=== PATIENT | female | born 1980 | race American Indian/Alaskan Native ===

== ENCOUNTER 2016-10-09 13:42 | Inpatient (IN) | payer OTHER ==
[2016-10-09] MEDS ORDERED: PROPOFOL 100 ML ONE ×2 (13:45→19:36)
[2016-10-09] MEDS ORDERED: ETOMIDATE 20 MG/10 ML AMPUL IVPUSH ONE ×5 (13:45→14:30)
[2016-10-09] MEDS ORDERED: RAPID SEQUENCE INTUBATION KIT NR ONE (13:49)
[2016-10-09] MEDS: PROPOFOL 100 ML IVPB SCH (13:50)
[2016-10-09] MEDS ORDERED: ALBUTEROL SO4 0.083% IH SOL 2.5 MG/3 ML VIAL.NEB. NEB ONE ×3 (14:03→15:06)
[2016-10-09] MEDS ORDERED: EPINEPHrine/PF 1 MG/1 ML (1:1,000) AMPULE ONE (14:11)
[2016-10-09] MEDS ORDERED: DEXAMETHASONE SOD PHOSPHATE 10 MG/1 ML VIAL ONE (14:11)
[2016-10-09] MEDS ORDERED: MAGNESIUM SULF 50% (8.12 MEQ/2 ML-1 GM VIAL) ONE (14:12)
[2016-10-09] MEDS ORDERED: SUCCINYLCHOLINE CHLORIDE 200 MG/10 ML VIAL ONE (14:12)
[2016-10-09] MEDS: ALBUTEROL SO4 2.5/IPRATROPIUM 0.5 INH SOL 3 ML VIAL.NEB. NEB SCH ×4 (14:15→15:00)
[2016-10-09] MEDS ORDERED: PROPOFOL 200 MG/20 ML VIAL IVPUSH ONE (14:15)
[2016-10-09] MEDS ORDERED: SUCCINYLCHOLINE CHLORIDE 200 MG/10 ML VIAL IVPUSH ONE (14:15)
[2016-10-09] MEDS ORDERED: methylPREDNISolone NA SUCC 125 MG/2 ML VIAL IVPB ONE (14:15)
[2016-10-09] MEDS ORDERED: SODIUM CHLORIDE 1,000 ML IV STA ×2 (14:15→18:53)
[2016-10-09] MEDS ORDERED: methylPREDNISolone NA SUCC 125 MG/2 ML VIAL ONE (14:20)
[2016-10-09] MEDS ORDERED: ROCURONIUM BROMIDE 50 MG/5 ML VIAL IVPUSH ONE (14:26)
[2016-10-09] MEDS ORDERED: AZITHROMYCIN IVPB 500 MG in DEXTROSE 5%-WATER - 250 ML IVPB ONE (14:37)
[2016-10-09] MEDS ORDERED: CEFTRIAXONE 1 GM in DEXTROSE 5%-WATER - 50 ML IVPB ONE (14:37)
[2016-10-09 15:04] LABS: BASOPHIL 0.8 % (0-2.0); EOSINOPHIL 10.3 % (0-4.5); MCH 29.8 pg (25.7-33.7); MCHC 32.5 g/dl (32.0-36.0); MEAN CELL VOLUME 91.7 fl (80-96); MEAN PLT VOLUME 9.1 fl (7.5-11.1); NEUTROPHILS 65.7 % (42.8-82.8); PLATELET COUNT 342 K/MM3 (134-434); RDW 13.8 % (11.6-15.6); WHITE BLOOD COUNT 13.8 K/mm3 (4.0-10.0)
--- NOTE | 2016-10-09 15:13 | PDOC ---
History of Present Illness <Narinder Perez - Last Filed: 10/09/16 15:04> - General History Source: EMS, Family Exam Limitations: Intubated - History of Present Illness Initial Comments: 10/09/16 15:25 The patient is a 36 year old female brought via EMS and presenting with her sister, with a significant past medical history of asthma, pneumonia and autism , who presents to the emergency department with asthma exacerbation onset today. The patient was brought in intubated at 1:40pm. As per EMS, they administered 0.3 Epi IM, 10 mg decadron, 20 of etomidate. They note that when they arrived on the scene the patient had an O2 saturation in the 40s, as well as wheezing inspiratory and expiratory wheezing. The patient's sister notes that the patient had an initial asthma exacerbation at 10am this morning and gave the patient duonebs, which mildly relieved the symptoms She notes that the patient had another exacerbation episode, which she treated with duonebs once again, as well as prednisone. The episode lasted 10 minutes before the patient collapsed and EMS was activated. The sister states that the patient also had a productive cough today. Allergies: None Past surgical history: None reported Social history: No alcohol, tobacco or drug use reported <Skip Gann - Last Filed: 10/09/16 16:59> - General Chief Complaint: Respiratory Arrest Stated Complaint: Respiratory Arrest Time Seen by Provider: 10/09/16 14:11 Past History - Past Medical History Anemia: No Asthma: Yes (with intubation) Cancer: No Cardiac Disorders: No CVA: No COPD: No CHF: No Dementia: No Diabetes: No GI Disorders: No Disorders: No HTN: No Hypercholesterolemia: No Liver Disease: No Psychiatric Problems: Yes (AUTISM) Seizures: No Thyroid Disease: No - Surgical History Abdominal Surgery: No Appendectomy: No Cardiac Surgery: No Cholecystectomy: No Lung Surgery: No Neurologic Surgery: No Orthopedic Surgery: No - Immunization History Immunization Up to Date: Yes - Psycho/Social/Smoking Cessation Hx Anxiety: No Suicidal Ideation: No Smoking Status: No Smoking History: Never smoked Have you smoked in the past 12 months: No Number of Cigarettes Smoked Daily: 0 Information on smoking cessation initiated: No Hx Alcohol Use: No Drug/Substance Use Hx: No Substance Use Type: None Hx Substance Use Treatment: No <Narinder Perez - Last Filed: 10/09/16 15:04> <Skip Gann - Last Filed: 10/09/16 16:59> - Past Medical History Allergies/Adverse Reactions: Allergies Allergy/AdvReac Type Severity Reaction Status Date / Time haloperidol [From Haldol] Allergy Verified 10/09/16 14:08 haloperidol lactate Allergy Verified 10/09/16 14:08 [From Haldol] Home Medications: Ambulatory Orders Albuterol 2.5/Ipratropium 0.5 [Duoneb -] 1 neb NEB QIDR #100 vial 08/11/14 Budesonide [Pulmicort 0.5 mg Nebulizer -] 1 neb NEB BID #60 vial 01/20/16 Polyethylene Glycol 3350 [Miralax (For Daily Use) -] 17 gm PO DAILY 10/09/16 Prednisone [Deltasone -] 20 mg PO BID 10/09/16 Review of Systems - Review of Systems Able to Perform ROS?: No Comments:: 10/09/16 15:21 Unable to obtain ROS due to the patient being intubated <Skip Gann - Last Filed: 10/09/16 16:59> *Physical Exam - Vital Signs Last Vital Signs Temp Pulse Resp BP Pulse Ox 96.7 F L 130 H 18 103/73 100 10/09/16 13:58 10/09/16 14:56 10/09/16 13:58 10/09/16 14:56 10/09/16 13:58 <Narinder Perez - Last Filed: 10/09/16 15:04> - Vital Signs Last Vital Signs Temp Pulse Resp BP Pulse Ox 96.7 F L 130 H 18 103/73 100 10/09/16 13:58 10/09/16 14:56 10/09/16 13:58 10/09/16 14:56 10/09/16 13:58 - Physical Exam Comments: 10/09/16 16:58 GENERAL: (+) Obtunded and intubated, very difficult to bag manually and not returning any volumes on ventilator HEAD: No signs of trauma, normocephalic, atraumatic EYES: PERRLA, EOMI, sclera anicteric, conjunctiva clear ENT: Auricles normal inspection, hearing grossly normal, nares patent, oropharynx clear without exudates. Moist mucosa NECK: Normal ROM, supple, no lymphadenopathy, JVD, or masses LUNGS: (+) Audible wheeze, very prolonged expiratory respiration in all cool. HEART: Regular rate and rhythm, normal S1 and S2, no murmurs, rubs or gallops, peripheral pulses normal and equal bilaterally. ABDOMEN: Soft, nontender, normoactive bowel sounds. No guarding, no rebound. No masses EXTREMITIES: Normal inspection, Normal range of motion, no edema. No clubbing or cyanosis. NEUROLOGICAL: (+) Deferred due to patient intubation. SKIN: Warm, Dry, normal turgor, no rashes or lesions noted. <Skip Gann - Last Filed: 10/09/16 16:59> ED Treatment Course - LABORATORY CBC & Chemistry Diagram: 10/09/16 14:50 10/09/16 14:50 - RADIOLOGY Radiology Studies Ordered: Category Date Time Status CHEST X-RAY PORTABLE* [RAD] Stat Radiology 10/09/16 13:53 Completed CXRPORT [CHEST X-RAY PORTABLE*] [RAD] Stat Radiology 10/09/16 14:11 Completed <Narinder Perez - Last Filed: 10/09/16 15:04> - LABORATORY CBC & Chemistry Diagram: 10/09/16 14:50 10/09/16 14:50 - ADDITIONAL ORDERS Additional order review: 10/09/16 14:50 RBC 3.91 MCV 91.7 MCHC 32.5 RDW 13.8 MPV 9.1 Neutrophils % 65.7 D Lymphocytes % 20.2 D Monocytes % 3.0 L Eosinophils % 10.3 H D Basophils % 0.8 D - Medications Given in the ED: ED Medications Discontinued Medications Generic Name Dose Route Start Last Admin Trade Name Freq PRN Reason Stop Dose Admin Albuterol Sulfate 8 amp 10/09/16 14:15 10/09/16 15:11 Ventolin 0.083% Nebulizer Soln - NEB 10/09/16 14:16 8 amp ONCE ONE Administration Albuterol/Ipratropium 1 amp 10/09/16 14:15 10/09/16 15:00 Duoneb - NEB 10/09/16 15:01 1 amp Q15M ZORAN Administration Etomidate 20 mg 10/09/16 14:15 10/09/16 13:46 Amidate - IVPUSH 10/09/16 14:16 20 mg ONCE ONE Administration Etomidate 20 mg 10/09/16 14:30 10/09/16 15:14 Amidate - IVPUSH 10/09/16 14:31 Not Given ONCE ONE Sodium Chloride 1,000 mls @ 1,000 mls/hr 10/09/16 14:15 10/09/16 14:15 Normal Saline - IV 10/09/16 15:14 1,000 mls/hr ASDIR STA Administration Methylprednisolone Sodium Succinate 125 mg 10/09/16 14:15 10/09/16 14:20 Solu-Medrol - IVPB 10/09/16 14:16 125 mg ONCE ONE Administration Propofol 40,000 mcg 10/09/16 14:15 10/09/16 14:00 Diprivan - IVPUSH 10/09/16 14:16 40,000 mcg ONCE ONE Administration Rocuronium [place] 60 mg 10/09/16 14:26 10/09/16 14:45 Zemuron - IVPUSH 10/09/16 14:27 60 mg ONCE ONE Administration Succinylcholine Chloride 120 mg 10/09/16 14:15 10/09/16 13:46 Quelicin - IVPUSH 10/09/16 14:16 120 mg ONCE ONE Administration <Skip Gann - Last Filed: 10/09/16 16:59> Medical Decision Making - Critical Care Time Total Critical Care Time (minutes): 60 Critical Care Statement: The care of this patient involved high complexity decision making to prevent further life threatening deterioration of the patient 's condition and/or to evalute & treat vital organ system(s) failure or risk of failure. - Medical Decision Making 10/09/16 15:23 The patient was difficult to ventilate on arrival. The intubation was 26 at the lip and had an O2 sat of 100. A chest x-ray was performed which showed that the the intubation was too far down and needed to be brought up by 4 inches. The intubation tube was readjusted to 22 at the lip. The patient was given propofol to help further sedate the patient but the patient was still not fully sedated and adequate ventilation could not be provided. Rocuronium was administered to paralyze the patient in order to provide adequate ventilation. Dr. Martinez was called regarding the patient at 2:25pm [phone] <Skip Gann - Last Filed: 10/09/16 16:59> *DC/Admit/Observation/Transfer - Discharge Dispostion Admit: Yes <Narinder Perez - Last Filed: 10/09/16 15:04> - Attestations Scribe Attestion: 10/09/16 15:22 Documentation prepared by Skip Gann, acting as medical insurance coder for Narinder Perez MD <Skip Gann - Last Filed: 10/09/16 16:59> Diagnosis at time of Disposition: Status asthmaticus, Respiratory failure - Referrals
[2016-10-09 15:15] LABS: INR 1.16 (0.82-1.09); PROTHROMBIN TIME (PATIENT) 12.8 SEC (9.98-11.88)
[2016-10-09] MEDS ORDERED: AZITHROMYCIN IVPB 250 ML IVPB ONE (15:17)
[2016-10-09] MEDS ORDERED: CEFTRIAXONE 50 ML ONE (15:17)
[2016-10-09 15:22] LABS: ALBUMIN 3.1 g/dl (3.4-5.0); ANION GAP 13 (8-16); BILIRUBIN,TOTAL 0.3 mg/dL (0.2-1.0); CALCIUM 7.1 mg/dL (8.5-10.1); CO2 18 mmol/L (21-32); CREATININE 0.9 mg/dL (0.55-1.02); GLUCOSE,RANDOM 226 mg/dL (74-106); SGPT/ALT 30 U/L (12-78); TOT PROT 6.2 g/dl (6.4-8.2)
[2016-10-09 15:25] LABS: ALK PHOS 77 U/L (45-117); TROPONIN I 0.05 ng/ml (0.00-0.05)
[2016-10-09 15:26] LABS: MAGNESIUM 3.1 mg/dL (1.8-2.4); SGOT/AST 51 U/L (15-37)
[2016-10-09 15:51] LABS: ARTERIAL BLD GAS O2 SATURATION 99.3 % (90-98.9); ARTERIAL BLOOD GAS BASE EXCESS -9.8 meq/l (-2-2); ARTERIAL BLOOD GAS HCO3 17.8 meq/L (22-26)
[2016-10-09 15:53] LABS: ALLENS TEST POSITIVE; ART PUNCT SITE RIGHT BRACHIAL; LPM/O2% 50%; MECH. VENT. Y; PT. ON O2? YES; TYPE OF O2 VENT; VENT RATE 12; VT/PRESS 350
--- NOTE | 2016-10-09 17:04 | CONSULT ---
Consult Consult Specialty:: infectious diseases Reason for Consultation:: pneumonia - History of Present Illness History of Present Illness: patient is intubated and sedated history obtained from the charts 36 year old female brought via EMS and presenting with her sister, with a significant past medical history of asthma, pneumonia and autism, who presents to the emergency department with asthma exacerbation onset today. The patient was brought in intubated at 1:40pm. As per EMS, they administered 0.3 Epi IM, 10 mg decadron, 20 of etomidate. They note that when they arrived on the scene the patient had an O2 saturation in the 40s, as well as wheezing inspiratory and expiratory wheezing. The patient's sister notes that the patient had an initial asthma exacerbation at 10am this morning and gave the patient duonebs, which mildly relieved the symptoms She notes that the patient had another exacerbation episode, which she treated with duonebs once again, as well as prednisone. The episode lasted 10 minutes before the patient collapsed and EMS was activated. The sister states that the patient also had a productive cough today. 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 No: Addictions - Alcohol/Substance Use Hx Alcohol Use: No - Smoking History Smoking history: Never smoked Have you smoked in the past 12 months: No Aproximately how many cigarettes per day: 0 - Social History ADL: Family Assistance History of Recent Travel: No Home Medications - Allergies Allergies/Adverse Reactions: Allergies Allergy/AdvReac Type Severity Reaction Status Date / Time haloperidol [From Haldol] Allergy Verified 10/09/16 14:08 haloperidol lactate Allergy Verified 10/09/16 14:08 [From Haldol] - Home Medications Home Medications: Ambulatory Orders Albuterol 2.5/Ipratropium 0.5 [Duoneb -] 1 neb NEB QIDR #100 vial 08/11/14 Budesonide [Pulmicort 0.5 mg Nebulizer -] 1 neb NEB BID #60 vial 01/20/16 Polyethylene Glycol 3350 [Miralax (For Daily Use) -] 17 gm PO DAILY 05/29/17 Prednisone [Deltasone -] 20 mg PO BID 10/09/16 Review of Systems Unable to obtain ROS, reason: unable to obtain Physical Exam Vital Signs: Vital Signs Temperature 96.7 F L 10/09/16 13:58 Pulse Rate 125 H 10/09/16 15:43 Respiratory Rate 20 10/09/16 16:07 Blood Pressure 129/92 10/09/16 15:43 O2 Sat by Pulse Oximetry (%) 100 10/09/16 15:43 Constitutional: Yes: Other Neck: Yes: Tenderness Respiratory: Yes: Intubated, Mechanically Ventilated, Other (decreased air entry ) Gastrointestinal: Yes: Normal Bowel Sounds, Soft Musculoskeletal: Yes: WNL Extremities: Yes: WNL Neurological: Yes: Other Psychiatric: Yes: Other Imaging - Results Chest X-ray: Report Reviewed, Image Reviewed Assessment/Plan Acute Asthma Exacerbation Acute Hypoxic Respiratory Failure Lactic Acidosis likely due to hypoxic respiratory failure Autism i do not think that there is infection more of asthamatic exacerebration,but since patient is intubated and has chances of getting infection i am going to start abx on the aptient once patient is extubated will deescalate plan will stat zosyn rest as per icu rest support monitor lactic acid cc time 45 min
[2016-10-09] MEDS ORDERED: LORazepam 2 MG/ML SDV VIAL ONE ×2 (17:21→18:31)
[2016-10-09] MEDS ORDERED: LORAZEPAM CARPU-JECT 2 MG/ML DISP.SYRIN IVPUSH ONE ×2 (17:31→18:53)
[2016-10-09 17:53] LABS: URINE APPEARANCE CLEAR; URINE BILIRUBIN NEGATIVE (NEGATIVE); URINE COLOR COLORLESS; URINE GLUCOSE (UA) 3+ (NEGATIVE); URINE KETONE NEGATIVE (NEGATIVE); URINE LEUK ESTERASE NEGATIVE (NEGATIVE); URINE NITRITE NEGATIVE (NEGATIVE); URINE PROTEIN NEGATIVE (NEGATIVE); URINE UROBILINOGEN NEGATIVE E.U./dl (0.2-1.0)
[2016-10-09 17:55] LABS: URINE BLOOD 1+ (NEGATIVE)
[2016-10-09 17:56] LABS: URINE HYALINE CAST 4 /lpf; URINE MUCUS RARE; URINE RBC <1 /hpf (0-3)
[2016-10-09] MEDS ORDERED: SODIUM CHLORIDE 2,000 ML IV STA (18:50)
[2016-10-09] MEDS: PIPERACILLIN/TAZOB 2.25 GM 50 ML IVPB SCH (19:00)
[2016-10-09] MEDS ORDERED: FENTANYL INJECTION 500 MCG in DEXTROSE 5%-WATER - 90 ML IJ SCH (19:45)
[2016-10-09 20:45] LABS: ALLENS TEST POSITIVE; ART PUNCT SITE LEFT RADIAL; ARTERIAL BLD GAS O2 SATURATION 99.2 % (90-98.9); ARTERIAL BLOOD GAS BASE EXCESS -11.2 meq/l (-2-2); PT. ON O2? YES
[2016-10-09 20:46] LABS: LPM/O2% 40%; MECH. VENT. YES; TYPE OF O2 MECH VENT; VENT RATE 12; VT/PRESS 400
[2016-10-09 20:48] LABS: ARTERIAL BLOOD GAS HCO3 14.7 meq/L (22-26); ARTERIAL BLOOD GAS pH 7.25 (7.35-7.45)
--- NOTE | 2016-10-09 21:42 | CONSULT ---
Consult - text type - Consultation Consultation Note: PULM/CCM Pt seen and examined in the ICU CC: respiratory failure, asthma exacerbation HPI: Ms Bass is a 36 y/o woman with pmhx of autism and asthma (multiple hospitalizations, 1 prior intubation 3 yrs ago, on MV x 1 day). He asthma has been difficult to control. Family often is compelled to give extra nebulizers as every few months a course of steroids. He medical management is limited by resistance and agitation by pt during interactions with medical staff/blood draws etc. There are no clear triggers, she has had allergy testing many years back. There is some seasonality to her exacerbations. This morning she was noted to have a productive cough and wheezes. She was given duonebs by her sister with some initial improvement. She became increasing short of breath which was not responsive to more nebs and prednisone. She "collapsed" around 10am and 911 was activated. On EMS arrival pt was profoundly hypoxic. She was intubated in the field, given epi and stacked nebs. She was transferred to ED. In ED pt was difficult to ventilate with high airway pressures and poor volumes. She was sedated and paralyzed with Rocuronium. CXR showed hyperinflation and R mainstem intubation. ETT was pulled back with some improvement. Multiple liters of fluid were given for lactate 6 and soft BP, lactate subsquently came down. Cxr did not show infiltrate but given severity of illness and productive cough this morning pt was started on Ceftriaxone and Azith for CAP. She remained sedated in ED, ease of ventilation improved with improvement in ABG. Transferred to ICU for further care. 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 Asthma Gastrointestinal Other (fecal impaction) Psych Other (Autism) Social History Smoking history Never smoked Have you smoked in the past 12 No months Hx Alcohol Use No Usual Living Arrangement With Parent,Other ADL Family Assistance Vital Signs Temp 95.4 F L 05/29/17 20:16 Pulse 99 H 10/09/16 20:30 Resp 16 10/09/16 20:30 BP 90/70 10/09/16 20:30 Pulse Ox 100 10/09/16 17:00 Intake & Output 10/08/16 10/09/16 10/09/16 23:59 11:59 23:59 Intake Total 1000 Output Total 20 Balance 980 Weight 46.72 kg Intake: IV 1000 Normal Saline - 1,000 ml 1000 @ 1000 mls/hr IV ASDIR STA Rx#:[id number] Output: Urine 20 Ferrell 20 Other: Height 5 ft 1 in Body Mass Index (BMI) 19.4 CBC, BMP 10/09/16 14:50 10/09/16 14:50 ABG Results ABG pH 7.25 (7.35-7.45) L 10/09/16 20:33 ABG pCO2 at Pt Temp 34.5 mmHg (35-45) L D 10/09/16 20:33 ABG pO2 at Pt Temp 180.0 mmHg (80-100) H* 10/09/16 20:33 ABG HCO3 14.7 meq/L (22-26) L* 10/09/16 20:33 ABG O2 Sat (Measured) 99.2 % (90-98.9) H 10/09/16 20:33 ABG O2 Content 15.2 % vol (15-22) 10/09/16 20:33 ABG Base Excess -11.2 meq/l (-2-2) L* 10/09/16 20:33 ROS: unable intubated EXAM: GEN: sedated, intubated HEENT: PERRL PULM: good air entry, currently no wheezes, PIP 32 with Flow of 80L/min CV: RRR, no m/r/g ABD: soft, non idtended EXT: no edema Integ: no rash Neuro: deeply sedated. RASS -4 Back:intact CXR: mild hyperinflation, ETT pulled back into satisfactory position, no infiltrate or pneumothorax A/: 36 y/o autistic woman with Asthma exacerbation now intubated P/ -full vent support, increase flow and decrease TV as needed to minimize airtrapping -target normal pH -keep well sedated until exacerbation breaks, cont propofol and fentanyl -cont steroids, can taper to 60 methylpred if cont improvement -stacked nebs, decrease frequency as needed -agree with CAP coverage, send sputum and viral swab -bowel regimen, TF -GI and DVT prophy -ICU level care required Trey Ramos ACNP [id number] 35min CCT
--- NOTE | 2016-10-09 22:39 | HP ---
Admitting History and Physical - Primary Care Physician PCP: Rommel Feldman - Admission History of Present Illness: a 36 year old female brought via EMS and presenting with her sister, with a significant past medical history of asthma, pneumonia and autism, who presents to the emergency department with asthma exacerbation onset today. The patient was brought in intubated at 1:40pm. As per EMS, they administered 0.3 Epi IM, 10 mg decadron, 20 of etomidate. They note that when they arrived on the scene the patient had an O2 saturation in the 40s, as well as wheezing inspiratory and expiratory wheezing. The patient's sister notes that the patient had an initial asthma exacerbation at 10am this morning and gave the patient duonebs, which mildly relieved the symptoms She notes that the patient had another exacerbation episode, which she treated with duonebs once again, as well as prednisone. The episode lasted 10 minutes before the patient collapsed and EMS was activated. The sister states that the patient also had a productive cough today. 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 No: Addictions - Smoking History Smoking history: Never smoked Have you smoked in the past 12 months: No Aproximately how many cigarettes per day: 0 - Alcohol/Substance Use Hx Alcohol Use: No - Social History ADL: Family Assistance History of Recent Travel: No Home Medications - Allergies Allergies/Adverse Reactions: Allergies Allergy/AdvReac Type Severity Reaction Status Date / Time haloperidol [From Haldol] Allergy Verified 10/09/16 14:08 haloperidol lactate Allergy Verified 10/09/16 14:08 [From Haldol] - Home Medications Home Medications: Ambulatory Orders Albuterol 2.5/Ipratropium 0.5 [Duoneb -] 1 neb NEB QIDR #100 vial 08/11/14 Budesonide [Pulmicort 0.5 mg Nebulizer -] 1 neb NEB BID #60 vial 01/20/16 Polyethylene Glycol 3350 [Miralax (For Daily Use) -] 17 gm PO DAILY 10/09/16 Prednisone [Deltasone -] 20 mg PO BID 10/09/16 Physical Examination Vital Signs: Vital Signs Temperature 95.4 F L 10/09/16 20:16 Pulse Rate 99 H 10/09/16 20:30 Respiratory Rate 16 10/09/16 21:30 Blood Pressure 90/70 10/09/16 20:30 O2 Sat by Pulse Oximetry (%) 100 10/09/16 17:00 HENT: Yes: Atraumatic Neck: Yes: Supple Cardiovascular: Yes: Regular Rate and Rhythm Respiratory: Yes: Rhonchi, Wheezes Gastrointestinal: Yes: Normal Bowel Sounds Extremities: Yes: WNL Neurological: Yes: Other (intubated and sedated) Problem List - Problems (1) Respiratory failure Assessment/Plan: pt intubated and sedated Code(s): J96.90 - RESPIRATORY FAILURE, UNSP, UNSP W HYPOXIA OR HYPERCAPNIA (2) Status asthmaticus Code(s): J45.902 - UNSPECIFIED ASTHMA WITH STATUS ASTHMATICUS (3) Autism Code(s): F84.0 - AUTISTIC DISORDER (4) Asthma Assessment/Plan: iv steroids duo nebs Code(s): J45.909 - UNSPECIFIED ASTHMA, UNCOMPLICATED (5) Pneumonia Assessment/Plan: iv abx Code(s): J18.9 - PNEUMONIA, UNSPECIFIED ORGANISM (6) Lactic acidosis Code(s): E87.2 - ACIDOSIS Assessment/Plan Laboratory Tests 10/09/16 10/09/16 10/09/16 14:17 14:50 14:50 WBC 13.8 H RBC 3.91 Hgb 11.6 Hct 35.8 MCV 91.7 MCHC 32.5 RDW 13.8 Plt Count 342 MPV 9.1 Neutrophils % 65.7 D Lymphocytes % 20.2 D Monocytes % 3.0 L Eosinophils % 10.3 H D Basophils % 0.8 D INR 1.16 H Puncture Site ABG pH ABG pCO2 at Pt Temp ABG pO2 at Pt Temp ABG HCO3 ABG O2 Sat (Measured) ABG O2 Content ABG Base Excess Kieran Test Carboxyhemoglobin 0.5 Methemoglobin 1.0 O2 Delivery Device Oxygen Flow Rate Vent Mode Vent Rate Mechanical Rate PEEP Pressure Support Vent Sodium Potassium Chloride Carbon Dioxide Anion Gap BUN Creatinine Creat Clearance w eGFR POC Glucometer Random Glucose Lactic Acid Calcium Magnesium Total Bilirubin AST ALT Alkaline Phosphatase Creatine Kinase CK-MB (CK-2) Troponin I B-Natriuretic Peptide Total Protein Albumin Urine Color Urine Appearance Urine pH Ur Specific [place] Urine Protein Urine Glucose (UA) Urine Ketones Urine Blood Urine Nitrite Urine Bilirubin Urine Urobilinogen Ur Leukocyte Esterase Urine RBC Urine WBC Hyaline Casts Urine Mucus 10/09/16 10/09/16 10/09/16 14:50 14:50 15:13 WBC RBC Hgb Hct MCV MCHC RDW Plt Count MPV Neutrophils % Lymphocytes % Monocytes % Eosinophils % Basophils % INR Puncture Site Right brachial ABG pH 7.20 L* D ABG pCO2 at Pt Temp 47.9 H D ABG pO2 at Pt Temp 276.0 H* ABG HCO3 17.8 L ABG O2 Sat (Measured) 99.3 H ABG O2 Content 17.1 ABG Base Excess -9.8 L Kieran Test Positive Carboxyhemoglobin Methemoglobin O2 Delivery Device Vent Oxygen Flow Rate 50% Vent Mode A/c Vent Rate 12 Mechanical Rate Y PEEP 5.0 Pressure Support Vent 350 Sodium 139 Potassium 4.7 Chloride 108 H Carbon Dioxide 18 L D Anion Gap 13 BUN 12 Creatinine 0.9 D Creat Clearance w eGFR > 60 POC Glucometer Random Glucose 226 H D Lactic Acid 6.0 H* Calcium 7.1 L D Magnesium 3.1 H D Total Bilirubin 0.3 AST 51 H D ALT 30 Alkaline Phosphatase 77 Creatine Kinase 255 H CK-MB (CK-2) 2.671 Troponin I 0.05 B-Natriuretic Peptide 64.59 Total Protein 6.2 L Albumin 3.1 L D Urine Color Urine Appearance Urine pH Ur Specific [place] Urine Protein Urine Glucose (UA) Urine Ketones Urine Blood Urine Nitrite Urine Bilirubin Urine Urobilinogen Ur Leukocyte Esterase Urine RBC Urine WBC Hyaline Casts Urine Mucus 10/09/16 10/09/16 10/09/16 17:40 18:25 20:10 WBC RBC Hgb Hct MCV MCHC RDW Plt Count MPV Neutrophils % Lymphocytes % Monocytes % Eosinophils % Basophils % INR Puncture Site ABG pH ABG pCO2 at Pt Temp ABG pO2 at Pt Temp ABG HCO3 ABG O2 Sat (Measured) ABG O2 Content ABG Base Excess Kieran Test Carboxyhemoglobin Methemoglobin O2 Delivery Device Oxygen Flow Rate Vent Mode Vent Rate Mechanical Rate PEEP Pressure Support Vent Sodium Potassium Chloride Carbon Dioxide Anion Gap BUN Creatinine Creat Clearance w eGFR POC Glucometer [id number] Random Glucose Lactic Acid 6.2 H* Calcium Magnesium Total Bilirubin AST ALT Alkaline Phosphatase Creatine Kinase CK-MB (CK-2) Troponin I B-Natriuretic Peptide Total Protein Albumin Urine Color Colorless Urine Appearance Clear Urine pH 5.0 Ur Specific [place] 1.015 Urine Protein Negative Urine Glucose (UA) 3+ H Urine Ketones Negative Urine Blood 1+ H Urine Nitrite Negative Urine Bilirubin Negative Urine Urobilinogen Negative Ur Leukocyte Esterase Negative Urine RBC <1 Urine WBC None Hyaline Casts 4 Urine Mucus Rare 10/09/16 10/09/16 20:33 20:37 WBC RBC Hgb Hct MCV MCHC RDW Plt Count MPV Neutrophils % Lymphocytes % Monocytes % Eosinophils % Basophils % INR Puncture Site Left radial ABG pH 7.25 L ABG pCO2 at Pt Temp 34.5 L D ABG pO2 at Pt Temp 180.0 H* ABG HCO3 14.7 L* ABG O2 Sat (Measured) 99.2 H ABG O2 Content 15.2 ABG Base Excess -11.2 L* Kieran Test Positive Carboxyhemoglobin Methemoglobin O2 Delivery Device Mech vent Oxygen Flow Rate 40% Vent Mode A/c Vent Rate 12 Mechanical Rate Yes PEEP 5.0 Pressure Support Vent 400 Sodium Potassium Chloride Carbon Dioxide Anion Gap BUN Creatinine Creat Clearance w eGFR POC Glucometer Random Glucose Lactic Acid 3.4 H* Calcium Magnesium Total Bilirubin AST ALT Alkaline Phosphatase Creatine Kinase CK-MB (CK-2) Troponin I B-Natriuretic Peptide Total Protein Albumin Urine Color Urine Appearance Urine pH Ur Specific [place] Urine Protein Urine Glucose (UA) Urine Ketones Urine Blood Urine Nitrite Urine Bilirubin Urine Urobilinogen Ur Leukocyte Esterase Urine RBC Urine WBC Hyaline Casts Urine Mucus Active Medications Generic Name Dose Route Start Last Admin Trade Name Bill PRN Reason Stop Dose Admin Propofol 100 mls @ 1.402 mls/hr 10/09/16 14:15 10/09/16 17:40 Diprivan - IVPB 30 mcg/kg/min TITR ZORAN Titration Protocol 5 MCG/KG/MIN Piperacillin Sod/Tazobactam Sod 50 mls @ 100 mls/hr 10/09/16 18:00 10/09/16 19: 00 Zosyn 2.25gm Ivpb (Pre-Docked) IVPB 100 mls/hr Q8H-IV ZORAN Administration Protocol Fentanyl 500 mcg/ Dextrose 100 mls @ 5 mls/hr 10/09/16 19:45 10/09/16 20:25 IJ 10/10/16 19:44 5 mls/hr TITR ZORAN Administration 25 MCG/HR d/w family history and treatment plan cc time 60 min
[2016-10-09 23:19] VITALS: BMI 19.3
[2016-10-09] MEDS: SODIUM CHLORIDE 1,000 ML IV SCH (23:47)
[2016-10-09] MEDS: HEPARIN NA (PORCINE) 5,000 UNITS/ML 1ML VIAL SQ SCH (23:49)
[2016-10-10] MEDS: PIPERACILLIN/TAZOB 2.25 GM 50 ML IVPB SCH ×2 (01:51→10:46)
[2016-10-10] MEDS: ALBUTEROL SO4 2.5/IPRATROPIUM 0.5 INH SOL 3 ML VIAL.NEB. NEB SCH ×5 (03:26→17:15)
[2016-10-10 06:24] LABS: MCH 29.4 pg (25.7-33.7); MCHC 33.2 g/dl (32.0-36.0); MEAN CELL VOLUME 88.7 fl (80-96); MEAN PLT VOLUME 8.7 fl (7.5-11.1); PLATELET COUNT 261 K/MM3 (134-434); RDW 13.8 % (11.6-15.6); WHITE BLOOD COUNT 10.2 K/mm3 (4.0-10.0)
[2016-10-10] MEDS: methylPREDNISolone NA SUCC 125 MG/2 ML VIAL IVPB SCH ×4 (06:37→18:53)
[2016-10-10 06:48] LABS: CALCIUM 7.1 mg/dL (8.5-10.1); COCKROFT - GAULT 98.6765; CREATININE 0.6 mg/dL (0.55-1.02); PHOSPHOROUS 3.4 mg/dL (2.5-4.9)
--- NOTE | 2016-10-10 07:06 | PN ---
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 (short form) - Note 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: Chief Complaint: Events noted, notes reviewed, intubated and sedated in sinus rhythm History of Present Illness: Seen and examined in the ICU. Full consult dictated - Current Medication List Current Medications Albuterol/Ipratropium (Duoneb -) 1 amp NEB Q4H [facility] Stop: 10/10/16 07:16 Last Admin: 10/10/16 03:26 Dose: 1 amp Heparin Sodium (Porcine) (Heparin -) 5,000 unit SQ BID [facility] Last Admin: 10/09/16 23:49 Dose: 5,000 unit Propofol (Diprivan -) 100 mls @ 1.402 mls/hr IVPB TITR ZORAN; 5 MCG/KG/MIN PRN Reason: Protocol Last Titration: 10/10/16 01:51 Dose: 40 mcg/kg/min Piperacillin Sod/Tazobactam Sod (Zosyn 2.25gm Ivpb (Pre-Docked)) 50 mls @ 100 mls/hr IVPB Q8H-IV [facility] PRN Reason: Protocol Last Admin: 10/10/16 01:51 Dose: 100 mls/hr Fentanyl 500 mcg/ Dextrose 100 mls @ 5 mls/hr IJ TITR ZORAN PRN Reason: 25 MCG/HR Stop: 10/10/16 19:44 Last Titration: 10/10/16 01:51 Dose: 35 mcg/hr Sodium Chloride (Normal Saline -) 1,000 mls @ 42 mls/hr IV ASDIR [facility] Last Admin: 10/09/16 23:47 Dose: 42 mls/hr Methylprednisolone Sodium Succinate (Solu-Medrol -) 60 mg IVPB DAILY [facility] Last Admin: 10/10/16 06:37 Dose: 60 mg Review of Systems Unable to Obtain - Objective Vital Signs: Last Vital Signs Temp Pulse Resp BP Pulse Ox 97.4 F L 87 15 92/56 100 10/10/16 06:00 10/10/16 06:00 10/10/16 06:00 10/10/16 06:00 10/09/16 23:20 Neck: Supple Negative JVD No Bruit Cardiovascular: S1 S2 Regular Rate and Rhythm No Murmurs Clicks or Gallops Respiratory: Diminished Breath Sounds at the Bases Gastrointestinal: Soft Benign Normal Bowel Sounds Ext: Negative Edema Labs: Troponin, BNP 10/09/16 14:50 Troponin I 0.05 B-Natriuretic Peptide 64.59 CBC, BMP 10/10/16 05:20 10/10/16 05:20 Assessment/Plan ASSESSMENT: 1. Respiratory failure related to acute exacerbation of bronchial asthma, prior history of respiratory failure/intubation, prior history of broncho-pneumonia 2. Lactic acidosis, related to above, broncho-pneumonia to be considered 3. Sinus tachycardia, reactionary to above, no clinical indication of structural heart disease 4. Anemia 5. History of chronic constipation 6. History of autism PLAN: 1. No cardiovascular intervention indicated for the above noted reactionary sinus tachycardia 2. Echocardiography to evaluate RV function and RVSP 3. Steroids and bronchodilators as per the ICU/CC team 4. Ventilator management as per the ICU/CC team Yajaira Maciel MD
[2016-10-10 07:39] LABS: ALLENS TEST POSITIVE; ARTERIAL BLD GAS O2 SATURATION 99.1 % (90-98.9); ARTERIAL BLOOD GAS BASE EXCESS -8.2 meq/l (-2-2); ARTERIAL BLOOD GAS HCO3 17.2 meq/L (22-26)
[2016-10-10 07:40] LABS: ART PUNCT SITE RIGHT RADIAL; ARTERIAL BLOOD GAS pH 7.29 (7.35-7.45); LPM/O2% 40; MECH. VENT. YES; PT. ON O2? YES; TYPE OF O2 VENT; VENT RATE 12; VT/PRESS 350
--- NOTE | 2016-10-10 08:00 | PN ---
Physical Exam: SUBJECTIVE: Patient seen and examined at bedside this morning in ICU. Family present & provided additional history. As per family, patient has been having a "bad month" with her asthma & has required additional duoneb treatments at home than usual. Afebrile overnight with improved oxygen saturation & improved aeration on auscultation s/p intubation. No wheezing or accessory muscle use during my examination and patient looked comfortable in bed. Will extubate later in afternoon. OBJECTIVE: Vital Signs Period Temp Pulse Resp BP Sys/Cheema Pulse Ox Last 24 Hr 95.4 F-97.6 F 82-125 12-25 82-129/47-92 100-100 GENERAL: Intubated & sedated. Resting comfortably in bed. HEENT: Atraumatic, EOMI, PERRLA, No lymphadenopathy noted, moist membranes. LUNGS: Minimally diminished breath sounds at bilateral lung bases but no wheezing or crackles noted. No accessory muscle use. HEART: Regular rate (borderline tachycardic at times) and rhythm, S1, S2 without murmur, rub or gallop. ABDOMEN: Soft, nontender, nondistended, normoactive bowel sounds EXTREMITIES: 2+ pulses, warm, well-perfused, no edema. NEUROLOGICAL: deferred due to clinical condition PSYCH: deferred due to clinical condition SKIN: Warm, dry, normal turgor, no rashes or lesions noted Laboratory Results - last 24 hr 10/09/16 10/09/16 10/09/16 17:40 18:25 20:10 WBC RBC Hgb Hct MCV MCHC RDW Plt Count MPV Puncture Site ABG pH ABG pCO2 at Pt Temp ABG pO2 at Pt Temp ABG HCO3 ABG O2 Sat (Measured) ABG O2 Content ABG Base Excess Kieran Test O2 Delivery Device Oxygen Flow Rate Vent Mode Vent Rate Mechanical Rate PEEP Pressure Support Vent Sodium Potassium Chloride Carbon Dioxide Anion Gap BUN Creatinine POC Glucometer [id number] Random Glucose Lactic Acid 6.2 H* Calcium Phosphorus Magnesium Urine Color Colorless Urine Appearance Clear Urine pH 5.0 Ur Specific [place] 1.015 Urine Protein Negative Urine Glucose (UA) 3+ H Urine Ketones Negative Urine Blood 1+ H Urine Nitrite Negative Urine Bilirubin Negative Urine Urobilinogen Negative Ur Leukocyte Esterase Negative Urine RBC <1 Urine WBC None Hyaline Casts 4 Urine Mucus Rare 10/09/16 10/09/16 10/10/16 20:33 20:37 05:20 WBC 10.2 H RBC 3.46 L Hgb 10.2 L D Hct 30.7 L MCV 88.7 MCHC 33.2 RDW 13.8 Plt Count 261 D MPV 8.7 Puncture Site Left radial ABG pH 7.25 L ABG pCO2 at Pt Temp 34.5 L D ABG pO2 at Pt Temp 180.0 H* ABG HCO3 14.7 L* ABG O2 Sat (Measured) 99.2 H ABG O2 Content 15.2 ABG Base Excess -11.2 L* Kieran Test Positive O2 Delivery Device [facility] vent Oxygen Flow Rate 40% Vent Mode A/c Vent Rate 12 Mechanical Rate Yes PEEP 5.0 Pressure Support Vent 400 Sodium Potassium Chloride Carbon Dioxide Anion Gap BUN Creatinine POC Glucometer Random Glucose Lactic Acid 3.4 H* Calcium Phosphorus Magnesium Urine Color Urine Appearance Urine pH Ur Specific [place] Urine Protein Urine Glucose (UA) Urine Ketones Urine Blood Urine Nitrite Urine Bilirubin Urine Urobilinogen Ur Leukocyte Esterase Urine RBC Urine WBC Hyaline Casts Urine Mucus 10/10/16 10/10/16 05:20 07:20 WBC RBC Hgb Hct MCV MCHC RDW Plt Count MPV Puncture Site Right radial ABG pH 7.29 L ABG pCO2 at Pt Temp 36.6 ABG pO2 at Pt Temp 149.0 H D ABG HCO3 17.2 L ABG O2 Sat (Measured) 99.1 H ABG O2 Content 15.4 ABG Base Excess -8.2 L Kieran Test Positive O2 Delivery Device Vent Oxygen Flow Rate 40 Vent Mode A/c Vent Rate 12 Mechanical Rate Yes PEEP 5.0 Pressure Support Vent 350 Sodium 144 Potassium 3.9 Chloride 114 H Carbon Dioxide 20 L Anion Gap 10 BUN 7 D Creatinine 0.6 D POC Glucometer Random Glucose 119 H D Lactic Acid Calcium 7.1 L Phosphorus 3.4 D Magnesium 2.0 D Urine Color Urine Appearance Urine pH Ur Specific [place] Urine Protein Urine Glucose (UA) Urine Ketones Urine Blood Urine Nitrite Urine Bilirubin Urine Urobilinogen Ur Leukocyte Esterase Urine RBC Urine WBC Hyaline Casts Urine Mucus Active Medications Generic Name Dose Route Start Last Admin Trade Name Freq PRN Reason Stop Dose Admin Heparin Sodium (Porcine) 5,000 unit 10/09/16 22:45 10/09/16 23:49 Heparin - SQ 5,000 unit BID [facility]ORAN Administration Propofol 100 mls @ 1.402 mls/hr 10/09/16 14:15 10/10/16 01:51 Diprivan - IVPB 40 mcg/kg/min TITR ZORAN Titration Protocol 5 MCG/KG/MIN Piperacillin Sod/Tazobactam Sod 50 mls @ 100 mls/hr 10/09/16 18:00 10/10/16 01: 51 Zosyn 2.25gm Ivpb (Pre-Docked) IVPB 100 mls/hr Q8H-IV [facility]AN Administration Protocol Fentanyl 500 mcg/ Dextrose 100 mls @ 5 mls/hr 10/09/16 19:45 10/10/16 01:51 IJ 10/10/16 19:44 35 mcg/hr TITR ZORAN Titration 25 MCG/HR Sodium Chloride 1,000 mls @ 42 mls/hr 10/09/16 22:45 10/09/16 23:47 Normal Saline - IV 42 mls/hr ASDIR [facility]ORAN Administration Methylprednisolone Sodium Succinate 60 mg 10/10/16 06:00 10/10/16 06:37 Solu-Medrol - IVPB 60 mg DAILY [facility] Administration ASSESSMENT/PLAN: Patient is an autistic 36 year old female with PMH of Asthma (multiple exacerbations, intubated x1, on Duoneb treatments & Pulmicort at home) who presented to ED s/p collapse at home. EMS noted oxygen saturation to be in mid to low 40% so intubated at scene. Currently intubated & sedated in ICU. #Acute respiratory Failure, secondary to status asthmaticus -extubated this afternoon, saturating well on ventimask -stopped antibiotics, do not suspect infectious component -Solumedrol 60mg IV q8h, will taper -Duonebs QIDR -CXR reviewed -blood, urine, sputum cultures ordered -respiratory virus panel ordered -ID Consult appreciated #Lactic Acidosis, respiratory etiology -resolving with IVF administration (received 4 liters NS in ED) -IVF NS@42cc/hr -will continue to trend #Tachycardia, resolving -likely secondary to acute asthmatic exacerbation -resolved at present (still borderline HR at times this morning) -ECHO ordered -Cardiology consult appreciated Prophylaxis/FEN -Heparin -PPI -IVF NS@42cc/hr -will monitor electrolytes -NPO at present Visit type - Emergency Visit Emergency Visit: Yes ED Registration Date: 10/09/16 Care time: The patient presented to the Emergency Department on the above date and was hospitalized for further evaluation of their emergent condition. - New Patient This patient is new to me today: Yes Date on this admission: 10/10/16 - Critical Care Critical Care patient: Yes Total Critical Care Time (in minutes): 50 Critical Care Statement: The care of this patient involved high complexity decision making to prevent further life threatening deterioration of the patient 's condition and/or to evalute & treat vital organ system(s) failure or risk of failure.
--- NOTE | 2016-10-10 08:50 | CONS ---
DATE OF CONSULTATION: 08/10/2016 REQUESTING PHYSICIAN: Hospitalist. CHIEF COMPLAINT: Evaluation of sinus tachycardia. HISTORY OF PRESENT ILLNESS: History was predominantly obtained from the family, the chart. Mother and sister are at the bedside. Patient currently is sedated and intubated. This 36-year-old female of [place] descent with known history of bronchial asthma, prior history of respiratory failure requiring intubation, advanced autism, and in addition, chronic constipation, who denied any prior history of structural heart disease, presented to [facility] with respiratory distress related to exacerbation of the above noted bronchial asthma. Patient was intubated and subsequently required sedation for purpose of adequate ventilation. Sinus tachycardia was noted in view of which cardiovascular evaluation was requested. As noted above, patient currently is intubated and sedated in sinus rhythm and the above noted sinus tachycardia has resolved. Upon questioning the mother and the sister, there is no history of congenital heart disease. As noted above, patient was intubated in the past related to exacerbation of the above noted bronchial asthma, and on occasion, she has had bronchial pneumonia. Patient, in addition, has advanced autism. No additional history is obtainable. PAST MEDICAL HISTORY: Bronchial asthma, several exacerbations requiring intubation, bronchial pneumonia, autism, chronic constipation. PAST SURGICAL HISTORY: None. SOCIAL HISTORY: She resides at home with family. No history of tobacco abuse or alcohol intake. FAMILY HISTORY: No family history of premature coronary artery disease. ALLERGIES: To HALDOL. MEDICAL THERAPY: Currently includes: 1. Duo-Neb nebulizer. 2. Subcutaneous heparin 5000 units twice a day. 3. Propofol drip. 4. Zosyn as prescribed every 8 hours. 5. Fentanyl and Solu-Medrol 60 mg once daily. REVIEW OF SYSTEMS: Not obtainable. PHYSICAL EXAMINATION: Vital signs: Blood pressure is 92/56 mmHg, pulse rate is 87 beats per minute, temperature 97.4. Head and neck: Pupils are equally reactive to light and accommodation. Extraocular muscles cannot be evaluated since the patient is intubated. Anicteric sclerae. Neck supple, negative JVD, no bruit appreciated. Chest: Diminished breath sounds at the bases, minimal scattered rhonchi. Cardiovascular: S1, S2 regular. No murmurs, clicks, or gallops. Abdomen: Soft, benign. Normoactive bowel sounds. Extremities: Negative edema. Intact distal pulses. No calf tenderness. STUDIES: Electrocardiogram not in the chart. Monitor reveals sinus rhythm. CBC revealed white cell count 10.2, hemoglobin 10.2, platelet count 261. Basic metabolic profile revealed sodium 144, potassium 3.9, BUN 7, creatinine 0.6, glucose 119. Troponin 0.05. B-type natriuretic peptide 64.59. Chest x-ray report was noted. ASSESSMENT: 1. Respiratory failure related to acute exacerbation of bronchial asthma, prior history of respiratory failure/intubation, prior history of bronchial pneumonia, lactic acidosis related to above, bronchial pneumonia to be considered as a differential. 2. Sinus tachycardia, reactionary to above. No clinical indication of structural heart disease. 3. Anemia. 4. History of chronic constipation. 5. History of autism. RECOMMENDATION: 1. No cardiovascular intervention indicated for the above noted reactionary sinus tachycardia. 2. Echocardiography for evaluation of right ventricular systolic function and right ventricular systolic pressure. 3. Steroids and bronchodilators as per the critical care team. 4. Vent management as per the critical care team. Thank you for the kind referral. EVAN PARRA M.D. [id number]
[2016-10-10] MEDS: HEPARIN NA (PORCINE) 5,000 UNITS/ML 1ML VIAL SQ SCH ×2 (10:45→22:14)
[2016-10-10] MEDS: PROPOFOL 100 ML IVPB SCH (10:46)
--- NOTE | 2016-10-10 13:08 | PN ---
Teaching Attending Note Name of Resident: Thomas Tate ATTENDING PHYSICIAN STATEMENT I saw and evaluated the patient. I reviewed the resident's note and discussed the case with the resident. I agree with the resident's findings and plan as documented. SUBJECTIVE: Pt seen and examined in the ICU. Remained intubated, sedated overnight. Placed on CPAP/PS trials, tolerated while on sedation. Sedation stopped and subsequently extubated. No fevers recorded. OBJECTIVE: Last Vital Signs Temp Pulse Resp BP Pulse Ox 97.5 F L 84 16 97/60 98 10/10/16 07:43 10/10/16 10:35 10/10/16 09:20 10/10/16 07:43 10/10/16 10:35 Intake & Output 10/07/16 10/08/16 10/09/16 10/10/16 23:59 23:59 23:59 23:59 Intake Total 1000 580 Output Total 220 700 Balance 780 -120 Weight 102 lb 104 lb 5 oz Gen: intubated, sedated Heart: RRR Lung: scattered rhonchi Abd: soft, nontender Ext: no edema CBC, BMP 10/10/16 05:20 10/10/16 05:20 Active Medications Albuterol/Ipratropium (Duoneb -) 1 amp NEB QIDR [facility] Last Admin: 10/10/16 11:10 Dose: 1 amp Heparin Sodium (Porcine) (Heparin -) 5,000 unit SQ BID [facility] Last Admin: 10/10/16 10:45 Dose: 5,000 unit Propofol (Diprivan -) 100 mls @ 1.402 mls/hr IVPB TITR ZORAN; 5 MCG/KG/MIN PRN Reason: Protocol Last Admin: 10/10/16 10:46 Dose: 14.016 mls/hr Piperacillin Sod/Tazobactam Sod (Zosyn 2.25gm Ivpb (Pre-Docked)) 50 mls @ 100 mls/hr IVPB Q8H-IV [facility] PRN Reason: Protocol Last Admin: 10/10/16 10:46 Dose: 100 mls/hr Fentanyl 500 mcg/ Dextrose 100 mls @ 5 mls/hr IJ TITR ZORAN PRN Reason: 25 MCG/HR Stop: 10/10/16 19:44 Last Titration: 10/10/16 01:51 Dose: 35 mcg/hr Sodium Chloride (Normal Saline -) 1,000 mls @ 42 mls/hr IV ASDIR [facility] Last Admin: 10/09/16 23:47 Dose: 42 mls/hr Methylprednisolone Sodium Succinate (Solu-Medrol -) 60 mg IVPB Q8H [facility] ASSESSMENT AND PLAN: Acute Asthma Exacerbation Acute Hypoxic Respiratory Failure Lactic Acidosis likely due to hypoxic respiratory failure Autism - pt extubated to ventimask, can attempt nasal cannula if oxygenating well - IVF - trend lactate - can d/c antibiotics, do not suspect an acute bacterial infection - f/u pending cultures - continue medrol - inhaled bronchodilators standing and PRN - DVT prophylaxis - discussed with family at bedside critical care time spent in reviewing chart, evaluating patient and formulating plan 40 min
--- NOTE | 2016-10-10 14:14 | EKG ---
Test Reason : Blood Pressure : / mmHG Vent. Rate : 130 BPM Atrial Rate : 130 BPM P-R Int : 122 ms QRS Dur : 080 ms QT Int : 308 ms P-R-T Axes : 078 087 034 degrees QTc Int : 453 ms SINUS TACHYCARDIA NONSPECIFIC ST ABNORMALITY ABNORMAL ECG WHEN COMPARED WITH ECG OF 07-AUG-2014 08:20, NO SIGNIFICANT CHANGE WAS FOUND Confirmed by JANIS MCFARLAND MD ([id number]) on 10/10/2016 2:14:21 PM Referred By: Confirmed By:JANIS MCFARLAND MD
--- NOTE | 2016-10-10 14:28 | PN ---
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, Physician History of Present Illness: stable extubated still drowsy - Current Medication List Current Medications: Active Medications Albuterol/Ipratropium (Duoneb -) 1 amp NEB QIDR [facility] Last Admin: 10/10/16 11:10 Dose: 1 amp Heparin Sodium (Porcine) (Heparin -) 5,000 unit SQ BID [facility] Last Admin: 10/10/16 10:45 Dose: 5,000 unit Fentanyl 500 mcg/ Dextrose 100 mls @ 5 mls/hr IJ TITR ZORAN PRN Reason: 25 MCG/HR Stop: 10/10/16 19:44 Last Titration: 10/10/16 01:51 Dose: 35 mcg/hr Sodium Chloride (Normal Saline -) 1,000 mls @ 42 mls/hr IV ASDIR [facility] Last Admin: 10/09/16 23:47 Dose: 42 mls/hr Methylprednisolone Sodium Succinate (Solu-Medrol -) 60 mg IVPB Q8H-IV [facility] - Objective Vital Signs: Vital Signs Temperature 97.5 F L 10/10/16 07:43 Pulse Rate 98 H 10/10/16 12:00 Respiratory Rate 16 10/10/16 12:00 Blood Pressure 111/78 10/10/16 12:00 O2 Sat by Pulse Oximetry (%) 98 10/10/16 10:35 Constitutional: Yes: Calm, Mild Distress Cardiovascular: Yes: Regular Rate and Rhythm Respiratory: Yes: Regular, Poor Air Entry Gastrointestinal: Yes: Normal Bowel Sounds, Soft Musculoskeletal: Yes: WNL Extremities: Yes: WNL Neurological: Yes: Alert, Other Labs: CBC, BMP 10/10/16 05:20 10/10/16 05:20 INR, PTT INR 1.16 (0.82-1.09) H 10/09/16 14:50 Assessment/Plan Acute Asthma Exacerbation Acute Hypoxic Respiratory Failure Lactic Acidosis likely due to hypoxic respiratory failure Autism i do not think that there is infection more of asthamatic exacerebration,but since patient is intubated and has chances of getting infection i am going to start abx on the aptient once patient is extubated will deescalate plan continue abx lactic acid resolving will stop abx tomorrow rest as per icu team cc time 40 min
--- NOTE | 2016-10-10 19:08 | PN ---
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, Physician History of Present Illness: extubated stable - Current Medication List Current Medications: Active Medications Albuterol/Ipratropium (Duoneb -) 1 amp NEB QIDR [facility] Last Admin: 10/10/16 17:15 Dose: 1 amp Heparin Sodium (Porcine) (Heparin -) 5,000 unit SQ BID [facility] Last Admin: 10/10/16 10:45 Dose: 5,000 unit Fentanyl 500 mcg/ Dextrose 100 mls @ 5 mls/hr IJ TITR ZORAN PRN Reason: 25 MCG/HR Stop: 10/10/16 19:44 Last Titration: 10/10/16 01:51 Dose: 35 mcg/hr Sodium Chloride (Normal Saline -) 1,000 mls @ 42 mls/hr IV ASDIR [facility] Last Admin: 10/09/16 23:47 Dose: 42 mls/hr Methylprednisolone Sodium Succinate (Solu-Medrol -) 60 mg IVPB Q8H-IV [facility] Last Admin: 10/10/16 18:53 Dose: 60 mg - Objective Vital Signs: Vital Signs Temperature 99.5 F 10/10/16 18:00 Pulse Rate 111 H 10/10/16 18:00 Respiratory Rate 16 10/10/16 18:00 Blood Pressure 122/75 10/10/16 18:00 O2 Sat by Pulse Oximetry (%) 99 10/10/16 15:00 Constitutional: Yes: No Distress HENT: Yes: Atraumatic Neck: Yes: Supple Cardiovascular: Yes: Regular Rate and Rhythm Respiratory: Yes: Rhonchi, Wheezes Gastrointestinal: Yes: Normal Bowel Sounds Extremities: Yes: WNL Labs: CBC, BMP 10/10/16 05:20 10/10/16 05:20 INR, PTT INR 1.16 (0.82-1.09) H 10/09/16 14:50 Problem List - Problems (1) Respiratory failure Assessment/Plan: extubated doing well Code(s): J96.90 - RESPIRATORY FAILURE, UNSP, UNSP W HYPOXIA OR HYPERCAPNIA Qualifiers: Chronicity: acute Respiratory failure complication: hypoxia Qualified Code(s): J96.01 - Acute respiratory failure with hypoxia (2) Status asthmaticus Code(s): J45.902 - UNSPECIFIED ASTHMA WITH STATUS ASTHMATICUS (3) Autism Code(s): F84.0 - AUTISTIC DISORDER (4) Asthma Assessment/Plan: iv steroids duo nebs Code(s): J45.909 - UNSPECIFIED ASTHMA, UNCOMPLICATED (5) Pneumonia Assessment/Plan: not on abx id on board Code(s): J18.9 - PNEUMONIA, UNSPECIFIED ORGANISM (6) Lactic acidosis Code(s): E87.2 - ACIDOSIS Assessment/Plan family at bed side cc time 30 min
[2016-10-10] MEDS: SODIUM CHLORIDE 1,000 ML IV SCH (22:14)
[2016-10-11] MEDS: methylPREDNISolone NA SUCC 125 MG/2 ML VIAL IVPB SCH (02:00)
[2016-10-11] MEDS ORDERED: methylPREDNISolone NA SUCC 125 MG/2 ML VIAL IM SCH ×2 (03:19→22:00)
[2016-10-11] MEDS: ALBUTEROL SO4 2.5/IPRATROPIUM 0.5 INH SOL 3 ML VIAL.NEB. NEB SCH ×4 (06:35→18:14)
--- NOTE | 2016-10-11 08:36 | PN ---
Physical Exam: SUBJECTIVE: Patient seen and examined at bedside this morning in ICU. Agitated this morning as she is uncomfortable in new settings. Calmed down when breakfast arrived and is resting comfortably in room. Breathing at baseline & patient looks much more comfortable than yesterday. OBJECTIVE: Vital Signs Period Temp Pulse Resp BP Sys/Cheema Pulse Ox Last 24 Hr 98.5 F-99.6 F 84-130 15-20 108-133/64-88 98-100 GENERAL: Awake and with elevated activity levels, very anxious at times, not far from mental status baseline (as per mother) HEENT: Atraumatic, EOMI, PERRLA, No lymphadenopathy noted, moist membranes. LUNGS: Minimally diminished breath sounds at bilateral lung bases but no wheezing or crackles noted. No accessory muscle use. HEART: Regular rate and rhythm, S1, S2 without murmur ABDOMEN: Soft, nontender, nondistended EXTREMITIES: 2+ pulses, warm, well-perfused, no edema. NEUROLOGICAL: deferred due to clinical condition PSYCH: at mental status baseline, nonresponsive to questions SKIN: Warm, dry, normal turgor, no rashes or lesions noted Active Medications Generic Name Dose Route Start Last Admin Trade Name Freq PRN Reason Stop Dose Admin Albuterol/Ipratropium 1 amp 10/10/16 12:00 10/11/16 06:35 Duoneb - NEB 1 amp QIDR [facility]ORAN Administration Heparin Sodium (Porcine) 5,000 unit 10/09/16 22:45 10/10/16 22:14 Heparin - SQ 5,000 unit BID [facility] Administration Methylprednisolone Sodium Succinate 60 mg 10/11/16 22:00 Solu-Medrol - IM BID [facility] ASSESSMENT/PLAN: Patient is an autistic 36 year old female with PMH of Asthma (multiple exacerbations, intubated x1, on Duoneb treatments & Pulmicort at home) who presented to ED s/p collapse at home. EMS noted oxygen saturation to be in mid to low 40% so intubated at scene. #Acute respiratory Failure, secondary to status asthmaticus -saturating well on room air -Prednisone 40mg BID started -Duonebs QIDR -blood cultures (-), urine/sputum cultures/virus panel pending -ID Consult appreciated #Lactic Acidosis, likely respiratory etiology -resolving with IVF administration (received 4 liters NS in ED) -will continue to trend (refused blood draw in morning) #Tachycardia, resolved -was likely secondary to acute asthmatic exacerbation -ECHO reviewed -Cardiology consult appreciated Prophylaxis/FEN -ambulating now, so will hold heparin -will monitor electrolytes -soft diet Dispo: [facility] Visit type - Emergency Visit Emergency Visit: Yes ED Registration Date: 10/09/16 Care time: The patient presented to the Emergency Department on the above date and was hospitalized for further evaluation of their emergent condition. - New Patient This patient is new to me today: No - Critical Care Critical Care patient: Yes Total Critical Care Time (in minutes): 50 Critical Care Statement: The care of this patient involved high complexity decision making to prevent further life threatening deterioration of the patient 's condition and/or to evalute & treat vital organ system(s) failure or risk of failure.
[2016-10-11] MEDS ORDERED: guaiFENesin/CODEINE 5 ML UNIT-DOSE CUPS PO PRN (10:56)
--- NOTE | 2016-10-11 14:03 | PN ---
Teaching Attending Note Name of Resident: Thomas Tate ATTENDING PHYSICIAN STATEMENT I saw and evaluated the patient. I reviewed the resident's note and discussed the case with the resident. I agree with the resident's findings and plan as documented. SUBJECTIVE: Pt seen and examined in the ICU. Appears comfortable, breathing better per mother. No fevers recorded. OBJECTIVE: Last Vital Signs Temp Pulse Resp BP Pulse Ox 97.6 F 88 20 123/74 99 10/11/16 10:00 10/11/16 12:00 10/11/16 12:00 10/11/16 12:00 10/10/16 20:00 Intake & Output 10/08/16 10/09/16 10/10/16 10/11/16 23:59 23:59 23:59 23:59 Intake Total 1000 1404 240 Output Total 220 1650 400 Balance 780 -246 -160 Weight 102 lb 104 lb 5 oz 105 lb 6.4 oz Gen: NAD at rest Heart: RRR Lung: clear to auscultation, no wheezes appreciated Abd: soft, nontender Ext: no edema CBC, BMP 10/10/16 05:20 10/10/16 05:20 Active Medications Albuterol/Ipratropium (Duoneb -) 1 amp NEB QIDR ZORAN Guaifenesin/Codeine Phosphate (Robitussin Ac -) 5 ml PO Q6H PRN PRN Reason: COUGH Prednisone (Deltasone -) 40 mg PO BID [facility] ASSESSMENT AND PLAN: Acute Asthma Exacerbation Acute Hypoxic Respiratory Failure Lactic Acidosis likely due to hypoxic respiratory failure Autism - O2 as needed - prednisone taper - monitor off antibiotics - f/u pending cultures - inhaled bronchodilators standing and PRN - DVT prophylaxis - discussed with family at bedside - can monitor on floor
--- NOTE | 2016-10-11 14:37 | PN ---
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, Physician History of Present Illness: stable looks much better - Current Medication List Current Medications: Active Medications Albuterol/Ipratropium (Duoneb -) 1 amp NEB QIDR ZORAN Guaifenesin/Codeine Phosphate (Robitussin Ac -) 5 ml PO Q6H PRN PRN Reason: COUGH Prednisone (Deltasone -) 40 mg PO BID [facility] - Objective Vital Signs: Vital Signs Temperature 97.6 F 10/11/16 10:00 Pulse Rate 88 10/11/16 12:00 Respiratory Rate 20 10/11/16 12:00 Blood Pressure 123/74 10/11/16 12:00 O2 Sat by Pulse Oximetry (%) 99 10/10/16 20:00 Constitutional: Yes: No Distress, Calm Cardiovascular: Yes: Regular Rate and Rhythm Respiratory: Yes: Regular, Poor Air Entry Gastrointestinal: Yes: Normal Bowel Sounds, Soft Musculoskeletal: Yes: WNL Extremities: Yes: WNL Neurological: Yes: Alert, Other Labs: CBC, BMP 10/10/16 05:20 10/10/16 05:20 INR, PTT INR 1.16 (0.82-1.09) H 10/09/16 14:50 Assessment/Plan Acute Asthma Exacerbation Acute Hypoxic Respiratory Failure Lactic Acidosis likely due to hypoxic respiratory failure Autism plan stable lactic acid resolved incentive tevin rest as per primary team
[2016-10-11] MEDS: HEPARIN NA (PORCINE) 5,000 UNITS/ML 1ML VIAL SQ SCH (15:28)
--- NOTE | 2016-10-11 15:51 | PN ---
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, Physician History of Present Illness: Dry cough. - Current Medication List Current Medications: Active Medications Albuterol/Ipratropium (Duoneb -) 1 amp NEB QIDR ZORAN Guaifenesin/Codeine Phosphate (Robitussin Ac -) 5 ml PO Q6H PRN PRN Reason: COUGH Prednisone (Deltasone -) 40 mg PO BID [facility] - Objective Vital Signs: Vital Signs Temperature 97.6 F 10/11/16 10:00 Pulse Rate 88 10/11/16 12:00 Respiratory Rate 20 10/11/16 12:00 Blood Pressure 123/74 10/11/16 12:00 O2 Sat by Pulse Oximetry (%) 99 10/10/16 20:00 Constitutional: Yes: No Distress, Calm, Thin Neck: Yes: Supple Cardiovascular: Yes: Regular Rate and Rhythm Respiratory: Yes: Regular, Diminished Gastrointestinal: Yes: Normal Bowel Sounds, Soft Edema: No Labs: CBC, BMP 10/10/16 05:20 10/10/16 05:20 INR, PTT INR 1.16 (0.82-1.09) H 10/09/16 14:50 Problem List - Problems (1) Autism Code(s): F84.0 - AUTISTIC DISORDER (2) Lactic acidosis Code(s): E87.2 - ACIDOSIS (3) Respiratory failure Code(s): J96.90 - RESPIRATORY FAILURE, UNSP, UNSP W HYPOXIA OR HYPERCAPNIA Qualifiers: Chronicity: acute Respiratory failure complication: hypoxia Qualified Code(s): J96.01 - Acute respiratory failure with hypoxia (4) Acute asthma exacerbation Code(s): J45.901 - UNSPECIFIED ASTHMA WITH (ACUTE) EXACERBATION Qualifiers: Asthma severity: moderate persistent Qualified Code(s): J45.41 - Moderate persistent asthma with (acute) exacerbation (5) Tachycardia Code(s): R00.0 - TACHYCARDIA, UNSPECIFIED (6) Anemia Code(s): D64.9 - ANEMIA, UNSPECIFIED Assessment/Plan 10/11/2016 Normal biventricular size and fxn mild MR, TR 1. Post acute hypoxic respitaory failure with Lactic acidosis 2. Acute Asthma Exacerbation improving 3. Sinus tachycardia, reactionary to above, no clinical indication of structural heart disease 4. Anemia 5. History of chronic constipation 6. History of autism PLAN: 1. BD, O2, oral steroid taper 2. DVT prophylaxis
--- NOTE | 2016-10-11 18:14 | PN ---
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, Physician History of Present Illness: extubated stable - Current Medication List Current Medications: Active Medications Albuterol/Ipratropium (Duoneb -) 1 amp NEB QIDR [facility] Last Admin: 10/11/16 18:14 Dose: 1 amp Guaifenesin/Codeine Phosphate (Robitussin Ac -) 5 ml PO Q6H PRN PRN Reason: COUGH Prednisone (Deltasone -) 40 mg PO BID [facility] - Objective Vital Signs: Vital Signs Temperature 97.6 F 10/11/16 10:00 Pulse Rate 88 10/11/16 12:00 Respiratory Rate 20 10/11/16 12:00 Blood Pressure 123/74 10/11/16 12:00 O2 Sat by Pulse Oximetry (%) 99 10/10/16 20:00 Constitutional: Yes: No Distress HENT: Yes: Atraumatic Neck: Yes: Supple Cardiovascular: Yes: Regular Rate and Rhythm Respiratory: Yes: Rhonchi Gastrointestinal: Yes: Normal Bowel Sounds Extremities: Yes: WNL Neurological: Yes: Alert, Oriented Labs: CBC, BMP 10/10/16 05:20 10/10/16 05:20 INR, PTT INR 1.16 (0.82-1.09) H 10/09/16 14:50 Problem List - Problems (1) Respiratory failure Assessment/Plan: stable extubated Code(s): J96.90 - RESPIRATORY FAILURE, UNSP, UNSP W HYPOXIA OR HYPERCAPNIA Qualifiers: Chronicity: acute Respiratory failure complication: hypoxia Qualified Code(s): J96.01 - Acute respiratory failure with hypoxia (2) Status asthmaticus Code(s): J45.902 - UNSPECIFIED ASTHMA WITH STATUS ASTHMATICUS (3) Autism Code(s): F84.0 - AUTISTIC DISORDER (4) Asthma Assessment/Plan: iv steroids duo nebs Code(s): J45.909 - UNSPECIFIED ASTHMA, UNCOMPLICATED (5) Pneumonia Code(s): J18.9 - PNEUMONIA, UNSPECIFIED ORGANISM (6) Lactic acidosis Code(s): E87.2 - ACIDOSIS
[2016-10-11] MEDS ORDERED: predniSONE 20 MG TABLET (UD) PO SCH ×2 (22:00)
[2016-10-12] MEDS: ALBUTEROL SO4 2.5/IPRATROPIUM 0.5 INH SOL 3 ML VIAL.NEB. NEB SCH ×3 (06:15→11:10)
--- NOTE | 2016-10-12 09:34 | PN ---
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 (short form) - Note 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: Ambulating in the room on RA. Mom at the bedside. She reports patient having a dry cough. No fevers recorded. OBJECTIVE: Intake & Output 10/09/16 10/10/16 10/11/16 10/12/16 23:59 23:59 23:59 23:59 Intake Total 1000 1404 690 Output Total 220 1650 401 Balance 780 -246 289 Weight 102 lb 104 lb 5 oz 105 lb 6.4 oz Last Vital Signs Temp Pulse Resp BP Pulse Ox 97.5 F L 99 H 20 128/82 99 10/12/16 06:12 10/12/16 06:12 10/12/16 06:12 10/12/16 06:12 10/10/16 20:00 Active Medications Albuterol/Ipratropium (Duoneb -) 1 amp NEB QIDR [facility] Last Admin: 10/12/16 06:15 Dose: 1 amp Guaifenesin/Codeine Phosphate (Robitussin Ac -) 5 ml PO Q6H PRN PRN Reason: COUGH Last Admin: 10/11/16 21:29 Dose: 5 ml Prednisone (Deltasone -) 40 mg PO BID [facility] Last Admin: 10/11/16 21:29 Dose: 40 mg Gen: NAD at rest Heart: RRR Lung: clear to auscultation, no wheezes appreciated Abd: soft, nontender Ext: no edema ASSESSMENT AND PLAN: Acute Asthma Exacerbation Acute Hypoxic Respiratory Failure Lactic Acidosis likely due to hypoxic respiratory failure Autism - O2 as needed - prednisone taper - monitor off antibiotics - BD TX PRN - discussed with family at bedside - No Pulmonary contraindication for D/C Dr Martinez
[2016-10-12] MEDS ORDERED: predniSONE 10 MG TABLET (UD) PO SCH (10:00)
--- NOTE | 2016-10-12 13:11 | PN ---
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, Physician History of Present Illness: stable doing well no new issues - Current Medication List Current Medications: Active Medications Albuterol/Ipratropium (Duoneb -) 1 amp NEB QIDR [facility] Last Admin: 10/12/16 06:15 Dose: 1 amp Guaifenesin/Codeine Phosphate (Robitussin Ac -) 5 ml PO Q6H PRN PRN Reason: COUGH Last Admin: 10/11/16 21:29 Dose: 5 ml Prednisone (Deltasone -) 30 mg PO DAILY [facility] Last Admin: 10/12/16 09:53 Dose: 30 mg - Objective Vital Signs: Vital Signs Temperature 97.5 F L 10/12/16 06:12 Pulse Rate 99 H 10/12/16 06:12 Respiratory Rate 20 10/12/16 06:12 Blood Pressure 128/82 10/12/16 06:12 O2 Sat by Pulse Oximetry (%) 99 10/10/16 20:00 Constitutional: Yes: No Distress, Calm Cardiovascular: Yes: Regular Rate and Rhythm Respiratory: Yes: Regular, CTA Bilaterally Gastrointestinal: Yes: Normal Bowel Sounds, Soft Musculoskeletal: Yes: WNL Extremities: Yes: WNL Neurological: Yes: Alert, Other Psychiatric: Yes: Alert Labs: CBC, BMP 10/10/16 05:20 10/10/16 05:20 INR, PTT INR 1.16 (0.82-1.09) H 10/09/16 14:50 Assessment/Plan Acute Asthma Exacerbation Acute Hypoxic Respiratory Failure Lactic Acidosis likely due to hypoxic respiratory failure Autism plan stable continue current mgmt
[2016-10-12 14:45] VITALS: BP 126/52; PULSE 98; TEMP 98.5
--- NOTE | 2016-10-12 16:09 | DS ---
Physical Examination Vital Signs: Vital Signs Temperature 98.5 F 10/12/16 14:44 Pulse Rate 98 H 10/12/16 14:44 Respiratory Rate 18 10/12/16 14:44 Blood Pressure 126/52 10/12/16 14:44 O2 Sat by Pulse Oximetry (%) 99 10/10/16 20:00 Constitutional: Yes: No Distress HENT: Yes: Atraumatic Neck: Yes: Supple Cardiovascular: Yes: Regular Rate and Rhythm Respiratory: Yes: CTA Bilaterally Gastrointestinal: Yes: Normal Bowel Sounds Extremities: Yes: WNL Neurological: Yes: Alert, Oriented Labs: CBC, BMP 10/10/16 05:20 10/10/16 05:20 Discharge Summary Reason For Visit: STATUS ASTHMATICUS Current Active Problems Anemia (Acute) Autism (Acute) Lactic acidosis (Acute) Respiratory failure (Acute) Status asthmaticus (Acute) - Instructions Referrals: Leeroy Taylor [Primary Care Provider] - - Home Medications Comprehensive Discharge Medication List: Ambulatory Orders Albuterol 2.5/Ipratropium 0.5 [Duoneb -] 1 neb NEB QIDR #100 vial 08/11/14 Budesonide [Pulmicort 0.5 mg Nebulizer -] 1 neb NEB BID #60 vial 01/20/16 Polyethylene Glycol 3350 [Miralax 119 gm Btl -] 17 gm PO DAILY 10/09/16 Prednisone [Deltasone -] 30 mg PO DAILY #18 tablet 10/12/16
== END 2016-10-12 17:27 | disposition home or self-care (01) | DRG 208 ==
LOC: JER 13:42 → JERBED 15:18 → JICU 22:42 → J8W 10-11 13:52
PROVIDERS: ADMIT Internal Medicine; ATTEND Internal Medicine
PROC: 5A1935Z Respiratory Ventilation, Less than 24 Consecutive Hours (ICD-10-PCS; principal; 2016-10-09)
DX: J96.01 Acute respiratory failure with hypoxia (principal); E84.0 Cystic fibrosis with pulmonary manifestations; J45.901 Unspecified asthma with (acute) exacerbation; E87.2 Acidosis; R00.0 Tachycardia, unspecified; D64.9 Anemia, unspecified; K59.09 Other constipation
CPT/HCPCS: 36415; 36600; 71010-TC; 80048; 80053; 81003; 81015; 82375; 82550; 82553; 82803; 83050; 83605; 83735; 83880; 84100; 84484; 85025; 85027; 85610; 87040; 87086; 87633; 93005; 93010; 93306-TC; 94002; 94640; 99285-25; J1644

== ENCOUNTER 2017-12-31 07:21 | Inpatient (IN) | payer OTHER ==
[2017-12-31] MEDS ORDERED: MAGNESIUM SULF 50% (8.12 MEQ/2 ML-1 GM VIAL) IVPB ONE (07:29)
[2017-12-31] MEDS ORDERED: MAGNESIUM SULF 50% (8.12 MEQ/2 ML-1 GM VIAL) ONE (07:29)
[2017-12-31] MEDS ORDERED: PROPOFOL 1,000,000 MCG/100 ML VIAL ONE (07:29)
--- NOTE | 2017-12-31 07:29 | PDOC ---
Attending Attestation - Resident Resident Name: TreeAsher - ED Attending Attestation I have performed the following: I have examined & evaluated the patient, The case was reviewed & discussed with the resident, I agree w/resident's findings & plan, Exceptions are as noted - HPI HPI: 37 yo F history autism, asthma presents with asthma exacerbation. As per EMS, she was having respiratory distress, sister called 911. She was combative on their arrival (baseline for her with her history of autism), would not tolerate nebs. She required versed for sedation, however, she became lethargic at that point. She maintained a sinus rhythm on monitor, but as per EMS, she briefly lost pulses (or they were thready, difficult to say because of the high stress situation). She was intubated, given decadron and nebs. Currently intubated and sedated, unable to give history. - Physicial Exam PE: GENERAL: Intubated, sedated. HEAD: No signs of trauma EYES: PERRLA, EOMI, sclera anicteric, conjunctiva clear ENT: Auricles normal inspection, hearing grossly normal, nares patent, oropharynx clear without exudates. Dry mucosa NECK: Normal ROM, supple, no lymphadenopathy, JVD, or masses LUNGS: Good air entry B/L, +wheezes B/L. HEART: Tachycardic, normal S1 and S2, no murmurs, rubs or gallops ABDOMEN: Soft, nontender, normoactive bowel sounds. No guarding, no rebound. No masses EXTREMITIES: Normal range of motion, no edema. No clubbing or cyanosis. No cords, erythema, or tenderness NEUROLOGICAL: Limited, patient intubated and sedated. SKIN: Warm, Dry, normal turgor, no rashes or lesions noted. - Medical Decision Making Patient arrived via EMS, respiratory distress, intubated on the scene for resp arrest, poss cardiac arrest (either PEA or extremely thready pulses, it was high stress situation, EMS had difficulty with assessment). Initially hypertensive, however, required sedation for agitation, which resulted in hypotension. Propofol was changed to versed/fentanyl, but still with hypotension. Hypotension may be result of positive pressure ventilation, but sepsis is also on the DDx. Lactate extremely elevated, either due to cardiac arrest, infectious process or dehydration. Covered with rocephin/azithro. Multiple liters of IV fluids given in ED. Central line placed, levophed started. Dispo to ICU, accepted for admission by Dr. Feldman.
[2017-12-31] MEDS ORDERED: PROPOFOL 1,000,000 MCG/100 ML VIAL IVPB SCH (07:30)
[2017-12-31] MEDS ORDERED: SODIUM CHLORIDE 1,000 ML IV STA ×3 (07:30→08:53)
[2017-12-31] MEDS ORDERED: DEXAMETHASONE SOD PHOSPHATE 10 MG/1 ML VIAL ONE (07:33)
[2017-12-31] MEDS ORDERED: EPINEPHrine/PF 1 MG/1 ML (1:1,000) AMPULE ONE (07:33)
[2017-12-31] MEDS ORDERED: EPINEPHrine 1:10,000 (P-F SYR) 1 MG/10 ML DISP.SYRIN ONE (07:33)
--- NOTE | 2017-12-31 07:49 | PDOC ---
History of Present Illness <Sona Erwin - Last Filed: 12/31/17 10:06> - General History Source: Patient Exam Limitations: No Limitations - History of Present Illness Initial Comments: 12/31/17 09:46 36 year old female brought via EMS and presenting with her sister, with a significant past medical history of asthma, pneumonia and autism, who presents to the emergency department with asthma exacerbation onset today. EMS called by family as lizette was extremely agitated and in respiratory distress, refused duonebs, given versed for sedation, however, she became lethargic at that point. Might have possibly lost pulses (or were thready?) at this point per EMS, subsequently intubated, given decadron and nebs again as well as 2x1mg doses of epinephrine and 1L of NS running. Came in with systolic bp in the 170's 12/31/17 10:34 <Asher Leavitt - Last Filed: 12/31/17 10:37> - General Chief Complaint: Respiratory Distress Stated Complaint: RESPIRATORY Time Seen by Provider: 12/31/17 07:28 Past History <Sona Erwin - Last Filed: 12/31/17 10:06> - Past Medical History Anemia: No Asthma: Yes COPD: No GI Disorders: (CONSTIPATION) Psychiatric Problems: Yes (AUTISM) Other medical history: autism - Immunization History Immunization Up to Date: Yes - Suicide/Smoking/Psychosocial Hx Smoking Status: No Smoking History: Never smoked Have you smoked in the past 12 months: No Number of Cigarettes Smoked Daily: 0 Hx Alcohol Use: No Drug/Substance Use Hx: No Substance Use Type: None Hx Substance Use Treatment: No <Asher Leavitt - Last Filed: 12/31/17 10:37> - Past Medical History Allergies/Adverse Reactions: Allergies Allergy/AdvReac Type Severity Reaction Status Date / Time haloperidol [From Haldol] Allergy Verified 10/09/16 14:08 haloperidol lactate Allergy Verified 10/09/16 14:08 [From Haldol] Home Medications: Ambulatory Orders Albuterol 2.5/Ipratropium 0.5 [Duoneb -] 1 neb NEB QIDR #100 vial 08/11/14 Budesonide [Pulmicort 0.5 mg Nebulizer -] 1 neb NEB BID #60 vial 01/20/16 Polyethylene Glycol 3350 [Miralax 119 gm Btl -] 17 gm PO DAILY 10/09/16 Prednisone 10 mg PO ASDIR #18 tablet 10/12/16 Review of Systems - Review of Systems Able to Perform ROS?: No (intubated and sedated) <Asher Leavitt - Last Filed: 12/31/17 10:37> *Physical Exam - Vital Signs Last Vital Signs Temp Pulse Resp BP Pulse Ox 98.0 F 75 14 100/66 100 12/31/17 07:47 12/31/17 09:34 12/31/17 09:29 12/31/17 09:34 12/31/17 09:29 <Sona Erwin - Last Filed: 12/31/17 10:06> - Vital Signs Last Vital Signs Temp Pulse Resp BP Pulse Ox 98.0 F 120 H 18 107/69 100 12/31/17 07:47 12/31/17 07:47 12/31/17 07:47 12/31/17 07:47 12/31/17 07:47 - Physical Exam General Appearance: Yes: Nourished, Appropriately Dressed HEENT: positive: Other (intubated) Respiratory/Chest: positive: Lungs Clear, Normal Breath Sounds. negative: Chest Tender Cardiovascular: positive: Regular Rhythm, Tachycardia Gastrointestinal/Abdominal: positive: Normal Bowel Sounds, Flat, Soft. negative : Tender Musculoskeletal: positive: Normal Inspection <Asher Leavitt - Last Filed: 12/31/17 10:37> Procedures - Central Line Central Line Lumen: triple Central Line Position: femoral (L) Complications: none Post Central Line Insertion: sutured, good blood return <Asher Leavitt - Last Filed: 12/31/17 10:37> ED Treatment Course - LABORATORY CBC & Chemistry Diagram: 12/31/17 07:52 12/31/17 07:52 - ADDITIONAL ORDERS Additional order review: Laboratory Results 12/31/17 12/31/17 12/31/17 07:52 07:52 07:52 PT with INR INR VBG pH 7.05 L* POC VBG pCO2 58.0 H POC VBG pO2 226.0 H* Mixed VBG HCO3 15.1 L Sodium Potassium Chloride Carbon Dioxide Anion Gap BUN Creatinine Creat Clearance w eGFR Random Glucose Lactic Acid 8.3 H* Calcium Total Bilirubin AST ALT Alkaline Phosphatase Total Protein Albumin Serum , Qual Blood Type Cancelled Antibody Screen Cancelled 12/31/17 12/31/17 12/31/17 07:52 07:52 07:52 PT with INR 12.80 INR 1.13 H VBG pH POC VBG pCO2 POC VBG pO2 Mixed VBG HCO3 Sodium 139 Potassium 3.3 L Chloride 104 Carbon Dioxide 17 L Anion Gap 18 H BUN 15 Creatinine 1.3 H Creat Clearance w eGFR 46.61 Random Glucose 355 H* Lactic Acid Calcium 8.0 L Total Bilirubin 0.2 AST 19 ALT 20 Alkaline Phosphatase 67 Total Protein 6.5 Albumin 3.4 Serum , Qual Negative Blood Type Antibody Screen 12/31/17 07:52 RBC 4.04 MCV 91.9 MCHC 32.3 RDW 13.6 MPV 9.5 Neutrophils % 53.3 Lymphocytes % 25.6 D Monocytes % 3.0 L Eosinophils % 17.4 H Basophils % 0.7 - RADIOLOGY Radiology Studies Ordered: Category Date Time Status CHEST X-RAY PORTABLE* [RAD] Stat Radiology 12/31/17 07:29 Completed - Medications Given in the ED: ED Medications Discontinued Medications Generic Name Dose Route Start Last Admin Trade Name Freq PRN Reason Stop Dose Admin Fentanyl 100 mcg 12/31/17 07:58 12/31/17 08:13 Sublimaze Injection - IVPUSH 12/31/17 07:59 100 mcg ONCE ONE Administration Propofol 1,000,000 mcg in 100 mls @ 1.769 mls/hr 12/31/17 07:30 12/31/17 08: 22 Diprivan - IVPB 0 mcg/kg/min TITR ZORAN 0 mls/hr Titration Protocol 5 MCG/KG/MIN Sodium Chloride 1,000 mls @ 1,000 mls/hr 12/31/17 07:30 12/31/17 07:46 Normal Saline - IV 12/31/17 08:29 1,000 mls/hr ASDIR STA Administration Sodium Chloride 1,000 mls @ 1,000 mls/hr 12/31/17 07:30 12/31/17 08:13 Normal Saline - IV 12/31/17 08:29 1,000 mls/hr ASDIR STA Administration Sodium Chloride 1,000 mls @ 1,000 mls/hr 12/31/17 08:53 12/31/17 08:30 Normal Saline - IV 12/31/17 09:52 1,000 mls/hr ASDIR STA Administration Magnesium Sulfate 2 gm 12/31/17 07:29 12/31/17 07:46 Magnesium Sulfate IVPB 12/31/17 07:30 2 gm ONCE ONE Administration <Sona Erwin - Last Filed: 12/31/17 10:06> - LABORATORY CBC & Chemistry Diagram: 12/31/17 07:52 12/31/17 07:52 - Medications Given in the ED: ED Medications Discontinued Medications Generic Name Dose Route Start Last Admin Trade Name Bill PRN Reason Stop Dose Admin Magnesium Sulfate 2 gm 12/31/17 07:29 12/31/17 07:46 Magnesium Sulfate IVPB 12/31/17 07:30 2 gm ONCE ONE Administration <Asher Leavitt - Last Filed: 12/31/17 10:37> Medical Decision Making - Medical Decision Making 12/31/17 10:32 Started patient on Propofol as we was starting to wake up. ED out of 1L NS bags at this time Given 500 of NS BP down to 60/30. Propofol stopped, switched patient to versed and fentanyl. Started 1L of LR with pressure bag. Central line obtained in the right femoral vein. BP normalizing. Admitted patient to the ICU under care of Dr Abdalla and Dr. Feldman. 12/31/17 10:34 <Asher Leavitt - Last Filed: 12/31/17 10:37> *DC/Admit/Observation/Transfer - Discharge Dispostion Decision to Admit order: Yes <Sona Erwin - Last Filed: 12/31/17 10:06> <Asher Leavitt - Last Filed: 12/31/17 10:37> Diagnosis at time of Disposition: Acute asthma exacerbation Qualifiers: Asthma severity: unspecified severity Asthma persistence: unspecified Qualified Code(s): J45.901 - Unspecified asthma with (acute) exacerbation Status asthmaticus Qualifiers: Asthma severity: unspecified severity Asthma persistence: unspecified Qualified Code(s): J45.902 - Unspecified asthma with status asthmaticus Respiratory failure Qualifiers: Chronicity: unspecified Respiratory failure complication: unspecified whether with hypoxia or hypercapnia Qualified Code(s): J96.90 - Respiratory failure, unspecified, unspecified whether with hypoxia or hypercapnia - Discharge Dispostion Condition at time of disposition: Critical
[2017-12-31] MEDS ORDERED: fentaNYL CITRATE 250 MCG/5 ML VIAL ONE (08:15)
[2017-12-31] MEDS: MIDAZOLAM 100 MG in SODIUM CHLORIDE 100 ML IVPB SCH (08:23)
[2017-12-31 08:26] LABS: BASO % 0.7 % (0-2.0); EOS % 17.4 % (0-4.5); HEMATOCRIT 37.1 % (32.4-45.2); LYMPH % 25.6 % (8-40); MCH 29.7 pg (25.7-33.7); MCHC 32.3 g/dl (32.0-36.0); MEAN CELL VOLUME 91.9 fl (80-96); MEAN PLT VOLUME 9.5 fl (7.5-11.1); NEUT % 53.3 % (42.8-82.8); PLATELET COUNT 383 K/MM3 (134-434); RBC 4.04 M/mm3 (3.60-5.2); RDW 13.6 % (11.6-15.6); WHITE BLOOD COUNT 17.7 K/mm3 (4.0-10.0)
[2017-12-31 08:27] LABS: ALBUMIN 3.4 g/dl (3.4-5.0); ALK PHOS 67 U/L (45-117); ANION GAP 18 (8-16); BILIRUBIN,TOTAL 0.2 mg/dL (0.2-1.0); BLOOD UREA NITROGEN 15 mg/dL (7-18); CHLORIDE 104 mmol/L (98-107); CO2 17 mmol/L (21-32); CREATININE 1.3 mg/dL (0.55-1.02); POTASSIUM 3.3 mmol/L (3.5-5.1); SGPT/ALT 20 U/L (12-78); SODIUM 139 mmol/L (136-145); TOT PROT 6.5 g/dl (6.4-8.2)
[2017-12-31 08:28] LABS: GLUCOSE,RANDOM 355 mg/dL (74-106); SGOT/AST 19 U/L (15-37)
[2017-12-31] MEDS ORDERED: NOREPINEPHRINE BITARTRATE 4 MG/4 ML ML IV ONE (08:39)
[2017-12-31 08:42] LABS: VENOUS PH 7.05 (7.32-7.42)
[2017-12-31] MEDS: NOREPINEPHRINE BITARTRATE 8,000 MCG in DEXTROSE 5%-WATER - 492 ML IV SCH (08:50)
[2017-12-31 08:54] LABS: INR 1.13 (0.83-1.09); PROTHROMBIN TIME (PATIENT) 12.8 SEC (9.7-13.0)
[2017-12-31] MEDS ORDERED: LACTATED RINGERS SOLUTION 1,000 ML/1,000 ML INFUS.BAG IV SCH (09:00)
[2017-12-31] MEDS: FENTANYL INJECTION 500 MCG in DEXTROSE 5%-WATER - 90 ML IVPB SCH (09:12)
--- NOTE | 2017-12-31 09:29 | EKG ---
Test Reason : Blood Pressure : / mmHG Vent. Rate : 116 BPM Atrial Rate : 116 BPM P-R Int : 146 ms QRS Dur : 090 ms QT Int : 340 ms P-R-T Axes : 078 064 049 degrees QTc Int : 472 ms SINUS TACHYCARDIA RIGHT ATRIAL ENLARGEMENT RSR' OR QR PATTERN IN V1 SUGGESTS RIGHT VENTRICULAR CONDUCTION DELAY NONSPECIFIC ST ABNORMALITY ABNORMAL ECG WHEN COMPARED WITH ECG OF 09-OCT-2016 14:52, NO SIGNIFICANT CHANGE WAS FOUND Confirmed by MARTHA AMIN MD ([id number]) on 12/31/2017 9:29:27 AM Referred By: Confirmed By:MARTHA AMIN MD
[2017-12-31] MEDS ORDERED: CEFTRIAXONE 1,000 MG in DEXTROSE 5%-WATER - 50 ML IVPB ONE (10:04)
[2017-12-31] MEDS ORDERED: AZITHROMYCIN IVPB 500 MG in DEXTROSE 5%-WATER - 250 ML IVPB ONE (10:04)
[2017-12-31] MEDS ORDERED: AZITHROMYCIN IVPB 250 ML IVPB ONE (10:23)
[2017-12-31] MEDS ORDERED: CEFTRIAXONE 1 GM/50 ML BAG ONE (10:23)
--- NOTE | 2017-12-31 10:29 | CONSULT ---
Consultation: CONSULT SERVICE: ICU Resident HISTORY OF PRESENT ILLNESS: 37yo F with history of asthma with previous intubations and autism who presents today with respiratory distress at home when her sister called 911. EMS arrived on scene and pt was hypoxic (to unknown level) and further distress was noted prompting intubation in the field. There is questionable very brief loss of pulses in the field, however no CPR was performed and upon arrival to the ED pulses had been intact throughout. Pt's family at bedside reports that pt has had multiple asthma exacerbations with multiple uses of steroids and a few intubations. Pt's mother reports that the past couple of days she was given Prednisone 10mg once per day due to "not feeling well with her breathing." Family denies any new cleaning products being used or other environmental triggers at the house. Family does not note any signs of fevers/chills, urinary difficulties, episodes of diarrhea, or sick contacts at home. In ER pt was given 3L NS total, ABG with respiratory acidosis and high O2 content noted. Pt's CXR shows ETT abutting griffin and pt's ETT withdrawn by ER physicians. PIP noted to be mid 30's with oxygenation of 100% on pulse oximetry. REVIEW OF SYSTEMS: Unable to obtain due to clinical scenario PHYSICAL EXAMINATION Vital Signs - 24 hr 12/31/17 12/31/17 12/31/17 07:25 07:30 07:35 Temperature Pulse Rate 110 H Pulse Rate [ 111 H 115 H Apical] Respiratory 18 12 20 Rate Blood Pressure 168/110 Blood Pressure 134/87 128/78 [Right Arm] O2 Sat by Pulse 100 100 100 Oximetry (%) 12/31/17 12/31/17 12/31/17 07:36 07:40 07:46 Temperature 98.0 F Pulse Rate 125 H Pulse Rate [ 116 H Apical] Respiratory 17 118 H Rate Blood Pressure Blood Pressure 118/68 [Right Arm] O2 Sat by Pulse 99 100 Oximetry (%) 12/31/17 12/31/17 12/31/17 07:47 08:20 08:30 Temperature 98.0 F Pulse Rate Pulse Rate [ 120 H 91 H 94 H Apical] Respiratory 18 18 Rate Blood Pressure Blood Pressure 107/69 83/42 67/32 [Right Arm] O2 Sat by Pulse 100 100 Oximetry (%) 12/31/17 12/31/17 12/31/17 08:40 08:50 08:55 Temperature Pulse Rate 91 H Pulse Rate [ 90 92 H Apical] Respiratory 18 Rate Blood Pressure 80/52 Blood Pressure 76/42 80/52 [Right Arm] O2 Sat by Pulse 100 Oximetry (%) 12/31/17 12/31/17 12/31/17 09:00 09:10 09:29 Temperature Pulse Rate 88 Pulse Rate [ 85 76 Apical] Respiratory 14 Rate Blood Pressure 79/47 Blood Pressure 80/48 133/99 [Right Arm] O2 Sat by Pulse 100 Oximetry (%) 12/31/17 12/31/17 12/31/17 09:32 09:34 10:24 Temperature Pulse Rate Pulse Rate [ 88 75 Apical] Respiratory 23 Rate Blood Pressure Blood Pressure 79/47 100/66 [Right Arm] O2 Sat by Pulse Oximetry (%) GENERAL: Intubated and sedated with light arousal HEENT: NC/AT, Pinpoint pupils with reactivity b/l, MMM, no abnormalites of the nares or oropharynx, ETT in place with minimal secretions NECK: No JVD LUNGS: Wheezing noted throughout bilaterally. no crackles. AC mode 12/350/50%/5 HEART: RRR, normal S1 and S2 without murmur ABDOMEN: Soft,not distended, could not assess tenderness, normoactive bowel sounds, no guarding, no masses. No hepatomegaly EXTREMITIES: 2+ DP pulses, no edema peripherally, slightly cool extremities SKIN: No rashes or lesions noted. Laboratory Results - last 24 hr 12/31/17 12/31/17 12/31/17 07:52 07:52 07:52 WBC 17.7 H RBC 4.04 Hgb 12.0 Hct 37.1 D MCV 91.9 MCH 29.7 MCHC 32.3 RDW 13.6 Plt Count 383 D MPV 9.5 Absolute Neuts (auto) 9.4 H Neutrophils % 53.3 Lymphocytes % 25.6 D Monocytes % 3.0 L Eosinophils % 17.4 H Basophils % 0.7 Nucleated RBC % 0 PT with INR 12.80 INR 1.13 H VBG pH POC VBG pCO2 POC VBG pO2 Mixed VBG HCO3 Sodium Potassium Chloride Carbon Dioxide Anion Gap BUN Creatinine Creat Clearance w eGFR Random Glucose Lactic Acid Calcium Total Bilirubin AST ALT Alkaline Phosphatase Total Protein Albumin Serum , Qual Negative Blood Type Antibody Screen 12/31/17 12/31/17 12/31/17 07:52 07:52 07:52 WBC RBC Hgb Hct MCV MCH MCHC RDW Plt Count MPV Absolute Neuts (auto) Neutrophils % Lymphocytes % Monocytes % Eosinophils % Basophils % Nucleated RBC % PT with INR INR VBG pH 7.05 L* POC VBG pCO2 58.0 H POC VBG pO2 226.0 H* Mixed VBG HCO3 15.1 L Sodium 139 Potassium 3.3 L Chloride 104 Carbon Dioxide 17 L Anion Gap 18 H BUN 15 Creatinine 1.3 H Creat Clearance w eGFR 46.61 Random Glucose 355 H* Lactic Acid 8.3 H* Calcium 8.0 L Total Bilirubin 0.2 AST 19 ALT 20 Alkaline Phosphatase 67 Total Protein 6.5 Albumin 3.4 Serum , Qual Blood Type Antibody Screen 12/31/17 07:52 WBC RBC Hgb Hct MCV MCH MCHC RDW Plt Count MPV Absolute Neuts (auto) Neutrophils % Lymphocytes % Monocytes % Eosinophils % Basophils % Nucleated RBC % PT with INR INR VBG pH POC VBG pCO2 POC VBG pO2 Mixed VBG HCO3 Sodium Potassium Chloride Carbon Dioxide Anion Gap BUN Creatinine Creat Clearance w eGFR Random Glucose Lactic Acid Calcium Total Bilirubin AST ALT Alkaline Phosphatase Total Protein Albumin Serum , Qual Blood Type Cancelled Antibody Screen Cancelled Active Medications Generic Name Dose Route Start Last Admin Trade Name Bill PRN Reason Stop Dose Admin Fentanyl 500 mcg/ Dextrose 100 mls @ 0.8 mls/hr 12/31/17 08:00 12/31/17 09:12 IVPB 2.4 mls/hr TITR ZORAN Administration 4 MCG/HR Midazolam HCl 100 mg/ Sodium 100 mls @ 1 mls/hr 12/31/17 08:00 12/31/17 09:33 Chloride IVPB 3 mg/hr TITR ZORAN 3 mls/hr Titration Protocol 1 MG/HR Norepinephrine Bitartrate 8, 500 mls @ 18.75 mls/hr 12/31/17 08:45 12/31/17 09:00 000 mcg/ Dextrose IV 10 mcg/min TITR ZORAN 37.5 mls/hr Titration Protocol 5 MCG/MIN Lactated Ringer's 1,000 ml in 1,000 mls @ 500 mls/hr 12/31/17 09:00 12/31/17 08:56 Lactated Ringers Solution IV 500 mls/hr ASDIR ZORAN Administration Azithromycin 500 mg/ Dextrose 250 mls @ 250 mls/hr 12/31/17 10:04 IVPB 12/31/17 11:03 ONCE ONE Ceftriaxone Sodium 1,000 mg/ 50 mls @ 100 mls/hr 12/31/17 10:04 12/31/17 10: 23 Dextrose IVPB 12/31/17 10:33 100 mls/hr ONCE ONE Administration ASSESSMENT/PLAN: Hypoxic hypercapneic respiratory failure Hypotension DAYLIN Lactic Acidosis Leukocytosis R/o sepsis H/o asthma h/o autism Neuro: Sedation vacations once off of pressor support Baseline per family: Pt will walk around, be slightly combatitive with some of the lines/treatment, and will talk minimally Respiratory: Rpt ABG 7.24/45/260 (respiratory acidosis) --Decreased ventilator oxygen conten to 35% (from 50) --Increased rate to 14 (from 12) --AM ABG to f/u on changes and correction of acidosis Cardiovascular: MAPs of 60-65 okay Will wean levophed as needed; likely hypotension due to sedation ID: R/o sepsis processes CXR w/o overt infiltrates UA without signs of UTI Monitor for fevers (none at this point) Will monitor off antibiotics now Leukocytosis likely 2/2 to prednisone usage Lactic acidosis likely 2/2 to under ventilation rather than sepsis process; will trend Renal: Likely 2/2 to pre-renal azotemia Monitor Cr/BUN for now FEN: Fluids: Received 3L in ER; will bolus as needed Electrolyte abnormalities: Hypokalemia (replete with KCl) Nutrition: NPO in the acute setting PPX: DVT - Heparin SQ GI - PPI due to steroid use Dispo: ICU monitoring; wean off pressor support (MAP GOAL 60-65) Case discussed with Dr. Rm Maldonado, DO - IM PGY-2 Visit type - Emergency Visit Emergency Visit: Yes ED Registration Date: 12/31/17 Care time: The patient presented to the Emergency Department on the above date and was hospitalized for further evaluation of their emergent condition. - New Patient This patient is new to me today: Yes Date on this admission: 12/31/17 - Critical Care Critical Care patient: Yes Total Critical Care Time (in minutes): 40 Critical Care Statement: The care of this patient involved high complexity decision making to prevent further life threatening deterioration of the patient 's condition and/or to evaluate & treat vital organ system(s) failure or risk of failure.
[2017-12-31 10:34] LABS: URINE APPEARANCE CLOUDY; URINE BILIRUBIN NEGATIVE (<2.0 mg/dL); URINE COLOR LTYELLOW; URINE GLUCOSE (UA) 3+ (NEGATIVE); URINE KETONE NEGATIVE (NEGATIVE); URINE LEUK ESTERASE NEGATIVE (NEGATIVE); URINE NITRITE NEGATIVE (NEGATIVE); URINE UROBILINOGEN NEGATIVE mg/dL (0.2-1.0)
[2017-12-31 10:41] LABS: ARTERIAL BLD GAS O2 SATURATION 99.1 % (90-98.9); ARTERIAL BLOOD GAS BASE EXCESS -9.8 meq/l (-2-2); ARTERIAL BLOOD GAS PCO2 45.5 mmHg (35-45); CARBOXYHEMOGLOBIN 0.8 gm% (0.5-2.0)
[2017-12-31 10:43] LABS: ALLENS TEST POSITIVE; ARTERIAL BLOOD GAS pH 7.21 (7.35-7.45)
[2017-12-31 10:52] LABS: URINE PROTEIN 2+ (NEGATIVE)
[2017-12-31] MEDS: ALBUTEROL SO4 2.5/IPRATROPIUM 0.5 INH SOL 3 ML VIAL.NEB. NEB SCH ×3 (11:30→20:15)
[2017-12-31 12:42] LABS: EPI CELLS RARE /HPF (FEW); GRANULAR CASTS 14 /lpf; URINE HYALINE CAST 1 /lpf
--- NOTE | 2017-12-31 13:34 | PN ---
Teaching Attending Note Name of Resident: Raj Rivera ATTENDING PHYSICIAN STATEMENT I saw and evaluated the patient. I reviewed the resident's note and discussed the case with the resident. I agree with the resident's findings and plan as documented. SUBJECTIVE: Pt seen and examined in the ICU. Briefly, 37 yo female with h/o asthma and autism who was admitted with respiratory failure requiring intubation in the field. Questionable loss of pulses, given epinephrine, nebulizers and decadron by EMS. Right femoral line placed in the ER for hypotension, started on levophed gtt. Currently in the ICU, intubated and sedated. Vented on volume assist control with 40% FiO2, peak pressures mid 30s with tidal volume 350mL. OBJECTIVE: Vital Signs Period Temp Pulse Resp BP Sys/Cheema Pulse Ox Last 24 Hr 97.9 F-98.0 F 66-125 12-118 67-168/32-110 99-100 Intake & Output 12/28/17 12/29/17 12/30/17 12/31/17 23:59 23:59 23:59 23:59 Output Total 200 Balance -200 Weight 58.967 kg Gen: intubated, sedated Heart: tachycardic, regular Lung: distant breath sounds Abd: soft, nontender Ext: no edema CBC, BMP 12/31/17 07:52 12/31/17 07:52 Active Medications Albuterol/Ipratropium (Duoneb -) 1 amp NEB RQID ZORAN Last Admin: 12/31/17 11:30 Dose: 1 amp Heparin Sodium (Porcine) (Heparin -) 5,000 unit SQ TID ZORAN Fentanyl 500 mcg/ Dextrose 100 mls @ 0.8 mls/hr IVPB TITR ZORAN Last Admin: 12/31/17 09:12 Dose: 2.4 mls/hr Midazolam HCl 100 mg/ Sodium (Chloride) 100 mls @ 1 mls/hr IVPB TITR ZORAN; Protocol Last Titration: 12/31/17 10:58 Dose: 7 mg/hr, 7 mls/hr Norepinephrine Bitartrate 8, (000 mcg/ Dextrose) 500 mls @ 18.75 mls/hr IV TITR ZORAN; Protocol Last Titration: 12/31/17 09:00 Dose: 10 mcg/min, 37.5 mls/hr Lactated Ringer's (Lactated Ringers Solution) 1,000 ml in 1,000 mls @ 500 mls/ hr IV [facility] Last Admin: 12/31/17 08:56 Dose: 500 mls/hr Potassium Chloride (Potassium Chloride 10 Meq Premix Ivpb -) 10 meq in 100 mls @ 100 mls/hr IVPB Q60M [facility] Stop: 12/31/17 13:44 Methylprednisolone Sodium Succinate (Solu-Medrol -) 40 mg IVPUSH Q6H-IV ZORAN Pantoprazole Sodium (Protonix Iv) 40 mg IVPUSH DAILY [facility] ASSESSMENT AND PLAN: Acute Hypoxic and Hypercapneic Respiratory Failure Status Asthmaticus Shock - r/o Sepsis r/o UTI Lactic Acidosis Acute Kidney Injury Hyperglycemia - ?steroid induced Autism - IV medrol - inhaled bronchodilators standing and PRN - IVF - monitor urine output, creatinine - trend lactate - replete lytes - empiric antibiotics - f/u cultures - sedate for vent synchrony - monitor peak/plateau pressures - monitor ABG - check HbA1C - DVT/GI prophylaxis - ICU monitoring critical care time spent in reviewing chart, evaluating chart and formulating plan 35 min
[2017-12-31] MEDS: methylPREDNISolone NA SUCC 40 MG/1 ML VIAL IVPUSH SCH ×3 (13:40→21:00)
[2017-12-31] MEDS: KCL 10 MEQ IVPB 10 MEQ/100 ML INFUS.BAG IVPB SCH ×2 (14:00→17:00)
[2017-12-31] MEDS: PANTOPRAZOLE SODIUM 40 MG VIAL IVPUSH SCH (14:00)
[2017-12-31] MEDS: HEPARIN NA (PORCINE) 5,000 UNITS/ML 1ML VIAL SQ SCH ×2 (15:54→22:22)
--- NOTE | 2017-12-31 17:47 | HP ---
Admitting History and Physical - Primary Care Physician PCP: Rommel Feldman - Admission History of Present Illness: 37 yo F history autism, asthma presents with asthma exacerbation. As per EMS, she was having respiratory distress, sister called 911. She was combative on their arrival (baseline for her with her history of autism), would not tolerate nebs. She required versed for sedation, however, she became lethargic at that point. She maintained a sinus rhythm on monitor, but as per EMS, she briefly lost pulses (or they were thready, difficult to say because of the high stress situation). She was intubated, given decadron and nebs. Currently intubated and sedated, unable to give history. 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 No: Addictions - Smoking History Smoking history: Never smoked Have you smoked in the past 12 months: No Aproximately how many cigarettes per day: 0 - Alcohol/Substance Use Hx Alcohol Use: No - Social History ADL: Family Assistance History of Recent Travel: No Home Medications - Allergies Allergies/Adverse Reactions: Allergies Allergy/AdvReac Type Severity Reaction Status Date / Time haloperidol [From Haldol] Allergy Verified 12/31/17 11:50 haloperidol lactate Allergy Verified 12/31/17 11:50 [From Haldol] - Home Medications Home Medications: Ambulatory Orders Albuterol 2.5/Ipratropium 0.5 [Duoneb -] 1 [facility] NEB QIDR #100 vial 08/11/14 Budesonide [Pulmicort 0.5 mg Nebulizer -] 1 [facility] NEB BID #60 vial 01/20/16 Polyethylene Glycol 3350 [Miralax 119 gm Btl -] 17 gm PO DAILY 10/09/16 Prednisone 10 mg PO ASDIR #18 tablet 10/12/16 Physical Examination Vital Signs: Vital Signs Temperature 97.8 F 12/31/17 14:00 Pulse Rate 66 12/31/17 14:00 Respiratory Rate 16 12/31/17 16:01 Blood Pressure 110/74 12/31/17 14:00 O2 Sat by Pulse Oximetry (%) 100 12/31/17 10:54 Constitutional: Yes: Calm HENT: Yes: Atraumatic Neck: Yes: Supple Cardiovascular: Yes: Regular Rate and Rhythm Respiratory: Yes: Rhonchi Gastrointestinal: Yes: Normal Bowel Sounds Edema: No Neurological: Yes: Other (intubated sedated) Labs: CBC, BMP 12/31/17 07:52 12/31/17 07:52 Problem List - Problems (1) Acute asthma exacerbation Code(s): J45.901 - UNSPECIFIED ASTHMA WITH (ACUTE) EXACERBATION Qualifiers: Asthma severity: unspecified severity Asthma persistence: unspecified Qualified Code(s): J45.901 - Unspecified asthma with (acute) exacerbation (2) Respiratory failure Code(s): J96.90 - RESPIRATORY FAILURE, UNSP, UNSP W HYPOXIA OR HYPERCAPNIA Qualifiers: Chronicity: unspecified Respiratory failure complication: unspecified whether with hypoxia or hypercapnia Qualified Code(s): J96.90 - Respiratory failure, unspecified, unspecified whether with hypoxia or hypercapnia (3) Autism Code(s): F84.0 - AUTISTIC DISORDER Assessment/Plan Laboratory Tests 12/31/17 12/31/17 12/31/17 07:52 07:52 07:52 WBC 17.7 H RBC 4.04 Hgb 12.0 Hct 37.1 D MCV 91.9 MCH 29.7 MCHC 32.3 RDW 13.6 Plt Count 383 D MPV 9.5 Absolute Neuts (auto) 9.4 H Neutrophils % 53.3 Lymphocytes % 25.6 D Monocytes % 3.0 L Eosinophils % 17.4 H Basophils % 0.7 Nucleated RBC % 0 PT with INR 12.80 INR 1.13 H Anticoagulation Therapy ABG pH ABG pCO2 at Pt Temp ABG pO2 at Pt Temp ABG HCO3 ABG O2 Sat (Measured) ABG O2 Content ABG Base Excess Kieran Test VBG pH POC VBG pCO2 POC VBG pO2 Mixed VBG HCO3 Carboxyhemoglobin Methemoglobin O2 Delivery Device Oxygen Flow Rate Vent Mode Vent Rate Mechanical Rate Pressure Support Vent Sodium Potassium Chloride Carbon Dioxide Anion Gap BUN Creatinine Creat Clearance w eGFR Random Glucose Lactic Acid Calcium Total Bilirubin AST ALT Alkaline Phosphatase Total Protein Albumin Serum , Qual Negative Urine Color Urine Appearance Urine pH Ur Specific [place] Urine Protein Urine Glucose (UA) Urine Ketones Urine Blood Urine Nitrite Urine Bilirubin Urine Urobilinogen Ur Leukocyte Esterase Urine WBC (Auto) Urine RBC (Auto) Ur Epithelial Cells Hyaline Casts Granular Casts Blood Type Antibody Screen 12/31/17 12/31/17 12/31/17 07:52 07:52 07:52 WBC RBC Hgb Hct MCV MCH MCHC RDW Plt Count MPV Absolute Neuts (auto) Neutrophils % Lymphocytes % Monocytes % Eosinophils % Basophils % Nucleated RBC % PT with INR INR Anticoagulation Therapy ABG pH ABG pCO2 at Pt Temp ABG pO2 at Pt Temp ABG HCO3 ABG O2 Sat (Measured) ABG O2 Content ABG Base Excess Kieran Test VBG pH 7.05 L* POC VBG pCO2 58.0 H POC VBG pO2 226.0 H* Mixed VBG HCO3 15.1 L Carboxyhemoglobin Methemoglobin O2 Delivery Device Oxygen Flow Rate Vent Mode Vent Rate Mechanical Rate Pressure Support Vent Sodium 139 Potassium 3.3 L Chloride 104 Carbon Dioxide 17 L Anion Gap 18 H BUN 15 Creatinine 1.3 H Creat Clearance w eGFR 46.61 Random Glucose 355 H* Lactic Acid 8.3 H* Calcium 8.0 L Total Bilirubin 0.2 AST 19 ALT 20 Alkaline Phosphatase 67 Total Protein 6.5 Albumin 3.4 Serum , Qual Urine Color Urine Appearance Urine pH Ur Specific [place] Urine Protein Urine Glucose (UA) Urine Ketones Urine Blood Urine Nitrite Urine Bilirubin Urine Urobilinogen Ur Leukocyte Esterase Urine WBC (Auto) Urine RBC (Auto) Ur Epithelial Cells Hyaline Casts Granular Casts Blood Type Antibody Screen 12/31/17 12/31/17 12/31/17 07:52 07:52 10:08 WBC RBC Hgb Hct MCV MCH MCHC RDW Plt Count MPV Absolute Neuts (auto) Neutrophils % Lymphocytes % Monocytes % Eosinophils % Basophils % Nucleated RBC % PT with INR INR Anticoagulation Therapy No Result Required. ABG pH 7.21 L* ABG pCO2 at Pt Temp 45.5 H D ABG pO2 at Pt Temp 240.0 H* ABG HCO3 17.4 L ABG O2 Sat (Measured) 99.1 H ABG O2 Content 15.8 ABG Base Excess -9.8 L Kieran Test Positive VBG pH POC VBG pCO2 POC VBG pO2 Mixed VBG HCO3 Carboxyhemoglobin 0.8 Methemoglobin 1.9 H O2 Delivery Device No Result Required. Oxygen Flow Rate Yes Vent Mode No Result Required. Vent Rate No Result Required. Mechanical Rate No Result Required. Pressure Support Vent No Result Required. Sodium Potassium Chloride Carbon Dioxide Anion Gap BUN Creatinine Creat Clearance w eGFR Random Glucose Lactic Acid Calcium Total Bilirubin AST ALT Alkaline Phosphatase Total Protein Albumin Serum , Qual Urine Color Ltyellow Urine Appearance Cloudy Urine pH 5.0 Ur Specific [place] 1.013 Urine Protein 2+ H Urine Glucose (UA) 3+ H Urine Ketones Negative Urine Blood Negative Urine Nitrite Negative Urine Bilirubin Negative Urine Urobilinogen Negative Ur Leukocyte Esterase Negative Urine WBC (Auto) 17 Urine RBC (Auto) None Ur Epithelial Cells Rare Hyaline Casts 1 Granular Casts 14 Blood Type Cancelled Antibody Screen Cancelled Active Medications Generic Name Dose Route Start Last Admin Trade Name Freq PRN Reason Stop Dose Admin Albuterol Sulfate 1 amp 12/31/17 15:38 Ventolin 0.083% Nebulizer Soln - NEB Q6H PRN SHORT OF BREATH/WHEEZING Albuterol/Ipratropium 1 amp 12/31/17 12:00 12/31/17 15:56 Duoneb - NEB 1 amp RQID ZORAN Administration Heparin Sodium (Porcine) 5,000 unit 12/31/17 14:00 12/31/17 15:54 Heparin - SQ 5,000 unit TID ZORAN Administration Fentanyl 500 mcg/ Dextrose 100 mls @ 0.8 mls/hr 12/31/17 08:00 12/31/17 09:12 IVPB 2.4 mls/hr TITR ZORAN Administration 4 MCG/HR Midazolam HCl 100 mg/ Sodium 100 mls @ 1 mls/hr 12/31/17 08:00 12/31/17 10:58 Chloride IVPB 7 mg/hr TITR ZORAN 7 mls/hr Titration Protocol 1 MG/HR Norepinephrine Bitartrate 8, 500 mls @ 18.75 mls/hr 12/31/17 08:45 12/31/17 09:00 000 mcg/ Dextrose IV 10 mcg/min TITR ZORAN 37.5 mls/hr Titration Protocol 5 MCG/MIN Lactated Ringer's 1,000 ml in 1,000 mls @ 500 mls/hr 12/31/17 09:00 12/31/17 08:56 Lactated Ringers Solution IV 500 mls/hr ASDIR ZORAN Administration Ceftriaxone Sodium 2 gm/ 100 mls @ 200 mls/hr 01/01/18 06:00 Dextrose IVPB 01/01/18 06:29 ONCE ONE Methylprednisolone Sodium Succinate 40 mg 12/31/17 11:15 08/20/18 15:55 Solu-Medrol - IVPUSH Not Given Q6H-IV ZORAN Pantoprazole Sodium 40 mg 12/31/17 11:15 12/31/17 14:00 Protonix Iv IVPUSH 40 mg DAILY ZORAN Administration cc time 60 min
[2017-12-31] MEDS: LACTATED RINGERS SOLUTION 1,000 ML/1,000 ML INFUS.BAG IV SCH (21:00)
[2017-12-31] MEDS ORDERED: HEPARIN NA (PORCINE) 5,000 UNITS/ML 1ML VIAL SQ SCH (22:00)
[2018-01-01 00:32] LABS: ALBUMIN 3.1 g/dl (3.4-5.0); ALK PHOS 70 U/L (45-117); ANION GAP 9 (8-16); BILIRUBIN,TOTAL 0.2 mg/dL (0.2-1.0); BLOOD UREA NITROGEN 8 mg/dL (7-18); CALCIUM 7.5 mg/dL (8.5-10.1); CHLORIDE 111 mmol/L (98-107); CO2 21 mmol/L (21-32); CREATININE 0.6 mg/dL (0.55-1.02); GLUCOSE,RANDOM 106 mg/dL (74-106); MAGNESIUM 2.2 mg/dL (1.8-2.4); PHOSPHOROUS 3.6 mg/dL (2.5-4.9); POTASSIUM 4.2 mmol/L (3.5-5.1); SGOT/AST 44 U/L (15-37); SGPT/ALT 49 U/L (12-78); SODIUM 141 mmol/L (136-145)
[2018-01-01] MEDS ORDERED: LORazepam 2 MG/ML SDV VIAL IVPUSH ONE ×2 (02:09→04:36)
[2018-01-01] MEDS ORDERED: LORazepam 2 MG/ML SDV VIAL ONE (02:10)
--- NOTE | 2018-01-01 02:19 | PN ---
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 (short form) - Note 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: The patient had seizure episode, rapid eye and head movements, Versed drip was increased to 7, Fentanyl increased to 30, one dose of Ativan given that stopped seizure after several minutes. Vital signs stable, BP 112/79, HR 110, Oxyg Sat. 100. She doesn't have a history of seizure disorder. Neurology was consulted. 05:00- another seizure, similar presentation, resolved with Ativan IV. CT head w /o contrast ordered, to r/o acute pathology. Problem List - Problems (1) Acute asthma exacerbation Code(s): J45.901 - UNSPECIFIED ASTHMA WITH (ACUTE) EXACERBATION Qualifiers: Asthma severity: unspecified severity Asthma persistence: unspecified Qualified Code(s): J45.901 - Unspecified asthma with (acute) exacerbation (2) Respiratory failure Code(s): J96.90 - RESPIRATORY FAILURE, UNSP, UNSP W HYPOXIA OR HYPERCAPNIA Qualifiers: Chronicity: unspecified Respiratory failure complication: unspecified whether with hypoxia or hypercapnia Qualified Code(s): J96.90 - Respiratory failure, unspecified, unspecified whether with hypoxia or hypercapnia (3) Autism Code(s): F84.0 - AUTISTIC DISORDER (4) Lactic acidosis Code(s): E87.2 - ACIDOSIS (5) Tachycardia Code(s): R00.0 - TACHYCARDIA, UNSPECIFIED (6) URI (upper respiratory infection) Code(s): J06.9 - ACUTE UPPER RESPIRATORY INFECTION, UNSPECIFIED
[2018-01-01] MEDS: methylPREDNISolone NA SUCC 40 MG/1 ML VIAL IVPUSH SCH ×4 (03:00→21:18)
[2018-01-01] MEDS ORDERED: levETIRAcetam 500 MG/5 ML INJECTION VIAL IVPB ONE (04:36)
[2018-01-01] MEDS: ALBUTEROL SO4 0.083% IH SOL 2.5 MG/3 ML VIAL.NEB. NEB PRN (06:00)
[2018-01-01] MEDS ORDERED: CEFTRIAXONE 2 GM in DEXTROSE 5%-WATER 100 ML IVPB ONE (06:00)
[2018-01-01] MEDS ORDERED: DEXTROSE 5%-WATER 100 ML IVPB ONE (06:17)
[2018-01-01 06:25] LABS: HEMATOCRIT 31.2 % (32.4-45.2); HEMOGLOBIN 10.5 GM/dL (10.7-15.3); MCH 29.9 pg (25.7-33.7); MCHC 33.6 g/dl (32.0-36.0); MEAN CELL VOLUME 88.8 fl (80-96); MEAN PLT VOLUME 8.9 fl (7.5-11.1); PLATELET COUNT 290 K/MM3 (134-434); RBC 3.51 M/mm3 (3.60-5.2); RDW 13.2 % (11.6-15.6); WHITE BLOOD COUNT 15.4 K/mm3 (4.0-10.0)
[2018-01-01] MEDS: HEPARIN NA (PORCINE) 5,000 UNITS/ML 1ML VIAL SQ SCH ×3 (06:38→21:35)
[2018-01-01 06:44] LABS: ARTERIAL BLD GAS O2 SATURATION 98.2 % (90-98.9); ARTERIAL BLOOD GAS BASE EXCESS -4.8 meq/l (-2-2); ARTERIAL BLOOD GAS PCO2 33.5 mmHg (35-45); ARTERIAL BLOOD GAS pH 7.38 (7.35-7.45)
[2018-01-01 06:52] LABS: CHLORIDE 112 mmol/L (98-107); POTASSIUM 4.1 mmol/L (3.5-5.1); SODIUM 143 mmol/L (136-145)
[2018-01-01 07:01] LABS: ALK PHOS 68 U/L (45-117); ANION GAP 10 (8-16); BILIRUBIN,TOTAL 0.2 mg/dL (0.2-1.0); BLOOD UREA NITROGEN 8 mg/dL (7-18); CALCIUM 7.7 mg/dL (8.5-10.1); CO2 21 mmol/L (21-32); CREATININE 0.5 mg/dL (0.55-1.02); GLUCOSE,RANDOM 97 mg/dL (74-106); MAGNESIUM 2.2 mg/dL (1.8-2.4); SGOT/AST 39 U/L (15-37); SGPT/ALT 42 U/L (12-78); TOT PROT 5.7 g/dl (6.4-8.2)
[2018-01-01 07:02] LABS: ALLENS TEST POSITIVE
[2018-01-01] MEDS: FENTANYL INJECTION 500 MCG in DEXTROSE 5%-WATER - 90 ML IVPB SCH (07:09)
[2018-01-01] MEDS: NOREPINEPHRINE BITARTRATE 8,000 MCG in DEXTROSE 5%-WATER - 492 ML IV SCH ×2 (07:10→09:21)
[2018-01-01] MEDS: MIDAZOLAM 100 MG in SODIUM CHLORIDE 100 ML IVPB SCH (07:10)
[2018-01-01] MEDS: ALBUTEROL SO4 2.5/IPRATROPIUM 0.5 INH SOL 3 ML VIAL.NEB. NEB SCH ×4 (08:27→19:50)
--- NOTE | 2018-01-01 09:30 | CONSULT ---
Consult - text type - Consultation Consultation Note: Neurology HISTORY OF PRESENT ILLNESS: 37yo F with history of asthma with previous intubations and autism who presented with respiratory distress at home when her sister called 911. EMS arrived on scene and pt was reportedly hypoxic requiring intubation, ?loss of pulses but did not require CPR. 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 Given a dose of Ativan and Keppra overnight and resolved. Intubated, on sedation, in ICU in critical care monitoring. Pt's family at bedside reports that pt has had multiple asthma exacerbations with multiple uses of steroids and a few intubations. Pt's mother reported that in the past couple of days she was given Prednisone 10mg once per day due to "not feeling well with her breathing. Is on sedation, pressors as well. Discussed with resident, they will try to wean as able. Asked to continue Keppra 500mg twice daily for seizure prevention. CT head completed, awaiting official report. REVIEW OF SYSTEMS: Unable to obtain due to clinical scenario Active Medications Albuterol Sulfate (Ventolin 0.083% Nebulizer Soln -) 1 amp NEB Q6H PRN PRN Reason: SHORT OF BREATH/WHEEZING Last Admin: 01/01/18 06:00 Dose: 1 amp Albuterol/Ipratropium (Duoneb -) 1 amp NEB RQID Z[facility]AN Last Admin: 01/01/18 08:27 Dose: 1 amp Heparin Sodium (Porcine) (Heparin -) 5,000 unit SQ TID ZORAN Last Admin: 01/01/18 06:38 Dose: 5,000 unit Fentanyl 500 mcg/ Dextrose 100 mls @ 0.8 mls/hr IVPB TITR ZORAN Last Admin: 01/01/18 07:09 Dose: 5 mls/hr Midazolam HCl 100 mg/ Sodium (Chloride) 100 mls @ 1 mls/hr IVPB TITR [facility]AN; Protocol Last Admin: 01/01/18 07:10 Dose: 7 mg/hr, 7 mls/hr Norepinephrine Bitartrate 8, (000 mcg/ Dextrose) 500 mls @ 18.75 mls/hr IV TITR [facility]AN; Protocol Last Admin: 01/01/18 07:10 Dose: 2 mcg/min, 7.5 mls/hr Lactated Ringer's (Lactated Ringers Solution) 1,000 ml in 1,000 mls @ 100 mls/ hr IV [facility] Last Admin: 12/31/17 21:00 Dose: 100 mls/hr Levetiracetam (Keppra Injection -) 500 mg IVPB BID [facility] Methylprednisolone Sodium Succinate (Solu-Medrol -) 40 mg IVPUSH Q6H-IV [facility] Last Admin: 01/01/18 03:00 Dose: 40 mg Pantoprazole Sodium (Protonix Iv) 40 mg IVPUSH DAILY [facility] Last Admin: 12/31/17 14:00 Dose: 40 mg PHYSICAL EXAMINATION Vital Signs Period Temp Pulse Resp BP Sys/Cheema Pulse Ox Last 24 Hr 94.0 F-99.4 F 64-116 12-23 79-122/47-85 100-100 GENERAL: Intubated and sedated with light arousal HEENT: NC/AT, Pinpoint pupils with reactivity b/l, MMM, no abnormalites of the nares or oropharynx, ETT in place with minimal secretions NECK: No JVD LUNGS: Wheezing noted throughout bilaterally. no crackles. AC mode 12/350/50%/5 HEART: RRR, normal S1 and S2 without murmur ABDOMEN: Soft,not distended, could not assess tenderness, normoactive bowel sounds, no guarding, no masses. No hepatomegaly EXTREMITIES: 2+ DP pulses, no edema peripherally, slightly cool extremities Neuro: On sedation, not following commands, no facial droop noted, not moving ext to commands, responds to painful stim, gag intact Laboratory Results - last 24 hr 12/31/17 12/31/17 12/31/17 07:52 07:52 07:52 WBC 17.7 H RBC 4.04 Hgb 12.0 Hct 37.1 D MCV 91.9 MCH 29.7 MCHC 32.3 RDW 13.6 Plt Count 383 D MPV 9.5 Absolute Neuts (auto) 9.4 H Neutrophils % 53.3 Lymphocytes % 25.6 D Monocytes % 3.0 L Eosinophils % 17.4 H Basophils % 0.7 Nucleated RBC % 0 PT with INR 12.80 INR 1.13 H VBG pH POC VBG pCO2 POC VBG pO2 Mixed VBG HCO3 Sodium Potassium Chloride Carbon Dioxide Anion Gap BUN Creatinine Creat Clearance w eGFR Random Glucose Lactic Acid Calcium Total Bilirubin AST ALT Alkaline Phosphatase Total Protein Albumin Serum , Qual Negative Blood Type Antibody Screen 12/31/17 12/31/17 12/31/17 07:52 07:52 07:52 WBC RBC Hgb Hct MCV MCH MCHC RDW Plt Count MPV Absolute Neuts (auto) Neutrophils % Lymphocytes % Monocytes % Eosinophils % Basophils % Nucleated RBC % PT with INR INR VBG pH 7.05 L* POC VBG pCO2 58.0 H POC VBG pO2 226.0 H* Mixed VBG HCO3 15.1 L Sodium 139 Potassium 3.3 L Chloride 104 Carbon Dioxide 17 L Anion Gap 18 H BUN 15 Creatinine 1.3 H Creat Clearance w eGFR 46.61 Random Glucose 355 H* Lactic Acid 8.3 H* Calcium 8.0 L Total Bilirubin 0.2 AST 19 ALT 20 Alkaline Phosphatase 67 Total Protein 6.5 Albumin 3.4 Serum , Qual Blood Type Antibody Screen 12/31/17 07:52 WBC RBC Hgb Hct MCV MCH MCHC RDW Plt Count MPV Absolute Neuts (auto) Neutrophils % Lymphocytes % Monocytes % Eosinophils % Basophils % Nucleated RBC % PT with INR INR VBG pH POC VBG pCO2 POC VBG pO2 Mixed VBG HCO3 Sodium Potassium Chloride Carbon Dioxide Anion Gap BUN Creatinine Creat Clearance w eGFR Random Glucose Lactic Acid Calcium Total Bilirubin AST ALT Alkaline Phosphatase Total Protein Albumin Serum , Qual Blood Type Cancelled Antibody Screen Cancelled CT head reviewed ASSESSMENT/PLAN: 37yo F with history of asthma with previous intubations and autism who presented with respiratory distress at home when her sister called 911. EMS arrived on scene and pt was reportedly hypoxic requiring intubation, ?loss of pulses but did not require CPR. 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 Given a dose of Ativan and Keppra overnight and resolved. Intubated, on sedation, in ICU in critical care monitoring. Pt's family at bedside reports that pt has had multiple asthma exacerbations with multiple uses of steroids and a few intubations. Pt's mother reported that in the past couple of days she was given Prednisone 10mg once per day due to "not feeling well with her breathing. Is on sedation, pressors as well. Discussed with resident, they will try to wean as able. Asked to continue Keppra 500mg twice daily for seizure prevention. CT head completed, awaiting official report. Continue medical optimization, check for sepsis, wean pressors and sedation as able. Monitor for seizure events, sedation also protects from seizure events. Critical care 45 mins.
[2018-01-01] MEDS ORDERED: PROPOFOL 20 ML ONE (09:44)
[2018-01-01] MEDS ORDERED: PROPOFOL 1,000,000 MCG/100 ML VIAL ONE (09:50)
[2018-01-01] MEDS ORDERED: PROPOFOL 200 MG/20 ML VIAL IVPUSH ONE (09:55)
[2018-01-01] MEDS ORDERED: PROPOFOL 1,000,000 MCG/100 ML VIAL IVPB SCH (10:00)
[2018-01-01] MEDS ORDERED: AZITHROMYCIN IVPB 250 MG in DEXTROSE 5%-WATER - 250 ML IVPB SCH (10:00)
[2018-01-01] MEDS: PANTOPRAZOLE SODIUM 40 MG VIAL IVPUSH SCH (10:18)
[2018-01-01] MEDS: levETIRAcetam 500 MG/5 ML INJECTION VIAL IVPB SCH ×2 (10:22→21:35)
--- NOTE | 2018-01-01 10:58 | PN ---
Teaching Attending Note Name of Resident: Rebeka Olvera ATTENDING PHYSICIAN STATEMENT I saw and evaluated the patient. I reviewed the resident's note and discussed the case with the resident. I agree with the resident's findings and plan as documented. SUBJECTIVE: Pt seen and examined in the ICU. Remains intubated, sedated. Questionable seizure activity overnight, given ativan and started on keppra. Shaking after suctioning during rounds with rhythmic cough and gag with desaturations, resolved with propofol push. Peak pressures mid 20s, plateau 15. OBJECTIVE: Vital Signs Period Temp Pulse Resp BP Sys/Cheema Pulse Ox Last 24 Hr 94.0 F-99.4 F 64-116 12-22 85-110/54-80 100-100 Intake & Output 12/29/17 12/30/17 12/31/17 01/01/18 23:59 23:59 23:59 23:59 Intake Total 453 192 Output Total 1999 400 Balance -1547 -208 Weight 58.967 kg 45.8 kg Gen: intubated, sedated Heart: RRR Lung: scattered rhonchi Abd: soft, nontender Ext: no edema CBC, BMP 01/01/18 05:30 01/01/18 05:30 Active Medications Albuterol Sulfate (Ventolin 0.083% Nebulizer Soln -) 1 amp NEB Q6H PRN PRN Reason: SHORT OF BREATH/WHEEZING Last Admin: 01/01/18 06:00 Dose: 1 amp Albuterol/Ipratropium (Duoneb -) 1 amp NEB RQID [facility] Last Admin: 01/01/18 08:27 Dose: 1 amp Heparin Sodium (Porcine) (Heparin -) 5,000 unit SQ TID [facility] Last Admin: 01/01/18 06:38 Dose: 5,000 unit Fentanyl 500 mcg/ Dextrose 100 mls @ 0.8 mls/hr IVPB TITR [facility] Last Admin: 01/01/18 07:09 Dose: 5 mls/hr Midazolam HCl 100 mg/ Sodium (Chloride) 100 mls @ 1 mls/hr IVPB TITR [facility]; Protocol Last Admin: 01/01/18 07:10 Dose: 7 mg/hr, 7 mls/hr Norepinephrine Bitartrate 8, (000 mcg/ Dextrose) 500 mls @ 18.75 mls/hr IV TITR [facility]; Protocol Last Admin: 01/01/18 09:21 Dose: Not Given Lactated Ringer's (Lactated Ringers Solution) 1,000 ml in 1,000 mls @ 100 mls/ hr IV ASDIR [facility] Last Admin: 12/31/17 21:00 Dose: 100 mls/hr Propofol (Diprivan -) 1,000,000 mcg in 100 mls @ 2.748 mls/hr IVPB TITR [facility]; Protocol Last Admin: 01/01/18 10:26 Dose: 10 mcg/kg/min, 2.748 mls/hr Levetiracetam (Keppra Injection -) 500 mg IVPB BID [facility] Last Admin: 01/01/18 10:22 Dose: 500 mg Methylprednisolone Sodium Succinate (Solu-Medrol -) 40 mg IVPUSH Q6H-IV [facility] Last Admin: 01/01/18 10:22 Dose: 40 mg Pantoprazole Sodium (Protonix Iv) 40 mg IVPUSH DAILY [facility] Last Admin: 01/01/18 10:18 Dose: 40 mg Propofol (Diprivan -) 50 mcg IVPUSH ONCE ONE Stop: 01/01/18 09:56 Last Admin: 01/01/18 09:50 Dose: 50 mcg ASSESSMENT AND PLAN: Acute Hypoxic and Hypercapneic Respiratory Failure Status Asthmaticus resolving Shock - r/o Sepsis UTI Lactic Acidosis Acute Kidney Injury Hyperglycemia - ?steroid induced Autism - change sedation to just propofol if possible - continue medrol at current dose - inhaled bronchodilators standing and PRN - IVF - monitor urine output, creatinine - taper off levophed gtt - continue antibiotics - f/u cultures - sedate for vent synchrony - monitor peak/plateau pressures - spontaneous breathing trials as tolerated - DVT/GI prophylaxis - ICU monitoring critical care time spent in reviewing chart, evaluating chart and formulating plan 35 min
[2018-01-01] MEDS: LACTATED RINGERS SOLUTION 1,000 ML/1,000 ML INFUS.BAG IV SCH (11:53)
--- NOTE | 2018-01-01 13:02 | PN ---
Physical Exam: SUBJECTIVE: Patient seen and examined at bedside. overnight had 2 episodes of seizures with rapid eye and head movements requiring ativan and keppra. Head CT showed no acute patholgoy- and patient was seen by neurologist this am who started patient on keppra 500 BID for seizure prevention. during rounds this am patient began gagging and coughing when sedation was turned off, discontinued fentanyl and is currently on propofol drip in addition to levophed. OBJECTIVE: Vital Signs Period Temp Pulse Resp BP Sys/Cheema Pulse Ox Last 24 Hr 97.5 F-99.4 F 64-116 14-22 85-110/54-80 100 GENERAL: The patient is intubated and sedated LUNGS: wheezing auscultated B/L HEART: Regular rate and rhythm, S1, S2 without murmur, rub or gallop. ABDOMEN: Soft, nontender, nondistended, normoactive bowel sounds, no guarding, no rebound, no hepatosplenomegaly, no masses. EXTREMITIES: 2+ pulses, warm, well-perfused, no edema. NEUROLOGICAL: Cranial nerves II through XII grossly intact. Normal speech, gait not observed. PSYCH: Normal mood, normal affect. SKIN: Warm, dry, normal turgor, no rashes or lesions noted Laboratory Results - last 24 hr 12/31/17 12/31/17 12/31/17 07:52 20:00 23:33 WBC RBC Hgb Hct MCV MCH MCHC RDW Plt Count MPV Puncture Site ABG pH ABG pCO2 at Pt Temp ABG pO2 at Pt Temp ABG HCO3 ABG O2 Sat (Measured) ABG O2 Content ABG Base Excess Kieran Test O2 Delivery Device Oxygen Flow Rate Vent Mode Vent Rate Mechanical Rate PEEP Pressure Support Vent Sodium Potassium Chloride Carbon Dioxide Anion Gap BUN Creatinine Creat Clearance w eGFR POC Glucometer [id number] Random Glucose Hemoglobin A1c % Lactic Acid 1.1 Calcium Phosphorus Magnesium Total Bilirubin AST ALT Alkaline Phosphatase Total Protein Albumin Urine WBC (Auto) 17 Urine RBC (Auto) None Ur Epithelial Cells Rare Hyaline Casts 1 Granular Casts 14 12/31/17 01/01/18 01/01/18 23:45 05:30 05:30 WBC 15.4 H RBC 3.51 L Hgb 10.5 L Hct 31.2 L D MCV 88.8 MCH 29.9 MCHC 33.6 RDW 13.2 Plt Count 290 D MPV 8.9 Puncture Site ABG pH ABG pCO2 at Pt Temp ABG pO2 at Pt Temp ABG HCO3 ABG O2 Sat (Measured) ABG O2 Content ABG Base Excess Kieran Test O2 Delivery Device Oxygen Flow Rate Vent Mode Vent Rate Mechanical Rate PEEP Pressure Support Vent Sodium 141 143 Potassium 4.2 4.1 Chloride 111 H 112 H Carbon Dioxide 21 21 Anion Gap 9 10 BUN 8 8 Creatinine 0.6 0.5 L Creat Clearance w eGFR > 60 > 60 POC Glucometer Random Glucose 106 97 Hemoglobin A1c % Lactic Acid Calcium 7.5 L 7.7 L Phosphorus 3.6 4.0 Magnesium 2.2 2.2 Total Bilirubin 0.2 0.2 AST 44 H 39 H ALT 49 42 Alkaline Phosphatase 70 68 Total Protein 6.0 L 5.7 L Albumin 3.1 L 3.0 L Urine WBC (Auto) Urine RBC (Auto) Ur Epithelial Cells Hyaline Casts Granular Casts 01/01/18 01/01/18 05:30 06:30 WBC RBC Hgb Hct MCV MCH MCHC RDW Plt Count MPV Puncture Site Left radial ABG pH 7.38 D ABG pCO2 at Pt Temp 33.5 L D ABG pO2 at Pt Temp 105.0 H D ABG HCO3 19.2 L ABG O2 Sat (Measured) 98.2 ABG O2 Content 14.9 L ABG Base Excess -4.8 L Kieran Test Positive O2 Delivery Device Mech vent Oxygen Flow Rate 35% Vent Mode A/c Vent Rate 14 Mechanical Rate Yes PEEP 5.0 Pressure Support Vent 350 Sodium Potassium Chloride Carbon Dioxide Anion Gap BUN Creatinine Creat Clearance w eGFR POC Glucometer Random Glucose Hemoglobin A1c % 5.4 Lactic Acid Calcium Phosphorus Magnesium Total Bilirubin AST ALT Alkaline Phosphatase Total Protein Albumin Urine WBC (Auto) Urine RBC (Auto) Ur Epithelial Cells Hyaline Casts Granular Casts Active Medications Generic Name Dose Route Start Last Admin Trade Name Freq PRN Reason Stop Dose Admin Albuterol Sulfate 1 amp 12/31/17 15:38 01/01/18 06:00 Ventolin 0.083% Nebulizer Soln - NEB 1 amp Q6H PRN Administration SHORT OF BREATH/WHEEZING Albuterol/Ipratropium 1 amp 12/31/17 12:00 01/01/18 12:29 Duoneb - NEB 1 amp RQID ZORAN Administration Heparin Sodium (Porcine) 5,000 unit 12/31/17 14:00 01/01/18 06:38 Heparin - SQ 5,000 unit TID ZORAN Administration Midazolam HCl 100 mg/ Sodium 100 mls @ 1 mls/hr 12/31/17 08:00 01/01/18 12:12 Chloride IVPB 5 mg/hr TITR [facility] 5 mls/hr Titration Protocol 1 MG/HR Norepinephrine Bitartrate 8, 500 mls @ 18.75 mls/hr 12/31/17 08:45 01/01/18 09:21 000 mcg/ Dextrose IV Not Given TITR [facility] Protocol 5 MCG/MIN Lactated Ringer's 1,000 ml in 1,000 mls @ 100 mls/hr 12/31/17 23:30 01/01/18 11:53 Lactated Ringers Solution IV 100 mls/hr ASDIR [facility] Administration Propofol 1,000,000 mcg in 100 mls @ 2.748 mls/hr 01/01/18 10:00 01/01/18 10: 26 Diprivan - IVPB 10 mcg/kg/min TITR [facility] 2.748 mls/hr Administration Protocol 10 MCG/KG/MIN Ceftriaxone Sodium 2 gm/ 100 mls @ 200 mls/hr 01/02/18 10:00 Dextrose IVPB DAILY [facility] Protocol Levetiracetam 500 mg 01/01/18 10:00 01/01/18 10:22 Keppra Injection - IVPB 500 mg BID [facility] Administration Methylprednisolone Sodium Succinate 40 mg 12/31/17 11:15 01/01/18 10:22 Solu-Medrol - IVPUSH 40 mg Q6H-IV [facility] Administration Pantoprazole Sodium 40 mg 12/31/17 11:15 01/01/18 10:18 Protonix Iv IVPUSH 40 mg DAILY [facility] Administration ASSESSMENT/PLAN: 37 y/o female with PMH of autism, asthma presenting with respiratory distress requiring intubation in the field. Patient is currently on a propofol drip and has been weaned off levophed. Acute hypoxic and hypercapnic respiratory failure: patient is currently intubated and sedated -current vent settings - will trying tapering FIO2 and weaning trials -continue with IV solumedrol 40mg Q6 - duonebs PRN -repeat CXR in AM Neuro: currently on propofol drip and versed 2.5 for sedation -patient had seziures last night with no previous history of any seizure -started on keppra 500 BID as per neurology -Head CT showed no acute pathology -will try weaning sedation and assessing patients mental status GI Prophyalxis: IV protonix DVT Prophylaxis: Heparin SQ F/E/N: LR @ 100mls/hr replete electrolytes when necessary NPO dispo: continue ICU monitoring Problem List - Problems (1) Acute asthma exacerbation Code(s): J45.901 - UNSPECIFIED ASTHMA WITH (ACUTE) EXACERBATION Qualifiers: Asthma severity: unspecified severity Asthma persistence: unspecified Qualified Code(s): J45.901 - Unspecified asthma with (acute) exacerbation (2) Respiratory failure Code(s): J96.90 - RESPIRATORY FAILURE, UNSP, UNSP W HYPOXIA OR HYPERCAPNIA Qualifiers: Chronicity: unspecified Respiratory failure complication: unspecified whether with hypoxia or hypercapnia Qualified Code(s): J96.90 - Respiratory failure, unspecified, unspecified whether with hypoxia or hypercapnia Visit type - Emergency Visit Emergency Visit: Yes ED Registration Date: 12/31/17 Care time: The patient presented to the Emergency Department on the above date and was hospitalized for further evaluation of their emergent condition. - New Patient This patient is new to me today: Yes Date on this admission: 01/01/18 - Critical Care Critical Care patient: Yes Total Critical Care Time (in minutes): 35 Critical Care Statement: The care of this patient involved high complexity decision making to prevent further life threatening deterioration of the patient 's condition and/or to evaluate & treat vital organ system(s) failure or risk of failure.
--- NOTE | 2018-01-01 14:27 | CON.ID ---
Consult Consult Specialty:: infectious diseases Reason for Consultation:: sepsis.aspiration pneumonia,intubation - History of Present Illness History of Present Illness: this patient currently intubated history obtained from the charts and the family 37 yo F history autism, asthma presents with asthma exacerbation. As per EMS, she was having respiratory distress, sister called 911. She was combative on their arrival (baseline for her with her history of autism), would not tolerate nebs. She required versed for sedation, however, she became lethargic at that point. She maintained a sinus rhythm on monitor, but as per EMS, she briefly lost pulses (or they were thready, difficult to say because of the high stress situation). She was intubated, given decadron and nebs. Currently intubated and sedated, unable to give history. 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 No: Addictions - Alcohol/Substance Use Hx Alcohol Use: No - Smoking History Smoking history: Never smoked Have you smoked in the past 12 months: No Aproximately how many cigarettes per day: 0 - Social History ADL: Family Assistance History of Recent Travel: No Home Medications - Allergies Allergies/Adverse Reactions: Allergies Allergy/AdvReac Type Severity Reaction Status Date / Time haloperidol [From Haldol] Allergy Verified 12/31/17 11:50 haloperidol lactate Allergy Verified 12/31/17 11:50 [From Haldol] - Home Medications Home Medications: Ambulatory Orders RX: Albuterol 2.5/Ipratropium 0.5 [Duoneb -] 1 neb NEB QIDR #100 vial 08/11/14 RX: Budesonide [Pulmicort 0.5 mg Nebulizer -] 1 neb NEB BID #60 vial 01/20/16 RX: Polyethylene Glycol 3350 [Miralax 119 gm Btl -] 17 gm PO DAILY 10/09/16 RX: Prednisone 10 mg PO ASDIR #18 tablet 10/12/16 Review of Systems Unable to obtain ROS, reason: unable to obtain Physical Exam Vital Signs: Vital Signs Temperature 98.9 F 01/01/18 14:00 Pulse Rate 112 H 01/01/18 14:00 Respiratory Rate 22 01/01/18 14:00 Blood Pressure 92/74 01/01/18 14:00 O2 Sat by Pulse Oximetry (%) 100 01/01/18 09:00 Constitutional: Yes: Other Neck: Yes: Supple, Trachea Midline Cardiovascular: Yes: Regular Rate and Rhythm Respiratory: Yes: Intubated, Mechanically Ventilated Gastrointestinal: Yes: Normal Bowel Sounds, Soft Musculoskeletal: Yes: WNL Extremities: Yes: WNL Neurological: Yes: Lethargy Labs: CBC, BMP 01/01/18 05:30 01/01/18 05:30 Imaging - Results Chest X-ray: Report Reviewed, Image Reviewed Cat Scan: Report Reviewed, Image Reviewed Assessment/Plan Problem List - Problems (1) Acute asthma exacerbation Code(s): J45.901 - UNSPECIFIED ASTHMA WITH (ACUTE) EXACERBATION Qualifiers: Asthma severity: unspecified severity Asthma persistence: unspecified Qualified Code(s): J45.901 - Unspecified asthma with (acute) exacerbation (2) Respiratory failure Code(s): J96.90 - RESPIRATORY FAILURE, UNSP, UNSP W HYPOXIA OR HYPERCAPNIA Qualifiers: Chronicity: unspecified Respiratory failure complication: unspecified whether with hypoxia or hypercapnia Qualified Code(s): J96.90 - Respiratory failure, unspecified, unspecified whether with hypoxia or hypercapnia (3) Autism Code(s): F84.0 - AUTISTIC DISORDER (4) Lactic acidosis Code(s): E87.2 - ACIDOSIS (5) Tachycardia Code(s): R00.0 - TACHYCARDIA, UNSPECIFIED (6) URI (upper respiratory infection) Code(s): J06.9 - ACUTE UPPER RESPIRATORY INFECTION, UNSPECIFIED uti plan continue resp care abx ceftriaxone for now monitor closely rest as per icu and the team discussed with family cc 45 min
[2018-01-01] MEDS ORDERED: CHLORHEXIDINE GLUCONATE 0.12% 15ML CUP MM ONE (16:46)
--- NOTE | 2018-01-01 17:39 | PN ---
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, Physician History of Present Illness: intubated - Current Medication List Current Medications: Active Medications Albuterol Sulfate (Ventolin 0.083% Nebulizer Soln -) 1 amp NEB Q6H PRN PRN Reason: SHORT OF BREATH/WHEEZING Last Admin: 01/01/18 06:00 Dose: 1 amp Albuterol/Ipratropium (Duoneb -) 1 amp NEB RQID [facility] Last Admin: 01/01/18 15:56 Dose: 1 amp Heparin Sodium (Porcine) (Heparin -) 5,000 unit SQ TID [facility] Last Admin: 01/01/18 13:54 Dose: 5,000 unit Midazolam HCl 100 mg/ Sodium (Chloride) 100 mls @ 1 mls/hr IVPB TITR [facility]; Protocol Last Titration: 01/01/18 16:39 Dose: 1 mg/hr, 1 mls/hr Norepinephrine Bitartrate 8, (000 mcg/ Dextrose) 500 mls @ 18.75 mls/hr IV TITR [facility]; Protocol Last Titration: 01/01/18 13:54 Dose: 0 mcg/min, 0 mls/hr Lactated Ringer's (Lactated Ringers Solution) 1,000 ml in 1,000 mls @ 100 mls/ hr IV ASDIR [facility] Last Admin: 01/01/18 11:53 Dose: 100 mls/hr Propofol (Diprivan -) 1,000,000 mcg in 100 mls @ 2.748 mls/hr IVPB TITR [facility]; Protocol Last Titration: 01/01/18 14:15 Dose: 20 mcg/kg/min, 5.496 mls/hr Ceftriaxone Sodium 1 gm/ (Dextrose) 100 mls @ 200 mls/hr IVPB DAILY [facility]; Protocol Levetiracetam (Keppra Injection -) 500 mg IVPB BID [facility] Last Admin: 01/01/18 10:22 Dose: 500 mg Methylprednisolone Sodium Succinate (Solu-Medrol -) 40 mg IVPUSH Q6H-IV [facility] Last Admin: 01/01/18 16:42 Dose: 40 mg Pantoprazole Sodium (Protonix Iv) 40 mg IVPUSH DAILY [facility] Last Admin: 01/01/18 10:18 Dose: 40 mg - Objective Vital Signs: Vital Signs Temperature 98.7 F 01/01/18 16:00 Pulse Rate 86 01/01/18 17:00 Respiratory Rate 17 01/01/18 17:00 Blood Pressure 95/59 01/01/18 17:00 O2 Sat by Pulse Oximetry (%) 100 01/01/18 09:00 Constitutional: Yes: Calm HENT: Yes: Atraumatic Neck: Yes: Supple Cardiovascular: Yes: Regular Rate and Rhythm Respiratory: Yes: Rhonchi Gastrointestinal: Yes: Normal Bowel Sounds Extremities: Yes: WNL Neurological: Yes: Other (drowsy) Labs: CBC, BMP 01/01/18 05:30 01/01/18 05:30 INR, PTT INR 1.13 (0.83-1.09) H 12/31/17 07:52 Problem List - Problems (1) Acute asthma exacerbation Assessment/Plan: better now iv steroids duo nebs Code(s): J45.901 - UNSPECIFIED ASTHMA WITH (ACUTE) EXACERBATION Qualifiers: Asthma severity: unspecified severity Asthma persistence: unspecified Qualified Code(s): J45.901 - Unspecified asthma with (acute) exacerbation (2) Respiratory failure Assessment/Plan: s/p extubation Code(s): J96.90 - RESPIRATORY FAILURE, UNSP, UNSP W HYPOXIA OR HYPERCAPNIA Qualifiers: Chronicity: unspecified Respiratory failure complication: unspecified whether with hypoxia or hypercapnia Qualified Code(s): J96.90 - Respiratory failure, unspecified, unspecified whether with hypoxia or hypercapnia (3) Autism Code(s): F84.0 - AUTISTIC DISORDER
[2018-01-02] MEDS: methylPREDNISolone NA SUCC 40 MG/1 ML VIAL IVPUSH SCH ×4 (03:14→21:24)
[2018-01-02] MEDS: LACTATED RINGERS SOLUTION 1,000 ML/1,000 ML INFUS.BAG IV SCH ×3 (03:15→18:14)
[2018-01-02] MEDS: HEPARIN NA (PORCINE) 5,000 UNITS/ML 1ML VIAL SQ SCH ×3 (05:58→21:24)
[2018-01-02 06:29] LABS: BASO % 0.6 % (0-2.0); HEMOGLOBIN 9.9 GM/dL (10.7-15.3); LYMPH % 4.6 % (8-40); MCH 28.9 pg (25.7-33.7); MCHC 32.9 g/dl (32.0-36.0); MEAN PLT VOLUME 9.1 fl (7.5-11.1); MONO % 3.8 % (3.8-10.2); PLATELET COUNT 254 K/MM3 (134-434); RBC 3.41 M/mm3 (3.60-5.2); RDW 13.4 % (11.6-15.6); WHITE BLOOD COUNT 13.7 K/mm3 (4.0-10.0)
[2018-01-02 07:07] LABS: CHLORIDE 111 mmol/L (98-107); POTASSIUM 4.1 mmol/L (3.5-5.1); SODIUM 144 mmol/L (136-145)
[2018-01-02 07:25] LABS: SGPT/ALT 38 U/L (12-78)
[2018-01-02] MEDS: ALBUTEROL SO4 2.5/IPRATROPIUM 0.5 INH SOL 3 ML VIAL.NEB. NEB SCH ×4 (08:23→20:20)
[2018-01-02 08:55] LABS: ALBUMIN 2.8 g/dl (3.4-5.0); ALK PHOS 64 U/L (45-117); ANION GAP 9 MMOL/L (8-16); BILIRUBIN,TOTAL 0.2 mg/dL (0.2-1.0); BLOOD UREA NITROGEN 15 mg/dL (7-18); CALCIUM 8.2 mg/dL (8.5-10.1); CO2 24 mmol/L (21-32); CREATININE 0.5 mg/dL (0.55-1.02); GLUCOSE,RANDOM 108 mg/dL (74-106); MAGNESIUM 2.2 mg/dL (1.8-2.4); PHOSPHOROUS 3.5 mg/dL (2.5-4.9); SGOT/AST 36 U/L (15-37); TOT PROT 5.6 g/dl (6.4-8.2)
[2018-01-02 09:35] LABS: PLATELET ESTIMATE ADEQUATE
[2018-01-02] MEDS ORDERED: cefTRIAXone SODIUM 1 GM VIAL ONE (09:39)
[2018-01-02] MEDS ORDERED: DEXTROSE 5%-WATER 100 ML IVPB ONE (09:39)
--- NOTE | 2018-01-02 09:45 | PN ---
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 (short form) - Note 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: Neurology HISTORY OF PRESENT ILLNESS: 37yo F with history of asthma with previous intubations and autism who presented with respiratory distress at home when her sister called 911. EMS arrived on scene and pt was reportedly hypoxic requiring intubation, ?loss of pulses but did not require CPR. 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 Given a dose of Ativan and Keppra overnight and resolved. Intubated, on sedation, in ICU in critical care monitoring. Pt's family at bedside reports that pt has had multiple asthma exacerbations with multiple uses of steroids and a few intubations. Pt's mother reported that in the past couple of days she was given Prednisone 10mg once per day due to "not feeling well with her breathing. Is on sedation, not on pressors this AM. Discussed with resident, they will try to wean as able. Asked to continue Keppra 500mg twice daily for seizure prevention. Reportedly some twitching when suctioned but not persistent. CT head completed, no acute changes. Is starting to wake up and open eyes as sedation is being weaned. Family remains at bedside and discussed progess with them. Active Medications Albuterol Sulfate (Ventolin 0.083% Nebulizer Soln -) 1 amp NEB Q6H PRN PRN Reason: SHORT OF BREATH/WHEEZING Last Admin: 01/01/18 06:00 Dose: 1 amp Albuterol/Ipratropium (Duoneb -) 1 amp NEB RQID ZORAN Last Admin: 01/02/18 08:23 Dose: 1 amp Heparin Sodium (Porcine) (Heparin -) 5,000 unit SQ TID ZORAN Last Admin: 01/02/18 05:58 Dose: 5,000 unit Midazolam HCl 100 mg/ Sodium (Chloride) 100 mls @ 1 mls/hr IVPB TITR ZORAN; Protocol Last Titration: 01/02/18 07:00 Dose: 0 mg/hr, 0 mls/hr Norepinephrine Bitartrate 8, (000 mcg/ Dextrose) 500 mls @ 18.75 mls/hr IV TITR ZORAN; Protocol Last Titration: 01/01/18 13:54 Dose: 0 mcg/min, 0 mls/hr Lactated Ringer's (Lactated Ringers Solution) 1,000 ml in 1,000 mls @ 100 mls/ hr IV ASDIR ZORAN Last Admin: 01/02/18 03:15 Dose: 100 mls/hr Propofol (Diprivan -) 1,000,000 mcg in 100 mls @ 2.748 mls/hr IVPB TITR ZORAN; Protocol Last Titration: 01/01/18 14:15 Dose: 20 mcg/kg/min, 5.496 mls/hr Ceftriaxone Sodium 1 gm/ (Dextrose) 100 mls @ 200 mls/hr IVPB DAILY ZORAN; Protocol Levetiracetam (Keppra Injection -) 500 mg IVPB BID ZORAN Last Admin: 01/01/18 21:35 Dose: 500 mg Methylprednisolone Sodium Succinate (Solu-Medrol -) 40 mg IVPUSH Q6H-IV ZORAN Last Admin: 01/02/18 03:14 Dose: 40 mg Pantoprazole Sodium (Protonix Iv) 40 mg IVPUSH DAILY ZORAN Last Admin: 01/01/18 10:18 Dose: 40 mg PHYSICAL EXAMINATION Vital Signs Temperature 98.4 F 01/02/18 08:00 Pulse Rate 80 01/02/18 08:20 Respiratory Rate 14 01/02/18 08:20 Blood Pressure 92/53 01/02/18 08:00 O2 Sat by Pulse Oximetry (%) 100 01/02/18 08:20 GENERAL: Intubated and sedated with light arousal HEENT: NC/AT, Pinpoint pupils with reactivity b/l, MMM, no abnormalites of the nares or oropharynx, ETT in place with minimal secretions NECK: No JVD LUNGS: Wheezing noted throughout bilaterally. no crackles. AC mode 12/350/50%/5 HEART: RRR, normal S1 and S2 without murmur ABDOMEN: Soft,not distended, could not assess tenderness, normoactive bowel sounds, no guarding, no masses. No hepatomegaly EXTREMITIES: 2+ DP pulses, no edema peripherally, slightly cool extremities Neuro: On sedation, not following commands, no facial droop noted, not moving ext to commands, responds to painful stim, gag intact CBCD WBC 13.7 K/mm3 (4.0-10.0) H 01/02/18 05:30 RBC 3.41 M/mm3 (3.60-5.2) L 01/02/18 05:30 Hgb 9.9 GM/dL (10.7-15.3) L 01/02/18 05:30 Hct 30.0 % (32.4-45.2) L 01/02/18 05:30 MCV 88.0 fl (80-96) 01/02/18 05:30 MCHC 32.9 g/dl (32.0-36.0) 01/02/18 05:30 RDW 13.4 % (11.6-15.6) 01/02/18 05:30 Plt Count 254 K/MM3 (134-434) 01/02/18 05:30 MPV 9.1 fl (7.5-11.1) 01/02/18 05:30 CMP Sodium 144 mmol/L (136-145) 01/02/18 05:30 Potassium 4.1 mmol/L (3.5-5.1) 01/02/18 05:30 Chloride 111 mmol/L (98-107) H 01/02/18 05:30 Carbon Dioxide 24 mmol/L (21-32) 01/02/18 05:30 Anion Gap 9 MMOL/L (8-16) 01/02/18 05:30 BUN 15 mg/dL (7-18) 01/02/18 05:30 Creatinine 0.5 mg/dL (0.55-1.02) L 01/02/18 05:30 Creat Clearance w eGFR > 60 (>60) 01/02/18 05:30 Random Glucose 108 mg/dL (74-106) H 01/02/18 05:30 Calcium 8.2 mg/dL (8.5-10.1) L 01/02/18 05:30 Total Bilirubin 0.2 mg/dL (0.2-1.0) 01/02/18 05:30 AST 36 U/L (15-37) 01/02/18 05:30 ALT 38 U/L (12-78) 01/02/18 05:30 Alkaline Phosphatase 64 U/L (45-117) 01/02/18 05:30 Total Protein 5.6 g/dl (6.4-8.2) L 01/02/18 05:30 Albumin 2.8 g/dl (3.4-5.0) L 01/02/18 05:30 CARDIAC ENZYMES Creatine Kinase 273 IU/L (26-192) H 01/01/18 21:20 Troponin I 0.09 ng/ml (0.00-0.05) H 01/02/18 05:30 CT head reviewed ASSESSMENT/PLAN: 37yo F with history of asthma with previous intubations and autism who presented with respiratory distress at home when her sister called 911. EMS arrived on scene and pt was reportedly hypoxic requiring intubation, ?loss of pulses but did not require CPR. 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 Given a dose of Ativan and Keppra overnight and resolved. Intubated, on sedation, in ICU in critical care monitoring. Pt's family at bedside reports that pt has had multiple asthma exacerbations with multiple uses of steroids and a few intubations. Pt's mother reported that in the past couple of days she was given Prednisone 10mg once per day due to "not feeling well with her breathing. Is on sedation, not on pressors this AM. Discussed with resident, they will try to wean as able. Asked to continue Keppra 500mg twice daily for seizure prevention. Reportedly some twitching when suctioned but not persistent. CT head completed, no acute changes. Is starting to wake up and open eyes as sedation is being weaned. Family remains at bedside and discussed progess with them. Continue medical optimization, monitor for sepsis, wean sedation as able. Monitor for seizure events, sedation also protects from seizure events. Critical care 40 mins.
[2018-01-02] MEDS: PANTOPRAZOLE SODIUM 40 MG VIAL IVPUSH SCH (09:55)
[2018-01-02] MEDS: levETIRAcetam 500 MG/5 ML INJECTION VIAL IVPB SCH ×2 (09:55→21:45)
[2018-01-02] MEDS: CEFTRIAXONE 1 GM in DEXTROSE 5%-WATER 100 ML IVPB SCH (09:56)
[2018-01-02] MEDS ORDERED: CEFTRIAXONE 2 GM in DEXTROSE 5%-WATER 100 ML IVPB SCH (10:00)
--- NOTE | 2018-01-02 11:13 | PN ---
Teaching Attending Note Name of Resident: Rebeka Olvera ATTENDING PHYSICIAN STATEMENT I saw and evaluated the patient. I reviewed the resident's note and discussed the case with the resident. I agree with the resident's findings and plan as documented. SUBJECTIVE: Pt seen and examined in the ICU. Remained intubated, sedated overnight. Placed on CPAP/PS during rounds, tolerating well and subsequently extubated. OBJECTIVE: Vital Signs Period Temp Pulse Resp BP Sys/Cheema Pulse Ox Last 24 Hr 98.4 F-98.9 F 66-112 12-26 89-110/53-77 100-100 Intake & Output 12/30/17 12/31/17 01/01/18 01/02/18 23:59 23:59 23:59 23:59 Intake Total 453 1627 1275 Output Total 2000 1000 1300 Balance -1547 627 -25 Weight 58.967 kg 45.8 kg 49.1 kg Gen: extubated Heart: tachycardic, regular Lung: decreased breath sounds at the bases Abd: soft, nontender Ext: no edema CBC, BMP 01/02/18 05:30 01/02/18 05:30 Active Medications Albuterol Sulfate (Ventolin 0.083% Nebulizer Soln -) 1 amp NEB Q6H PRN PRN Reason: SHORT OF BREATH/WHEEZING Last Admin: 01/01/18 06:00 Dose: 1 amp Albuterol/Ipratropium (Duoneb -) 1 amp NEB RQID ZORAN Last Admin: 01/02/18 08:23 Dose: 1 amp Heparin Sodium (Porcine) (Heparin -) 5,000 unit SQ TID ZORAN Last Admin: 01/02/18 05:58 Dose: 5,000 unit Midazolam HCl 100 mg/ Sodium (Chloride) 100 mls @ 1 mls/hr IVPB TITR ZORAN; Protocol Last Titration: 01/02/18 07:00 Dose: 0 mg/hr, 0 mls/hr Norepinephrine Bitartrate 8, (000 mcg/ Dextrose) 500 mls @ 18.75 mls/hr IV TITR ZORAN; Protocol Last Titration: 01/01/18 13:54 Dose: 0 mcg/min, 0 mls/hr Lactated Ringer's (Lactated Ringers Solution) 1,000 ml in 1,000 mls @ 100 mls/ hr IV ASDIR ZORAN Last Admin: 01/02/18 03:15 Dose: 100 mls/hr Propofol (Diprivan -) 1,000,000 mcg in 100 mls @ 2.748 mls/hr IVPB TITR ZORAN; Protocol Last Titration: 01/01/18 14:15 Dose: 20 mcg/kg/min, 5.496 mls/hr Ceftriaxone Sodium 1 gm/ (Dextrose) 100 mls @ 200 mls/hr IVPB DAILY ZORAN; Protocol Last Admin: 01/02/18 09:56 Dose: 200 mls/hr Levetiracetam (Keppra Injection -) 500 mg IVPB BID ZORAN Last Admin: 01/02/18 09:55 Dose: 500 mg Methylprednisolone Sodium Succinate (Solu-Medrol -) 40 mg IVPUSH Q6H-IV ZORAN Last Admin: 01/02/18 09:54 Dose: 40 mg Pantoprazole Sodium (Protonix Iv) 40 mg IVPUSH DAILY ZORAN Last Admin: 01/02/18 09:55 Dose: 40 mg ASSESSMENT AND PLAN: Acute Hypoxic and Hypercapneic Respiratory Failure Status Asthmaticus resolving Shock - r/o Sepsis UTI Lactic Acidosis resolved Acute Kidney Injury resolved Hyperglycemia resolved Autism - pt extubated - can decrease medrol to q12h - inhaled bronchodilators standing and PRN - continue IVF - monitor urine output, creatinine - off levophed gtt - d/c femoral line - continue antibiotics - f/u cultures - on empiric antiepileptics but low suspicion of true seizures - DVT/GI prophylaxis - continue ICU monitoring critical care time spent in reviewing chart, evaluating chart and formulating plan 35 min
--- NOTE | 2018-01-02 13:16 | PN ---
Physical Exam: SUBJECTIVE: Patient seen and examined at bedside. no acute events overnight. patient is no longer on pressors or sedation and was extubated to venti mask this morning. OBJECTIVE: Vital Signs Period Temp Pulse Resp BP Sys/Cheema Pulse Ox Last 24 Hr 98.4 F-99.7 F 66-112 12-22 89-108/53-74 100-100 GENERAL: The patient is somnolent but arousable on propofol for sedation LUNGS: slight wheezing B/L. HEART: Regular rate and rhythm, S1, S2 without murmur, rub or gallop. ABDOMEN: Soft, nontender, nondistended, normoactive bowel sounds, no guarding, no rebound, no hepatosplenomegaly, no masses. EXTREMITIES: 2+ pulses, warm, well-perfused, no edema. NEUROLOGICAL: Cranial nerves II through XII grossly intact. Normal speech, gait not observed. PSYCH: Normal mood, normal affect. SKIN: Warm, dry, normal turgor, no rashes or lesions noted Laboratory Results - last 24 hr 01/01/18 01/02/18 01/02/18 21:20 05:30 05:30 WBC 13.7 H RBC 3.41 L Hgb 9.9 L Hct 30.0 L MCV 88.0 MCH 28.9 MCHC 32.9 RDW 13.4 Plt Count 254 MPV 9.1 Absolute Neuts (auto) 12.5 H Total Counted 100 Neutrophils % 91.0 H D Neutrophils % (Manual) 89.0 H Lymphocytes % 4.6 L D Lymphocytes % (Manual) 7.0 L Monocytes % 3.8 Monocytes % (Manual) 4 Eosinophils % 0.0 D Basophils % 0.6 Nucleated RBC % 0 Platelet Estimate Adequate Sodium 144 Potassium 4.1 Chloride 111 H Carbon Dioxide 24 Anion Gap 9 BUN 15 Creatinine 0.5 L Creat Clearance w eGFR > 60 Random Glucose 108 H Calcium 8.2 L Phosphorus 3.5 Magnesium 2.2 Total Bilirubin 0.2 AST 36 ALT 38 Alkaline Phosphatase 64 Creatine Kinase 273 H Creatine Kinase Index 1.6 CK-MB (CK-2) 4.46 H Troponin I 0.15 H 0.09 H Total Protein 5.6 L Albumin 2.8 L 01/02/18 05:30 WBC RBC Hgb Hct MCV MCH MCHC RDW Plt Count MPV Absolute Neuts (auto) Total Counted Neutrophils % Neutrophils % (Manual) Lymphocytes % Lymphocytes % (Manual) Monocytes % Monocytes % (Manual) Eosinophils % Basophils % Nucleated RBC % Platelet Estimate Sodium Potassium Chloride Carbon Dioxide Anion Gap BUN Creatinine Creat Clearance w eGFR Random Glucose Calcium Phosphorus Magnesium Total Bilirubin AST ALT Alkaline Phosphatase Creatine Kinase Creatine Kinase Index CK-MB (CK-2) Troponin I Cancelled Total Protein Albumin Active Medications Generic Name Dose Route Start Last Admin Trade Name Freq PRN Reason Stop Dose Admin Albuterol Sulfate 1 amp 12/31/17 15:38 01/01/18 06:00 Ventolin 0.083% Nebulizer Soln - NEB 1 amp Q6H PRN Administration SHORT OF BREATH/WHEEZING Albuterol/Ipratropium 1 amp 12/31/17 12:00 01/02/18 11:15 Duoneb - NEB 1 amp RQID ZORAN Administration Heparin Sodium (Porcine) 5,000 unit 12/31/17 14:00 01/02/18 05:58 Heparin - SQ 5,000 unit TID ZORAN Administration Midazolam HCl 100 mg/ Sodium 100 mls @ 1 mls/hr 12/31/17 08:00 01/02/18 07:00 Chloride IVPB 0 mg/hr TITR ZORAN 0 mls/hr Titration Protocol 1 MG/HR Norepinephrine Bitartrate 8, 500 mls @ 18.75 mls/hr 12/31/17 08:45 01/01/18 13:54 000 mcg/ Dextrose IV 0 mcg/min TITR ZORAN 0 mls/hr Titration Protocol 5 MCG/MIN Lactated Ringer's 1,000 ml in 1,000 mls @ 100 mls/hr 12/31/17 23:30 01/02/18 03:15 Lactated Ringers Solution IV 100 mls/hr ASDIR ZORAN Administration Propofol 1,000,000 mcg in 100 mls @ 2.748 mls/hr 01/01/18 10:00 01/01/18 14: 15 Diprivan - IVPB 20 mcg/kg/min TITR ZORAN 5.496 mls/hr Titration Protocol 10 MCG/KG/MIN Ceftriaxone Sodium 1 gm/ 100 mls @ 200 mls/hr 01/02/18 10:00 01/02/18 09:56 Dextrose IVPB 200 mls/hr DAILY ZORAN Administration Protocol Levetiracetam 500 mg 01/01/18 10:00 01/02/18 09:55 Keppra Injection - IVPB 500 mg BID ZORAN Administration Methylprednisolone Sodium Succinate 40 mg 12/31/17 11:15 01/02/18 09:54 Solu-Medrol - IVPUSH 40 mg Q6H-IV ZORAN Administration Pantoprazole Sodium 40 mg 12/31/17 11:15 01/02/18 09:55 Protonix Iv IVPUSH 40 mg DAILY ZORAN Administration ASSESSMENT/PLAN: 37 y/o female with PMH of autism, asthma presenting with respiratory distress requiring intubation in the field. Patient is is currently no longer on pressor support was extubated this morning. Acute hypoxic hypercapnic respiratory failure: -patient was extubated this morning to venti mask and is saturating well -monitor o2 saturations -c/w solumedrol 40 q6 -duonebs PRN Neuro: has not head anymore seizure-like activity since yesterday afternoon- -on propofol 5 for sedation -no need for EEG as per neuro -c/w keppra 500 BID; if need be can increase to 750 BID ID: -Ceftriaxone 1gm daily for UTI DVT Prophyalxis: Heparin SQ GI prophylaxis: IV protonix F/E/N: LR@ 100mls/hr replete electrolytes when necessary tube feeds dispo: continue ICU monitoring Problem List - Problems (1) Acute asthma exacerbation Code(s): J45.901 - UNSPECIFIED ASTHMA WITH (ACUTE) EXACERBATION Qualifiers: Asthma severity: unspecified severity Asthma persistence: unspecified Qualified Code(s): J45.901 - Unspecified asthma with (acute) exacerbation (2) Respiratory failure Code(s): J96.90 - RESPIRATORY FAILURE, UNSP, UNSP W HYPOXIA OR HYPERCAPNIA Qualifiers: Chronicity: unspecified Respiratory failure complication: unspecified whether with hypoxia or hypercapnia Qualified Code(s): J96.90 - Respiratory failure, unspecified, unspecified whether with hypoxia or hypercapnia Visit type - Emergency Visit Emergency Visit: Yes ED Registration Date: 12/31/17 Care time: The patient presented to the Emergency Department on the above date and was hospitalized for further evaluation of their emergent condition. - New Patient This patient is new to me today: No - Critical Care Critical Care patient: Yes Total Critical Care Time (in minutes): 35 Critical Care Statement: The care of this patient involved high complexity decision making to prevent further life threatening deterioration of the patient 's condition and/or to evaluate & treat vital organ system(s) failure or risk of failure.
--- NOTE | 2018-01-02 15:14 | PN ---
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, Physician History of Present Illness: looks much better was extubated today family in room millan sensitive uti - Current Medication List Current Medications: Active Medications Albuterol Sulfate (Ventolin 0.083% Nebulizer Soln -) 1 amp NEB Q6H PRN PRN Reason: SHORT OF BREATH/WHEEZING Last Admin: 01/01/18 06:00 Dose: 1 amp Albuterol/Ipratropium (Duoneb -) 1 amp NEB RQID ZORAN Last Admin: 01/02/18 11:15 Dose: 1 amp Heparin Sodium (Porcine) (Heparin -) 5,000 unit SQ TID ZORAN Last Admin: 01/02/18 14:14 Dose: 5,000 unit Midazolam HCl 100 mg/ Sodium (Chloride) 100 mls @ 1 mls/hr IVPB TITR ZORAN; Protocol Last Titration: 01/02/18 07:00 Dose: 0 mg/hr, 0 mls/hr Norepinephrine Bitartrate 8, (000 mcg/ Dextrose) 500 mls @ 18.75 mls/hr IV TITR ZORAN; Protocol Last Titration: 01/01/18 13:54 Dose: 0 mcg/min, 0 mls/hr Lactated Ringer's (Lactated Ringers Solution) 1,000 ml in 1,000 mls @ 100 mls/ hr IV ASDIR ZORAN Last Admin: 01/02/18 10:55 Dose: 100 mls/hr Propofol (Diprivan -) 1,000,000 mcg in 100 mls @ 2.748 mls/hr IVPB TITR ZORAN; Protocol Last Titration: 01/02/18 10:55 Dose: 0 mcg/kg/min, 0 mls/hr Ceftriaxone Sodium 1 gm/ (Dextrose) 100 mls @ 200 mls/hr IVPB DAILY ZORAN; Protocol Last Admin: 01/02/18 09:56 Dose: 200 mls/hr Levetiracetam (Keppra Injection -) 500 mg IVPB BID ZORAN Last Admin: 01/02/18 09:55 Dose: 500 mg Methylprednisolone Sodium Succinate (Solu-Medrol -) 40 mg IVPUSH Q6H-IV ZORAN Last Admin: 01/02/18 15:05 Dose: 40 mg Pantoprazole Sodium (Protonix Iv) 40 mg IVPUSH DAILY ZORAN Last Admin: 01/02/18 09:55 Dose: 40 mg - Objective Vital Signs: Vital Signs Temperature 99.8 F H 01/02/18 14:15 Pulse Rate 104 H 01/02/18 14:15 Respiratory Rate 23 01/02/18 14:15 Blood Pressure 117/97 01/02/18 14:15 O2 Sat by Pulse Oximetry (%) 100 01/02/18 11:14 Constitutional: Yes: No Distress, Calm Cardiovascular: Yes: Regular Rate and Rhythm Respiratory: Yes: Regular, Poor Air Entry, Rhonchi, Other (on face mask) Gastrointestinal: Yes: Normal Bowel Sounds, Soft Musculoskeletal: Yes: WNL Neurological: Yes: Alert Labs: CBC, BMP 01/02/18 05:30 01/02/18 05:30 INR, PTT INR 1.13 (0.83-1.09) H 12/31/17 07:52 Assessment/Plan Problem List - Problems (1) Acute asthma exacerbation Code(s): J45.901 - UNSPECIFIED ASTHMA WITH (ACUTE) EXACERBATION Qualifiers: Asthma severity: unspecified severity Asthma persistence: unspecified Qualified Code(s): J45.901 - Unspecified asthma with (acute) exacerbation (2) Respiratory failure Code(s): J96.90 - RESPIRATORY FAILURE, UNSP, UNSP W HYPOXIA OR HYPERCAPNIA Qualifiers: Chronicity: unspecified Respiratory failure complication: unspecified whether with hypoxia or hypercapnia Qualified Code(s): J96.90 - Respiratory failure, unspecified, unspecified whether with hypoxia or hypercapnia (3) Autism Code(s): F84.0 - AUTISTIC DISORDER (4) Lactic acidosis Code(s): E87.2 - ACIDOSIS (5) Tachycardia Code(s): R00.0 - TACHYCARDIA, UNSPECIFIED (6) URI (upper respiratory infection) Code(s): J06.9 - ACUTE UPPER RESPIRATORY INFECTION, UNSPECIFIED uti plan continue ceftriaxone for now watch resp status incentive tevin rest as per icu once patient starts eating will switch to oral if needed cc 38 min
[2018-01-02] MEDS ORDERED: ALBUTEROL SO4 0.083% IH SOL 2.5 MG/3 ML VIAL.NEB. NEB ONE (16:30)
[2018-01-02] MEDS ORDERED: ACETYLCYSTEINE 20% 200MG/ML 4 ML VIAL *FOR ORAL / INH USE ONLY NEB ONE (16:30)
--- NOTE | 2018-01-02 17:12 | PN ---
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, Physician History of Present Illness: extubated - Current Medication List Current Medications: Active Medications Albuterol Sulfate (Ventolin 0.083% Nebulizer Soln -) 1 amp NEB Q6H PRN PRN Reason: SHORT OF BREATH/WHEEZING Last Admin: 01/01/18 06:00 Dose: 1 amp Albuterol/Ipratropium (Duoneb -) 1 amp NEB RQID ZORAN Last Admin: 01/02/18 15:18 Dose: 1 amp Heparin Sodium (Porcine) (Heparin -) 5,000 unit SQ TID ZORAN Last Admin: 01/02/18 14:14 Dose: 5,000 unit Midazolam HCl 100 mg/ Sodium (Chloride) 100 mls @ 1 mls/hr IVPB TITR ZORAN; Protocol Last Titration: 01/02/18 07:00 Dose: 0 mg/hr, 0 mls/hr Norepinephrine Bitartrate 8, (000 mcg/ Dextrose) 500 mls @ 18.75 mls/hr IV TITR ZORAN; Protocol Last Titration: 01/01/18 13:54 Dose: 0 mcg/min, 0 mls/hr Lactated Ringer's (Lactated Ringers Solution) 1,000 ml in 1,000 mls @ 100 mls/ hr IV ASDIR ZORAN Last Admin: 01/02/18 10:55 Dose: 100 mls/hr Propofol (Diprivan -) 1,000,000 mcg in 100 mls @ 2.748 mls/hr IVPB TITR ZORAN; Protocol Last Titration: 01/02/18 10:55 Dose: 0 mcg/kg/min, 0 mls/hr Ceftriaxone Sodium 1 gm/ (Dextrose) 100 mls @ 200 mls/hr IVPB DAILY ZORAN; Protocol Last Admin: 01/02/18 09:56 Dose: 200 mls/hr Levetiracetam (Keppra Injection -) 500 mg IVPB BID ZORAN Last Admin: 01/02/18 09:55 Dose: 500 mg Methylprednisolone Sodium Succinate (Solu-Medrol -) 40 mg IVPUSH Q6H-IV ZORAN Last Admin: 01/02/18 15:05 Dose: 40 mg Pantoprazole Sodium (Protonix Iv) 40 mg IVPUSH DAILY ZORAN Last Admin: 01/02/18 09:55 Dose: 40 mg - Objective Vital Signs: Vital Signs Temperature 99.4 F 01/02/18 16:00 Pulse Rate 110 H 01/02/18 16:00 Respiratory Rate 22 01/02/18 16:00 Blood Pressure 119/80 01/02/18 16:00 O2 Sat by Pulse Oximetry (%) 100 01/02/18 11:14 Constitutional: Yes: Calm HENT: Yes: Atraumatic Neck: Yes: Supple Cardiovascular: Yes: Regular Rate and Rhythm Respiratory: Yes: Rhonchi Gastrointestinal: Yes: Normal Bowel Sounds Extremities: Yes: WNL Labs: CBC, BMP 01/02/18 05:30 01/02/18 05:30 INR, PTT INR 1.13 (0.83-1.09) H 12/31/17 07:52 Problem List - Problems (1) Acute asthma exacerbation Assessment/Plan: better now iv steroids duo nebs Code(s): J45.901 - UNSPECIFIED ASTHMA WITH (ACUTE) EXACERBATION Qualifiers: Asthma severity: unspecified severity Asthma persistence: unspecified Qualified Code(s): J45.901 - Unspecified asthma with (acute) exacerbation (2) Respiratory failure Assessment/Plan: s/p extubation Code(s): J96.90 - RESPIRATORY FAILURE, UNSP, UNSP W HYPOXIA OR HYPERCAPNIA Qualifiers: Chronicity: unspecified Respiratory failure complication: unspecified whether with hypoxia or hypercapnia Qualified Code(s): J96.90 - Respiratory failure, unspecified, unspecified whether with hypoxia or hypercapnia (3) Autism Code(s): F84.0 - AUTISTIC DISORDER
[2018-01-02] MEDS: NOREPINEPHRINE BITARTRATE 8,000 MCG in DEXTROSE 5%-WATER - 492 ML IV SCH (17:50)
[2018-01-02] MEDS ORDERED: MINERAL OIL ENEMA 133 ML ENEMA PR ONE (21:10)
[2018-01-03] MEDS ORDERED: ACETYLCYSTEINE 20% 200MG/ML 4 ML VIAL *FOR ORAL / INH USE ONLY ONE (01:24)
[2018-01-03] MEDS ORDERED: ACETYLCYSTEINE 20% 200MG/ML 4 ML VIAL *FOR ORAL / INH USE ONLY NEB ONE (01:25)
[2018-01-03] MEDS: ALBUTEROL SO4 0.083% IH SOL 2.5 MG/3 ML VIAL.NEB. NEB PRN ×2 (01:45→23:58)
[2018-01-03] MEDS: methylPREDNISolone NA SUCC 40 MG/1 ML VIAL IVPUSH SCH ×4 (03:01→21:03)
[2018-01-03] MEDS: HEPARIN NA (PORCINE) 5,000 UNITS/ML 1ML VIAL SQ SCH ×3 (06:15→21:03)
[2018-01-03 06:45] LABS: HEMATOCRIT 32.1 % (32.4-45.2); HEMOGLOBIN 10.6 GM/dL (10.7-15.3); MCH 29.1 pg (25.7-33.7); MCHC 33.2 g/dl (32.0-36.0); MEAN CELL VOLUME 87.9 fl (80-96); PLATELET COUNT 276 K/MM3 (134-434); RBC 3.65 M/mm3 (3.60-5.2); RDW 13.3 % (11.6-15.6); WHITE BLOOD COUNT 17.3 K/mm3 (4.0-10.0)
[2018-01-03 07:10] LABS: ALBUMIN 3.1 g/dl (3.4-5.0); ANION GAP 12 MMOL/L (8-16); BLOOD UREA NITROGEN 15 mg/dL (7-18); CALCIUM 7.9 mg/dL (8.5-10.1); CHLORIDE 109 mmol/L (98-107); CO2 23 mmol/L (21-32); GLUCOSE,RANDOM 110 mg/dL (74-106); MAGNESIUM 2.2 mg/dL (1.8-2.4); POTASSIUM 3.4 mmol/L (3.5-5.1); SODIUM 144 mmol/L (136-145)
[2018-01-03 07:13] LABS: ALK PHOS 69 U/L (45-117); BILIRUBIN,TOTAL 0.4 mg/dL (0.2-1.0); CREATININE 0.5 mg/dL (0.55-1.02); PHOSPHOROUS 3.1 mg/dL (2.5-4.9); SGOT/AST 40 U/L (15-37); SGPT/ALT 34 U/L (12-78); TOT PROT 6.2 g/dl (6.4-8.2)
[2018-01-03] MEDS ORDERED: POTASSIUM CHLORIDE TABS 10 MEQ TABLET.ER (FP) PO ONE (07:45)
[2018-01-03] MEDS ORDERED: cefTRIAXone SODIUM 1 GM VIAL ONE (08:10)
[2018-01-03] MEDS ORDERED: DEXTROSE 5%-WATER 100 ML IVPB ONE (08:10)
[2018-01-03] MEDS: POTASSIUM CHLORIDE 10 MEQ PREMIX IVPB (POTASSIUM RIDER) IVPB SCH ×2 (08:12→09:32)
[2018-01-03] MEDS: ALBUTEROL SO4 0.083% IH SOL 2.5 MG/3 ML VIAL.NEB. NEB SCH ×4 (08:16→20:21)
[2018-01-03] MEDS: ACETYLCYSTEINE 20% 200MG/ML 4 ML VIAL *FOR ORAL / INH USE ONLY NEB SCH ×4 (08:16→20:21)
[2018-01-03] MEDS ORDERED: POTASSIUM CHLORIDE 10 MEQ PREMIX IVPB (POTASSIUM RIDER) IVPB ONE (08:30)
--- NOTE | 2018-01-03 09:14 | PN ---
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 (short form) - Note 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: Neurology HISTORY OF PRESENT ILLNESS: 37yo F with history of asthma with previous intubations and autism who presented with respiratory distress at home when her sister called 911. EMS arrived on scene and pt was reportedly hypoxic requiring intubation, ?loss of pulses but did not require CPR. 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 Initially Intubated, on sedation, in ICU in critical care monitoring but extubated 01/02. Pt's family at bedside reported that pt has had multiple asthma exacerbations with multiple uses of steroids and a few intubations. No longer on sedation. Not on pressors. Tachycardic but otherwise stable on facemask. No new seizure like events, continue Keppra 500mg twice daily for seizure prevention. Reportedly some twitching when suctioned previously but not persistent. CT head completed, no acute changes. Is starting to wake up and open eyes following minimal commands. Family remains at bedside and discussed progess with them. Active Medications Acetylcysteine (Mucomyst 20 Oral / Inh Use Only*) 200 mg NEB RQID [facility] Last Admin: 01/03/18 08:16 Dose: 200 mg Albuterol Sulfate (Ventolin 0.083% Nebulizer Soln -) 1 amp NEB Q6H PRN PRN Reason: SHORT OF BREATH/WHEEZING Last Admin: 01/03/18 01:45 Dose: 1 amp Albuterol Sulfate (Ventolin 0.083% Nebulizer Soln -) 1 amp NEB RQID [facility] Last Admin: 01/03/18 08:16 Dose: 1 amp Heparin Sodium (Porcine) (Heparin -) 5,000 unit SQ TID [facility] Last Admin: 01/03/18 06:15 Dose: 5,000 unit Ceftriaxone Sodium 1 gm/ (Dextrose) 100 mls @ 200 mls/hr IVPB DAILY [facility]; Protocol Last Admin: 01/02/18 09:56 Dose: 200 mls/hr Lactated Ringer's (Lactated Ringers Solution) 1,000 ml in 1,000 mls @ 50 mls/ hr IV ASDIR [facility] Last Admin: 01/02/18 18:14 Dose: 50 mls/hr Levetiracetam (Keppra Injection -) 500 mg IVPB BID [facility] Last Admin: 01/02/18 21:45 Dose: 500 mg Methylprednisolone Sodium Succinate (Solu-Medrol -) 40 mg IVPUSH BID [facility] Pantoprazole Sodium (Protonix Iv) 40 mg IVPUSH DAILY [facility] Last Admin: 01/02/18 09:55 Dose: 40 mg Polyethylene Glycol (Miralax (For Daily Use) -) 17 gm PO DAILY [facility] Potassium Chloride (Potassium Chloride 10 Meq Premix Ivpb -) 10 meq IVPB Q60M [facility] Stop: 01/03/18 09:31 Last Admin: 01/03/18 08:12 Dose: 10 meq PHYSICAL EXAMINATION Vital Signs Temperature 99.3 F 01/03/18 08:00 Pulse Rate 115 H 01/03/18 08:43 Respiratory Rate 21 01/03/18 08:43 Blood Pressure 124/82 01/03/18 08:43 O2 Sat by Pulse Oximetry (%) 99 01/03/18 08:00 GENERAL: Intubated and sedated with light arousal HEENT: NC/AT, Pinpoint pupils with reactivity b/l, MMM, no abnormalites of the nares or oropharynx, ETT in place with minimal secretions NECK: No JVD LUNGS: Wheezing noted throughout bilaterally. no crackles. AC mode 12/350/50%/5 HEART: RRR, normal S1 and S2 without murmur ABDOMEN: Soft,not distended, could not assess tenderness, normoactive bowel sounds, no guarding, no masses. No hepatomegaly EXTREMITIES: 2+ DP pulses, no edema peripherally, slightly cool extremities Neuro: On sedation, not following commands, no facial droop noted, not moving ext to commands, responds to painful stim, gag intact CBCD WBC 17.3 K/mm3 (4.0-10.0) H 01/03/18 05:15 RBC 3.65 M/mm3 (3.60-5.2) 01/03/18 05:15 Hgb 10.6 GM/dL (10.7-15.3) L 01/03/18 05:15 Hct 32.1 % (32.4-45.2) L 01/03/18 05:15 MCV 87.9 fl (80-96) 01/03/18 05:15 MCHC 33.2 g/dl (32.0-36.0) 01/03/18 05:15 RDW 13.3 % (11.6-15.6) 01/03/18 05:15 Plt Count 276 K/MM3 (134-434) 01/03/18 05:15 MPV 9.0 fl (7.5-11.1) 01/03/18 05:15 CMP Sodium 144 mmol/L (136-145) 01/03/18 05:15 Potassium 3.4 mmol/L (3.5-5.1) L 01/03/18 05:15 Chloride 109 mmol/L (98-107) H 01/03/18 05:15 Carbon Dioxide 23 mmol/L (21-32) 01/03/18 05:15 Anion Gap 12 MMOL/L (8-16) 01/03/18 05:15 BUN 15 mg/dL (7-18) 01/03/18 05:15 Creatinine 0.5 mg/dL (0.55-1.02) L 01/03/18 05:15 Creat Clearance w eGFR > 60 (>60) 01/03/18 05:15 Random Glucose 110 mg/dL (74-106) H 01/03/18 05:15 Calcium 7.9 mg/dL (8.5-10.1) L 01/03/18 05:15 Total Bilirubin 0.4 mg/dL (0.2-1.0) 01/03/18 05:15 AST 40 U/L (15-37) H 01/03/18 05:15 ALT 34 U/L (12-78) 01/03/18 05:15 Alkaline Phosphatase 69 U/L (45-117) 01/03/18 05:15 Total Protein 6.2 g/dl (6.4-8.2) L 01/03/18 05:15 Albumin 3.1 g/dl (3.4-5.0) L 01/03/18 05:15 CARDIAC ENZYMES Creatine Kinase 273 IU/L (26-192) H 01/01/18 21:20 Troponin I 0.09 ng/ml (0.00-0.05) H 01/02/18 05:30 CT head reviewed ASSESSMENT/PLAN: 37yo F with history of asthma with previous intubations and autism who presented with respiratory distress at home when her sister called 911. EMS arrived on scene and pt was reportedly hypoxic requiring intubation, ?loss of pulses but did not require CPR. Reportedly with seizure like activity on admission but second event in coffee weigher as documented. nitially Intubated, on sedation, in ICU in critical care monitoring but extubated 01/02. Pt's family at bedside reported that pt has had multiple asthma exacerbations with multiple uses of steroids and a few intubations. No longer on sedation. Not on pressors. Tachycardic but otherwise stable on facemask. No new seizure like events, continue Keppra 500mg twice daily for seizure prevention. Reportedly some twitching when suctioned previously but not persistent. CT head completed, no acute changes. Is starting to wake up and open eyes following minimal commands. Family remains at bedside and discussed progess with them. Continue medical optimization, monitor for sepsis, monitor respiratory status. Monitor for seizure events, should stay on AEDs while admitted. Critical care 35 mins.
[2018-01-03] MEDS: POLYETHYLENE GLYCOL 3350 119 GM BTL PO SCH (09:32)
[2018-01-03] MEDS: levETIRAcetam 500 MG/5 ML INJECTION VIAL IVPB SCH ×2 (09:45→21:03)
[2018-01-03] MEDS: PANTOPRAZOLE SODIUM 40 MG VIAL IVPUSH SCH (09:45)
[2018-01-03] MEDS: CEFTRIAXONE 1 GM in DEXTROSE 5%-WATER 100 ML IVPB SCH (09:46)
--- NOTE | 2018-01-03 10:54 | PN ---
Teaching Attending Note Name of Resident: Rebeka Olvera ATTENDING PHYSICIAN STATEMENT I saw and evaluated the patient. I reviewed the resident's note and discussed the case with the resident. I agree with the resident's findings and plan as documented. SUBJECTIVE: Pt seen and examined in the ICU. Extubated yesterday to ventimask. Remains somnolent. Episode of hypoxia and tachypnea overnight improved with suctioning. OBJECTIVE: Vital Signs Period Temp Pulse Resp BP Sys/Cheema Pulse Ox Last 24 Hr 99 F-99.9 F 99-126 20-37 107-152/59-98 99-100 Intake & Output 12/31/17 01/01/18 01/02/18 01/03/18 23:59 23:59 23:59 23:59 Intake Total 453 1627 2654 600 Output Total 2000 1000 2500 Balance -1547 627 154 600 Weight 58.967 kg 45.8 kg 48.988 kg 43.5 kg Gen: somnolent but opens eyes Heart: tachycardic, regular Lung: scattered rhonchi Abd: soft, nontender Ext: no edema CBC, BMP 01/03/18 05:15 01/03/18 05:15 Active Medications Acetylcysteine (Mucomyst 20 Oral / Inh Use Only*) 200 mg NEB RQID [facility] Last Admin: 01/03/18 08:16 Dose: 200 mg Albuterol Sulfate (Ventolin 0.083% Nebulizer Soln -) 1 amp NEB Q6H PRN PRN Reason: SHORT OF BREATH/WHEEZING Last Admin: 01/03/18 01:45 Dose: 1 amp Albuterol Sulfate (Ventolin 0.083% Nebulizer Soln -) 1 amp NEB RQID [facility] Last Admin: 01/03/18 08:16 Dose: 1 amp Heparin Sodium (Porcine) (Heparin -) 5,000 unit SQ TID [facility] Last Admin: 01/03/18 06:15 Dose: 5,000 unit Ceftriaxone Sodium 1 gm/ (Dextrose) 100 mls @ 200 mls/hr IVPB DAILY [facility]; Protocol Last Admin: 01/03/18 09:46 Dose: 200 mls/hr Lactated Ringer's (Lactated Ringers Solution) 1,000 ml in 1,000 mls @ 50 mls/ hr IV ASDIR [facility] Last Admin: 01/02/18 18:14 Dose: 50 mls/hr Levetiracetam (Keppra Injection -) 500 mg IVPB BID [facility] Last Admin: 01/03/18 09:45 Dose: 500 mg Methylprednisolone Sodium Succinate (Solu-Medrol -) 40 mg IVPUSH BID [facility] Last Admin: 01/03/18 09:32 Dose: 40 mg Pantoprazole Sodium (Protonix Iv) 40 mg IVPUSH DAILY [facility] Last Admin: 01/03/18 09:45 Dose: 40 mg Polyethylene Glycol (Miralax (For Daily Use) -) 17 gm PO DAILY [facility] Last Admin: 01/03/18 09:32 Dose: Not Given ASSESSMENT AND PLAN: Acute Hypoxic and Hypercapneic Respiratory Failure improving Status Asthmaticus resolving Shock - r/o Sepsis UTI Lactic Acidosis resolved Acute Kidney Injury resolved Hyperglycemia resolved Autism - pt extubated - continue medrol q12h - inhaled bronchodilators standing and PRN - continue IVF - monitor urine output, creatinine - off levophed gtt - continue antibiotics x 5 days total - on empiric antiepileptics but low suspicion of true seizures - DVT/GI prophylaxis - continue ICU monitoring critical care time spent in reviewing chart, evaluating chart and formulating plan 35 min
--- NOTE | 2018-01-03 10:58 | PN ---
Physical Exam: SUBJECTIVE: Patient seen and examined at bedside. overnight patient went hypoxic to the low 80's and had very thick secretions requiring mucomyst for suctioning. once patient was suctioned her saturations were in the 90's. patient is still very lethargic despite being off all sedation. OBJECTIVE: Vital Signs Period Temp Pulse Resp BP Sys/Cheema Pulse Ox Last 24 Hr 99 F-99.9 F 99-126 20-37 107-152/59-98 99-100 GENERAL: The patient is somnolent and extremly lethargic despite being off all sedation. . LUNGS: rhonchi auscultated B/L HEART: Tachycardic, S1, S2 without murmur, rub or gallop. ABDOMEN: Soft, nontender, nondistended, normoactive bowel sounds, no guarding, no rebound, no hepatosplenomegaly, no masses. EXTREMITIES: 2+ pulses, warm, well-perfused, no edema. NEUROLOGICAL: Cranial nerves II through XII grossly intact. Normal speech, gait not observed. PSYCH: Normal mood, normal affect. SKIN: Warm, dry, normal turgor, no rashes or lesions noted Laboratory Results - last 24 hr 01/03/18 01/03/18 05:15 05:15 WBC 17.3 H RBC 3.65 Hgb 10.6 L Hct 32.1 L MCV 87.9 MCH 29.1 MCHC 33.2 RDW 13.3 Plt Count 276 MPV 9.0 Sodium 144 Potassium 3.4 L Chloride 109 H Carbon Dioxide 23 Anion Gap 12 BUN 15 Creatinine 0.5 L Creat Clearance w eGFR > 60 Random Glucose 110 H Calcium 7.9 L Phosphorus 3.1 Magnesium 2.2 Total Bilirubin 0.4 AST 40 H ALT 34 Alkaline Phosphatase 69 Total Protein 6.2 L Albumin 3.1 L Active Medications Generic Name Dose Route Start Last Admin Trade Name Freq PRN Reason Stop Dose Admin Acetylcysteine 200 mg 01/03/18 08:00 01/03/18 08:16 Mucomyst 20 Oral / Inh Use Only* NEB 200 mg RQID [facility] Administration Albuterol Sulfate 1 amp 12/31/17 15:38 01/03/18 01:45 Ventolin 0.083% Nebulizer Soln - NEB 1 amp Q6H PRN Administration SHORT OF BREATH/WHEEZING Albuterol Sulfate 1 amp 01/03/18 08:00 08/23/18 08:16 Ventolin 0.083% Nebulizer Soln - NEB 1 amp RQID [facility] Administration Heparin Sodium (Porcine) 5,000 unit 12/31/17 14:00 01/03/18 06:15 Heparin - SQ 5,000 unit TID [facility] Administration Ceftriaxone Sodium 1 gm/ 100 mls @ 200 mls/hr 01/02/18 10:00 01/03/18 09:46 Dextrose IVPB 200 mls/hr DAILY [facility] Administration Protocol Lactated Ringer's 1,000 ml in 1,000 mls @ 50 mls/hr 01/02/18 18:15 01/02/18 18:14 Lactated Ringers Solution IV 50 mls/hr ASDIR [facility] Administration Levetiracetam 500 mg 01/01/18 10:00 01/03/18 09:45 Keppra Injection - IVPB 500 mg BID [facility] Administration Methylprednisolone Sodium Succinate 40 mg 01/03/18 09:00 01/03/18 09:32 Solu-Medrol - IVPUSH 40 mg BID [facility] Administration Pantoprazole Sodium 40 mg 12/31/17 11:15 01/03/18 09:45 Protonix Iv IVPUSH 40 mg DAILY [facility] Administration Polyethylene Glycol 17 gm 01/03/18 10:00 01/03/18 09:32 Miralax (For Daily Use) - PO Not Given DAILY [facility] ASSESSMENT/PLAN: 37 y/o female with PMH of autism, asthma presenting with respiratory distress requiring intubation in the field. Patient is is currently no longer on pressor support was extubated yesterday morning. Acute Hypoxic Respiratory Failure: patient was extubated to venti mask yesterday morning -CXR this morning does not she definitive infiltrate -c/w mucomyst -IV medrol BID -monitor O2 saturations Neuro: -patient no longer on sedation however lethargic -c/w keppra 500 BID ID: -[id number] c/w ceftriaxone 1gram daily tomorrow is final day -f/u cultures DVT prophyalxis: SCD Gi prophyalxis: IV protonix F/E/N: LR @50mls/hr replete electrolytes when necessary NPO dispo: continue ICU monitoring Problem List - Problems (1) Acute asthma exacerbation Code(s): J45.901 - UNSPECIFIED ASTHMA WITH (ACUTE) EXACERBATION Qualifiers: Asthma severity: unspecified severity Asthma persistence: unspecified Qualified Code(s): J45.901 - Unspecified asthma with (acute) exacerbation (2) Respiratory failure Code(s): J96.90 - RESPIRATORY FAILURE, UNSP, UNSP W HYPOXIA OR HYPERCAPNIA Qualifiers: Chronicity: unspecified Respiratory failure complication: unspecified whether with hypoxia or hypercapnia Qualified Code(s): J96.90 - Respiratory failure, unspecified, unspecified whether with hypoxia or hypercapnia Visit type - Emergency Visit Emergency Visit: Yes ED Registration Date: 12/31/17 Care time: The patient presented to the Emergency Department on the above date and was hospitalized for further evaluation of their emergent condition. - New Patient This patient is new to me today: No - Critical Care Critical Care patient: Yes Total Critical Care Time (in minutes): 35 Critical Care Statement: The care of this patient involved high complexity decision making to prevent further life threatening deterioration of the patient 's condition and/or to evaluate & treat vital organ system(s) failure or risk of failure.
--- NOTE | 2018-01-03 13:38 | CONSULT ---
Admitting History and Physical - Admission History of Present Illness: 37yo F with history of asthma with previous intubations and autism who presents today with respiratory distress at home when her sister called 911. EMS arrived on scene and pt was hypoxic (to unknown level) and further distress was noted prompting intubation in the field. There is questionable very brief loss of pulses in the field, however no CPR was performed and upon arrival to the ED pulses had been intact throughout. Pt's family at bedside reports that pt has had multiple asthma exacerbations with multiple uses of steroids and a few intubations. Pt's mother reports that the past couple of days she was given Prednisone 10mg Case reviewed at length with staff/Mother. Pt was previously after to speak to communicate wants/needs but rare. She could sing well-learned song. She tolerated reg diet/liquids without h/o dysphagia. Speech intelligibility was reported to be precise, according to pt's mother. She attended speech tx [facility] in [place]. 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 No: Addictions - Smoking History Smoking history: Never smoked Have you smoked in the past 12 months: No Aproximately how many cigarettes per day: 0 - Alcohol/Substance Use Hx Alcohol Use: No - Social History ADL: Family Assistance History of Recent Travel: No History - Admission Reason For Visit: ASTHMA W/STATUS ASTHMATICUS, RESPIRATORY FAILURE - Hearing Hearing: Normal Speech Evaluation - Communication Primary Language: ICELANDIC Recommendations - Speech Evaluation, Impression/Plan Impression: Pt not responsive to pain/no response to visual threat/ not following commands/Not visually tracking. Pt is NPO. - Dysphagia Impressions/Plan Dysphagia Impressions: Too Lethargic to Assess Recommendations: Other (RD consult regarding Clinimix vs ngt?)
--- NOTE | 2018-01-03 16:25 | PN ---
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, Physician History of Present Illness: patient on face mask still very lethargic family in room wbc on the higher side - Current Medication List Current Medications: Active Medications Acetylcysteine (Mucomyst 20 Oral / Inh Use Only*) 200 mg NEB RQID [facility] Last Admin: 01/03/18 15:00 Dose: 200 mg Albuterol Sulfate (Ventolin 0.083% Nebulizer Soln -) 1 amp NEB Q6H PRN PRN Reason: SHORT OF BREATH/WHEEZING Last Admin: 01/03/18 01:45 Dose: 1 amp Albuterol Sulfate (Ventolin 0.083% Nebulizer Soln -) 1 amp NEB RQID [facility] Last Admin: 01/03/18 15:00 Dose: 1 amp Heparin Sodium (Porcine) (Heparin -) 5,000 unit SQ TID [facility] Last Admin: 01/03/18 14:30 Dose: 5,000 unit Ceftriaxone Sodium 1 gm/ (Dextrose) 100 mls @ 200 mls/hr IVPB DAILY [facility]; Protocol Last Admin: 01/03/18 09:46 Dose: 200 mls/hr Lactated Ringer's (Lactated Ringers Solution) 1,000 ml in 1,000 mls @ 50 mls/ hr IV ASD[facility] Last Admin: 01/02/18 18:14 Dose: 50 mls/hr Levetiracetam (Keppra Injection -) 500 mg IVPB BID [facility] Last Admin: 01/03/18 09:45 Dose: 500 mg Methylprednisolone Sodium Succinate (Solu-Medrol -) 40 mg IVPUSH BID [facility] Last Admin: 01/03/18 09:32 Dose: 40 mg Pantoprazole Sodium (Protonix Iv) 40 mg IVPUSH DAILY [facility] Last Admin: 01/03/18 09:45 Dose: 40 mg Polyethylene Glycol (Miralax (For Daily Use) -) 17 gm PO DAILY [facility] Last Admin: 01/03/18 09:32 Dose: Not Given - Objective Vital Signs: Vital Signs Temperature 99.9 F H 01/03/18 14:00 Pulse Rate 117 H 01/03/18 16:00 Respiratory Rate 21 01/03/18 16:00 Blood Pressure 135/91 01/03/18 16:00 O2 Sat by Pulse Oximetry (%) 99 01/03/18 08:00 Constitutional: Yes: Other Cardiovascular: Yes: Regular Rate and Rhythm Respiratory: Yes: Poor Air Entry, Rhonchi Gastrointestinal: Yes: Normal Bowel Sounds, Soft Musculoskeletal: Yes: WNL Extremities: Yes: WNL Neurological: Yes: Other Labs: CBC, BMP 01/03/18 05:15 01/03/18 05:15 INR, PTT INR 1.13 (0.83-1.09) H 12/31/17 07:52 Assessment/Plan Problem List - Problems (1) Acute asthma exacerbation Code(s): J45.901 - UNSPECIFIED ASTHMA WITH (ACUTE) EXACERBATION Qualifiers: Asthma severity: unspecified severity Asthma persistence: unspecified Qualified Code(s): J45.901 - Unspecified asthma with (acute) exacerbation (2) Respiratory failure Code(s): J96.90 - RESPIRATORY FAILURE, UNSP, UNSP W HYPOXIA OR HYPERCAPNIA Qualifiers: Chronicity: unspecified Respiratory failure complication: unspecified whether with hypoxia or hypercapnia Qualified Code(s): J96.90 - Respiratory failure, unspecified, unspecified whether with hypoxia or hypercapnia (3) Autism Code(s): F84.0 - AUTISTIC DISORDER (4) Lactic acidosis Code(s): E87.2 - ACIDOSIS (5) Tachycardia Code(s): R00.0 - TACHYCARDIA, UNSPECIFIED (6) URI (upper respiratory infection) Code(s): J06.9 - ACUTE UPPER RESPIRATORY INFECTION, UNSPECIFIED uti plan continue resp care abx ceftriaxone for now monitor closely rest as per icu and the team discussed with family will monitor wbc if wbc does not decrease will broaden the coverage cc 4o min
--- NOTE | 2018-01-03 17:39 | PN ---
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, Physician History of Present Illness: on face mask - Current Medication List Current Medications: Active Medications Acetylcysteine (Mucomyst 20 Oral / Inh Use Only*) 200 mg NEB RQID [facility] Last Admin: 01/03/18 15:00 Dose: 200 mg Albuterol Sulfate (Ventolin 0.083% Nebulizer Soln -) 1 amp NEB Q6H PRN PRN Reason: SHORT OF BREATH/WHEEZING Last Admin: 01/03/18 01:45 Dose: 1 amp Albuterol Sulfate (Ventolin 0.083% Nebulizer Soln -) 1 amp NEB RQID [facility] Last Admin: 01/03/18 15:00 Dose: 1 amp Heparin Sodium (Porcine) (Heparin -) 5,000 unit SQ TID [facility] Last Admin: 01/03/18 14:30 Dose: 5,000 unit Ceftriaxone Sodium 1 gm/ (Dextrose) 100 mls @ 200 mls/hr IVPB DAILY [facility]; Protocol Last Admin: 01/03/18 09:46 Dose: 200 mls/hr Lactated Ringer's (Lactated Ringers Solution) 1,000 ml in 1,000 mls @ 50 mls/ hr IV ASDIR [facility] Last Admin: 01/02/18 18:14 Dose: 50 mls/hr Levetiracetam (Keppra Injection -) 500 mg IVPB BID [facility] Last Admin: 01/03/18 09:45 Dose: 500 mg Methylprednisolone Sodium Succinate (Solu-Medrol -) 40 mg IVPUSH BID [facility] Last Admin: 01/03/18 09:32 Dose: 40 mg Pantoprazole Sodium (Protonix Iv) 40 mg IVPUSH DAILY [facility] Last Admin: 01/03/18 09:45 Dose: 40 mg Polyethylene Glycol (Miralax (For Daily Use) -) 17 gm PO DAILY [facility] Last Admin: 01/03/18 09:32 Dose: Not Given - Objective Vital Signs: Vital Signs Temperature 99.9 F H 01/03/18 14:00 Pulse Rate 117 H 01/03/18 16:00 Respiratory Rate 21 01/03/18 16:00 Blood Pressure 135/91 01/03/18 16:00 O2 Sat by Pulse Oximetry (%) 99 01/03/18 08:00 Constitutional: Yes: Calm HENT: Yes: Atraumatic Neck: Yes: Supple Cardiovascular: Yes: Regular Rate and Rhythm Respiratory: Yes: Rhonchi Gastrointestinal: Yes: Normal Bowel Sounds Extremities: Yes: WNL Neurological: Yes: Other (drowsy, blinking eys on asking questions) Labs: CBC, BMP 01/03/18 05:15 01/03/18 05:15 INR, PTT INR 1.13 (0.83-1.09) H 12/31/17 07:52 Problem List - Problems (1) Acute asthma exacerbation Assessment/Plan: better now iv steroids duo nebs iv abx Code(s): J45.901 - UNSPECIFIED ASTHMA WITH (ACUTE) EXACERBATION Qualifiers: Asthma severity: unspecified severity Asthma persistence: unspecified Qualified Code(s): J45.901 - Unspecified asthma with (acute) exacerbation (2) Respiratory failure Assessment/Plan: s/p extubation Code(s): J96.90 - RESPIRATORY FAILURE, UNSP, UNSP W HYPOXIA OR HYPERCAPNIA Qualifiers: Chronicity: unspecified Respiratory failure complication: unspecified whether with hypoxia or hypercapnia Qualified Code(s): J96.90 - Respiratory failure, unspecified, unspecified whether with hypoxia or hypercapnia (3) Autism Code(s): F84.0 - AUTISTIC DISORDER Assessment/Plan cc time 30 min
[2018-01-03] MEDS ORDERED: ACETAMINOPHEN 1000 MG/100 ML VIAL (NON FORMULARY) IVPB PRN (20:23)
[2018-01-04] MEDS: LACTATED RINGERS SOLUTION 1,000 ML/1,000 ML INFUS.BAG IV SCH (01:34)
[2018-01-04 06:07] LABS: HEMATOCRIT 31.3 % (32.4-45.2); HEMOGLOBIN 10.5 GM/dL (10.7-15.3); MCH 29.3 pg (25.7-33.7); MCHC 33.5 g/dl (32.0-36.0); MEAN CELL VOLUME 87.5 fl (80-96); MEAN PLT VOLUME 8.2 fl (7.5-11.1); PLATELET COUNT 249 K/MM3 (134-434); RBC 3.58 M/mm3 (3.60-5.2); RDW 13.5 % (11.6-15.6); WHITE BLOOD COUNT 17.1 K/mm3 (4.0-10.0)
[2018-01-04 06:37] LABS: ANION GAP 8 MMOL/L (8-16); BLOOD UREA NITROGEN 14 mg/dL (7-18); CALCIUM 7.7 mg/dL (8.5-10.1); CHLORIDE 105 mmol/L (98-107); CO2 24 mmol/L (21-32); GLUCOSE,RANDOM 108 mg/dL (74-106); POTASSIUM 3.8 mmol/L (3.5-5.1); SODIUM 137 mmol/L (136-145)
[2018-01-04 06:42] LABS: ALK PHOS 70 U/L (45-117); BILIRUBIN,TOTAL 0.4 mg/dL (0.2-1.0); CREATININE 0.5 mg/dL (0.55-1.02); PHOSPHOROUS 3.3 mg/dL (2.5-4.9); SGOT/AST 63 U/L (15-37); SGPT/ALT 46 U/L (12-78)
[2018-01-04] MEDS: HEPARIN NA (PORCINE) 5,000 UNITS/ML 1ML VIAL SQ SCH ×3 (06:42→23:00)
[2018-01-04] MEDS: ALBUTEROL SO4 0.083% IH SOL 2.5 MG/3 ML VIAL.NEB. NEB SCH ×2 (07:52→11:48)
[2018-01-04] MEDS: ACETYLCYSTEINE 20% 200MG/ML 4 ML VIAL *FOR ORAL / INH USE ONLY NEB SCH ×2 (07:52→11:48)
--- NOTE | 2018-01-04 08:42 | PN ---
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 (short form) - Note 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: Neurology HISTORY OF PRESENT ILLNESS: 37yo F with history of asthma with previous intubations and autism who presented with respiratory distress at home when her sister called 911. EMS arrived on scene and pt was reportedly hypoxic requiring intubation, ?loss of pulses but did not require CPR. 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 Initially Intubated, on sedation, in ICU in critical care monitoring but extubated 01/02. Pt's family at bedside reported that pt has had multiple asthma exacerbations with multiple uses of steroids and a few intubations. No longer on sedation. Not on pressors. Tachycardic but otherwise stable on facemask. No new seizure like events, continue Keppra 500mg twice daily for seizure prevention. Reportedly some twitching when suctioned previously but not persistent. CT head completed, no acute changes. Is starting to wake up and open eyes following minimal commands. Remains in ICU, discussed with nurse, no signficant over night events. Remains stable on facemask. Active Medications Acetaminophen (Ofirmev Injection -) 750 mg IVPB Q6H PRN PRN Reason: FEVER Last Admin: 01/04/18 01:34 Dose: 750 mg Acetylcysteine (Mucomyst 20 Oral / Inh Use Only*) 200 mg NEB RQID [facility] Last Admin: 01/04/18 07:52 Dose: 200 mg Albuterol Sulfate (Ventolin 0.083% Nebulizer Soln -) 1 amp NEB Q6H PRN PRN Reason: SHORT OF BREATH/WHEEZING Last Admin: 01/03/18 23:58 Dose: 1 amp Albuterol Sulfate (Ventolin 0.083% Nebulizer Soln -) 1 amp NEB RQID [facility] Last Admin: 01/04/18 07:52 Dose: 1 amp Heparin Sodium (Porcine) (Heparin -) 5,000 unit SQ TID [facility] Last Admin: 01/04/18 06:42 Dose: 5,000 unit Ceftriaxone Sodium 1 gm/ (Dextrose) 100 mls @ 200 mls/hr IVPB DAILY [facility]; Protocol Stop: 01/04/18 12:00 Last Admin: 01/03/18 09:46 Dose: 200 mls/hr Lactated Ringer's (Lactated Ringers Solution) 1,000 ml in 1,000 mls @ 50 mls/ hr IV ASDIR [facility] Last Admin: 01/04/18 01:34 Dose: 50 mls/hr Levetiracetam (Keppra Injection -) 500 mg IVPB BID [facility] Last Admin: 01/03/18 21:03 Dose: 500 mg Methylprednisolone Sodium Succinate (Solu-Medrol -) 40 mg IVPUSH BID [facility] Last Admin: 01/03/18 21:03 Dose: 40 mg Pantoprazole Sodium (Protonix Iv) 40 mg IVPUSH DAILY [facility] Last Admin: 01/03/18 09:45 Dose: 40 mg Polyethylene Glycol (Miralax (For Daily Use) -) 17 gm PO DAILY [facility] Last Admin: 01/03/18 09:32 Dose: Not Given PHYSICAL EXAMINATION Vital Signs Period Temp Pulse Resp BP Sys/Cheema Pulse Ox Last 24 Hr 98.8 F-100.2 F 90-122 17-24 114-135/79-92 96-97 GENERAL: Intubated and sedated with light arousal HEENT: NC/AT, Pinpoint pupils with reactivity b/l, MMM, no abnormalites of the nares or oropharynx, ETT in place with minimal secretions NECK: No JVD LUNGS: Wheezing noted throughout bilaterally. no crackles. AC mode 12/350/50%/5 HEART: RRR, normal S1 and S2 without murmur ABDOMEN: Soft,not distended, could not assess tenderness, normoactive bowel sounds, no guarding, no masses. No hepatomegaly EXTREMITIES: 2+ DP pulses, no edema peripherally, slightly cool extremities Neuro: On sedation, not following commands, no facial droop noted, not moving ext to commands, responds to painful stim, gag intact CBCD WBC 17.1 K/mm3 (4.0-10.0) H 01/04/18 05:30 RBC 3.58 M/mm3 (3.60-5.2) L 01/04/18 05:30 Hgb 10.5 GM/dL (10.7-15.3) L 01/04/18 05:30 Hct 31.3 % (32.4-45.2) L 01/04/18 05:30 MCV 87.5 fl (80-96) 01/04/18 05:30 MCHC 33.5 g/dl (32.0-36.0) 01/04/18 05:30 RDW 13.5 % (11.6-15.6) 01/04/18 05:30 Plt Count 249 K/MM3 (134-434) 01/04/18 05:30 MPV 8.2 fl (7.5-11.1) 01/04/18 05:30 CMP Sodium 137 mmol/L (136-145) 01/04/18 05:30 Potassium 3.8 mmol/L (3.5-5.1) 01/04/18 05:30 Chloride 105 mmol/L (98-107) 01/04/18 05:30 Carbon Dioxide 24 mmol/L (21-32) 01/04/18 05:30 Anion Gap 8 MMOL/L (8-16) 01/04/18 05:30 BUN 14 mg/dL (7-18) 01/04/18 05:30 Creatinine 0.5 mg/dL (0.55-1.02) L 01/04/18 05:30 Creat Clearance w eGFR > 60 (>60) 01/04/18 05:30 Random Glucose 108 mg/dL (74-106) H 01/04/18 05:30 Calcium 7.7 mg/dL (8.5-10.1) L 01/04/18 05:30 Total Bilirubin 0.4 mg/dL (0.2-1.0) 01/04/18 05:30 AST 63 U/L (15-37) H 01/04/18 05:30 ALT 46 U/L (12-78) 01/04/18 05:30 Alkaline Phosphatase 70 U/L (45-117) 01/04/18 05:30 Total Protein 6.0 g/dl (6.4-8.2) L 01/04/18 05:30 Albumin 3.0 g/dl (3.4-5.0) L 01/04/18 05:30 CARDIAC ENZYMES Creatine Kinase 273 IU/L (26-192) H 01/01/18 21:20 Troponin I 0.09 ng/ml (0.00-0.05) H 01/02/18 05:30 CT head reviewed ASSESSMENT/PLAN: 37yo F with history of asthma with previous intubations and autism who presented with respiratory distress at home when her sister called 911. EMS arrived on scene and pt was reportedly hypoxic requiring intubation, ?loss of pulses but did not require CPR. 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 nitially Intubated, on sedation, in ICU in critical care monitoring but extubated 01/02. Pt's family at bedside reported that pt has had multiple asthma exacerbations with multiple uses of steroids and a few intubations. No longer on sedation. Not on pressors. Tachycardic but otherwise stable on facemask. No new seizure like events, continue Keppra 500mg twice daily for seizure prevention. Reportedly some twitching when suctioned previously but not persistent. CT head completed, no acute changes. Discussed with ICU nurse, gradual improvement in mental status. Continue medical optimization, monitor for sepsis, monitor respiratory status. Downgrade to floor when able. Monitor for seizure events, should stay on AEDs while admitted. Critical care 35 mins.
[2018-01-04] MEDS: POLYETHYLENE GLYCOL 3350 119 GM BTL PO SCH (10:00)
[2018-01-04] MEDS ORDERED: DEXTROSE 5%-WATER 100 ML IVPB ONE (10:07)
[2018-01-04] MEDS ORDERED: cefTRIAXone SODIUM 1 GM VIAL ONE (10:07)
[2018-01-04] MEDS: methylPREDNISolone NA SUCC 40 MG/1 ML VIAL IVPUSH SCH (10:15)
[2018-01-04] MEDS: CEFTRIAXONE 1 GM in DEXTROSE 5%-WATER 100 ML IVPB SCH (10:15)
[2018-01-04] MEDS: levETIRAcetam 500 MG/5 ML INJECTION VIAL IVPB SCH ×2 (10:15→23:00)
[2018-01-04] MEDS: PANTOPRAZOLE SODIUM 40 MG VIAL IVPUSH SCH (10:15)
--- NOTE | 2018-01-04 12:05 | PN ---
Teaching Attending Note Name of Resident: Rebeka Olvera ATTENDING PHYSICIAN STATEMENT I saw and evaluated the patient. I reviewed the resident's note and discussed the case with the resident. I agree with the resident's findings and plan as documented. SUBJECTIVE: Patient seen and examined in the ICU. Remains extubated on VM O2. Remains somnolent and apparently not at her baseline mental status. Congested cough requiring intermittent suctioning. OBJECTIVE: Intake & Output 01/01/18 01/02/18 01/03/18 01/04/18 23:59 23:59 23:59 23:59 Intake Total 1627 2654 1600 700 Output Total 1000 2500 950 1800 Balance 627 154 650 -1100 Weight 100 lb 15.547 oz 108 lb 95 lb 14.417 oz 96 lb 12.8 oz Last Vital Signs Temp Pulse Resp BP Pulse Ox 98.8 F 98 H 18 119/85 100 01/04/18 08:00 01/04/18 10:28 01/04/18 10:28 01/04/18 10:28 01/04/18 09:00 Active Medications Acetaminophen (Ofirmev Injection -) 750 mg IVPB Q6H PRN PRN Reason: FEVER Last Admin: 01/04/18 01:34 Dose: 750 mg Acetylcysteine (Mucomyst 20 Oral / Inh Use Only*) 200 mg NEB RQID ZORAN Last Admin: 01/04/18 11:48 Dose: 200 mg Albuterol Sulfate (Ventolin 0.083% Nebulizer Soln -) 1 amp NEB Q6H PRN PRN Reason: SHORT OF BREATH/WHEEZING Last Admin: 01/03/18 23:58 Dose: 1 amp Albuterol Sulfate (Ventolin 0.083% Nebulizer Soln -) 1 amp NEB RQID [facility] Last Admin: 01/04/18 11:48 Dose: 1 amp Heparin Sodium (Porcine) (Heparin -) 5,000 unit SQ TID [facility] Last Admin: 01/04/18 06:42 Dose: 5,000 unit Lactated Ringer's (Lactated Ringers Solution) 1,000 ml in 1,000 mls @ 50 mls/ hr IV ASDIR [facility] Last Admin: 01/04/18 01:34 Dose: 50 mls/hr Levetiracetam (Keppra Injection -) 500 mg IVPB BID [facility] Last Admin: 01/04/18 10:15 Dose: 500 mg Methylprednisolone Sodium Succinate (Solu-Medrol -) 40 mg IVPUSH BID [facility] Last Admin: 01/04/18 10:15 Dose: 40 mg Pantoprazole Sodium (Protonix Iv) 40 mg IVPUSH DAILY [facility] Last Admin: 01/04/18 10:15 Dose: 40 mg Polyethylene Glycol (Miralax (For Daily Use) -) 17 gm PO DAILY [facility] Last Admin: 01/04/18 10:00 Dose: Not Given Gen: somnolent but opens eyes Heart: tachycardic, regular Lung: scattered rhonchi, no active wheeze Abd: soft, nontender Ext: no edema Laboratory Results - last 24 hr 01/04/18 01/04/18 05:30 05:30 WBC 17.1 H RBC 3.58 L Hgb 10.5 L Hct 31.3 L MCV 87.5 MCH 29.3 MCHC 33.5 RDW 13.5 Plt Count 249 MPV 8.2 Sodium 137 Potassium 3.8 Chloride 105 Carbon Dioxide 24 Anion Gap 8 BUN 14 Creatinine 0.5 L Creat Clearance w eGFR > 60 Random Glucose 108 H Calcium 7.7 L Phosphorus 3.3 Magnesium 2.0 Total Bilirubin 0.4 AST 63 H ALT 46 Alkaline Phosphatase 70 Total Protein 6.0 L Albumin 3.0 L ASSESSMENT AND PLAN: Acute Hypoxic and Hypercapneic Respiratory Failure improving Status Asthmaticus resolving Shock - r/o Sepsis UTI Lactic Acidosis resolved Acute Kidney Injury resolved Hyperglycemia resolved Autism - Supplemental O2 to maintain saturation - Prednisone - inhaled bronchodilators standing and PRN - Will likely need NGT for nutrition / meds - monitor urine output, creatinine - ABX coverage - on empiric antiepileptics but low suspicion of true seizures - DVT/GI prophylaxis - Will need Oximetry monitoring Dr Martinez Critical care time spent in reviewing chart, evaluating chart and formulating plan 36 min
[2018-01-04] MEDS ORDERED: ACETYLCYSTEINE 20% 200MG/ML 4 ML VIAL *FOR ORAL / INH USE ONLY NEB PRN (12:09)
[2018-01-04] MEDS ORDERED: ALBUTEROL SO4 2.5/IPRATROPIUM 0.5 INH SOL 3 ML VIAL.NEB. NEB PRN (12:14)
--- NOTE | 2018-01-04 13:41 | PN ---
Physical Exam: SUBJECTIVE: Patient seen and examined at bedside. patient had no more seziure- like episodes overnight. patient seems a little more alert this am. patient is saturating well on ventimask. OBJECTIVE: Vital Signs Period Temp Pulse Resp BP Sys/Cheema Pulse Ox Last 24 Hr 98.6 F-100.2 F 90-119 17-24 114-135/79-92 96-100 GENERAL: The patient is slightly somnolent and lethargic .. LUNGS: B/L rhonchi with coughing HEART: Regular rate and rhythm, S1, S2 without murmur, rub or gallop. ABDOMEN: Soft, nontender, nondistended, normoactive bowel sounds, no guarding, no rebound, no hepatosplenomegaly, no masses. EXTREMITIES: 2+ pulses, warm, well-perfused, no edema. NEUROLOGICAL: Cranial nerves II through XII grossly intact. Normal speech, gait not observed. PSYCH: Normal mood, normal affect. SKIN: Warm, dry, normal turgor, no rashes or lesions noted Laboratory Results - last 24 hr 01/04/18 01/04/18 05:30 05:30 WBC 17.1 H RBC 3.58 L Hgb 10.5 L Hct 31.3 L MCV 87.5 MCH 29.3 MCHC 33.5 RDW 13.5 Plt Count 249 MPV 8.2 Sodium 137 Potassium 3.8 Chloride 105 Carbon Dioxide 24 Anion Gap 8 BUN 14 Creatinine 0.5 L Creat Clearance w eGFR > 60 Random Glucose 108 H Calcium 7.7 L Phosphorus 3.3 Magnesium 2.0 Total Bilirubin 0.4 AST 63 H ALT 46 Alkaline Phosphatase 70 Total Protein 6.0 L Albumin 3.0 L Active Medications Generic Name Dose Route Start Last Admin Trade Name Freq PRN Reason Stop Dose Admin Acetaminophen 750 mg 01/03/18 20:23 01/04/18 01:34 Ofirmev Injection - IVPB 750 mg Q6H PRN Administration FEVER Albuterol Sulfate 1 amp 12/31/17 15:38 01/03/18 23:58 Ventolin 0.083% Nebulizer Soln - NEB 1 amp Q6H PRN Administration SHORT OF BREATH/WHEEZING Albuterol/Ipratropium 1 amp 01/04/18 12:14 Duoneb - NEB Q6H PRN SHORTNESS OF BREATH Budesonide 1 amp 01/04/18 20:00 Pulmicort 0.25 Mg Nebulizer - NEB RBID ZORAN Heparin Sodium (Porcine) 5,000 unit 12/31/17 14:00 01/04/18 06:42 Heparin - SQ 5,000 unit TID ZORAN Administration Levetiracetam 500 mg 01/01/18 10:00 01/04/18 10:15 Keppra Injection - IVPB 500 mg BID [facility] Administration Methylprednisolone Sodium Succinate 40 mg 01/05/18 10:00 Solu-Medrol - IVPUSH DAILY [facility] Pantoprazole Sodium 40 mg 12/31/17 11:15 01/04/18 10:15 Protonix Iv IVPUSH 40 mg DAILY [facility] Administration Polyethylene Glycol 17 gm 01/03/18 10:00 01/04/18 10:00 Miralax (For Daily Use) - PO Not Given DAILY [facility] ASSESSMENT/PLAN: 37 y/o female with PMH of autism, asthma presenting with respiratory distress requiring intubation in the field. Patient is is currently no longer on pressor support was extubated two days ago and is saturating well on ventimask. Acute Hypoxic Respiratory Failure: patient was extubated two days ago and is currently on ventimask -decreased solumedrol to 40 qday -adding inhaled steroids -intermittent suctioning when necessary -duonebs PRN -monitor O2 saturations DVT prophylaxis: Heparin SQ GI Prophyalxis: IV protonix ID: today is day 5 of ceftriazone for UTI F/E/N: no longer on standing fluids replete electrolytes when necessary will start tube feeds dispo: transfer to telemetry Problem List - Problems (1) Acute asthma exacerbation Code(s): J45.901 - UNSPECIFIED ASTHMA WITH (ACUTE) EXACERBATION Qualifiers: Asthma severity: unspecified severity Asthma persistence: unspecified Qualified Code(s): J45.901 - Unspecified asthma with (acute) exacerbation (2) Respiratory failure Code(s): J96.90 - RESPIRATORY FAILURE, UNSP, UNSP W HYPOXIA OR HYPERCAPNIA Qualifiers: Chronicity: unspecified Respiratory failure complication: unspecified whether with hypoxia or hypercapnia Qualified Code(s): J96.90 - Respiratory failure, unspecified, unspecified whether with hypoxia or hypercapnia Visit type - Emergency Visit Emergency Visit: Yes ED Registration Date: 12/31/17 Care time: The patient presented to the Emergency Department on the above date and was hospitalized for further evaluation of their emergent condition. - New Patient This patient is new to me today: No - Critical Care Critical Care patient: Yes Total Critical Care Time (in minutes): 35 Critical Care Statement: The care of this patient involved high complexity decision making to prevent further life threatening deterioration of the patient 's condition and/or to evaluate & treat vital organ system(s) failure or risk of failure.
--- NOTE | 2018-01-04 14:49 | PN ---
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, Physician History of Present Illness: stable still continues to be lethargic ng tube placed for feeding on face mask - Current Medication List Current Medications: Active Medications Acetaminophen (Ofirmev Injection -) 750 mg IVPB Q6H PRN PRN Reason: FEVER Last Admin: 01/04/18 01:34 Dose: 750 mg Albuterol Sulfate (Ventolin 0.083% Nebulizer Soln -) 1 amp NEB Q6H PRN PRN Reason: SHORT OF BREATH/WHEEZING Last Admin: 01/03/18 23:58 Dose: 1 amp Albuterol/Ipratropium (Duoneb -) 1 amp NEB Q6H PRN PRN Reason: SHORTNESS OF BREATH Budesonide (Pulmicort 0.25 Mg Nebulizer -) 1 amp NEB RBID [facility]ORAN Heparin Sodium (Porcine) (Heparin -) 5,000 unit SQ TID [facility] Last Admin: 01/04/18 14:24 Dose: 5,000 unit Levetiracetam (Keppra Injection -) 500 mg IVPB BID [facility] Last Admin: 01/04/18 10:15 Dose: 500 mg Methylprednisolone Sodium Succinate (Solu-Medrol -) 40 mg IVPUSH DAILY [facility] Pantoprazole Sodium (Protonix Iv) 40 mg IVPUSH DAILY [facility] Last Admin: 01/04/18 10:15 Dose: 40 mg Polyethylene Glycol (Miralax (For Daily Use) -) 17 gm PO DAILY [facility] Last Admin: 01/04/18 10:00 Dose: Not Given - Objective Vital Signs: Vital Signs Temperature 97.9 F 01/04/18 14:14 Pulse Rate 99 H 01/04/18 14:14 Respiratory Rate 20 01/04/18 14:14 Blood Pressure 128/89 01/04/18 14:14 O2 Sat by Pulse Oximetry (%) 100 01/04/18 09:00 Constitutional: Yes: No Distress, Calm Cardiovascular: Yes: Regular Rate and Rhythm Respiratory: Yes: Regular, CTA Bilaterally Gastrointestinal: Yes: Normal Bowel Sounds, Soft Musculoskeletal: Yes: WNL Extremities: Yes: WNL Neurological: Yes: Other Labs: CBC, BMP 01/04/18 05:30 01/04/18 05:30 INR, PTT INR 1.13 (0.83-1.09) H 12/31/17 07:52 Assessment/Plan Problem List - Problems (1) Acute asthma exacerbation Code(s): J45.901 - UNSPECIFIED ASTHMA WITH (ACUTE) EXACERBATION Qualifiers: Asthma severity: unspecified severity Asthma persistence: unspecified Qualified Code(s): J45.901 - Unspecified asthma with (acute) exacerbation (2) Respiratory failure Code(s): J96.90 - RESPIRATORY FAILURE, UNSP, UNSP W HYPOXIA OR HYPERCAPNIA Qualifiers: Chronicity: unspecified Respiratory failure complication: unspecified whether with hypoxia or hypercapnia Qualified Code(s): J96.90 - Respiratory failure, unspecified, unspecified whether with hypoxia or hypercapnia (3) Autism Code(s): F84.0 - AUTISTIC DISORDER (4) Lactic acidosis Code(s): E87.2 - ACIDOSIS (5) Tachycardia Code(s): R00.0 - TACHYCARDIA, UNSPECIFIED (6) URI (upper respiratory infection) Code(s): J06.9 - ACUTE UPPER RESPIRATORY INFECTION, UNSPECIFIED uti plan will stop ceftriaxone tomorrow watch resp status incentive tevin rest as per icu cc 38 min
--- NOTE | 2018-01-04 17:32 | PN ---
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, Physician - Current Medication List Current Medications: Active Medications Acetaminophen (Ofirmev Injection -) 750 mg IVPB Q6H PRN PRN Reason: FEVER Last Admin: 01/04/18 01:34 Dose: 750 mg Albuterol Sulfate (Ventolin 0.083% Nebulizer Soln -) 1 amp NEB Q6H PRN PRN Reason: SHORT OF BREATH/WHEEZING Last Admin: 01/03/18 23:58 Dose: 1 amp Albuterol/Ipratropium (Duoneb -) 1 amp NEB Q6H PRN PRN Reason: SHORTNESS OF BREATH Budesonide (Pulmicort 0.25 Mg Nebulizer -) 1 amp NEB RBID [facility]ORAN Heparin Sodium (Porcine) (Heparin -) 5,000 unit SQ TID [facility] Last Admin: 01/04/18 14:24 Dose: 5,000 unit Levetiracetam (Keppra Injection -) 500 mg IVPB BID [facility] Last Admin: 01/04/18 10:15 Dose: 500 mg Methylprednisolone Sodium Succinate (Solu-Medrol -) 40 mg IVPUSH DAILY [facility] Pantoprazole Sodium (Protonix Iv) 40 mg IVPUSH DAILY [facility] Last Admin: 01/04/18 10:15 Dose: 40 mg Polyethylene Glycol (Miralax (For Daily Use) -) 17 gm PO DAILY [facility] Last Admin: 01/04/18 10:00 Dose: Not Given - Objective Vital Signs: Vital Signs Temperature 98.4 F 01/04/18 16:00 Pulse Rate 100 H 01/04/18 16:00 Respiratory Rate 16 01/04/18 16:00 Blood Pressure 125/86 01/04/18 16:00 O2 Sat by Pulse Oximetry (%) 100 01/04/18 09:00 HENT: Yes: WNL Neck: Yes: Supple Cardiovascular: Yes: Regular Rate and Rhythm Respiratory: Yes: CTA Bilaterally Gastrointestinal: Yes: Normal Bowel Sounds Extremities: Yes: WNL Neurological: Yes: Alert Labs: CBC, BMP 01/04/18 05:30 01/04/18 05:30 INR, PTT INR 1.13 (0.83-1.09) H 12/31/17 07:52 Problem List - Problems (1) Acute asthma exacerbation Assessment/Plan: better now iv steroids duo nebs iv abx Code(s): J45.901 - UNSPECIFIED ASTHMA WITH (ACUTE) EXACERBATION Qualifiers: Asthma severity: unspecified severity Asthma persistence: unspecified Qualified Code(s): J45.901 - Unspecified asthma with (acute) exacerbation (2) Respiratory failure Assessment/Plan: s/p extubation Code(s): J96.90 - RESPIRATORY FAILURE, UNSP, UNSP W HYPOXIA OR HYPERCAPNIA Qualifiers: Chronicity: unspecified Respiratory failure complication: unspecified whether with hypoxia or hypercapnia Qualified Code(s): J96.90 - Respiratory failure, unspecified, unspecified whether with hypoxia or hypercapnia (3) Autism Code(s): F84.0 - AUTISTIC DISORDER Assessment/Plan cc time 30 min
[2018-01-04] MEDS ORDERED: ALBUTEROL SO4 0.083% IH SOL 2.5 MG/3 ML VIAL.NEB. NEB PRN (17:38)
[2018-01-04] MEDS ORDERED: SCOPOLAMINE HYDROBROMIDE 1 PATCH PATCH.TD72 TD SCH (17:45)
[2018-01-04] MEDS: BUDESONIDE 0.25 MG/2ML INH SUSP VIAL NEB SCH (21:45)
[2018-01-04] MEDS: ALBUTEROL SO4 2.5/IPRATROPIUM 0.5 INH SOL 3 ML VIAL.NEB. NEB PRN (21:45)
[2018-01-04] MEDS ORDERED: LORazepam 2 MG/ML SDV VIAL IVPUSH ONE (23:45)
--- NOTE | 2018-01-05 01:00 | PN ---
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 (short form) - Note 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: Patient had left arm tremor. gave patient 2mg IV PUSH of Ativan and tremor subsided. Problem List - Problems (1) Acute asthma exacerbation Code(s): J45.901 - UNSPECIFIED ASTHMA WITH (ACUTE) EXACERBATION Qualifiers: Asthma severity: unspecified severity Asthma persistence: unspecified Qualified Code(s): J45.901 - Unspecified asthma with (acute) exacerbation (2) Respiratory failure Code(s): J96.90 - RESPIRATORY FAILURE, UNSP, UNSP W HYPOXIA OR HYPERCAPNIA Qualifiers: Chronicity: unspecified Respiratory failure complication: unspecified whether with hypoxia or hypercapnia Qualified Code(s): J96.90 - Respiratory failure, unspecified, unspecified whether with hypoxia or hypercapnia
[2018-01-05 06:37] LABS: HEMATOCRIT 34.8 % (32.4-45.2); HEMOGLOBIN 11.5 GM/dL (10.7-15.3); MCH 29.1 pg (25.7-33.7); MCHC 33.2 g/dl (32.0-36.0); MEAN CELL VOLUME 87.8 fl (80-96); MEAN PLT VOLUME 8.4 fl (7.5-11.1); PLATELET COUNT 289 K/MM3 (134-434); RBC 3.96 M/mm3 (3.60-5.2); RDW 13.3 % (11.6-15.6); WHITE BLOOD COUNT 12.7 K/mm3 (4.0-10.0)
[2018-01-05] MEDS: HEPARIN NA (PORCINE) 5,000 UNITS/ML 1ML VIAL SQ SCH ×3 (06:40→22:42)
[2018-01-05 06:55] LABS: ALBUMIN 3.1 g/dl (3.4-5.0); ANION GAP 5 MMOL/L (8-16); BLOOD UREA NITROGEN 19 mg/dL (7-18); CALCIUM 8.1 mg/dL (8.5-10.1); CHLORIDE 104 mmol/L (98-107); CO2 27 mmol/L (21-32); CREATININE 0.5 mg/dL (0.55-1.02); GLUCOSE,RANDOM 97 mg/dL (74-106); MAGNESIUM 2.2 mg/dL (1.8-2.4); PHOSPHOROUS 2.8 mg/dL (2.5-4.9); POTASSIUM 4.1 mmol/L (3.5-5.1); SGOT/AST 51 U/L (15-37); SGPT/ALT 46 U/L (12-78); SODIUM 136 mmol/L (136-145)
[2018-01-05 06:57] LABS: ALK PHOS 76 U/L (45-117); BILIRUBIN,TOTAL 0.3 mg/dL (0.2-1.0); TOT PROT 6.7 g/dl (6.4-8.2)
[2018-01-05] MEDS ORDERED: PT OWN MED DRAWER 7, Y5N ONE ×2 (07:48→08:39)
--- NOTE | 2018-01-05 07:59 | PN ---
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 (short form) - Note 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: PULM/CCM Patient seen and examined in the ICU. Remains extubated on VM O2 but obtunded w / occasional Sz-like activity. Active Medications Acetaminophen (Ofirmev Injection -) 750 mg IVPB Q6H PRN PRN Reason: FEVER Albuterol Sulfate (Ventolin 0.083% Nebulizer Soln -) 1 amp NEB Q6H PRN PRN Reason: SHORT OF BREATH/WHEEZING Albuterol/Ipratropium (Duoneb -) 1 amp NEB Q6H PRN PRN Reason: SHORTNESS OF BREATH Last Admin: 01/04/18 21:45 Dose: 1 amp Budesonide (Pulmicort 0.25 Mg Nebulizer -) 1 amp NEB RBID [facility] Last Admin: 01/05/18 08:24 Dose: 1 amp Heparin Sodium (Porcine) (Heparin -) 5,000 unit SQ TID [facility] Last Admin: 01/05/18 06:40 Dose: 5,000 unit Levetiracetam (Keppra Injection -) 500 mg IVPB BID [facility] Last Admin: 01/05/18 09:25 Dose: 500 mg Methylprednisolone Sodium Succinate (Solu-Medrol -) 40 mg IVPUSH DAILY [facility] Last Admin: 01/05/18 09:26 Dose: 40 mg Pantoprazole Sodium (Protonix Iv) 40 mg IVPUSH DAILY [facility] Last Admin: 01/05/18 09:26 Dose: 40 mg Polyethylene Glycol (Miralax (For Daily Use) -) 17 gm PO DAILY [facility] Scopolamine HBr (Transderm-Scop -) 1 patch TD Q72H [facility] Last Admin: 01/04/18 18:04 Dose: 1 patch V/S Period Temp Pulse Resp BP Sys/Cheema Pulse Ox Last 24 Hr 97.9 F-98.7 F 88-101 16-24 91-136/58-101 98-98 Intake & Output 01/02/18 01/03/18 01/04/18 01/05/18 23:59 23:59 23:59 23:59 Intake Total 2654 1600 1280 280 Output Total 2500 950 3100 1600 Balance 154 650 -1820 -1320 Weight 48.988 kg 43.5 kg 43.908 kg 43.545 kg Gen: somnolent but opens eyes on occasion Heart: tachycardic, regular Lung: CTAB Abd: + BS, soft, nontender Ext: no edema CBC, BMP 01/05/18 05:30 01/05/18 05:30 CXR 01/04: Since the prior study of 01/04/2018, there is rotation to the left with some coarse changes but normal mediastinum and no sign of infiltrate or failure. NG tube has been inserted and the tip is below the GE junction. Follow- up recommended. ASSESSMENT AND PLAN: Acute Hypoxic and Hypercapneic Respiratory Failure improving Status Asthmaticus resolving Shock - r/o Sepsis UTI Lactic Acidosis resolved Acute Kidney Injury resolved Hyperglycemia resolved Autism - Supplemental O2 to maintain saturation - Will need Oximetry monitoring - Prednisone - inhaled bronchodilators standing and PRN - monitor urine output, creatinine - ABX coverage - on empiric antiepileptics but low suspicion of true seizures f/u w/ NEURO - DVT/GI prophylaxis DGL, ACNP-BC [facility] ICU PULM/CCM 4477 Critical Care Total Critical Care Time (in minutes): 38 Critical Care Statement: The care of this patient involved high complexity decision making to prevent further life threatening deterioration of the patient 's condition and/or to evaluate & treat vital organ system(s) failure or risk of failure.
[2018-01-05] MEDS: BUDESONIDE 0.25 MG/2ML INH SUSP VIAL NEB SCH ×2 (08:24→20:12)
[2018-01-05] MEDS: levETIRAcetam 500 MG/5 ML INJECTION VIAL IVPB SCH ×2 (09:25→22:42)
[2018-01-05] MEDS: PANTOPRAZOLE SODIUM 40 MG VIAL IVPUSH SCH (09:26)
[2018-01-05] MEDS ORDERED: methylPREDNISolone NA SUCC 40 MG/1 ML VIAL IVPUSH SCH ×2 (10:00)
[2018-01-05] MEDS: POLYETHYLENE GLYCOL 3350 119 GM BTL PO SCH (12:35)
--- NOTE | 2018-01-05 16:01 | PN ---
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, Physician History of Present Illness: on face mask - Current Medication List Current Medications: Active Medications Acetaminophen (Ofirmev Injection -) 750 mg IVPB Q6H PRN PRN Reason: FEVER Albuterol Sulfate (Ventolin 0.083% Nebulizer Soln -) 1 amp NEB Q6H PRN PRN Reason: SHORT OF BREATH/WHEEZING Albuterol/Ipratropium (Duoneb -) 1 amp NEB Q6H PRN PRN Reason: SHORTNESS OF BREATH Last Admin: 01/04/18 21:45 Dose: 1 amp Budesonide (Pulmicort 0.25 Mg Nebulizer -) 1 amp NEB RBID [facility] Last Admin: 01/05/18 08:24 Dose: 1 amp Heparin Sodium (Porcine) (Heparin -) 5,000 unit SQ TID [facility] Last Admin: 01/05/18 14:46 Dose: 5,000 unit Levetiracetam (Keppra Injection -) 500 mg IVPB BID [facility] Last Admin: 01/05/18 09:25 Dose: 500 mg Methylprednisolone Sodium Succinate (Solu-Medrol -) 40 mg IVPUSH DAILY [facility] Last Admin: 01/05/18 09:26 Dose: 40 mg Pantoprazole Sodium (Protonix Iv) 40 mg IVPUSH DAILY [facility] Last Admin: 01/05/18 09:26 Dose: 40 mg Polyethylene Glycol (Miralax (For Daily Use) -) 17 gm PO DAILY [facility] Last Admin: 01/05/18 12:35 Dose: 17 gm Scopolamine HBr (Transderm-Scop -) 1 patch TD Q72H [facility] Last Admin: 01/04/18 18:04 Dose: 1 patch - Objective Vital Signs: Vital Signs Temperature 99 F 01/05/18 12:00 Pulse Rate 94 H 01/05/18 12:00 Respiratory Rate 22 01/05/18 12:00 Blood Pressure 109/73 01/05/18 12:00 O2 Sat by Pulse Oximetry (%) 98 01/05/18 10:00 Constitutional: Yes: Calm HENT: Yes: Atraumatic Neck: Yes: Supple Cardiovascular: Yes: Regular Rate and Rhythm Respiratory: Yes: Rhonchi Gastrointestinal: Yes: Normal Bowel Sounds Edema: No Neurological: Yes: Alert, Oriented Labs: CBC, BMP 01/05/18 05:30 01/05/18 05:30 INR, PTT INR 1.13 (0.83-1.09) H 12/31/17 07:52 Problem List - Problems (1) Acute asthma exacerbation Assessment/Plan: better now iv steroids duo nebs iv abx Code(s): J45.901 - UNSPECIFIED ASTHMA WITH (ACUTE) EXACERBATION Qualifiers: Asthma severity: unspecified severity Asthma persistence: unspecified Qualified Code(s): J45.901 - Unspecified asthma with (acute) exacerbation (2) Respiratory failure Assessment/Plan: s/p extubation Code(s): J96.90 - RESPIRATORY FAILURE, UNSP, UNSP W HYPOXIA OR HYPERCAPNIA Qualifiers: Chronicity: unspecified Respiratory failure complication: unspecified whether with hypoxia or hypercapnia Qualified Code(s): J96.90 - Respiratory failure, unspecified, unspecified whether with hypoxia or hypercapnia (3) Autism Code(s): F84.0 - AUTISTIC DISORDER Assessment/Plan cc time 30 min
[2018-01-05] MEDS ORDERED: LORazepam 2 MG/ML SDV VIAL ONE (18:48)
[2018-01-05] MEDS ORDERED: LORazepam 2 MG/ML SDV VIAL IVPUSH STA (19:21)
[2018-01-05] MEDS ORDERED: LORazepam 2 MG/ML SDV VIAL IVPUSH PRN (19:22)
[2018-01-06] MEDS ORDERED: PIPERACILLIN/TAZOB 2.25 GM 2.25 GM in DEXTROSE 5%-WATER - 50 ML IVPB ONE (02:36)
[2018-01-06] MEDS ORDERED: LACTATED RINGERS SOLUTION 1,000 ML/1,000 ML INFUS.BAG IV STA (02:51)
[2018-01-06] MEDS: NYSTATIN/TRIAMCINOLONE TOPICAL CREAM 15 GM TUBE TP SCH ×3 (04:00→22:29)
[2018-01-06] MEDS ORDERED: DEXTROSE 5%-WATER - 50 ML IVPB ONE ×3 (05:56→18:06)
[2018-01-06] MEDS ORDERED: PIPERACILLIN/TAZOBACTAM 2.25 GM VIAL IVPB ONE ×3 (05:56→18:05)
[2018-01-06] MEDS: ACETAMINOPHEN 1000 MG/100 ML VIAL (NON FORMULARY) IVPB PRN (06:00)
[2018-01-06] MEDS: HEPARIN NA (PORCINE) 5,000 UNITS/ML 1ML VIAL SQ SCH ×3 (06:00→21:49)
--- NOTE | 2018-01-06 07:38 | PN ---
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 (short form) - Note 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: PULM/CCM Patient seen and examined in the ICU. Remains extubated on VM O2, more awake today, moaning, seems to be tracking @ times. Active Medications Acetaminophen (Ofirmev Injection -) 750 mg IVPB Q6H PRN PRN Reason: FEVER Last Admin: 01/06/18 06:00 Dose: 750 mg Albuterol Sulfate (Ventolin 0.083% Nebulizer Soln -) 1 amp NEB Q6H PRN PRN Reason: SHORT OF BREATH/WHEEZING Albuterol/Ipratropium (Duoneb -) 1 amp NEB Q6H PRN PRN Reason: SHORTNESS OF BREATH Last Admin: 01/04/18 21:45 Dose: 1 amp Budesonide (Pulmicort 0.25 Mg Nebulizer -) 1 amp NEB RBID [facility] Last Admin: 01/06/18 08:20 Dose: 1 amp Heparin Sodium (Porcine) (Heparin -) 5,000 unit SQ TID [facility] Last Admin: 01/06/18 06:00 Dose: 5,000 unit Piperacillin Sod/Tazobactam (Sod 2.25 gm/ Dextrose) 50 mls @ 100 mls/hr IVPB Q8H-IV [facility]; Protocol Piperacillin Sod/Tazobactam (Sod 2.25 gm/ Dextrose) 50 mls @ 100 mls/hr IVPB Q8H-IV [facility] Stop: 01/07/18 10:29 Levetiracetam (Keppra Injection -) [address] [facility] Last Admin: 01/05/18 22:42 Dose: 500 mg Lorazepam (Ativan Injection -) 1 mg IVPUSH Q6H PRN PRN Reason: AGITATION Last Admin: 01/06/18 00:40 Dose: 1 mg Nystatin/Triamcinolone Acetonide (Mycolog Ii Cream -) [address] [facility] Last Admin: 01/06/18 04:00 Dose: 1 appful Pantoprazole Sodium (Protonix Iv) [address] [facility] Last Admin: 01/05/18 09:26 Dose: 40 mg Polyethylene Glycol (Miralax (For Daily Use) -) [address] [facility] Last Admin: 01/05/18 12:35 Dose: 17 gm Scopolamine HBr (Transderm-Scop -) [address] [facility] Last Admin: 01/04/18 18:04 Dose: 1 patch V/S Period Temp Pulse Resp BP Sys/Cheema Pulse Ox Last 24 Hr 98.8 F-100.3 F 92-129 16-26 102-149/60-108 98-98 Intake & Output 01/03/18 01/04/18 01/05/18 01/06/18 23:59 23:59 23:59 23:59 Intake Total 1600 1280 1080 1100 Output Total 950 3100 1725 Balance 650 -1820 -645 1100 Weight 43.5 kg 43.908 kg 43.545 kg 43.772 kg GEN: Young woman in bed completely obtunded Heart: nml S1, S2, RR, unable to appreciate any G/M/R Lung: L coarse ronchi, R Clear Abd: + BS, S/S N/T N/D X4Q Ext: + Pulses, WWPX4, no edema CBC, BMP 01/06/18 09:37 01/06/18 09:37 CXR 01/05: L LL PNA, NGT coursing through the radiographic field of view. (My Read). ASSESSMENT AND PLAN: Acute Hypoxic and Hypercapneic Respiratory Failure improving Status Asthmaticus resolving Shock - r/o Sepsis UTI Lactic Acidosis resolved Acute Kidney Injury resolved Hyperglycemia resolved Autism - Supplemental O2 to maintain saturation - Will need Oximetry monitoring - inhaled bronchodilators standing and PRN - monitor urine output, creatinine - ABX coverage - on empiric antiepileptics but low suspicion of true seizures f/u w/ NEURO - DVT/GI prophylaxis DGL, ACNP-[facility] ICU PULM/[facility] 4436 Physical Examination Vital Signs: Vital Signs Temperature 98.9 F 01/06/18 12:40 Pulse Rate 98 H 01/06/18 12:40 Respiratory Rate 22 01/06/18 12:40 Blood Pressure 93/56 01/06/18 12:00 O2 Sat by Pulse Oximetry (%) 99 01/06/18 10:00 Labs: CBC, BMP 01/06/18 09:37 01/06/18 09:37 Critical Care Total Critical Care Time (in minutes): 39 Critical Care Statement: The care of this patient involved high complexity decision making to prevent further life threatening deterioration of the patient 's condition and/or to evaluate & treat vital organ system(s) failure or risk of failure.
[2018-01-06] MEDS: BUDESONIDE 0.25 MG/2ML INH SUSP VIAL NEB SCH ×2 (08:20→20:33)
[2018-01-06 09:58] LABS: HEMATOCRIT 36.6 % (32.4-45.2); HEMOGLOBIN 12.2 GM/dL (10.7-15.3); MCH 29.5 pg (25.7-33.7); MCHC 33.4 g/dl (32.0-36.0); MEAN CELL VOLUME 88.3 fl (80-96); MEAN PLT VOLUME 8.5 fl (7.5-11.1); PLATELET COUNT 335 K/MM3 (134-434); RBC 4.15 M/mm3 (3.60-5.2); RDW 13.5 % (11.6-15.6); WHITE BLOOD COUNT 22.1 K/mm3 (4.0-10.0)
[2018-01-06] MEDS ORDERED: PIPERACILLIN/TAZOB 2.25 GM 2.25 GM in DEXTROSE 5%-WATER - 50 ML IVPB SCH (10:00)
[2018-01-06 10:13] LABS: ANION GAP 9 MMOL/L (8-16); BLOOD UREA NITROGEN 21 mg/dL (7-18); CALCIUM 8.4 mg/dL (8.5-10.1); CHLORIDE 103 mmol/L (98-107); CO2 23 mmol/L (21-32); GLUCOSE,RANDOM 112 mg/dL (74-106); POTASSIUM 4.1 mmol/L (3.5-5.1); SODIUM 135 mmol/L (136-145)
[2018-01-06 10:16] LABS: CREATININE 0.5 mg/dL (0.55-1.02); PHOSPHOROUS 3.4 mg/dL (2.5-4.9); SGOT/AST 35 U/L (15-37); SGPT/ALT 37 U/L (12-78)
[2018-01-06 10:18] LABS: ALK PHOS 77 U/L (45-117); BILIRUBIN,TOTAL 0.6 mg/dL (0.2-1.0); TOT PROT 6.5 g/dl (6.4-8.2)
[2018-01-06] MEDS: PANTOPRAZOLE SODIUM 40 MG VIAL IVPUSH SCH (11:07)
[2018-01-06] MEDS: levETIRAcetam 500 MG/5 ML INJECTION VIAL IVPB SCH ×2 (11:07→21:49)
[2018-01-06] MEDS: POLYETHYLENE GLYCOL 3350 119 GM BTL PO SCH (11:17)
[2018-01-06] MEDS: PIPERACILLIN/TAZOB 2.25 GM 2.25 GM in DEXTROSE 5%-WATER - 50 ML IVPB SCH ×2 (11:25→18:07)
--- NOTE | 2018-01-06 12:10 | PN ---
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, Physician History of Present Illness: wbc came down and jumped up again patient with ng tube now for feeding mental status still lethargic element of aspiration suspected - Current Medication List Current Medications: Active Medications Acetaminophen (Ofirmev Injection -) 750 mg IVPB Q6H PRN PRN Reason: FEVER Last Admin: 01/06/18 06:00 Dose: 750 mg Albuterol Sulfate (Ventolin 0.083% Nebulizer Soln -) 1 amp NEB Q6H PRN PRN Reason: SHORT OF BREATH/WHEEZING Albuterol/Ipratropium (Duoneb -) 1 amp NEB Q6H PRN PRN Reason: SHORTNESS OF BREATH Last Admin: 01/04/18 21:45 Dose: 1 amp Budesonide (Pulmicort 0.25 Mg Nebulizer -) 1 amp NEB RBID [facility] Last Admin: 01/06/18 08:20 Dose: 1 amp Heparin Sodium (Porcine) (Heparin -) 5,000 unit SQ TID [facility] Last Admin: 01/06/18 06:00 Dose: 5,000 unit Piperacillin Sod/Tazobactam (Sod 2.25 gm/ Dextrose) 50 mls @ 100 mls/hr IVPB Q8H-IV [facility]; Protocol Piperacillin Sod/Tazobactam (Sod 2.25 gm/ Dextrose) 50 mls @ 100 mls/hr IVPB Q8H-IV [facility] Stop: 01/07/18 10:29 Last Admin: 01/06/18 11:25 Dose: 100 mls/hr Levetiracetam (Keppra Injection -) 500 mg IVPB BID [facility] Last Admin: 01/06/18 11:07 Dose: 500 mg Lorazepam (Ativan Injection -) 1 mg IVPUSH Q6H PRN PRN Reason: AGITATION Last Admin: 01/06/18 00:40 Dose: 1 mg Nystatin/Triamcinolone Acetonide (Mycolog Ii Cream -) 1 applic TP BID [facility] Last Admin: 01/06/18 04:00 Dose: 1 appful Pantoprazole Sodium (Protonix Iv) 40 mg IVPUSH DAILY [facility] Last Admin: 01/06/18 11:07 Dose: 40 mg Polyethylene Glycol (Miralax (For Daily Use) -) 17 gm PO DAILY [facility] Last Admin: 01/06/18 11:17 Dose: 17 gm Scopolamine HBr (Transderm-Scop -) 1 patch TD Q72H [facility] Last Admin: 01/04/18 18:04 Dose: 1 patch - Objective Vital Signs: Vital Signs Temperature 99.2 F 01/06/18 02:00 Pulse Rate 110 H 01/06/18 06:00 Respiratory Rate 24 01/06/18 06:00 Blood Pressure 149/60 01/06/18 06:00 O2 Sat by Pulse Oximetry (%) 100 01/06/18 09:00 Constitutional: Yes: No Distress, Calm Cardiovascular: Yes: Regular Rate and Rhythm Respiratory: Yes: Poor Air Entry, Rhonchi Gastrointestinal: Yes: Normal Bowel Sounds, Soft Musculoskeletal: Yes: WNL Extremities: Yes: WNL Neurological: Yes: Other Psychiatric: Yes: Alert Labs: CBC, BMP 01/06/18 09:37 01/06/18 09:37 INR, PTT INR 1.13 (0.83-1.09) H 12/31/17 07:52 Assessment/Plan Problem List - Problems (1) Acute asthma exacerbation Code(s): J45.901 - UNSPECIFIED ASTHMA WITH (ACUTE) EXACERBATION Qualifiers: Asthma severity: unspecified severity Asthma persistence: unspecified Qualified Code(s): J45.901 - Unspecified asthma with (acute) exacerbation (2) Respiratory failure Code(s): J96.90 - RESPIRATORY FAILURE, UNSP, UNSP W HYPOXIA OR HYPERCAPNIA Qualifiers: Chronicity: unspecified Respiratory failure complication: unspecified whether with hypoxia or hypercapnia Qualified Code(s): J96.90 - Respiratory failure, unspecified, unspecified whether with hypoxia or hypercapnia (3) Autism Code(s): F84.0 - AUTISTIC DISORDER (4) Lactic acidosis Code(s): E87.2 - ACIDOSIS (5) Tachycardia Code(s): R00.0 - TACHYCARDIA, UNSPECIFIED (6) URI (upper respiratory infection) Code(s): J06.9 - ACUTE UPPER RESPIRATORY INFECTION, UNSPECIFIED uti asp pna plan continue resp care abx changed to zosyn monitor closely rest as per icu and the team discussed with family will monitor wbc cc 4o min
--- NOTE | 2018-01-06 17:01 | PN ---
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, Physician History of Present Illness: on face mask - Current Medication List Current Medications: Active Medications Acetaminophen (Ofirmev Injection -) 750 mg IVPB Q6H PRN PRN Reason: FEVER Last Admin: 01/06/18 06:00 Dose: 750 mg Albuterol Sulfate (Ventolin 0.083% Nebulizer Soln -) 1 amp NEB Q6H PRN PRN Reason: SHORT OF BREATH/WHEEZING Last Admin: 01/06/18 16:31 Dose: 1 amp Albuterol/Ipratropium (Duoneb -) 1 amp NEB Q6H PRN PRN Reason: SHORTNESS OF BREATH Last Admin: 01/04/18 21:45 Dose: 1 amp Budesonide (Pulmicort 0.25 Mg Nebulizer -) 1 amp NEB RBID [facility] Last Admin: 01/06/18 08:20 Dose: 1 amp Heparin Sodium (Porcine) (Heparin -) 5,000 unit SQ TID [facility] Last Admin: 01/06/18 14:55 Dose: 5,000 unit Piperacillin Sod/Tazobactam (Sod 2.25 gm/ Dextrose) 50 mls @ 100 mls/hr IVPB Q8H-IV [facility]; Protocol Piperacillin Sod/Tazobactam (Sod 2.25 gm/ Dextrose) 50 mls @ 100 mls/hr IVPB Q8H-IV [facility] Stop: 01/07/18 10:29 Last Admin: 01/06/18 11:25 Dose: 100 mls/hr Levetiracetam (Keppra Injection -) 500 mg IVPB BID [facility] Last Admin: 01/06/18 11:07 Dose: 500 mg Lorazepam (Ativan Injection -) 1 mg IVPUSH Q6H PRN PRN Reason: AGITATION Last Admin: 01/06/18 00:40 Dose: 1 mg Nystatin/Triamcinolone Acetonide (Mycolog Ii Cream -) 1 applic TP BID [facility] Last Admin: 01/06/18 10:00 Dose: 1 applic Pantoprazole Sodium (Protonix Iv) 40 mg IVPUSH DAILY [facility] Last Admin: 01/06/18 11:07 Dose: 40 mg Polyethylene Glycol (Miralax (For Daily Use) -) 17 gm PO DAILY [facility] Last Admin: 01/06/18 11:17 Dose: 17 gm Scopolamine HBr (Transderm-Scop -) 1 patch TD Q72H [facility] Last Admin: 01/04/18 18:04 Dose: 1 patch - Objective Vital Signs: Vital Signs Temperature 98.3 F 01/06/18 14:00 Pulse Rate 110 H 01/06/18 14:00 Respiratory Rate 16 01/06/18 14:00 Blood Pressure 110/78 01/06/18 14:00 O2 Sat by Pulse Oximetry (%) 99 01/06/18 10:00 Constitutional: Yes: Calm HENT: Yes: Atraumatic Neck: Yes: Supple Cardiovascular: Yes: Regular Rate and Rhythm Respiratory: Yes: Rhonchi Gastrointestinal: Yes: Normal Bowel Sounds Extremities: Yes: WNL Neurological: Yes: Other (drowsy) Labs: CBC, BMP 01/06/18 09:37 01/06/18 09:37 INR, PTT INR 1.13 (0.83-1.09) H 12/31/17 07:52 Problem List - Problems (1) Acute asthma exacerbation Assessment/Plan: better now iv steroids duo nebs iv abx Code(s): J45.901 - UNSPECIFIED ASTHMA WITH (ACUTE) EXACERBATION Qualifiers: Asthma severity: unspecified severity Asthma persistence: unspecified Qualified Code(s): J45.901 - Unspecified asthma with (acute) exacerbation (2) Respiratory failure Assessment/Plan: s/p extubation Code(s): J96.90 - RESPIRATORY FAILURE, UNSP, UNSP W HYPOXIA OR HYPERCAPNIA Qualifiers: Chronicity: unspecified Respiratory failure complication: unspecified whether with hypoxia or hypercapnia Qualified Code(s): J96.90 - Respiratory failure, unspecified, unspecified whether with hypoxia or hypercapnia (3) Autism Code(s): F84.0 - AUTISTIC DISORDER
[2018-01-06] MEDS ORDERED: PT OWN MED DRAWER 7, Y5N ONE (20:27)
[2018-01-07] MEDS ORDERED: DEXTROSE 5%-WATER - 50 ML IVPB ONE ×3 (01:40→21:36)
[2018-01-07] MEDS ORDERED: PIPERACILLIN/TAZOBACTAM 2.25 GM VIAL IVPB ONE ×3 (01:40→21:35)
[2018-01-07] MEDS: PIPERACILLIN/TAZOB 2.25 GM 2.25 GM in DEXTROSE 5%-WATER - 50 ML IVPB SCH ×3 (01:42→21:38)
[2018-01-07] MEDS: HEPARIN NA (PORCINE) 5,000 UNITS/ML 1ML VIAL SQ SCH ×3 (05:45→21:31)
[2018-01-07 06:08] LABS: BASO % 0.1 % (0-2.0); EOS % 7.6 % (0-4.5); HEMATOCRIT 35.9 % (32.4-45.2); LYMPH % 12.4 % (8-40); MCH 29.9 pg (25.7-33.7); MCHC 33.4 g/dl (32.0-36.0); MEAN CELL VOLUME 89.4 fl (80-96); MEAN PLT VOLUME 8.3 fl (7.5-11.1); MONO % 8.7 % (3.8-10.2); NEUT % 71.2 % (42.8-82.8); PLATELET COUNT 335 K/MM3 (134-434); RBC 4.01 M/mm3 (3.60-5.2); RDW 13.4 % (11.6-15.6); WHITE BLOOD COUNT 16.6 K/mm3 (4.0-10.0)
[2018-01-07 06:29] LABS: CHLORIDE 105 mmol/L (98-107); POTASSIUM 4.1 mmol/L (3.5-5.1); SODIUM 138 mmol/L (136-145)
[2018-01-07 06:35] LABS: ALBUMIN 2.9 g/dl (3.4-5.0); ALK PHOS 68 U/L (45-117); ANION GAP 9 MMOL/L (8-16); BILIRUBIN,TOTAL 0.3 mg/dL (0.2-1.0); BLOOD UREA NITROGEN 20 mg/dL (7-18); CALCIUM 8.3 mg/dL (8.5-10.1); CO2 24 mmol/L (21-32); CREATININE 0.5 mg/dL (0.55-1.02); GLUCOSE,RANDOM 99 mg/dL (74-106); MAGNESIUM 2.1 mg/dL (1.8-2.4); PHOSPHOROUS 3.6 mg/dL (2.5-4.9); SGOT/AST 44 U/L (15-37); SGPT/ALT 35 U/L (12-78); TOT PROT 6.4 g/dl (6.4-8.2)
[2018-01-07] MEDS: BUDESONIDE 0.25 MG/2ML INH SUSP VIAL NEB SCH ×2 (07:30→20:41)
[2018-01-07] MEDS: levETIRAcetam 500 MG/5 ML INJECTION VIAL IVPB SCH ×3 (09:51→21:31)
[2018-01-07] MEDS: PANTOPRAZOLE SODIUM 40 MG VIAL IVPUSH SCH (09:51)
[2018-01-07] MEDS: NYSTATIN/TRIAMCINOLONE TOPICAL CREAM 15 GM TUBE TP SCH ×2 (09:55→21:43)
[2018-01-07] MEDS: POLYETHYLENE GLYCOL 3350 119 GM BTL PO SCH (11:00)
--- NOTE | 2018-01-07 11:57 | PN ---
Teaching Attending Note Name of Resident: Sakina Infante ATTENDING PHYSICIAN STATEMENT I saw and evaluated the patient. I reviewed the resident's note and discussed the case with the resident. I agree with the resident's findings and plan as documented. SUBJECTIVE: Pt seen and examined in the ICU. Remains lethargic on ventimask. Per mother at bedside, cough appears stronger today. No fevers recorded. OBJECTIVE: Vital Signs Period Temp Pulse Resp BP Sys/Cheema Pulse Ox Last 24 Hr 98.3 F-99.2 F 86-117 16-28 89-115/56-78 96-100 Intake & Output 01/04/18 01/05/18 01/06/18 01/07/18 23:59 23:59 23:59 23:59 Intake Total 1280 1080 2275 598 Output Total 3100 1725 Balance -1820 -645 2275 598 Weight 43.908 kg 43.545 kg 43.772 kg 42.139 kg Gen: lethargic Heart: RRR Lung: scattered rhonchi Abd: soft, nontender Ext: no edema CBC, BMP 01/07/18 05:30 01/07/18 05:30 Active Medications Acetaminophen (Ofirmev Injection -) 750 mg IVPB Q6H PRN PRN Reason: FEVER Last Admin: 01/06/18 06:00 Dose: 750 mg Acetylcysteine (Mucomyst 20 Oral / Inh Use Only*) 500 mg NEB RQID [facility] Albuterol Sulfate (Ventolin 0.083% Nebulizer Soln -) 1 amp NEB Q6H PRN PRN Reason: SHORT OF BREATH/WHEEZING Last Admin: 01/06/18 16:31 Dose: 1 amp Albuterol/Ipratropium (Duoneb -) 1 amp NEB Q6H PRN PRN Reason: SHORTNESS OF BREATH Last Admin: 01/04/18 21:45 Dose: 1 amp Budesonide (Pulmicort 0.25 Mg Nebulizer -) 1 amp NEB RBID [facility] Last Admin: 01/07/18 07:30 Dose: 1 amp Heparin Sodium (Porcine) (Heparin -) 5,000 unit SQ TID [facility] Last Admin: 01/07/18 05:45 Dose: 5,000 unit Piperacillin Sod/Tazobactam (Sod 2.25 gm/ Dextrose) 50 mls @ 100 mls/hr IVPB Q8H-IV [facility]; Protocol Last Admin: 01/07/18 09:52 Dose: 100 mls/hr Nystatin/Triamcinolone Acetonide (Mycolog Ii Cream -) 1 applic TP BID [facility] Last Admin: 01/07/18 09:55 Dose: 1 applic Pantoprazole Sodium (Protonix Iv) 40 mg IVPUSH DAILY [facility] Last Admin: 01/07/18 09:51 Dose: 40 mg Polyethylene Glycol (Miralax (For Daily Use) -) 17 gm PO DAILY [facility] Last Admin: 01/06/18 11:17 Dose: 17 gm Scopolamine HBr (Transderm-Scop -) 1 patch TD Q72H [facility] Last Admin: 01/04/18 18:04 Dose: 1 patch ASSESSMENT AND PLAN: Acute Hypoxic and Hypercapneic Respiratory Failure improving Status Asthmaticus resolved Pneumonia likely Aspiration Shock resolved UTI Lactic Acidosis resolved Acute Kidney Injury resolved Hyperglycemia resolved Autism - continue antibiotics - f/u cultures - inhaled bronchodilators standing and PRN - inhaled corticosteroids - aspiration precautions - on empiric antiepileptics but low suspicion of true seizures - DVT/GI prophylaxis - continue ICU monitoring critical care time spent in reviewing chart, evaluating chart and formulating plan 35 min
[2018-01-07] MEDS ORDERED: MAG HYDROX/ALH/SMC/DPHA/LIDO 240 ML MOUTHWASH MM SCH (12:00)
[2018-01-07] MEDS ORDERED: ACETYLCYSTEINE 20% 200MG/ML 30 ML VIAL *FOR ORAL / INH USE ONLY NEB SCH (12:00)
[2018-01-07] MEDS ORDERED: ACETYLCYSTEINE 20% 200MG/ML 4 ML VIAL *FOR ORAL / INH USE ONLY NEB SCH (12:00)
[2018-01-07] MEDS: ALBUTEROL SO4 0.083% IH SOL 2.5 MG/3 ML VIAL.NEB. NEB SCH ×3 (12:20→20:41)
[2018-01-07] MEDS: ACETYLCYSTEINE 20% 200MG/ML 4 ML VIAL *FOR ORAL / INH USE ONLY NEB SCH ×3 (12:20→20:41)
--- NOTE | 2018-01-07 13:55 | PN ---
Physical Exam: SUBJECTIVE: Patient is a 37 y/o female with a history asthma and autism who is admitted for acute hypoxic respiratory failure 2/2 to asthma exacerbation and complicated by LLL pneumonia. Patient had no acute events overnight. Patient still non verbal, lethargic and not at baseline. Patient had 3 minute event of left hand twitching , OBJECTIVE: Vital Signs Temperature 98.5 F 01/07/18 07:42 Pulse Rate 86 01/07/18 13:00 Respiratory Rate 17 01/07/18 13:00 Blood Pressure 102/56 01/07/18 13:00 O2 Sat by Pulse Oximetry (%) 100 01/07/18 07:42 GENERAL: nonverbal, non moving HEAD: Normal with no signs of trauma. EYES: PERRL, disconjugate gaze ENT: NG tube in left nostril NECK: Trachea midline, full range of motion, supple. LUNGS: Breath sounds equal, clear to auscultation bilaterally HEART: Regular rate and rhythm, S1, S2 ABDOMEN: Soft, nontender, nondistended, normoactive bowel sounds EXTREMITIES: 2+ pulses, warm, well-perfused, no edema. SKIN: Warm, dry, normal turgor, no rashes or lesions noted CBC, BMP 01/07/18 05:30 01/07/18 05:30 Active Medications Acetaminophen (Ofirmev Injection -) 750 mg IVPB Q6H PRN PRN Reason: FEVER Last Admin: 01/06/18 06:00 Dose: 750 mg Acetylcysteine (Mucomyst 20 Oral / Inh Use Only*) 200 mg NEB RQID [facility] Last Admin: 01/07/18 12:20 Dose: Not Given Albuterol Sulfate (Ventolin 0.083% Nebulizer Soln -) 1 amp NEB RQID [facility] Last Admin: 01/07/18 12:20 Dose: Not Given Albuterol/Ipratropium (Duoneb -) 1 amp NEB Q6H PRN PRN Reason: SHORTNESS OF BREATH Last Admin: 01/04/18 21:45 Dose: 1 amp Budesonide (Pulmicort 0.25 Mg Nebulizer -) 1 amp NEB RBID [facility] Last Admin: 01/07/18 07:30 Dose: 1 amp Heparin Sodium (Porcine) (Heparin -) 5,000 unit SQ TID [facility] Last Admin: 01/07/18 05:45 Dose: 5,000 unit Piperacillin Sod/Tazobactam (Sod 2.25 gm/ Dextrose) 50 mls @ 100 mls/hr IVPB Q8H-IV [facility]; Protocol Last Admin: 01/07/18 09:52 Dose: 100 mls/hr Lidocaine/Aluminum/Magnesium/Simeth (Magic Mouthwash *Sjr Formula* -) 5 ml MM Q6HPO [facility] Nystatin/Triamcinolone Acetonide (Mycolog Ii Cream -) 1 applic TP BID [facility] Last Admin: 01/07/18 09:55 Dose: 1 applic Pantoprazole Sodium (Protonix Iv) 40 mg IVPUSH DAILY [facility] Last Admin: 01/07/18 09:51 Dose: 40 mg Polyethylene Glycol (Miralax (For Daily Use) -) 17 gm PO DAILY [facility] Last Admin: 01/07/18 11:00 Dose: 17 gm Scopolamine HBr (Transderm-Scop -) 1 patch TD Q72H [facility] Last Admin: 01/04/18 18:04 Dose: 1 patch ASSESSMENT/PLAN: Patient is a 37 y/o female with a history asthma and autism who is admitted for acute hypoxic respiratory failure 2/2 to asthma exacerbation and complicated by LLL pneumonia. #acute hypoxic respiratory failure 2/2 to asthma exacerbation with LLL pneumonia - ventimask 50%, oxygen saturation ~92% - Zosyn 2.25 - CXR: left base infiltrate - continue albuterol and mucomyst - duoneb q6h prn - pulmicort nebulizer - scopalamine to decrease secretions # questionable seizure - f/u Dr. Cox - continue Keppra 500 mg BID - ativan 2mg given once #DVT ppx - heparin TID #GI ppx - pantoprazole 40 mg IV push FEN - Kalani 1.2 @ 45 cc/hr - f/u PT Dispo: monitor oxygen saturation Visit type - Emergency Visit Emergency Visit: No - New Patient This patient is new to me today: Yes Date on this admission: 01/07/18 - Critical Care Critical Care patient: Yes Total Critical Care Time (in minutes): 40 Critical Care Statement: The care of this patient involved high complexity decision making to prevent further life threatening deterioration of the patient 's condition and/or to evaluate & treat vital organ system(s) failure or risk of failure.
--- NOTE | 2018-01-07 13:58 | PN ---
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, Physician History of Present Illness: slightly better today wbc has decreased family says she is more better today patient looks calmer still, on face mask - Current Medication List Current Medications: Active Medications Acetaminophen (Ofirmev Injection -) 750 mg IVPB Q6H PRN PRN Reason: FEVER Last Admin: 01/06/18 06:00 Dose: 750 mg Acetylcysteine (Mucomyst 20 Oral / Inh Use Only*) 200 mg NEB RQID [facility] Last Admin: 01/07/18 12:20 Dose: Not Given Albuterol Sulfate (Ventolin 0.083% Nebulizer Soln -) 1 amp NEB RQID [facility] Last Admin: 01/07/18 12:20 Dose: Not Given Albuterol/Ipratropium (Duoneb -) 1 amp NEB Q6H PRN PRN Reason: SHORTNESS OF BREATH Last Admin: 01/04/18 21:45 Dose: 1 amp Budesonide (Pulmicort 0.25 Mg Nebulizer -) 1 amp NEB RBID [facility] Last Admin: 01/07/18 07:30 Dose: 1 amp Heparin Sodium (Porcine) (Heparin -) 5,000 unit SQ TID [facility] Last Admin: 01/07/18 05:45 Dose: 5,000 unit Piperacillin Sod/Tazobactam (Sod 2.25 gm/ Dextrose) 50 mls @ 100 mls/hr IVPB Q8H-IV [facility]; Protocol Last Admin: 01/07/18 09:52 Dose: 100 mls/hr Nystatin/Triamcinolone Acetonide (Mycolog Ii Cream -) 1 applic TP BID [facility] Last Admin: 01/07/18 09:55 Dose: 1 applic Pantoprazole Sodium (Protonix Iv) 40 mg IVPUSH DAILY [facility] Last Admin: 01/07/18 09:51 Dose: 40 mg Polyethylene Glycol (Miralax (For Daily Use) -) 17 gm PO DAILY [facility] Last Admin: 01/07/18 11:00 Dose: 17 gm Scopolamine HBr (Transderm-Scop -) 1 patch TD Q72H [facility] Last Admin: 01/04/18 18:04 Dose: 1 patch - Objective Vital Signs: Vital Signs Temperature 98.5 F 01/07/18 07:42 Pulse Rate 86 01/07/18 13:00 Respiratory Rate 17 01/07/18 13:00 Blood Pressure 102/56 01/07/18 13:00 O2 Sat by Pulse Oximetry (%) 100 01/07/18 07:42 Constitutional: Yes: No Distress, Calm Cardiovascular: Yes: Regular Rate and Rhythm Respiratory: Yes: Poor Air Entry, Other (on face mask) Gastrointestinal: Yes: Normal Bowel Sounds, Soft, Other (ng tube in place) Musculoskeletal: Yes: WNL Extremities: Yes: WNL Neurological: Yes: Other Labs: CBC, BMP 01/07/18 05:30 01/07/18 05:30 INR, PTT INR 1.13 (0.83-1.09) H 12/31/17 07:52 Assessment/Plan Problem List - Problems (1) Acute asthma exacerbation Code(s): J45.901 - UNSPECIFIED ASTHMA WITH (ACUTE) EXACERBATION Qualifiers: Asthma severity: unspecified severity Asthma persistence: unspecified Qualified Code(s): J45.901 - Unspecified asthma with (acute) exacerbation (2) Respiratory failure Code(s): J96.90 - RESPIRATORY FAILURE, UNSP, UNSP W HYPOXIA OR HYPERCAPNIA Qualifiers: Chronicity: unspecified Respiratory failure complication: unspecified whether with hypoxia or hypercapnia Qualified Code(s): J96.90 - Respiratory failure, unspecified, unspecified whether with hypoxia or hypercapnia (3) Autism Code(s): F84.0 - AUTISTIC DISORDER (4) Lactic acidosis Code(s): E87.2 - ACIDOSIS (5) Tachycardia Code(s): R00.0 - TACHYCARDIA, UNSPECIFIED (6) URI (upper respiratory infection) Code(s): J06.9 - ACUTE UPPER RESPIRATORY INFECTION, UNSPECIFIED uti asp pna plan continue resp care abx changed to zosyn monitor closely rest as per icu and the team discussed with family will monitor wbc cc 4o min
--- NOTE | 2018-01-07 14:10 | PN ---
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 Responsive cough and throat clearing in response to secretions. Scopalamine patch to reduce secretions. Frequent suctioning provided. Magic mouthwash ordered. My concern with Magic mouthwash is reducing sensation will increase aspiration risk. Hypoxic respiratory failure. Suspect Toxic/Hypoxic Encephalopathy, lightening.To me, pt seems to be at [facility] level II- Generalized response- beginning to response to touch/movement-slowly, inconsistently, with delay. Chewing, swallowing, throat clearing etc. REC: Increase tactile, auditory stimulation. Consider PT/ROM etc. Continue NPO for now. Continue Mouth care/suctioning.
[2018-01-07] MEDS ORDERED: LORazepam 2 MG/ML SDV VIAL ONE ×2 (16:00→22:45)
--- NOTE | 2018-01-07 16:11 | PN ---
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 (short form) - Note 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: This afternoon, pt with episode of R hand tremor during PT ROM exercises. Pt restarted on keppra 500mg IVPB BID, given ativan 2mg IVP x 1. Will continue to assess
--- NOTE | 2018-01-07 18:52 | PN ---
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, Physician History of Present Illness: on face mask - Current Medication List Current Medications: Active Medications Acetaminophen (Ofirmev Injection -) 750 mg IVPB Q6H PRN PRN Reason: FEVER Last Admin: 01/06/18 06:00 Dose: 750 mg Acetylcysteine (Mucomyst 20 Oral / Inh Use Only*) 200 mg NEB RQID [facility] Last Admin: 01/07/18 15:16 Dose: 200 mg Albuterol Sulfate (Ventolin 0.083% Nebulizer Soln -) 1 amp NEB RQID [facility] Last Admin: 01/07/18 15:16 Dose: 1 amp Albuterol/Ipratropium (Duoneb -) 1 amp NEB Q6H PRN PRN Reason: SHORTNESS OF BREATH Last Admin: 01/04/18 21:45 Dose: 1 amp Budesonide (Pulmicort 0.25 Mg Nebulizer -) 1 amp NEB RBID [facility] Last Admin: 01/07/18 07:30 Dose: 1 amp Chlorhexidine Gluconate (Hibiclens For Decolonization -) 1 applic TP HS [facility] Heparin Sodium (Porcine) (Heparin -) 5,000 unit SQ TID [facility] Last Admin: 01/07/18 14:24 Dose: 5,000 unit Piperacillin Sod/Tazobactam (Sod 2.25 gm/ Dextrose) 50 mls @ 100 mls/hr IVPB Q8H-IV [facility]; Protocol Last Admin: 01/07/18 09:52 Dose: 100 mls/hr Levetiracetam (Keppra Injection -) 500 mg IVPB BID [facility] Last Admin: 01/07/18 16:24 Dose: 500 mg Nystatin/Triamcinolone Acetonide (Mycolog Ii Cream -) 1 applic TP BID [facility] Last Admin: 01/07/18 09:55 Dose: 1 applic Pantoprazole Sodium (Protonix Iv) 40 mg IVPUSH DAILY [facility] Last Admin: 01/07/18 09:51 Dose: 40 mg Polyethylene Glycol (Miralax (For Daily Use) -) 17 gm PO DAILY [facility] Last Admin: 01/07/18 11:00 Dose: 17 gm Scopolamine HBr (Transderm-Scop -) 1 patch TD Q72H [facility] Last Admin: 01/04/18 18:04 Dose: 1 patch - Objective Vital Signs: Vital Signs Temperature 98.4 F 01/07/18 15:00 Pulse Rate 113 H 01/07/18 18:00 Respiratory Rate 24 01/07/18 18:00 Blood Pressure 91/62 01/07/18 18:00 O2 Sat by Pulse Oximetry (%) 100 01/07/18 07:42 Constitutional: Yes: No Distress HENT: Yes: Atraumatic Neck: Yes: Supple Cardiovascular: Yes: Regular Rate and Rhythm Respiratory: Yes: CTA Bilaterally Gastrointestinal: Yes: Normal Bowel Sounds Extremities: Yes: WNL Neurological: Yes: Alert, Oriented Labs: CBC, BMP 01/07/18 05:30 01/07/18 05:30 INR, PTT INR 1.13 (0.83-1.09) H 12/31/17 07:52 Problem List - Problems (1) Acute asthma exacerbation Assessment/Plan: better now iv steroids duo nebs iv abx Code(s): J45.901 - UNSPECIFIED ASTHMA WITH (ACUTE) EXACERBATION Qualifiers: Asthma severity: unspecified severity Asthma persistence: unspecified Qualified Code(s): J45.901 - Unspecified asthma with (acute) exacerbation (2) Respiratory failure Assessment/Plan: s/p extubation Code(s): J96.90 - RESPIRATORY FAILURE, UNSP, UNSP W HYPOXIA OR HYPERCAPNIA Qualifiers: Chronicity: unspecified Respiratory failure complication: unspecified whether with hypoxia or hypercapnia Qualified Code(s): J96.90 - Respiratory failure, unspecified, unspecified whether with hypoxia or hypercapnia (3) Autism Code(s): F84.0 - AUTISTIC DISORDER
[2018-01-07] MEDS ORDERED: PT OWN MED DRAWER 7, Y5N ONE (20:06)
[2018-01-07] MEDS ORDERED: CHLORHEXIDINE GLUCONATE 4% CLEANSER FOR DECOLONIZATION TP SCH (22:00)
[2018-01-07] MEDS: ACETAMINOPHEN 1000 MG/100 ML VIAL (NON FORMULARY) IVPB PRN (23:00)
[2018-01-07] MEDS ORDERED: LORazepam 2 MG/ML SDV VIAL IVPUSH ONE (23:00)
[2018-01-07] MEDS ORDERED: levETIRAcetam 500 MG/5 ML INJECTION VIAL IVPB ONE ×2 (23:14→23:20)
--- NOTE | 2018-01-07 23:23 | PN ---
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 (short form) - Note 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: Pt w/L hand twitching for approximately 3 min again which resolved after being given ativan 2mg IV x1. Pt also had L eye twitching at the same time which resolved in 10-20 seconds on its own. Spoke with Dr. Pelayo who is covering for Dr. Cox who suggested loading pt with an additional 1g keppra at this time (for a total of 1500 mg tonight) and to start on keppra 1500 mg BID, check labs, and get EEG.
[2018-01-08] MEDS: ALBUTEROL SO4 2.5/IPRATROPIUM 0.5 INH SOL 3 ML VIAL.NEB. NEB PRN (00:15)
[2018-01-08] MEDS ORDERED: PIPERACILLIN/TAZOBACTAM 2.25 GM VIAL IVPB ONE ×3 (01:50→18:08)
[2018-01-08] MEDS ORDERED: DEXTROSE 5%-WATER - 50 ML IVPB ONE ×3 (01:50→18:08)
[2018-01-08] MEDS: PIPERACILLIN/TAZOB 2.25 GM 2.25 GM in DEXTROSE 5%-WATER - 50 ML IVPB SCH ×3 (02:44→18:21)
[2018-01-08 03:29] LABS: ALBUMIN 3.1 g/dl (3.4-5.0); ANION GAP 10 MMOL/L (8-16); BLOOD UREA NITROGEN 18 mg/dL (7-18); CALCIUM 8.2 mg/dL (8.5-10.1); CHLORIDE 99 mmol/L (98-107); CO2 24 mmol/L (21-32); CREATININE 0.6 mg/dL (0.55-1.02); GLUCOSE,RANDOM 107 mg/dL (74-106); MAGNESIUM 1.8 mg/dL (1.8-2.4); POTASSIUM 4.3 mmol/L (3.5-5.1); SODIUM 133 mmol/L (136-145)
[2018-01-08] MEDS: HEPARIN NA (PORCINE) 5,000 UNITS/ML 1ML VIAL SQ SCH ×3 (05:59→21:17)
[2018-01-08 06:53] LABS: BASO % 0.2 % (0-2.0); EOS % 2.9 % (0-4.5); HEMATOCRIT 32.8 % (32.4-45.2); HEMOGLOBIN 10.8 GM/dL (10.7-15.3); LYMPH % 8.4 % (8-40); MCH 29.1 pg (25.7-33.7); MCHC 32.9 g/dl (32.0-36.0); MEAN CELL VOLUME 88.5 fl (80-96); MEAN PLT VOLUME 8.7 fl (7.5-11.1); MONO % 6.6 % (3.8-10.2); NEUT % 81.9 % (42.8-82.8); PLATELET COUNT 307 K/MM3 (134-434); RBC 3.71 M/mm3 (3.60-5.2); RDW 13.6 % (11.6-15.6); WHITE BLOOD COUNT 21.9 K/mm3 (4.0-10.0)
[2018-01-08 07:13] LABS: ALBUMIN 2.7 g/dl (3.4-5.0); ANION GAP 8 MMOL/L (8-16); BLOOD UREA NITROGEN 16 mg/dL (7-18); CALCIUM 8.5 mg/dL (8.5-10.1); CHLORIDE 100 mmol/L (98-107); CO2 27 mmol/L (21-32); GLUCOSE,RANDOM 90 mg/dL (74-106); SODIUM 135 mmol/L (136-145)
[2018-01-08 07:16] LABS: ALK PHOS 67 U/L (45-117); BILIRUBIN,TOTAL 0.4 mg/dL (0.2-1.0); CREATININE 0.6 mg/dL (0.55-1.02); PHOSPHOROUS 4.7 mg/dL (2.5-4.9); SGOT/AST 36 U/L (15-37); SGPT/ALT 28 U/L (12-78)
[2018-01-08] MEDS: BUDESONIDE 0.25 MG/2ML INH SUSP VIAL NEB SCH ×2 (08:00→20:53)
[2018-01-08] MEDS: ACETYLCYSTEINE 20% 200MG/ML 4 ML VIAL *FOR ORAL / INH USE ONLY NEB SCH ×5 (08:10→20:53)
[2018-01-08] MEDS: ALBUTEROL SO4 0.083% IH SOL 2.5 MG/3 ML VIAL.NEB. NEB SCH ×5 (08:10→20:53)
--- NOTE | 2018-01-08 08:44 | PN ---
Physical Exam: SUBJECTIVE: Patient is a 37 y/o female with a history asthma and autism who is admitted for acute hypoxic respiratory failure 2/2 to asthma exacerbation and complicated by LLL pneumonia. Overnight patient had left hand twitching and facial twitching. Ativan was given and Neuro was consulted. Patient was loaded with 1000 mg of Keppra and will continue to take 1500 mg BID. OBJECTIVE: Vital Signs Temperature 98.9 F 01/08/18 06:00 Pulse Rate 93 H 01/08/18 06:00 Respiratory Rate 20 01/08/18 06:00 Blood Pressure 95/60 01/08/18 06:00 O2 Sat by Pulse Oximetry (%) 98 01/08/18 08:01 GENERAL: nonverbal, non moving HEAD: Normal with no signs of trauma. EYES: PERRL, disconjugate gaze ENT: NG tube in left nostril NECK: Trachea midline, full range of motion, supple. LUNGS: Breath sounds equal, clear to auscultation bilaterally HEART: Regular rate and rhythm, S1, S2 ABDOMEN: Soft, nontender, nondistended, normoactive bowel sounds EXTREMITIES: 2+ pulses, warm, well-perfused, no edema. SKIN: Warm, dry, normal turgor, no rashes or lesions noted CBCD WBC 21.9 K/mm3 (4.0-10.0) H 01/08/18 05:30 RBC 3.71 M/mm3 (3.60-5.2) 01/08/18 05:30 Hgb 10.8 GM/dL (10.7-15.3) 01/08/18 05:30 Hct 32.8 % (32.4-45.2) 01/08/18 05:30 MCV 88.5 fl (80-96) 01/08/18 05:30 MCHC 32.9 g/dl (32.0-36.0) 01/08/18 05:30 RDW 13.6 % (11.6-15.6) 01/08/18 05:30 Plt Count 307 K/MM3 (134-434) 01/08/18 05:30 MPV 8.7 fl (7.5-11.1) 01/08/18 05:30 CMP Sodium 135 mmol/L (136-145) L 01/08/18 05:30 Potassium 4.0 mmol/L (3.5-5.1) 01/08/18 05:30 Chloride 100 mmol/L (98-107) 01/08/18 05:30 Carbon Dioxide 27 mmol/L (21-32) 01/08/18 05:30 Anion Gap 8 MMOL/L (8-16) 01/08/18 05:30 BUN 16 mg/dL (7-18) 01/08/18 05:30 Creatinine 0.6 mg/dL (0.55-1.02) 01/08/18 05:30 Creat Clearance w eGFR > 60 (>60) 01/08/18 05:30 Calcium 8.5 mg/dL (8.5-10.1) 01/08/18 05:30 Total Bilirubin 0.4 mg/dL (0.2-1.0) 01/08/18 05:30 AST 36 U/L (15-37) 01/08/18 05:30 ALT 28 U/L (12-78) 01/08/18 05:30 Alkaline Phosphatase 67 U/L (45-117) 01/08/18 05:30 Total Protein 6.0 g/dl (6.4-8.2) L 01/08/18 05:30 Albumin 2.7 g/dl (3.4-5.0) L 01/08/18 05:30 Active Medications Acetaminophen (Ofirmev Injection -) 750 mg IVPB Q6H PRN PRN Reason: FEVER Last Admin: 01/07/18 23:00 Dose: 750 mg Acetylcysteine (Mucomyst 20 Oral / Inh Use Only*) 200 mg NEB RQID [facility] Last Admin: 01/07/18 20:41 Dose: 200 mg Albuterol Sulfate (Ventolin 0.083% Nebulizer Soln -) 1 amp NEB RQID [facility] Last Admin: 01/07/18 20:41 Dose: 1 amp Albuterol/Ipratropium (Duoneb -) 1 amp NEB Q6H PRN PRN Reason: SHORTNESS OF BREATH Last Admin: 01/08/18 00:15 Dose: 1 amp Budesonide (Pulmicort 0.25 Mg Nebulizer -) 1 amp NEB RBID [facility] Last Admin: 01/07/18 20:41 Dose: 1 amp Chlorhexidine Gluconate (Hibiclens For Decolonization -) 1 applic TP HS [facility] Last Admin: 01/07/18 21:40 Dose: 1 applic Heparin Sodium (Porcine) (Heparin -) 5,000 unit SQ TID [facility] Last Admin: 01/08/18 05:59 Dose: 5,000 unit Piperacillin Sod/Tazobactam (Sod 2.25 gm/ Dextrose) 50 mls @ 100 mls/hr IVPB Q8H-IV [facility]; Protocol Last Admin: 01/08/18 02:44 Dose: 100 mls/hr Levetiracetam (Keppra Injection -) 1,500 mg IVPB BID [facility] Nystatin/Triamcinolone Acetonide (Mycolog Ii Cream -) 1 applic TP BID [facility] Last Admin: 01/07/18 21:43 Dose: 1 applic Pantoprazole Sodium (Protonix Iv) 40 mg IVPUSH DAILY [facility] Last Admin: 01/07/18 09:51 Dose: 40 mg Polyethylene Glycol (Miralax (For Daily Use) -) 17 gm PO DAILY [facility] Last Admin: 01/07/18 11:00 Dose: 17 gm Scopolamine HBr (Transderm-Scop -) 1 patch TD Q72H [facility] Last Admin: 01/04/18 18:04 Dose: 1 patch ASSESSMENT/PLAN: Patient is a 37 y/o female with a history asthma and autism who is admitted for acute hypoxic respiratory failure 2/2 to asthma exacerbation and complicated by LLL pneumonia. Neurology Seizure - left hand twitching and facial twitching overnight - f/u Dr. Cox/ Gita - continue Keppra 1500 mg BID - ativan 2mg given overnight - f/u repeat head CT Pulmonary acute hypoxic respiratory failure 2/2 to asthma exacerbation - CXR: left base infiltrate - continue albuterol and mucomyst - duoneb q6h prn - pulmicort nebulizer bid - scopalamine patch to decrease secretions - taper down FiO2 Gastroenterology GI ppx - pantoprazole 40 mg IV push Hematology DVT ppx - heparin TID Infectious Disease LLL Pneumonia - f/u CXR - Zosyn 2.25 (day 2) UTI - completed abx treatment, E. Coli FEN - Kalani 1.2 @ 45 cc/hr - f/u PT Dispo: monitor oxygen saturation Visit type - Emergency Visit Emergency Visit: No - New Patient This patient is new to me today: No - Critical Care Critical Care patient: Yes Total Critical Care Time (in minutes): 40 Critical Care Statement: The care of this patient involved high complexity decision making to prevent further life threatening deterioration of the patient 's condition and/or to evaluate & treat vital organ system(s) failure or risk of failure.
[2018-01-08] MEDS: PANTOPRAZOLE SODIUM 40 MG VIAL IVPUSH SCH (09:19)
[2018-01-08] MEDS: POLYETHYLENE GLYCOL 3350 119 GM BTL PO SCH (09:23)
[2018-01-08] MEDS: NYSTATIN/TRIAMCINOLONE TOPICAL CREAM 15 GM TUBE TP SCH ×2 (10:22→21:18)
[2018-01-08] MEDS: levETIRAcetam 500 MG/5 ML INJECTION VIAL IVPB SCH ×2 (10:39→21:16)
--- NOTE | 2018-01-08 11:03 | PN ---
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 (short form) - Note 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: cc seizure activity HPI 37 year old female history of autism, and asthma. She has severe hypoxic encephalopathy following severe asthma episode. She is not back to baseline and she has been having seizure. She was seen by dr Osorio and now last night she had breakthrough seizure and she was given extra dose of keppra and keppra is incresaed to 1500 mg iv bid. Patient has not had any seizure. Repeat eeg adn ct head is pending. PMH as above Medication Keppra 1500 mg iv bid SH,FH,ROS reviewed in chart Neurological Examiantion She is withdrawing ot pain, and there is no spontaneous speech is present she si not following command no neck stiff pupils is bilateral reactive and possibility slightly urequal Assessment- Hypoxic-Anoxic encpehalopathy following severe bronchial asthma 2. recurrent seizure Plan increase keppra to 1500 mg iv/po bid - eeg - repeat ct head, as there is supician for unequal pupils, - continue supportive care as per icu Thaking you so much Abrahan Pelayo MD
--- NOTE | 2018-01-08 11:41 | PN ---
Teaching Attending Note Name of Resident: Sakina Infante ATTENDING PHYSICIAN STATEMENT I saw and evaluated the patient. I reviewed the resident's note and discussed the case with the resident. I agree with the resident's findings and plan as documented. SUBJECTIVE: Pt seen and examined in the ICU. Remains lethargic on ventimask 50%. Received ativan overnight for seizure like activity. OBJECTIVE: Vital Signs Period Temp Pulse Resp BP Sys/Cheema Pulse Ox Last 24 Hr 98 F-98.9 F 86-141 17-35 91-117/54-81 98-100 Intake & Output 01/05/18 01/06/18 01/07/18 01/08/18 23:59 23:59 23:59 23:59 Intake Total 1080 2275 1151 310 Output Total 1725 Balance -645 2275 1151 310 Weight 43.545 kg 43.772 kg 42.139 kg 41.232 kg Gen: lethargic HEENT: R>L pupils Heart: RRR Lung: decreased breath sounds at the bases Abd: soft, nontender Ext: no edema CBC, BMP 01/08/18 05:30 01/08/18 05:30 Active Medications Acetaminophen (Ofirmev Injection -) 750 mg IVPB Q6H PRN PRN Reason: FEVER Last Admin: 01/07/18 23:00 Dose: 750 mg Acetylcysteine (Mucomyst 20 Oral / Inh Use Only*) 200 mg NEB RQID [facility] Last Admin: 01/08/18 08:10 Dose: 200 mg Albuterol Sulfate (Ventolin 0.083% Nebulizer Soln -) 1 amp NEB RQID [facility] Last Admin: 01/08/18 08:10 Dose: 1 amp Albuterol/Ipratropium (Duoneb -) 1 amp NEB Q6H PRN PRN Reason: SHORTNESS OF BREATH Last Admin: 01/08/18 00:15 Dose: 1 amp Budesonide (Pulmicort 0.25 Mg Nebulizer -) 1 amp NEB RBID [facility] Last Admin: 01/08/18 08:00 Dose: 1 amp Chlorhexidine Gluconate (Hibiclens For Decolonization -) 1 applic TP HS [facility] Last Admin: 01/07/18 21:40 Dose: 1 applic Heparin Sodium (Porcine) (Heparin -) 5,000 unit SQ TID [facility] Last Admin: 01/08/18 05:59 Dose: 5,000 unit Piperacillin Sod/Tazobactam (Sod 2.25 gm/ Dextrose) 50 mls @ 100 mls/hr IVPB Q8H-IV [facility]; Protocol Last Admin: 01/08/18 09:20 Dose: 100 mls/hr Levetiracetam (Keppra Injection -) 1,500 mg IVPB BID [facility] Last Admin: 01/08/18 10:39 Dose: 1,500 mg Nystatin/Triamcinolone Acetonide (Mycolog Ii Cream -) 1 applic TP BID [facility] Last Admin: 01/07/18 21:43 Dose: 1 applic Pantoprazole Sodium (Protonix Iv) 40 mg IVPUSH DAILY [facility] Last Admin: 01/08/18 09:19 Dose: 40 mg Polyethylene Glycol (Miralax (For Daily Use) -) 17 gm PO DAILY [facility] Last Admin: 01/08/18 09:23 Dose: 17 gm Scopolamine HBr (Transderm-Scop -) 1 patch TD Q72H [facility] ASSESSMENT AND PLAN: Acute Hypoxic and Hypercapneic Respiratory Failure improving r/o Anoxic Encephalopathy Status Asthmaticus resolved Pneumonia likely Aspiration Shock resolved UTI Lactic Acidosis resolved Acute Kidney Injury resolved Hyperglycemia resolved Autism - CT head today - continue antibiotics - inhaled bronchodilators standing and PRN - inhaled corticosteroids - aspiration precautions - contine empiric antiepileptics - DVT/GI prophylaxis - continue ICU monitoring critical care time spent in reviewing chart, evaluating chart and formulating plan 35 min
[2018-01-08] MEDS ORDERED: SCOPOLAMINE HYDROBROMIDE 1 PATCH PATCH.TD72 TD SCH ×2 (12:15→15:00)
[2018-01-08 13:23] LABS: ANISOCYTOSIS 0; MACROCYTOSIS 0; PLATELET ESTIMATE NORMAL
--- NOTE | 2018-01-08 13:52 | PN ---
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, [employer] - Note 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: Medical events noted. Seizures. EEG done. Selected Entries 01/08/18 01/08/18 01/08/18 02:02 06:00 09:52 Lunch NPO Temperature 98 F 98.9 F Laboratory Tests 01/06/18 01/07/18 01/08/18 09:37 05:30 05:30 WBC 22.1 H 16.6 H 21.9 H
--- NOTE | 2018-01-08 15:37 | PN ---
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, Physician History of Present Illness: patient continues to be lethargic family in room not much response seen by neuro - Current Medication List Current Medications: Active Medications Acetaminophen (Ofirmev Injection -) 750 mg IVPB Q6H PRN PRN Reason: FEVER Last Admin: 01/07/18 23:00 Dose: 750 mg Acetylcysteine (Mucomyst 20 Oral / Inh Use Only*) 200 mg NEB RQID [facility] Last Admin: 01/08/18 14:21 Dose: 200 mg Albuterol Sulfate (Ventolin 0.083% Nebulizer Soln -) 1 amp NEB RQID [facility] Last Admin: 01/08/18 14:20 Dose: 1 amp Albuterol/Ipratropium (Duoneb -) 1 amp NEB Q6H PRN PRN Reason: SHORTNESS OF BREATH Last Admin: 01/08/18 00:15 Dose: 1 amp Budesonide (Pulmicort 0.25 Mg Nebulizer -) 1 amp NEB RBID [facility] Last Admin: 01/08/18 08:00 Dose: 1 amp Chlorhexidine Gluconate (Peridex -) 15 ml MM BID [facility] Heparin Sodium (Porcine) (Heparin -) 5,000 unit SQ TID [facility] Last Admin: 01/08/18 14:02 Dose: 5,000 unit Piperacillin Sod/Tazobactam (Sod 2.25 gm/ Dextrose) 50 mls @ 100 mls/hr IVPB Q8H-IV [facility]; Protocol Last Admin: 01/08/18 09:20 Dose: 100 mls/hr Levetiracetam (Keppra Injection -) 1,500 mg IVPB BID [facility] Last Admin: 01/08/18 10:39 Dose: 1,500 mg Nystatin/Triamcinolone Acetonide (Mycolog Ii Cream -) 1 applic TP BID [facility] Last Admin: 01/07/18 21:43 Dose: 1 applic Pantoprazole Sodium (Protonix Iv) 40 mg IVPUSH DAILY [facility] Last Admin: 01/08/18 09:19 Dose: 40 mg Polyethylene Glycol (Miralax (For Daily Use) -) 17 gm PO DAILY [facility] Last Admin: 01/08/18 09:23 Dose: 17 gm Scopolamine HBr (Transderm-Scop -) 1 patch TD Q72H [facility] - Objective Vital Signs: Vital Signs Temperature 98.9 F 01/08/18 14:00 Pulse Rate 104 H 01/08/18 14:00 Respiratory Rate 25 H 01/08/18 14:00 Blood Pressure 91/58 01/08/18 14:00 O2 Sat by Pulse Oximetry (%) 98 01/08/18 08:01 Constitutional: Yes: No Distress, Calm, Other Cardiovascular: Yes: Regular Rate and Rhythm Respiratory: Yes: Regular, CTA Bilaterally Gastrointestinal: Yes: Normal Bowel Sounds, Soft Musculoskeletal: Yes: WNL Extremities: Yes: WNL Neurological: Yes: Lethargy Psychiatric: Yes: Other Labs: CBC, BMP 01/08/18 05:30 01/08/18 05:30 INR, PTT INR 1.13 (0.83-1.09) H 12/31/17 07:52 Assessment/Plan Problem List - Problems (1) Acute asthma exacerbation Code(s): J45.901 - UNSPECIFIED ASTHMA WITH (ACUTE) EXACERBATION Qualifiers: Asthma severity: unspecified severity Asthma persistence: unspecified Qualified Code(s): J45.901 - Unspecified asthma with (acute) exacerbation (2) Respiratory failure Code(s): J96.90 - RESPIRATORY FAILURE, UNSP, UNSP W HYPOXIA OR HYPERCAPNIA Qualifiers: Chronicity: unspecified Respiratory failure complication: unspecified whether with hypoxia or hypercapnia Qualified Code(s): J96.90 - Respiratory failure, unspecified, unspecified whether with hypoxia or hypercapnia (3) Autism Code(s): F84.0 - AUTISTIC DISORDER (4) Lactic acidosis Code(s): E87.2 - ACIDOSIS (5) Tachycardia Code(s): R00.0 - TACHYCARDIA, UNSPECIFIED (6) URI (upper respiratory infection) Code(s): J06.9 - ACUTE UPPER RESPIRATORY INFECTION, UNSPECIFIED uti asp pna anoxic brain injury plan continue abx imaging studies of the brain supportive care monitor for brain function asp precautions rest as per icu and neurology monitor wbc cc 38 min
[2018-01-08] MEDS ORDERED: PT OWN MED DRAWER 7, Y5N ONE (20:48)
[2018-01-08] MEDS: CHLORHEXIDINE GLUCONATE 0.12% 15ML CUP MM SCH (21:17)
--- NOTE | 2018-01-08 21:53 | PN ---
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, Physician History of Present Illness: awake - Current Medication List Current Medications: Active Medications Acetaminophen (Ofirmev Injection -) 750 mg IVPB Q6H PRN PRN Reason: FEVER Last Admin: 01/07/18 23:00 Dose: 750 mg Acetylcysteine (Mucomyst 20 Oral / Inh Use Only*) 200 mg NEB RQID [facility] Last Admin: 01/08/18 20:53 Dose: 200 mg Albuterol Sulfate (Ventolin 0.083% Nebulizer Soln -) 1 amp NEB RQID [facility] Last Admin: 01/08/18 20:53 Dose: 1 amp Albuterol/Ipratropium (Duoneb -) 1 amp NEB Q6H PRN PRN Reason: SHORTNESS OF BREATH Last Admin: 01/08/18 00:15 Dose: 1 amp Budesonide (Pulmicort 0.25 Mg Nebulizer -) 1 amp NEB RBID [facility] Last Admin: 01/08/18 20:53 Dose: 1 amp Chlorhexidine Gluconate (Peridex -) 15 ml MM BID [facility] Last Admin: 01/08/18 21:17 Dose: 15 ml Heparin Sodium (Porcine) (Heparin -) 5,000 unit SQ TID [facility] Last Admin: 01/08/18 21:17 Dose: 5,000 unit Piperacillin Sod/Tazobactam (Sod 2.25 gm/ Dextrose) 50 mls @ 100 mls/hr IVPB Q8H-IV [facility]; Protocol Last Admin: 01/08/18 18:21 Dose: 100 mls/hr Levetiracetam (Keppra Injection -) 1,500 mg IVPB BID [facility] Last Admin: 01/08/18 21:16 Dose: 1,500 mg Nystatin/Triamcinolone Acetonide (Mycolog Ii Cream -) 1 applic TP BID [facility] Last Admin: 01/08/18 21:18 Dose: 1 applic Pantoprazole Sodium (Protonix Iv) 40 mg IVPUSH DAILY [facility] Last Admin: 01/08/18 09:19 Dose: 40 mg Polyethylene Glycol (Miralax (For Daily Use) -) 17 gm PO DAILY [facility] Last Admin: 01/08/18 09:23 Dose: 17 gm Scopolamine HBr (Transderm-Scop -) 1 patch TD Q72H [facility] Last Admin: 01/08/18 18:22 Dose: 1 patch - Objective Vital Signs: Vital Signs Temperature 98.7 F 01/08/18 18:00 Pulse Rate 118 H 01/08/18 18:00 Respiratory Rate 22 01/08/18 18:00 Blood Pressure 103/68 01/08/18 18:00 O2 Sat by Pulse Oximetry (%) 98 01/08/18 08:01 Constitutional: Yes: No Distress HENT: Yes: Atraumatic Neck: Yes: Supple Cardiovascular: Yes: Regular Rate and Rhythm Respiratory: Yes: CTA Bilaterally Gastrointestinal: Yes: Normal Bowel Sounds Extremities: Yes: WNL Edema: No Neurological: Yes: Alert, Oriented Labs: CBC, BMP 01/08/18 05:30 01/08/18 05:30 INR, PTT INR 1.13 (0.83-1.09) H 12/31/17 07:52 Problem List - Problems (1) Acute asthma exacerbation Assessment/Plan: better now iv steroids duo nebs iv abx Code(s): J45.901 - UNSPECIFIED ASTHMA WITH (ACUTE) EXACERBATION Qualifiers: Asthma severity: unspecified severity Asthma persistence: unspecified Qualified Code(s): J45.901 - Unspecified asthma with (acute) exacerbation (2) Respiratory failure Assessment/Plan: on facemask Code(s): J96.90 - RESPIRATORY FAILURE, UNSP, UNSP W HYPOXIA OR HYPERCAPNIA Qualifiers: Chronicity: unspecified Respiratory failure complication: unspecified whether with hypoxia or hypercapnia Qualified Code(s): J96.90 - Respiratory failure, unspecified, unspecified whether with hypoxia or hypercapnia (3) Autism Code(s): F84.0 - AUTISTIC DISORDER
[2018-01-08] MEDS: ACETAMINOPHEN 1000 MG/100 ML VIAL (NON FORMULARY) IVPB PRN (21:54)
[2018-01-09] MEDS ORDERED: PIPERACILLIN/TAZOBACTAM 2.25 GM VIAL IVPB ONE ×3 (01:37→18:06)
[2018-01-09] MEDS ORDERED: DEXTROSE 5%-WATER - 50 ML IVPB ONE ×3 (01:37→18:06)
[2018-01-09] MEDS: PIPERACILLIN/TAZOB 2.25 GM 2.25 GM in DEXTROSE 5%-WATER - 50 ML IVPB SCH ×3 (01:42→18:11)
[2018-01-09] MEDS: HEPARIN NA (PORCINE) 5,000 UNITS/ML 1ML VIAL SQ SCH ×3 (06:04→21:16)
[2018-01-09 06:14] LABS: HEMATOCRIT 33.2 % (32.4-45.2); HEMOGLOBIN 10.8 GM/dL (10.7-15.3); MCH 29.2 pg (25.7-33.7); MCHC 32.6 g/dl (32.0-36.0); MEAN CELL VOLUME 89.6 fl (80-96); MEAN PLT VOLUME 8.1 fl (7.5-11.1); PLATELET COUNT 341 K/MM3 (134-434); RDW 13.7 % (11.6-15.6); WHITE BLOOD COUNT 19.1 K/mm3 (4.0-10.0)
[2018-01-09 06:48] LABS: ALBUMIN 2.7 g/dl (3.4-5.0); ANION GAP 8 MMOL/L (8-16); BLOOD UREA NITROGEN 17 mg/dL (7-18); CALCIUM 8.5 mg/dL (8.5-10.1); CHLORIDE 105 mmol/L (98-107); CO2 25 mmol/L (21-32); CREATININE 0.4 mg/dL (0.55-1.02); GLUCOSE,RANDOM 103 mg/dL (74-106); MAGNESIUM 2.2 mg/dL (1.8-2.4); PHOSPHOROUS 3.6 mg/dL (2.5-4.9); POTASSIUM 4.2 mmol/L (3.5-5.1); SGOT/AST 43 U/L (15-37); SGPT/ALT 30 U/L (12-78); SODIUM 138 mmol/L (136-145)
[2018-01-09 06:50] LABS: ALK PHOS 71 U/L (45-117); BILIRUBIN,TOTAL 0.3 mg/dL (0.2-1.0); TOT PROT 6.4 g/dl (6.4-8.2)
[2018-01-09] MEDS: ALBUTEROL SO4 0.083% IH SOL 2.5 MG/3 ML VIAL.NEB. NEB SCH ×4 (08:00→20:16)
[2018-01-09] MEDS: ACETYLCYSTEINE 20% 200MG/ML 4 ML VIAL *FOR ORAL / INH USE ONLY NEB SCH ×4 (08:00→20:16)
[2018-01-09] MEDS: levETIRAcetam 500 MG/5 ML INJECTION VIAL IVPB SCH ×2 (09:45→21:13)
[2018-01-09] MEDS: PANTOPRAZOLE SODIUM 40 MG VIAL IVPUSH SCH (09:46)
[2018-01-09] MEDS: NYSTATIN/TRIAMCINOLONE TOPICAL CREAM 15 GM TUBE TP SCH ×2 (10:00→21:14)
[2018-01-09] MEDS: CHLORHEXIDINE GLUCONATE 0.12% 15ML CUP MM SCH ×2 (10:00→21:13)
[2018-01-09] MEDS ORDERED: PT OWN MED DRAWER 7, Y5N ONE (10:02)
[2018-01-09] MEDS: BUDESONIDE 0.25 MG/2ML INH SUSP VIAL NEB SCH ×2 (11:00→20:16)
--- NOTE | 2018-01-09 12:11 | PN ---
Teaching Attending Note Name of Resident: Sakina Infante ATTENDING PHYSICIAN STATEMENT I saw and evaluated the patient. I reviewed the resident's note and discussed the case with the resident. I agree with the resident's findings and plan as documented. SUBJECTIVE: Pt seen and examined in the ICU. Remains somnolent. Oxygenation improved. CT head unchanged. OBJECTIVE: Vital Signs Period Temp Pulse Resp BP Sys/Cheema Pulse Ox Last 24 Hr 98 F-98.9 F 77-122 14-29 91-112/43-75 100-100 Intake & Output 01/06/18 01/07/18 01/08/18 01/09/18 23:59 23:59 23:59 23:59 Intake Total 2275 1151 1398 570 Balance 2275 1151 1398 570 Weight 43.772 kg 42.139 kg 41.232 kg 41.73 kg Gen: somnolent, breathing nonlabored Heart: RRR Lung: decreased breath sounds at the bases Abd: soft, nontender Ext: no edema CBC, BMP 01/09/18 05:30 01/09/18 05:30 Active Medications Acetylcysteine (Mucomyst 20 Oral / Inh Use Only*) 200 mg NEB RQID [facility] Last Admin: 01/09/18 12:02 Dose: 200 mg Albuterol Sulfate (Ventolin 0.083% Nebulizer Soln -) 1 amp NEB RQID [facility] Last Admin: 01/09/18 12:02 Dose: 1 amp Albuterol/Ipratropium (Duoneb -) 1 amp NEB Q6H PRN PRN Reason: SHORTNESS OF BREATH Last Admin: 01/08/18 00:15 Dose: 1 amp Budesonide (Pulmicort 0.25 Mg Nebulizer -) 1 amp NEB RBID [facility] Last Admin: 01/09/18 11:00 Dose: 1 amp Chlorhexidine Gluconate (Peridex -) 15 ml MM BID [facility] Last Admin: 01/08/18 21:17 Dose: 15 ml Heparin Sodium (Porcine) (Heparin -) 5,000 unit SQ TID [facility] Last Admin: 01/09/18 06:04 Dose: 5,000 unit Piperacillin Sod/Tazobactam (Sod 2.25 gm/ Dextrose) 50 mls @ 100 mls/hr IVPB Q8H-IV [facility]; Protocol Last Admin: 08/29/18 09:46 Dose: 100 mls/hr Levetiracetam (Keppra Injection -) 1,500 mg IVPB BID [facility] Last Admin: 01/09/18 09:45 Dose: 1,500 mg Nystatin/Triamcinolone Acetonide (Mycolog Ii Cream -) 1 applic TP BID [facility] Last Admin: 01/08/18 21:18 Dose: 1 applic Pantoprazole Sodium (Protonix Iv) 40 mg IVPUSH DAILY [facility] Last Admin: 01/09/18 09:46 Dose: 40 mg Polyethylene Glycol (Miralax (For Daily Use) -) 17 gm PO DAILY [facility] Last Admin: 01/08/18 09:23 Dose: 17 gm Scopolamine HBr (Transderm-Scop -) 1 patch TD Q72H [facility] Last Admin: 01/08/18 18:22 Dose: 1 patch ASSESSMENT AND PLAN: Acute Hypoxic and Hypercapneic Respiratory Failure improving r/o Anoxic Encephalopathy r/o Seizures Status Asthmaticus resolved Pneumonia likely Aspiration Shock resolved UTI Lactic Acidosis resolved Acute Kidney Injury resolved Hyperglycemia resolved Autism - f/u EEG - MRI brain - continue antibiotics - inhaled bronchodilators standing and PRN - inhaled corticosteroids - aspiration precautions - contine empiric antiepileptics - DVT/GI prophylaxis - can monitor on telemetry with pulse oximetry critical care time spent in reviewing chart, evaluating chart and formulating plan 35 min
--- NOTE | 2018-01-09 12:54 | PN ---
Physical Exam: SUBJECTIVE: Patient is a 37 y/o female with a history asthma and autism who is admitted for acute hypoxic respiratory failure 2/2 to asthma exacerbation and complicated by LLL pneumonia. Overnight patient had no acute events. She is able to tolerate nasal cannula. OBJECTIVE: Vital Signs Temperature 98 F 01/09/18 10:00 Pulse Rate 84 01/09/18 12:00 Respiratory Rate 18 01/09/18 12:00 Blood Pressure 98/62 01/09/18 12:00 O2 Sat by Pulse Oximetry (%) 100 01/09/18 09:00 GENERAL: nonverbal, non moving EYES: pupils reactive to light, left larger ENT: NG tube in right nostril LUNGS: Breath sounds equal, clear to auscultation bilaterally HEART: Regular rate and rhythm, S1, S2 ABDOMEN: Soft, nontender, nondistended, normoactive bowel sounds EXTREMITIES: 2+ pulses, warm, well-perfused, no edema. SKIN: Warm, dry, normal turgor, no rashes or lesions noted CBC, BMP 01/09/18 05:30 01/09/18 05:30 Active Medications Acetylcysteine (Mucomyst 20 Oral / Inh Use Only*) 200 mg NEB RQID [facility] Last Admin: 01/09/18 12:02 Dose: 200 mg Albuterol Sulfate (Ventolin 0.083% Nebulizer Soln -) 1 amp NEB RQID [facility] Last Admin: 01/09/18 12:02 Dose: 1 amp Albuterol/Ipratropium (Duoneb -) 1 amp NEB Q6H PRN PRN Reason: SHORTNESS OF BREATH Last Admin: 01/08/18 00:15 Dose: 1 amp Budesonide (Pulmicort 0.25 Mg Nebulizer -) 1 amp NEB RBID [facility] Last Admin: 01/09/18 11:00 Dose: 1 amp Chlorhexidine Gluconate (Peridex -) 15 ml MM BID [facility] Last Admin: 01/08/18 21:17 Dose: 15 ml Heparin Sodium (Porcine) (Heparin -) 5,000 unit SQ TID [facility] Last Admin: 01/09/18 06:04 Dose: 5,000 unit Piperacillin Sod/Tazobactam (Sod 2.25 gm/ Dextrose) 50 mls @ 100 mls/hr IVPB Q8H-IV [facility]; Protocol Last Admin: 01/09/18 09:46 Dose: 100 mls/hr Levetiracetam (Keppra Injection -) 1,[address] [facility] Last Admin: 01/09/18 09:45 Dose: 1,500 mg Nystatin/Triamcinolone Acetonide (Mycolog Ii Cream -) [address] [facility] Last Admin: 01/08/18 21:18 Dose: 1 applic Pantoprazole Sodium (Protonix Iv) [address] [facility] Last Admin: 01/09/18 09:46 Dose: 40 mg Polyethylene Glycol (Miralax (For Daily Use) -) [address] [facility] Last Admin: 01/08/18 09:23 Dose: 17 gm Scopolamine HBr (Transderm-Scop -) [address] [facility] Last Admin: 01/08/18 18:22 Dose: 1 patch ASSESSMENT/PLAN: Patient is a 37 y/o female with a history asthma and autism who is admitted for acute hypoxic respiratory failure 2/2 to asthma exacerbation and complicated by LLL pneumonia. Neurology Seizure - no twitching or seizure like activity overnight - f/u Dr. Cox/ Gita - continue Keppra 1500 mg BID - head CT no acute pathology - f/u Brain MRI for prognosis Pulmonary acute hypoxic respiratory failure 2/2 to asthma exacerbation - CXR: left base infiltrate - continue albuterol and mucomyst - duoneb q6h prn - pulmicort nebulizer bid - scopalamine patch to decrease secretions - taper down FiO2 Gastroenterology GI ppx - pantoprazole 40 mg IV push Hematology DVT ppx - heparin TID Infectious Disease LLL Pneumonia - f/u CXR - Zosyn 2.25 (day 3) UTI - completed abx treatment, E. Coli FEN - Kalani 1.2 @ 45 cc/hr - f/u PT Dispo: transfer to tele Visit type - Emergency Visit Emergency Visit: No - New Patient This patient is new to me today: No - Critical Care Critical Care patient: No
--- NOTE | 2018-01-09 13:04 | PN ---
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 Blinking, moving her mouth.Swallowing saliva. [place] level II- Generalized response- beginning to response to touch/ movement-slowly, inconsistently, with delay. Chewing, swallowing, throat clearing etc. Pending EEG/MRI. REC: Increase tactile, auditory,visual,verbal stimulation. Music to room. Continue ROM/tactile/auditory stimulation by staff/family. Continue NPO for now. Continue Mouth care/suctioning. Please obtain metal spoon for oral stimulation on next session. If pt continues to improve, consider PEG insertion, acute rehabilitation eg Jannet Patel.
[2018-01-09 13:47] VITALS: BMI 17.4
--- NOTE | 2018-01-09 15:45 | PN ---
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, Physician History of Present Illness: patient slightly more responsive today mri done results noted - Current Medication List Current Medications: Active Medications Acetylcysteine (Mucomyst 20 Oral / Inh Use Only*) 200 mg NEB RQID [facility] Last Admin: 01/09/18 15:36 Dose: 200 mg Albuterol Sulfate (Ventolin 0.083% Nebulizer Soln -) 1 amp NEB RQID [facility] Last Admin: 01/09/18 12:02 Dose: 1 amp Albuterol/Ipratropium (Duoneb -) 1 amp NEB Q6H PRN PRN Reason: SHORTNESS OF BREATH Last Admin: 01/08/18 00:15 Dose: 1 amp Budesonide (Pulmicort 0.25 Mg Nebulizer -) 1 amp NEB RBID [facility] Last Admin: 01/09/18 11:00 Dose: 1 amp Chlorhexidine Gluconate (Peridex -) 15 ml MM BID [facility] Last Admin: 01/08/18 21:17 Dose: 15 ml Heparin Sodium (Porcine) (Heparin -) 5,000 unit SQ TID [facility] Last Admin: 01/09/18 06:04 Dose: 5,000 unit Piperacillin Sod/Tazobactam (Sod 2.25 gm/ Dextrose) 50 mls @ 100 mls/hr IVPB Q8H-IV [facility]; Protocol Last Admin: 01/09/18 09:46 Dose: 100 mls/hr Levetiracetam (Keppra Injection -) 1,500 mg IVPB BID [facility] Last Admin: 01/09/18 09:45 Dose: 1,500 mg Nystatin/Triamcinolone Acetonide (Mycolog Ii Cream -) 1 applic TP BID [facility] Last Admin: 01/08/18 21:18 Dose: 1 applic Pantoprazole Sodium (Protonix Iv) 40 mg IVPUSH DAILY [facility] Last Admin: 01/09/18 09:46 Dose: 40 mg Polyethylene Glycol (Miralax (For Daily Use) -) 17 gm PO DAILY [facility] Last Admin: 01/08/18 09:23 Dose: 17 gm Scopolamine HBr (Transderm-Scop -) 1 patch TD Q72H [facility] Last Admin: 01/08/18 18:22 Dose: 1 patch - Objective Vital Signs: Vital Signs Temperature 98 F 01/09/18 10:00 Pulse Rate 86 01/09/18 14:10 Respiratory Rate 18 01/09/18 14:10 Blood Pressure 101/76 01/09/18 14:10 O2 Sat by Pulse Oximetry (%) 100 01/09/18 09:00 Constitutional: Yes: Calm Cardiovascular: Yes: Regular Rate and Rhythm Respiratory: Yes: Other Gastrointestinal: Yes: Normal Bowel Sounds, Soft Musculoskeletal: Yes: WNL Extremities: Yes: WNL Neurological: Yes: Alert Psychiatric: Yes: Other Labs: CBC, BMP 01/09/18 05:30 01/09/18 05:30 INR, PTT INR 1.13 (0.83-1.09) H 12/31/17 07:52 - ....Imaging MRI: Report Reviewed, Image Reviewed Assessment/Plan Problem List - Problems (1) Acute asthma exacerbation Code(s): J45.901 - UNSPECIFIED ASTHMA WITH (ACUTE) EXACERBATION Qualifiers: Asthma severity: unspecified severity Asthma persistence: unspecified Qualified Code(s): J45.901 - Unspecified asthma with (acute) exacerbation (2) Respiratory failure Code(s): J96.90 - RESPIRATORY FAILURE, UNSP, UNSP W HYPOXIA OR HYPERCAPNIA Qualifiers: Chronicity: unspecified Respiratory failure complication: unspecified whether with hypoxia or hypercapnia Qualified Code(s): J96.90 - Respiratory failure, unspecified, unspecified whether with hypoxia or hypercapnia (3) Autism Code(s): F84.0 - AUTISTIC DISORDER (4) Lactic acidosis Code(s): E87.2 - ACIDOSIS (5) Tachycardia Code(s): R00.0 - TACHYCARDIA, UNSPECIFIED (6) URI (upper respiratory infection) Code(s): J06.9 - ACUTE UPPER RESPIRATORY INFECTION, UNSPECIFIED uti asp pna anoxic brain injury plan continue resp care consider stopping abx close watch on the patient mri results noted supportive care cc 4o min
[2018-01-09] MEDS ORDERED: ACETAMINOPHEN 650 MG/20.3 ML ORAL SOLUTION (CUPS) PO ONE (18:00)
[2018-01-09] MEDS: POLYETHYLENE GLYCOL 3350 119 GM BTL PO SCH (18:12)
--- NOTE | 2018-01-09 18:45 | PN ---
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, Physician History of Present Illness: awake - Current Medication List Current Medications: Active Medications Acetylcysteine (Mucomyst 20 Oral / Inh Use Only*) 200 mg NEB RQID [facility] Last Admin: 01/09/18 15:36 Dose: 200 mg Albuterol Sulfate (Ventolin 0.083% Nebulizer Soln -) 1 amp NEB RQID [facility] Last Admin: 01/09/18 15:36 Dose: 1 amp Budesonide (Pulmicort 0.25 Mg Nebulizer -) 1 amp NEB RBID [facility] Last Admin: 01/09/18 11:00 Dose: 1 amp Chlorhexidine Gluconate (Peridex -) 15 ml MM BID [facility] Last Admin: 01/09/18 10:00 Dose: 15 ml Heparin Sodium (Porcine) (Heparin -) 5,000 unit SQ TID [facility] Last Admin: 01/09/18 18:11 Dose: 5,000 unit Piperacillin Sod/Tazobactam (Sod 2.25 gm/ Dextrose) 50 mls @ 100 mls/hr IVPB Q8H-IV [facility]; Protocol Last Admin: 01/09/18 18:11 Dose: 100 mls/hr Levetiracetam (Keppra Injection -) 1,500 mg IVPB BID [facility] Last Admin: 01/09/18 09:45 Dose: 1,500 mg Nystatin/Triamcinolone Acetonide (Mycolog Ii Cream -) 1 applic TP BID [facility] Last Admin: 01/09/18 10:00 Dose: 1 applic Pantoprazole Sodium (Protonix Iv) 40 mg IVPUSH DAILY [facility] Last Admin: 01/09/18 09:46 Dose: 40 mg Polyethylene Glycol (Miralax (For Daily Use) -) 17 gm PO DAILY [facility] Last Admin: 01/09/18 18:12 Dose: 17 gm Scopolamine HBr (Transderm-Scop -) 1 patch TD Q72H [facility] Last Admin: 01/08/18 18:22 Dose: 1 patch - Objective Vital Signs: Vital Signs Temperature 98 F 01/09/18 10:00 Pulse Rate 118 H 01/09/18 16:00 Respiratory Rate 21 01/09/18 16:00 Blood Pressure 107/57 01/09/18 16:00 O2 Sat by Pulse Oximetry (%) 100 01/09/18 09:00 Constitutional: Yes: Calm HENT: Yes: Atraumatic Neck: Yes: Supple Cardiovascular: Yes: Regular Rate and Rhythm Respiratory: Yes: Rhonchi Gastrointestinal: Yes: Normal Bowel Sounds Extremities: Yes: WNL Labs: CBC, BMP 01/09/18 05:30 01/09/18 05:30 INR, PTT INR 1.13 (0.83-1.09) H 12/31/17 07:52 Problem List - Problems (1) Acute asthma exacerbation Assessment/Plan: better now on inhaler duo nebs iv abx Code(s): J45.901 - UNSPECIFIED ASTHMA WITH (ACUTE) EXACERBATION Qualifiers: Asthma severity: unspecified severity Asthma persistence: unspecified Qualified Code(s): J45.901 - Unspecified asthma with (acute) exacerbation (2) Respiratory failure Assessment/Plan: on NC Code(s): J96.90 - RESPIRATORY FAILURE, UNSP, UNSP W HYPOXIA OR HYPERCAPNIA Qualifiers: Chronicity: unspecified Respiratory failure complication: unspecified whether with hypoxia or hypercapnia Qualified Code(s): J96.90 - Respiratory failure, unspecified, unspecified whether with hypoxia or hypercapnia (3) Autism Code(s): F84.0 - AUTISTIC DISORDER (4) Pneumonia Assessment/Plan: on abx Code(s): J18.9 - PNEUMONIA, UNSPECIFIED ORGANISM Assessment/Plan cc time 30 min
[2018-01-10] MEDS ORDERED: DEXTROSE 5%-WATER - 50 ML IVPB ONE ×3 (01:43→18:25)
[2018-01-10] MEDS ORDERED: PIPERACILLIN/TAZOBACTAM 2.25 GM VIAL IVPB ONE ×3 (01:43→18:25)
[2018-01-10] MEDS: PIPERACILLIN/TAZOB 2.25 GM 2.25 GM in DEXTROSE 5%-WATER - 50 ML IVPB SCH ×3 (01:47→18:27)
[2018-01-10] MEDS ORDERED: ACETAMINOPHEN 325 MG TABLET (FP) ONE (02:00)
[2018-01-10] MEDS: ACETAMINOPHEN 325 MG TABLET (FP) PO PRN (02:01)
[2018-01-10] MEDS: HEPARIN NA (PORCINE) 5,000 UNITS/ML 1ML VIAL SQ SCH ×3 (05:49→21:57)
[2018-01-10 06:27] LABS: HEMATOCRIT 32.4 % (32.4-45.2); HEMOGLOBIN 10.6 GM/dL (10.7-15.3); MCHC 32.6 g/dl (32.0-36.0); MEAN PLT VOLUME 7.8 fl (7.5-11.1); PLATELET COUNT 407 K/MM3 (134-434); RBC 3.64 M/mm3 (3.60-5.2); RDW 13.6 % (11.6-15.6); WHITE BLOOD COUNT 24.6 K/mm3 (4.0-10.0)
[2018-01-10 06:52] LABS: CHLORIDE 101 mmol/L (98-107); POTASSIUM 4.1 mmol/L (3.5-5.1); SODIUM 134 mmol/L (136-145)
[2018-01-10 07:03] LABS: ALBUMIN 2.6 g/dl (3.4-5.0); ALK PHOS 97 U/L (45-117); ANION GAP 10 MMOL/L (8-16); BILIRUBIN,TOTAL 0.2 mg/dL (0.2-1.0); BLOOD UREA NITROGEN 17 mg/dL (7-18); CALCIUM 8.4 mg/dL (8.5-10.1); CO2 23 mmol/L (21-32); CREATININE 0.5 mg/dL (0.55-1.02); GLUCOSE,RANDOM 116 mg/dL (74-106); MAGNESIUM 2.1 mg/dL (1.8-2.4); SGOT/AST 51 U/L (15-37); SGPT/ALT 34 U/L (12-78); TOT PROT 6.5 g/dl (6.4-8.2)
[2018-01-10] MEDS: ACETYLCYSTEINE 20% 200MG/ML 4 ML VIAL *FOR ORAL / INH USE ONLY NEB SCH ×4 (07:30→21:06)
[2018-01-10] MEDS: ALBUTEROL SO4 0.083% IH SOL 2.5 MG/3 ML VIAL.NEB. NEB SCH ×4 (07:30→21:06)
[2018-01-10] MEDS: BUDESONIDE 0.25 MG/2ML INH SUSP VIAL NEB SCH ×2 (07:30→20:55)
[2018-01-10] MEDS: PANTOPRAZOLE SODIUM 40 MG VIAL IVPUSH SCH (09:32)
[2018-01-10] MEDS: levETIRAcetam 500 MG/5 ML INJECTION VIAL IVPB SCH ×2 (09:38→21:58)
[2018-01-10] MEDS: CHLORHEXIDINE GLUCONATE 0.12% 15ML CUP MM SCH ×2 (09:41→21:58)
[2018-01-10] MEDS: POLYETHYLENE GLYCOL 3350 119 GM BTL PO SCH (09:41)
--- NOTE | 2018-01-10 11:59 | PN ---
Teaching Attending Note Name of Resident: Sakina Infante ATTENDING PHYSICIAN STATEMENT I saw and evaluated the patient. I reviewed the resident's note and discussed the case with the resident. I agree with the resident's findings and plan as documented. SUBJECTIVE: Pt seen and examined in the ICU. Eyes open. Febrile overnight. MRI brain yesterday consistent with anoxic brain injury. Imaging also showing evidence of sinusitis. OBJECTIVE: Vital Signs Period Temp Pulse Resp BP Sys/Cheema Pulse Ox Last 24 Hr 98.3 F-101 F 84-120 18- 88-113/52-76 100-100 Intake & Output 01/07/18 01/08/18 01/09/18 01/10/18 23:59 23:59 23:59 23:59 Intake Total 1151 1398 1800 100 Balance 1151 1398 1800 100 Weight 42.139 kg 41.232 kg 41.73 kg 41.912 kg Gen: eyes open, mildly tachypneic Heart: RRR Lung: decreased breath sounds at the bases Abd: soft, nontender Ext: no edema CBC, BMP 01/10/18 05:30 01/10/18 05:30 Active Medications Acetaminophen (Tylenol -) 650 mg PO Q6H PRN PRN Reason: Fever Or Pain 1-5 Last Admin: 01/10/18 02:01 Dose: 650 mg Acetylcysteine (Mucomyst 20 Oral / Inh Use Only*) 200 mg NEB RQID [facility] Last Admin: 01/10/18 07:30 Dose: 200 mg Albuterol Sulfate (Ventolin 0.083% Nebulizer Soln -) 1 amp NEB RQID [facility] Last Admin: 01/10/18 07:30 Dose: 1 amp Budesonide (Pulmicort 0.25 Mg Nebulizer -) 1 amp NEB RBID [facility] Last Admin: 01/10/18 07:30 Dose: 1 amp Chlorhexidine Gluconate (Peridex -) 15 ml MM BID [facility] Last Admin: 01/10/18 09:41 Dose: 15 ml Heparin Sodium (Porcine) (Heparin -) 5,000 unit SQ TID [facility] Last Admin: 01/10/18 05:49 Dose: 5,000 unit Piperacillin Sod/Tazobactam (Sod 2.25 gm/ Dextrose) 50 mls @ 100 mls/hr IVPB Q8H-IV [facility]; Protocol Last Admin: 01/10/18 09:36 Dose: 100 mls/hr Azithromycin 500 mg/ Dextrose 250 mls @ 250 mls/hr IVPB DAILY [facility] Levetiracetam (Keppra Injection -) 1,500 mg IVPB BID [facility] Last Admin: 01/10/18 09:38 Dose: 1,500 mg Nystatin/Triamcinolone Acetonide (Mycolog Ii Cream -) 1 applic TP BID [facility] Last Admin: 01/09/18 21:14 Dose: 1 applic Pantoprazole Sodium (Protonix Iv) 40 mg IVPUSH DAILY [facility] Last Admin: 01/10/18 09:32 Dose: 40 mg Polyethylene Glycol (Miralax (For Daily Use) -) 17 gm PO DAILY [facility] Last Admin: 01/10/18 09:41 Dose: Not Given Scopolamine HBr (Transderm-Scop -) 1 patch TD Q72H [facility] Last Admin: 01/08/18 18:22 Dose: 1 patch ASSESSMENT AND PLAN: Acute Hypoxic and Hypercapneic Respiratory Failure improving Anoxic Encephalopathy r/o Seizures Status Asthmaticus resolved Pneumonia likely Aspiration Shock resolved UTI Lactic Acidosis resolved Acute Kidney Injury resolved Hyperglycemia resolved Autism - reculture - continue antibiotics, add atypical coverage - send stool for C diff if diarrhea - inhaled bronchodilators standing and PRN - inhaled corticosteroids - aspiration precautions - contine empiric antiepileptics - DVT/GI prophylaxis - can monitor on telemetry with pulse oximetry
[2018-01-10] MEDS ORDERED: AZITHROMYCIN IVPB 500 MG in DEXTROSE 5%-WATER - 250 ML IVPB SCH (12:15)
--- NOTE | 2018-01-10 12:30 | PN ---
Physical Exam: SUBJECTIVE: Patient is a 37 y/o female with a history asthma and autism who is admitted for acute hypoxic respiratory failure 2/2 to asthma exacerbation and complicated by LLL pneumonia. Overnight patient was feverish and given tylenol. Cultures were taken this morning. Dr. Pelayo discussed results of MRI with mother this morning. Patient stable. OBJECTIVE: Vital Signs Temperature 98.3 F 01/10/18 10:00 Pulse Rate 112 H 01/10/18 08:00 Respiratory Rate 22 01/10/18 10:00 Blood Pressure 112/74 01/10/18 10:00 O2 Sat by Pulse Oximetry (%) 100 01/09/18 20:00 GENERAL: nonverbal, non moving EYES: pupils reactive to light, left larger ENT: NG tube in right nostril LUNGS: Breath sounds equal, clear to auscultation bilaterally HEART: Regular rate and rhythm, S1, S2 ABDOMEN: Soft, nontender, nondistended, normoactive bowel sounds EXTREMITIES: 2+ pulses, warm, well-perfused, no edema. SKIN: Warm, dry, normal turgor, no rashes or lesions noted CBC, BMP 01/10/18 05:30 01/10/18 05:30 Active Medications Acetaminophen (Tylenol -) 650 mg PO Q6H PRN PRN Reason: Fever Or Pain 1-5 Last Admin: 01/10/18 02:01 Dose: 650 mg Acetylcysteine (Mucomyst 20 Oral / Inh Use Only*) 200 mg NEB RQID [facility] Last Admin: 01/10/18 07:30 Dose: 200 mg Albuterol Sulfate (Ventolin 0.083% Nebulizer Soln -) 1 amp NEB RQID [facility] Last Admin: 01/10/18 07:30 Dose: 1 amp Budesonide (Pulmicort 0.25 Mg Nebulizer -) 1 amp NEB RBID [facility] Last Admin: 01/10/18 07:30 Dose: 1 amp Chlorhexidine Gluconate (Peridex -) 15 ml MM BID [facility] Last Admin: 01/10/18 09:41 Dose: 15 ml Heparin Sodium (Porcine) (Heparin -) 5,000 unit SQ TID [facility] Last Admin: 01/10/18 05:49 Dose: 5,000 unit Piperacillin Sod/Tazobactam (Sod 2.25 gm/ Dextrose) 50 mls @ 100 mls/hr IVPB Q8H-IV [facility]; Protocol Last Admin: 01/10/18 09:36 Dose: 100 mls/hr Azithromycin 500 mg/ Dextrose 250 mls @ 250 mls/hr IVPB DAILY [facility] Levetiracetam (Keppra Injection -) 1,500 mg IVPB BID [facility] Last Admin: 01/10/18 09:38 Dose: 1,500 mg Nystatin/Triamcinolone Acetonide (Mycolog Ii Cream -) 1 applic TP BID [facility] Last Admin: 01/09/18 21:14 Dose: 1 applic Pantoprazole Sodium (Protonix Iv) 40 mg IVPUSH DAILY [facility] Last Admin: 01/10/18 09:32 Dose: 40 mg Polyethylene Glycol (Miralax (For Daily Use) -) 17 gm PO DAILY [facility] Last Admin: 01/10/18 09:41 Dose: Not Given Scopolamine HBr (Transderm-Scop -) 1 patch TD Q72H [facility] Last Admin: 01/08/18 18:22 Dose: 1 patch ASSESSMENT/PLAN: Patient is a 37 y/o female with a history asthma and autism who is admitted for acute hypoxic respiratory failure 2/2 to asthma exacerbation and complicated by LLL pneumonia. Neurology Seizure - no twitching or seizure like activity overnight - f/u Dr. Cox/ Gita - continue Keppra 1500 mg BID - head CT no acute pathology - Brain MRI: increase intensity in globus pallidus bilaterally, periventricular white matter, cospurs callosum, compatible with anoxic/ ischemic injury Pulmonary acute hypoxic respiratory failure 2/2 to asthma exacerbation - CXR: left base infiltrate - continue albuterol and mucomyst - duoneb q6h prn - pulmicort nebulizer bid - scopalamine patch to decrease secretions - tolerating NC @ 2L Gastroenterology GI ppx - pantoprazole 40 mg IV push Hematology DVT ppx - heparin TID Infectious Disease LLL Pneumonia - f/u CXR - new fevers overnight, increase in WBC - f.u new blood cx, c.diff, ucx - Zosyn 2.25 (day 4) Sinusitis - Doxycyline 100 mg BID - seen on head CT, 2/2 to NG tube, discuss PEG placement UTI - completed abx treatment, E. Coli FEN - Kalani 1.2 @ 45 cc/hr - f/u PT - discuss PEG tube placement/ [facility] care with family and social work Dispo: transfer to tele Visit type - Emergency Visit Emergency Visit: No - New Patient This patient is new to me today: No - Critical Care Critical Care patient: Yes Total Critical Care Time (in minutes): 35 Critical Care Statement: The care of this patient involved high complexity decision making to prevent further life threatening deterioration of the patient 's condition and/or to evaluate & treat vital organ system(s) failure or risk of failure.
--- NOTE | 2018-01-10 13:09 | PN ---
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 (short form) - Note 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: 37 year old female history of autism, and asthma. She has severe hypoxic encephalopathy following severe asthma episode. She is not back to baseline and she has been having seizure. She was seen by dr Osorio and now last night she had breakthrough seizure and she was given extra dose of keppra and keppra is incresaed to 1500 mg iv bid. SUBJECTIVE: Mental status has not improved to baseline, no more seizure. She has been spiking fever. Neurological EXAMINATION: She is withdrawing ot pain, and there is no spontaneous speech is present She is not following command no neck stiff pupils is bilateral reactive MRI showed bilateral basal ganglia injury consistent with anoxic injury Assessment- Hypoxic-Anoxic encpehalopathy following severe bronchial asthma 2. recurrent seizure Plan conitnue keppra at current dose, no clinical seizure - mri findings and prognosis was discussed with mother - continue supportive care and management of fever as per icu and ID Thaking you so much Abrahan Pelayo MD
--- NOTE | 2018-01-10 13:39 | PN ---
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, Physician History of Present Illness: more responsive still with ng tube in place - Current Medication List Current Medications: Active Medications Acetaminophen (Tylenol -) 650 mg PO Q6H PRN PRN Reason: Fever Or Pain 1-5 Last Admin: 01/10/18 02:01 Dose: 650 mg Acetylcysteine (Mucomyst 20 Oral / Inh Use Only*) 200 mg NEB RQID [facility] Last Admin: 01/10/18 11:59 Dose: 200 mg Albuterol Sulfate (Ventolin 0.083% Nebulizer Soln -) 1 amp NEB RQID [facility] Last Admin: 01/10/18 12:00 Dose: 1 amp Budesonide (Pulmicort 0.25 Mg Nebulizer -) 1 amp NEB RBID [facility] Last Admin: 01/10/18 07:30 Dose: 1 amp Chlorhexidine Gluconate (Peridex -) 15 ml MM BID [facility] Last Admin: 01/10/18 09:41 Dose: 15 ml Doxycycline Hyclate (Vibramycin -) 100 mg PO BID@1000,1800 [facility] Heparin Sodium (Porcine) (Heparin -) 5,000 unit SQ TID [facility] Last Admin: 01/10/18 05:49 Dose: 5,000 unit Piperacillin Sod/Tazobactam (Sod 2.25 gm/ Dextrose) 50 mls @ 100 mls/hr IVPB Q8H-IV [facility]; Protocol Last Admin: 01/10/18 09:36 Dose: 100 mls/hr Levetiracetam (Keppra Injection -) 1,500 mg IVPB BID [facility] Last Admin: 01/10/18 09:38 Dose: 1,500 mg Nystatin/Triamcinolone Acetonide (Mycolog Ii Cream -) 1 applic TP BID [facility] Pantoprazole Sodium (Protonix Iv) 40 mg IVPUSH DAILY [facility] Last Admin: 01/10/18 09:32 Dose: 40 mg Polyethylene Glycol (Miralax (For Daily Use) -) 17 gm PO DAILY [facility] Last Admin: 01/10/18 09:41 Dose: Not Given Scopolamine HBr (Transderm-Scop -) 1 patch TD Q72H [facility] Last Admin: 01/08/18 18:22 Dose: 1 patch - Objective Vital Signs: Vital Signs Temperature 98.3 F 01/10/18 10:00 Pulse Rate 112 H 01/10/18 08:00 Respiratory Rate 22 01/10/18 10:00 Blood Pressure 112/74 01/10/18 10:00 O2 Sat by Pulse Oximetry (%) 100 01/10/18 09:00 Constitutional: Yes: No Distress, Calm Cardiovascular: Yes: Regular Rate and Rhythm Respiratory: Yes: Regular, CTA Bilaterally Gastrointestinal: Yes: Normal Bowel Sounds, Soft, Other (ng tube in place) Musculoskeletal: Yes: WNL Extremities: Yes: WNL Neurological: Yes: Alert, Other Psychiatric: Yes: Other Labs: CBC, BMP 01/10/18 05:30 01/10/18 05:30 INR, PTT INR 1.13 (0.83-1.09) H 12/31/17 07:52 Assessment/Plan Problem List - Problems (1) Acute asthma exacerbation Code(s): J45.901 - UNSPECIFIED ASTHMA WITH (ACUTE) EXACERBATION Qualifiers: Asthma severity: unspecified severity Asthma persistence: unspecified Qualified Code(s): J45.901 - Unspecified asthma with (acute) exacerbation (2) Respiratory failure Code(s): J96.90 - RESPIRATORY FAILURE, UNSP, UNSP W HYPOXIA OR HYPERCAPNIA Qualifiers: Chronicity: unspecified Respiratory failure complication: unspecified whether with hypoxia or hypercapnia Qualified Code(s): J96.90 - Respiratory failure, unspecified, unspecified whether with hypoxia or hypercapnia (3) Autism Code(s): F84.0 - AUTISTIC DISORDER (4) Lactic acidosis Code(s): E87.2 - ACIDOSIS (5) Tachycardia Code(s): R00.0 - TACHYCARDIA, UNSPECIFIED (6) URI (upper respiratory infection) Code(s): J06.9 - ACUTE UPPER RESPIRATORY INFECTION, UNSPECIFIED uti asp pna anoxic brain injury plan continue resp care clinda added close watch on the patient mri results noted supportive care
[2018-01-10] MEDS ORDERED: SODIUM CHLORIDE 500 ML IV STA (13:43)
[2018-01-10] MEDS ORDERED: ACETAMINOPHEN 1000 MG/100 ML VIAL (NON FORMULARY) IVPB ONE (13:58)
--- NOTE | 2018-01-10 14:20 | PN ---
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 recurrent seizure Selected Entries 01/09/18 01/09/18 01/09/18 02:00 06:00 10:00 Temperature 98.2 F 98 F 98 F Pulse Rate 01/09/18 01/09/18 01/10/18 18:00 22:00 00:00 Temperature 100.7 F H 99.2 F Pulse Rate 108 H 01/10/18 01/10/18 01/10/18 02:00 04:00 06:00 Temperature Pulse Rate 120 H 104 H 110 H 01/10/18 08:00 Temperature Pulse Rate 112 H Laboratory Tests 01/08/18 01/09/18 01/10/18 05:30 05:30 05:30 WBC 21.9 H 19.1 H 24.6 H Pt's mother is a carpio of results of MRI. Not visually tracking but head/oral movements increase with tactile stimulation to hands. More non purposeful movements. Pt may be moving right thumb upon command. Tongue thrust swallow elicited following cold iced spoon to lips/tongue. Increase tactile/auditory stimulation by family/staff PT for ROM/Stimulation Mouth care Head should always be at neutral or flexed position (not extended)for improved swallow/secretion mgmt.
--- NOTE | 2018-01-10 16:20 | PN ---
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, Physician History of Present Illness: awake - Current Medication List Current Medications: Active Medications Acetaminophen (Tylenol -) 650 mg PO Q6H PRN PRN Reason: Fever Or Pain 1-5 Last Admin: 01/10/18 02:01 Dose: 650 mg Acetylcysteine (Mucomyst 20 Oral / Inh Use Only*) 200 mg NEB RQID [facility] Last Admin: 01/10/18 16:04 Dose: 200 mg Albuterol Sulfate (Ventolin 0.083% Nebulizer Soln -) 1 amp NEB RQID [facility] Last Admin: 01/10/18 16:05 Dose: 1 amp Budesonide (Pulmicort 0.25 Mg Nebulizer -) 1 amp NEB RBID [facility] Last Admin: 01/10/18 07:30 Dose: 1 amp Chlorhexidine Gluconate (Peridex -) 15 ml MM BID [facility] Last Admin: 01/10/18 09:41 Dose: 15 ml Heparin Sodium (Porcine) (Heparin -) 5,000 unit SQ TID [facility] Last Admin: 01/10/18 05:49 Dose: 5,000 unit Piperacillin Sod/Tazobactam (Sod 2.25 gm/ Dextrose) 50 mls @ 100 mls/hr IVPB Q8H-IV [facility]; Protocol Last Admin: 01/10/18 09:36 Dose: 100 mls/hr Clindamycin Phosphate (Cleocin 300 Mg Premix Ivpb) 300 mg in 50 mls @ 100 mls/ hr IVPB Q8H-IV [facility]; Protocol Levetiracetam (Keppra Injection -) 1,500 mg IVPB BID [facility] Last Admin: 01/10/18 09:38 Dose: 1,500 mg Nystatin/Triamcinolone Acetonide (Mycolog Ii Cream -) 1 applic TP BID [facility] Pantoprazole Sodium (Protonix Iv) 40 mg IVPUSH DAILY [facility] Last Admin: 01/10/18 09:32 Dose: 40 mg Polyethylene Glycol (Miralax (For Daily Use) -) 17 gm PO DAILY [facility] Last Admin: 01/10/18 09:41 Dose: Not Given Scopolamine HBr (Transderm-Scop -) 1 patch TD Q72H [facility] Last Admin: 01/08/18 18:22 Dose: 1 patch - Objective Vital Signs: Vital Signs Temperature 98.3 F 01/10/18 10:00 Pulse Rate 112 H 01/10/18 08:00 Respiratory Rate 22 01/10/18 10:00 Blood Pressure 112/74 01/10/18 10:00 O2 Sat by Pulse Oximetry (%) 100 01/10/18 09:00 HENT: Yes: Atraumatic Neck: Yes: Supple Cardiovascular: Yes: Regular Rate and Rhythm Respiratory: Yes: Rhonchi Gastrointestinal: Yes: Normal Bowel Sounds Edema: No Neurological: Yes: Other (awake) Labs: CBC, BMP 01/10/18 05:30 01/10/18 05:30 INR, PTT INR 1.13 (0.83-1.09) H 12/31/17 07:52 Problem List - Problems (1) Acute asthma exacerbation Assessment/Plan: on inhaler duo nebs iv abx Code(s): J45.901 - UNSPECIFIED ASTHMA WITH (ACUTE) EXACERBATION Qualifiers: Asthma severity: unspecified severity Asthma persistence: unspecified Qualified Code(s): J45.901 - Unspecified asthma with (acute) exacerbation (2) Respiratory failure Assessment/Plan: on NC Code(s): J96.90 - RESPIRATORY FAILURE, UNSP, UNSP W HYPOXIA OR HYPERCAPNIA Qualifiers: Chronicity: unspecified Respiratory failure complication: unspecified whether with hypoxia or hypercapnia Qualified Code(s): J96.90 - Respiratory failure, unspecified, unspecified whether with hypoxia or hypercapnia (3) Autism Code(s): F84.0 - AUTISTIC DISORDER (4) Pneumonia Assessment/Plan: on abx Code(s): J18.9 - PNEUMONIA, UNSPECIFIED ORGANISM (5) UTI (urinary tract infection) Assessment/Plan: on abx Code(s): N39.0 - URINARY TRACT INFECTION, SITE NOT SPECIFIED (6) Anoxic brain damage Assessment/Plan: mri report reviewed and neuro note also seen Code(s): G93.1 - ANOXIC BRAIN DAMAGE, NOT ELSEWHERE CLASSIFIED Assessment/Plan cc time 30 min
[2018-01-10] MEDS: CLINDAMYCIN 300 MG PREMIX IVPB 300 MG/50 ML BAG IVPB SCH ×2 (16:25→18:28)
[2018-01-10] MEDS ORDERED: DOXYCYCLINE HYCLATE 100 MG CAPSULE PO SCH (18:00)
[2018-01-10] MEDS: NYSTATIN/TRIAMCINOLONE TOPICAL CREAM 15 GM TUBE TP SCH (22:34)
[2018-01-11] MEDS: ACETAMINOPHEN 325 MG TABLET (FP) PO PRN ×2 (00:05→17:32)
[2018-01-11] MEDS ORDERED: DEXTROSE 5%-WATER 100 ML IVPB ONE ×3 (00:26→16:39)
[2018-01-11] MEDS ORDERED: PIPERACILLIN/TAZOBACTAM 2.25 GM VIAL IVPB ONE ×3 (00:26→16:39)
[2018-01-11] MEDS: CLINDAMYCIN 300 MG PREMIX IVPB 300 MG/50 ML BAG IVPB SCH ×3 (01:19→17:33)
[2018-01-11] MEDS: PIPERACILLIN/TAZOB 2.25 GM 2.25 GM in DEXTROSE 5%-WATER 100 ML IVPB SCH ×3 (01:50→17:33)
[2018-01-11 07:33] LABS: MCH 28.9 pg (25.7-33.7); MCHC 32.4 g/dl (32.0-36.0); MEAN CELL VOLUME 89.3 fl (80-96); PLATELET COUNT 408 K/MM3 (134-434); RBC 3.47 M/mm3 (3.60-5.2); RDW 13.5 % (11.6-15.6); WHITE BLOOD COUNT 21.9 K/mm3 (4.0-10.0)
[2018-01-11] MEDS: ACETYLCYSTEINE 20% 200MG/ML 4 ML VIAL *FOR ORAL / INH USE ONLY NEB SCH ×4 (07:51→20:25)
[2018-01-11] MEDS: ALBUTEROL SO4 0.083% IH SOL 2.5 MG/3 ML VIAL.NEB. NEB SCH ×4 (07:51→20:25)
[2018-01-11] MEDS ORDERED: PT OWN MED DRAWER 7, Y5N ONE ×3 (07:57→15:14)
[2018-01-11 08:31] LABS: CHLORIDE 103 mmol/L (98-107); POTASSIUM 4.2 mmol/L (3.5-5.1); SODIUM 137 mmol/L (136-145)
[2018-01-11 08:39] LABS: ALBUMIN 2.4 g/dl (3.4-5.0); ALK PHOS 114 U/L (45-117); ANION GAP 10 MMOL/L (8-16); BILIRUBIN,TOTAL 0.2 mg/dL (0.2-1.0); BLOOD UREA NITROGEN 15 mg/dL (7-18); CALCIUM 8.3 mg/dL (8.5-10.1); CO2 24 mmol/L (21-32); CREATININE 0.5 mg/dL (0.55-1.02); GLUCOSE,RANDOM 100 mg/dL (74-106); MAGNESIUM 2.1 mg/dL (1.8-2.4); PHOSPHOROUS 3.6 mg/dL (2.5-4.9); SGOT/AST 60 U/L (15-37); SGPT/ALT 49 U/L (12-78); TOT PROT 6.6 g/dl (6.4-8.2)
[2018-01-11] MEDS: BUDESONIDE 0.25 MG/2ML INH SUSP VIAL NEB SCH ×2 (09:00→20:25)
[2018-01-11] MEDS: PANTOPRAZOLE SODIUM 40 MG VIAL IVPUSH SCH (10:06)
[2018-01-11] MEDS: NYSTATIN/TRIAMCINOLONE TOPICAL CREAM 15 GM TUBE TP SCH ×2 (10:07→21:56)
[2018-01-11] MEDS: CHLORHEXIDINE GLUCONATE 0.12% 15ML CUP MM SCH ×2 (10:07→21:57)
[2018-01-11] MEDS: POLYETHYLENE GLYCOL 3350 119 GM BTL PO SCH (10:07)
[2018-01-11] MEDS: levETIRAcetam 500 MG/5 ML INJECTION VIAL IVPB SCH ×2 (10:07→21:55)
--- NOTE | 2018-01-11 11:16 | PN ---
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, Physician History of Present Illness: pulmonary lethargic,congested,non-verbal - Current Medication List Current Medications: Active Medications Acetaminophen (Tylenol -) 650 mg PO Q6H PRN PRN Reason: Fever Or Pain 1-5 Last Admin: 01/11/18 00:05 Dose: 650 mg Acetylcysteine (Mucomyst 20 Oral / Inh Use Only*) 200 mg NEB RQID [facility] Last Admin: 01/11/18 07:51 Dose: 200 mg Albuterol Sulfate (Ventolin 0.083% Nebulizer Soln -) 1 amp NEB RQID [facility] Last Admin: 01/11/18 07:51 Dose: 1 amp Budesonide (Pulmicort 0.25 Mg Nebulizer -) 1 amp NEB RBID [facility] Last Admin: 01/11/18 09:00 Dose: 1 amp Chlorhexidine Gluconate (Peridex -) 15 ml MM BID [facility] Last Admin: 01/11/18 10:07 Dose: 15 ml Heparin Sodium (Porcine) (Heparin -) 5,000 unit SQ TID [facility] Clindamycin Phosphate (Cleocin 300 Mg Premix Ivpb) 300 mg in 50 mls @ 100 mls/ hr IVPB Q8H-IV [facility]; Protocol Last Admin: 01/11/18 09:43 Dose: 100 mls/hr Piperacillin Sod/Tazobactam (Sod 2.25 gm/ Dextrose) 100 mls @ 200 mls/hr IVPB Q8H-IV [facility]; Protocol Last Admin: 01/11/18 10:06 Dose: 200 mls/hr Levetiracetam (Keppra Injection -) 1,500 mg IVPB BID [facility] Last Admin: 01/11/18 10:07 Dose: 1,500 mg Nystatin/Triamcinolone Acetonide (Mycolog Ii Cream -) 1 applic TP BID [facility] Last Admin: 01/11/18 10:07 Dose: 1 applic Pantoprazole Sodium (Protonix Iv) 40 mg IVPUSH DAILY [facility] Last Admin: 01/11/18 10:06 Dose: 40 mg Polyethylene Glycol (Miralax (For Daily Use) -) 17 gm PO DAILY [facility] Last Admin: 01/11/18 10:07 Dose: Not Given Scopolamine HBr (Transderm-Scop -) 1 patch TD Q72H [facility] - Objective Vital Signs: Vital Signs Temperature 98.8 F 01/11/18 09:15 Pulse Rate 116 H 01/11/18 09:15 Respiratory Rate 20 01/11/18 09:15 Blood Pressure 118/78 01/11/18 09:15 O2 Sat by Pulse Oximetry (%) 98 01/10/18 21:00 Constitutional: Yes: Thin, Other (lethargic) Eyes: Yes: WNL HENT: Yes: WNL Neck: Yes: WNL Cardiovascular: Yes: Regular Rate and Rhythm, S2 Respiratory: Yes: Rhonchi (bilateral rhonchi) Gastrointestinal: Yes: Normal Bowel Sounds, Soft Extremities: Yes: WNL Edema: No Labs: CBC, BMP 01/11/18 06:28 01/11/18 06:28 INR, PTT INR 1.13 (0.83-1.09) H 12/31/17 07:52 - ....Imaging Chest X-ray: Report Reviewed, Image Reviewed Problem List - Problems (1) Acute asthma exacerbation Code(s): J45.901 - UNSPECIFIED ASTHMA WITH (ACUTE) EXACERBATION Qualifiers: Asthma severity: unspecified severity Asthma persistence: unspecified Qualified Code(s): J45.901 - Unspecified asthma with (acute) exacerbation (2) Anoxic brain damage Code(s): G93.1 - ANOXIC BRAIN DAMAGE, NOT ELSEWHERE CLASSIFIED (3) Respiratory failure Code(s): J96.90 - RESPIRATORY FAILURE, UNSP, UNSP W HYPOXIA OR HYPERCAPNIA Qualifiers: Chronicity: unspecified Respiratory failure complication: unspecified whether with hypoxia or hypercapnia Qualified Code(s): J96.90 - Respiratory failure, unspecified, unspecified whether with hypoxia or hypercapnia (4) Status asthmaticus Code(s): J45.902 - UNSPECIFIED ASTHMA WITH STATUS ASTHMATICUS Qualifiers: Asthma severity: unspecified severity Asthma persistence: unspecified Qualified Code(s): J45.902 - Unspecified asthma with status asthmaticus (5) Autism Code(s): F84.0 - AUTISTIC DISORDER (6) Tachycardia Code(s): R00.0 - TACHYCARDIA, UNSPECIFIED Assessment/Plan ASSESSMENT AND PLAN: Acute Hypoxic and Hypercapneic Respiratory Failure improving Anoxic Encephalopathy r/o Seizures Status Asthmaticus resolved Pneumonia likely Aspiration Shock resolved UTI Lactic Acidosis resolved Acute Kidney Injury resolved Hyperglycemia resolved Autism - continue antibiotics, add atypical coverage - inhaled bronchodilators standing and PRN - inhaled corticosteroids - aspiration precautions - contine empiric antiepileptics - DVT/GI prophylaxis DR DE OLIVEIRA
--- NOTE | 2018-01-11 11:20 | PN ---
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 (short form) - Note 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: 37 year old female history of autism, and asthma. She has severe hypoxic encephalopathy following severe asthma episode. She is not back to baseline and she has been having seizure. She was seen by dr Osorio and now last night she had breakthrough seizure and she was given extra dose of keppra and keppra is incresaed to 1500 mg iv bid. SUBJECTIVE: She is transferred to regular floor adn no acute distress, Neurological EXAMINATION: She is withdrawing to pain, and there is no spontaneous speech is present She is not following command no neck stiff, she is not able to hold her neck pupils is bilateral reactive MRI showed bilateral basal ganglia injury consistent with anoxic injury Assessment- Hypoxic-Anoxic encpehalopathy following severe bronchial asthma 2. recurrent seizure under control on keppra Plan conitnue keppra at current dose, no clinical seizure - mri findings and prognosis was discussed with mother and sister at bed s[place] etoday - continue supportive care and mangement of co-morbidity as per primary team Thaking you so much Abrahan Pelayo MD
--- NOTE | 2018-01-11 12:42 | PN ---
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, [employer] - Note 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: Selected Entries 01/11/18 01/11/18 01/11/18 00:04 02:02 06:00 Lunch Temperature 100.3 F H 99.9 F H 98.9 F 01/11/18 01/11/18 09:15 11:58 Lunch NPO Temperature 98.8 F Laboratory Tests 01/07/18 01/08/18 01/09/18 05:30 05:30 05:30 WBC 16.6 H 21.9 H 19.1 H 01/10/18 01/11/18 05:30 06:28 WBC 24.6 H 21.9 H Some lateral eye movement, not clearly visually tracking. Responding to oral/ thermal stimulation of lips, buccal cavity, gums, hands with increased swallowing, head movement. Moving lips today; may be trying to speak?? rare audible phonation. Audible sneeze. No head support. Educated pt's mother/staff on sensory stimulation. Mouth care/HOB elevated, keep head in neutral to flexed position,supported to facilitate swallowing/reducing aspiration. Suction PRN. Pt may benefit fron coma recovery program.Consider Mckenna Maloney.
--- NOTE | 2018-01-11 13:49 | PN ---
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, Physician History of Present Illness: more responsive still with ng tube in place patient more reactive doing well - Current Medication List Current Medications: Active Medications Acetaminophen (Tylenol -) 650 mg PO Q6H PRN PRN Reason: Fever Or Pain 1-5 Last Admin: 01/11/18 00:05 Dose: 650 mg Acetylcysteine (Mucomyst 20 Oral / Inh Use Only*) 200 mg NEB RQID [facility] Last Admin: 01/11/18 11:19 Dose: 200 mg Albuterol Sulfate (Ventolin 0.083% Nebulizer Soln -) 1 amp NEB RQID [facility] Last Admin: 01/11/18 11:19 Dose: 1 amp Budesonide (Pulmicort 0.25 Mg Nebulizer -) 1 amp NEB RBID [facility] Last Admin: 01/11/18 09:00 Dose: 1 amp Chlorhexidine Gluconate (Peridex -) 15 ml MM BID [facility] Last Admin: 01/11/18 10:07 Dose: 15 ml Heparin Sodium (Porcine) (Heparin -) 5,000 unit SQ TID [facility] Clindamycin Phosphate (Cleocin 300 Mg Premix Ivpb) 300 mg in 50 mls @ 100 mls/ hr IVPB Q8H-IV [facility]; Protocol Last Admin: 01/11/18 09:43 Dose: 100 mls/hr Piperacillin Sod/Tazobactam (Sod 2.25 gm/ Dextrose) 100 mls @ 200 mls/hr IVPB Q8H-IV [facility]; Protocol Last Admin: 01/11/18 10:06 Dose: 200 mls/hr Levetiracetam (Keppra Injection -) 1,500 mg IVPB BID [facility] Last Admin: 01/11/18 10:07 Dose: 1,500 mg Nystatin/Triamcinolone Acetonide (Mycolog Ii Cream -) 1 applic TP BID [facility] Last Admin: 01/11/18 10:07 Dose: 1 applic Pantoprazole Sodium (Protonix Iv) 40 mg IVPUSH DAILY [facility] Last Admin: 01/11/18 10:06 Dose: 40 mg Polyethylene Glycol (Miralax (For Daily Use) -) 17 gm PO DAILY [facility] Last Admin: 01/11/18 10:07 Dose: Not Given Scopolamine HBr (Transderm-Scop -) 1 patch TD Q72H [facility] - Objective Vital Signs: Vital Signs Temperature 98.8 F 01/11/18 09:15 Pulse Rate 116 H 01/11/18 09:15 Respiratory Rate 20 01/11/18 09:15 Blood Pressure 118/78 01/11/18 09:15 O2 Sat by Pulse Oximetry (%) 98 01/10/18 21:00 Constitutional: Yes: No Distress, Calm Cardiovascular: Yes: Regular Rate and Rhythm Respiratory: Yes: Regular Gastrointestinal: Yes: Normal Bowel Sounds, Soft, Other (ng tube in place) Musculoskeletal: Yes: WNL Extremities: Yes: Other Neurological: Yes: Alert Labs: CBC, BMP 01/11/18 06:28 01/11/18 06:28 INR, PTT INR 1.13 (0.83-1.09) H 12/31/17 07:52 Assessment/Plan Problem List - Problems (1) Acute asthma exacerbation Code(s): J45.901 - UNSPECIFIED ASTHMA WITH (ACUTE) EXACERBATION Qualifiers: Asthma severity: unspecified severity Asthma persistence: unspecified Qualified Code(s): J45.901 - Unspecified asthma with (acute) exacerbation (2) Respiratory failure Code(s): J96.90 - RESPIRATORY FAILURE, UNSP, UNSP W HYPOXIA OR HYPERCAPNIA Qualifiers: Chronicity: unspecified Respiratory failure complication: unspecified whether with hypoxia or hypercapnia Qualified Code(s): J96.90 - Respiratory failure, unspecified, unspecified whether with hypoxia or hypercapnia (3) Autism Code(s): F84.0 - AUTISTIC DISORDER (4) Lactic acidosis Code(s): E87.2 - ACIDOSIS (5) Tachycardia Code(s): R00.0 - TACHYCARDIA, UNSPECIFIED (6) URI (upper respiratory infection) Code(s): J06.9 - ACUTE UPPER RESPIRATORY INFECTION, UNSPECIFIED uti asp pna anoxic brain injury plan continue resp care continue abx close watch on the patient mri results noted supportive care
[2018-01-11] MEDS: HEPARIN NA (PORCINE) 5,000 UNITS/ML 1ML VIAL SQ SCH ×2 (15:08→21:55)
[2018-01-11] MEDS: SCOPOLAMINE HYDROBROMIDE 1 PATCH PATCH.TD72 TD SCH (15:09)
--- NOTE | 2018-01-11 22:33 | PN ---
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, Physician History of Present Illness: No new complaints - Current Medication List Current Medications: Active Medications Acetaminophen (Tylenol -) 650 mg PO Q6H PRN PRN Reason: Fever Or Pain 1-5 Last Admin: 01/11/18 17:32 Dose: 650 mg Acetylcysteine (Mucomyst 20 Oral / Inh Use Only*) 200 mg NEB RQID [facility] Last Admin: 01/11/18 20:25 Dose: 200 mg Albuterol Sulfate (Ventolin 0.083% Nebulizer Soln -) 1 amp NEB RQID [facility] Last Admin: 01/11/18 20:25 Dose: 1 amp Budesonide (Pulmicort 0.25 Mg Nebulizer -) 1 amp NEB RBID [facility] Last Admin: 01/11/18 20:25 Dose: 1 amp Chlorhexidine Gluconate (Peridex -) 15 ml MM BID [facility] Last Admin: 01/11/18 21:57 Dose: 15 ml Heparin Sodium (Porcine) (Heparin -) 5,000 unit SQ TID [facility] Last Admin: 01/11/18 21:55 Dose: 5,000 unit Clindamycin Phosphate (Cleocin 300 Mg Premix Ivpb) 300 mg in 50 mls @ 100 mls/ hr IVPB Q8H-IV [facility]; Protocol Last Admin: 01/11/18 17:33 Dose: 100 mls/hr Piperacillin Sod/Tazobactam (Sod 2.25 gm/ Dextrose) 100 mls @ 200 mls/hr IVPB Q8H-IV [facility]; Protocol Last Admin: 01/11/18 17:33 Dose: 200 mls/hr Levetiracetam (Keppra Injection -) 1,500 mg IVPB BID [facility] Last Admin: 01/11/18 21:55 Dose: 1,500 mg Nystatin/Triamcinolone Acetonide (Mycolog Ii Cream -) 1 applic TP BID [facility] Last Admin: 01/11/18 21:56 Dose: 1 applic Pantoprazole Sodium (Protonix Iv) 40 mg IVPUSH DAILY [facility] Last Admin: 01/11/18 10:06 Dose: 40 mg Polyethylene Glycol (Miralax (For Daily Use) -) 17 gm PO DAILY [facility] Last Admin: 01/11/18 10:07 Dose: Not Given Scopolamine HBr (Transderm-Scop -) 1 patch TD Q72H [facility] Last Admin: 01/11/18 15:09 Dose: 1 patch - Objective Vital Signs: Vital Signs Temperature 100.1 F H 01/11/18 17:00 Pulse Rate 118 H 01/11/18 17:00 Respiratory Rate 21 01/11/18 17:00 Blood Pressure 133/79 01/11/18 17:00 O2 Sat by Pulse Oximetry (%) 100 01/11/18 09:00 Constitutional: Yes: Cachectic Neck: Yes: WNL, Supple Cardiovascular: Yes: WNL, Regular Rate and Rhythm Respiratory: Yes: Diminished Gastrointestinal: Yes: WNL, Normal Bowel Sounds, Soft Labs: CBC, BMP 01/11/18 06:28 01/11/18 06:28 INR, PTT INR 1.13 (0.83-1.09) H 12/31/17 07:52 Problem List - Problems (1) Acute asthma exacerbation Code(s): J45.901 - UNSPECIFIED ASTHMA WITH (ACUTE) EXACERBATION Qualifiers: Asthma severity: unspecified severity Asthma persistence: unspecified Qualified Code(s): J45.901 - Unspecified asthma with (acute) exacerbation (2) Anoxic brain damage Code(s): G93.1 - ANOXIC BRAIN DAMAGE, NOT ELSEWHERE CLASSIFIED (3) Respiratory failure Code(s): J96.90 - RESPIRATORY FAILURE, UNSP, UNSP W HYPOXIA OR HYPERCAPNIA Qualifiers: Chronicity: unspecified Respiratory failure complication: unspecified whether with hypoxia or hypercapnia Qualified Code(s): J96.90 - Respiratory failure, unspecified, unspecified whether with hypoxia or hypercapnia (4) Seizure Code(s): R56.9 - UNSPECIFIED CONVULSIONS (5) Anemia Code(s): D64.9 - ANEMIA, UNSPECIFIED (6) Autism Code(s): F84.0 - AUTISTIC DISORDER
[2018-01-12] MEDS ORDERED: DEXTROSE 5%-WATER 100 ML IVPB ONE ×3 (00:24→19:05)
[2018-01-12] MEDS ORDERED: PIPERACILLIN/TAZOBACTAM 2.25 GM VIAL IVPB ONE ×4 (00:24→19:05)
[2018-01-12] MEDS ORDERED: PT OWN MED DRAWER 7, Y5N ONE ×3 (00:26→23:55)
[2018-01-12] MEDS: CLINDAMYCIN 300 MG PREMIX IVPB 300 MG/50 ML BAG IVPB SCH ×3 (01:25→18:19)
[2018-01-12] MEDS: PIPERACILLIN/TAZOB 2.25 GM 2.25 GM in DEXTROSE 5%-WATER 100 ML IVPB SCH ×3 (01:37→19:07)
[2018-01-12] MEDS: HEPARIN NA (PORCINE) 5,000 UNITS/ML 1ML VIAL SQ SCH ×3 (06:21→21:02)
[2018-01-12] MEDS: ALBUTEROL SO4 0.083% IH SOL 2.5 MG/3 ML VIAL.NEB. NEB SCH ×4 (07:50→20:25)
[2018-01-12] MEDS: ACETYLCYSTEINE 20% 200MG/ML 4 ML VIAL *FOR ORAL / INH USE ONLY NEB SCH ×4 (07:50→20:25)
[2018-01-12] MEDS: BUDESONIDE 0.25 MG/2ML INH SUSP VIAL NEB SCH ×2 (08:10→20:30)
[2018-01-12] MEDS: levETIRAcetam 500 MG/5 ML INJECTION VIAL IVPB SCH ×2 (09:30→21:02)
[2018-01-12] MEDS: POLYETHYLENE GLYCOL 3350 119 GM BTL PO SCH (09:31)
[2018-01-12] MEDS: NYSTATIN/TRIAMCINOLONE TOPICAL CREAM 15 GM TUBE TP SCH (09:31)
[2018-01-12] MEDS: CHLORHEXIDINE GLUCONATE 0.12% 15ML CUP MM SCH ×2 (09:32→21:43)
[2018-01-12] MEDS: PANTOPRAZOLE SODIUM 40 MG VIAL IVPUSH SCH (09:32)
--- NOTE | 2018-01-12 10:40 | PN ---
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, Physician History of Present Illness: Pt seen and examined. Events noted. Pt is nonverbal, without acute distress. Low grade fever. - Current Medication List Current Medications: Active Medications Acetaminophen (Tylenol -) 650 mg PO Q6H PRN PRN Reason: Fever Or Pain 1-5 Last Admin: 01/11/18 17:32 Dose: 650 mg Acetylcysteine (Mucomyst 20 Oral / Inh Use Only*) 200 mg NEB RQID [facility] Last Admin: 01/11/18 20:25 Dose: 200 mg Albuterol Sulfate (Ventolin 0.083% Nebulizer Soln -) 1 amp NEB RQID [facility] Last Admin: 01/11/18 20:25 Dose: 1 amp Budesonide (Pulmicort 0.25 Mg Nebulizer -) 1 amp NEB RBID [facility] Last Admin: 01/11/18 20:25 Dose: 1 amp Chlorhexidine Gluconate (Peridex -) 15 ml MM BID [facility] Last Admin: 01/12/18 09:32 Dose: 15 ml Heparin Sodium (Porcine) (Heparin -) 5,000 unit SQ TID [facility] Last Admin: 01/12/18 06:21 Dose: 5,000 unit Clindamycin Phosphate (Cleocin 300 Mg Premix Ivpb) 300 mg in 50 mls @ 100 mls/ hr IVPB Q8H-IV [facility]; Protocol Last Admin: 01/12/18 09:30 Dose: 100 mls/hr Piperacillin Sod/Tazobactam (Sod 2.25 gm/ Dextrose) 100 mls @ 200 mls/hr IVPB Q8H-IV [facility]; Protocol Last Admin: 01/12/18 09:32 Dose: 200 mls/hr Levetiracetam (Keppra Injection -) 1,500 mg IVPB BID [facility] Last Admin: 01/12/18 09:30 Dose: 1,500 mg Nystatin/Triamcinolone Acetonide (Mycolog Ii Cream -) 1 applic TP BID [facility] Last Admin: 01/12/18 09:31 Dose: 1 applic Pantoprazole Sodium (Protonix Iv) 40 mg IVPUSH DAILY [facility] Last Admin: 01/12/18 09:32 Dose: 40 mg Polyethylene Glycol (Miralax (For Daily Use) -) 17 gm PO DAILY [facility] Last Admin: 01/12/18 09:31 Dose: Not Given Scopolamine HBr (Transderm-Scop -) 1 patch TD Q72H [facility] Last Admin: 01/11/18 15:09 Dose: 1 patch - Objective Vital Signs: Vital Signs Temperature 98.7 F 01/12/18 09:00 Pulse Rate 113 H 01/12/18 09:00 Respiratory Rate 18 01/12/18 09:00 Blood Pressure 104/76 01/12/18 09:00 O2 Sat by Pulse Oximetry (%) 100 01/11/18 22:00 Constitutional: Yes: No Distress HENT: Yes: Other (+NGT) Cardiovascular: Yes: Tachycardia Respiratory: Yes: Other (coarse BS b/l) Gastrointestinal: Yes: Normal Bowel Sounds, Soft Extremities: Yes: WNL Labs: CBC, BMP 01/11/18 06:28 01/11/18 06:28 INR, PTT INR 1.13 (0.83-1.09) H 12/31/17 07:52 Microbiology 01/10/18 20:45 Sputum - Endotracheal Suction W/O Vent Gram Stain - Final 01/10/18 20:45 Sputum - Endotracheal Suction W/O Vent Sputum Culture - Preliminary Staphylococcus Latex Coag Pos 01/10/18 13:30 Stool Clostridium difficile Antigen (JENNY) - Final 01/10/18 13:30 Stool Clostridium difficile Toxin Assay - Final 01/10/18 11:55 Blood - Peripheral Venous Blood Culture - Preliminary NO GROWTH OBTAINED AFTER 24 HOURS, INCUBATION TO CONTINUE FOR 4 DAYS. 01/10/18 12:10 Blood - Peripheral Venous Blood Culture - Preliminary NO GROWTH OBTAINED AFTER 24 HOURS, INCUBATION TO CONTINUE FOR 4 DAYS. 01/10/18 16:30 Urine - Urine Clean Catch Legionella Antigen - Final 01/10/18 16:30 Urine - Urine Clean Catch Streptococcus pneumoniae Antigen ( M - Final 01/10/18 13:30 Urine - Urine - Catheterized Urine Culture - Final NO GROWTH OBTAINED 12/31/17 07:52 Blood - Peripheral Venous Blood Culture - Final NO GROWTH AFTER 5 DAYS INCUBATION 12/31/17 07:52 Blood - Peripheral Venous Blood Culture - Final NO GROWTH AFTER 5 DAYS INCUBATION 12/31/17 07:52 Urine - Urine Ferrell Urine Culture - Final Escherichia Coli - ....Imaging Chest X-ray: Report Reviewed Problem List - Problems (1) Acute asthma exacerbation Code(s): J45.901 - UNSPECIFIED ASTHMA WITH (ACUTE) EXACERBATION Qualifiers: Asthma severity: unspecified severity Asthma persistence: unspecified Qualified Code(s): J45.901 - Unspecified asthma with (acute) exacerbation (2) Anoxic brain damage Code(s): G93.1 - ANOXIC BRAIN DAMAGE, NOT ELSEWHERE CLASSIFIED (3) Respiratory failure Code(s): J96.90 - RESPIRATORY FAILURE, UNSP, UNSP W HYPOXIA OR HYPERCAPNIA Qualifiers: Chronicity: unspecified Respiratory failure complication: unspecified whether with hypoxia or hypercapnia Qualified Code(s): J96.90 - Respiratory failure, unspecified, unspecified whether with hypoxia or hypercapnia (4) UTI (urinary tract infection) Code(s): N39.0 - URINARY TRACT INFECTION, SITE NOT SPECIFIED (5) Pneumonia Code(s): J18.9 - PNEUMONIA, UNSPECIFIED ORGANISM Assessment/Plan Acute asthma exacerbation Acute respiratory failure Aspiration PNA E. coli UTI Sinusitis Seizure Anoxic brain injury -- pt with leukocytosis, slightly decreased from yesterday -- low grade fevers -- Blood cultures neg to date, latest urine culture neg -- f/u respiratory culture results -- suggest remove NGT -- continue current antibiotics for now -- continue monitor wbc/temp trends
--- NOTE | 2018-01-12 12:39 | PN ---
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 (short form) - Note 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: 37 year old female history of autism, and asthma. She has severe hypoxic encephalopathy following severe asthma episode. She is not back to baseline and she has been having seizure. She was seen by dr Osorio and now last night she had breakthrough seizure and she was given extra dose of keppra and keppra is incresaed to 1500 mg iv bid. SUBJECTIVE: She is transferred to regular floor adn no acute distress, She has ng tube for feeding and wbc is still high and follow up by ID Neurological EXAMINATION: She is withdrawing to pain, and there is no spontaneous speech is present Family at bedside, and she would follow and track objects She is not following command no neck stiff, she is not able to hold her neck pupils is bilateral reactive MRI showed bilateral basal ganglia injury consistent with anoxic injury Assessment- Hypoxic-Anoxic encpehalopathy following severe bronchial asthma 2. Postnaoxic seizure ,under control on keppra Plan conitnue keppra at current dose, - continue supportive care and treatment of infection as per ID -over all prognosis is guarded Thaking you so much Abrahan Pelayo MD
--- NOTE | 2018-01-12 12:47 | PN ---
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 (short form) - Note 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: PULMONARY More awake today. Low grade temp overnight. NGT in place. Vital Signs Period Temp Pulse Resp BP Sys/Cheema Pulse Ox Last 24 Hr 98.2 F-100.1 F 103-118 18-21 104-133/60-79 100-100 Gen: more awake Heart: tachycardic, regular Lung: decreased breath sounds at the bases Abd: soft, nontender Ext: no edema CBC, BMP 01/11/18 06:28 01/11/18 06:28 Active Medications Acetaminophen (Tylenol -) 650 mg PO Q6H PRN PRN Reason: Fever Or Pain 1-5 Last Admin: 01/11/18 17:32 Dose: 650 mg Acetylcysteine (Mucomyst 20 Oral / Inh Use Only*) 200 mg NEB RQID [facility] Last Admin: 01/12/18 11:40 Dose: 200 mg Albuterol Sulfate (Ventolin 0.083% Nebulizer Soln -) 1 amp NEB RQID [facility] Last Admin: 01/12/18 11:40 Dose: 1 amp Budesonide (Pulmicort 0.25 Mg Nebulizer -) 1 amp NEB RBID [facility] Last Admin: 01/12/18 08:10 Dose: 1 amp Chlorhexidine Gluconate (Peridex -) 15 ml MM BID [facility] Last Admin: 01/12/18 09:32 Dose: 15 ml Heparin Sodium (Porcine) (Heparin -) 5,000 unit SQ TID [facility] Last Admin: 01/12/18 06:21 Dose: 5,000 unit Clindamycin Phosphate (Cleocin 300 Mg Premix Ivpb) 300 mg in 50 mls @ 100 mls/ hr IVPB Q8H-IV [facility]; Protocol Last Admin: 01/12/18 09:30 Dose: 100 mls/hr Piperacillin Sod/Tazobactam (Sod 2.25 gm/ Dextrose) 100 mls @ 200 mls/hr IVPB Q8H-IV [facility]; Protocol Last Admin: 01/12/18 09:32 Dose: 200 mls/hr Levetiracetam (Keppra Injection -) 1,500 mg IVPB BID [facility] Last Admin: 01/12/18 09:30 Dose: 1,500 mg Nystatin/Triamcinolone Acetonide (Mycolog Ii Cream -) 1 applic TP BID [facility] Last Admin: 01/12/18 09:31 Dose: 1 applic Pantoprazole Sodium (Protonix Iv) 40 mg IVPUSH DAILY [facility] Last Admin: 01/12/18 09:32 Dose: 40 mg Polyethylene Glycol (Miralax (For Daily Use) -) 17 gm PO DAILY [facility] Last Admin: 01/12/18 09:31 Dose: Not Given Scopolamine HBr (Transderm-Scop -) 1 patch TD Q72H [facility] Last Admin: 01/11/18 15:09 Dose: 1 patch A/P Acute Hypoxic and Hypercapneic Respiratory Failure improving Anoxic Encephalopathy r/o Seizures Status Asthmaticus resolved Pneumonia likely Aspiration Shock resolved UTI Lactic Acidosis resolved Acute Kidney Injury resolved Hyperglycemia resolved Autism - continue antibiotics per ID - inhaled bronchodilators standing and PRN - inhaled corticosteroids - aspiration precautions - contine empiric antiepileptics - DVT/GI prophylaxis - can d/c pulse oximetry monitoring
[2018-01-12] MEDS: ACETAMINOPHEN 325 MG TABLET (FP) PO PRN (20:51)
[2018-01-12] MEDS ORDERED: LORazepam 2 MG/ML SDV VIAL IVPUSH ONE ×2 (21:34→22:15)
[2018-01-12] MEDS ORDERED: LORazepam 2 MG/ML SDV VIAL IVPUSH PRN (21:36)
--- NOTE | 2018-01-12 22:12 | HOSP ---
Subjective - Review of Symptoms Events since last encounter: Hospitalist Encounter Notified by RN that a patient of Dr. Feldman appeared to be having seizure like activity, per RN calls x5 placed to Dr. Cardoso no response. Was requested to see the patient. Subjective: Arrived to bedside, patient is awake at baseline, with clinched fists and teeth. VSS, Parent at bedside, reports this activity is new. See PE A: 37 y/o woman PMHx Hypoxic-Anoxic Encephalopathy, Asthma, Autism. Admitted for [place] Seizure P: Ativan IV Stat EKG O2 Monitor vitals Will transfer to Telemetry or ICU if condition worsens Zofran IV x1 Appreciate [employer] Specialist Consult Will transfer patient to Telemetry secondary to Status Epilepticus Neurological: Yes: Seizures Physical Examination Vital Signs: Vital Signs Temperature 100.1 F H 01/12/18 20:52 Pulse Rate 135 H 01/12/18 20:52 Respiratory Rate 18 01/12/18 20:52 Blood Pressure 119/83 01/12/18 20:52 O2 Sat by Pulse Oximetry (%) 97 01/12/18 13:30 Constitutional: Yes: Moderate Distress, Thin HENT: Yes: Other (NGT in) Cardiovascular: Yes: Tachycardia, S1, S2 Respiratory: Yes: Diminished (bases), Other (NGT R- Nare) Peripheral Pulses WNL: Yes Neurological: Yes: Seizure Psychiatric: Yes: Agitated Labs: CBC, BMP 01/11/18 06:28 01/11/18 06:28 Current Medications Generic Name Dose Route Start Last Admin Trade Name Freq PRN Reason Stop Dose Admin Acetaminophen 650 mg 01/10/18 01:57 01/12/18 20:51 Tylenol - PO 650 mg Q6H PRN Administration Fever Or Pain 1-5 Acetylcysteine 200 mg 01/11/18 08:00 01/12/18 20:25 Mucomyst 20 Oral / Inh Use Only* NEB 200 mg RQID [facility] Administration Albuterol Sulfate 1 amp 01/11/18 08:00 01/12/18 20:25 Ventolin 0.083% Nebulizer Soln - NEB 1 amp RQID [facility] Administration Budesonide 1 amp 01/11/18 08:00 01/12/18 08:10 Pulmicort 0.25 Mg Nebulizer - NEB 1 amp RBID [facility] Administration Chlorhexidine Gluconate 15 ml 01/11/18 10:00 01/12/18 21:43 Peridex - MM Not Given BID [facility] Heparin Sodium (Porcine) 5,000 unit 01/11/18 14:00 01/12/18 21:02 Heparin - SQ 5,000 unit TID [facility] Administration Clindamycin Phosphate 300 mg in 50 mls @ 100 mls/hr 01/10/18 13:45 01/12/18 18:19 Cleocin 300 Mg Premix Ivpb IVPB 100 mls/hr Q8H-IV [facility] Administration Protocol Piperacillin Sod/Tazobactam 100 mls @ 200 mls/hr 01/11/18 02:00 01/12/18 19: 07 Sod 2.25 gm/ Dextrose IVPB 200 mls/hr Q8H-IV [facility] Administration Protocol Levetiracetam 1,500 mg 01/11/18 10:00 01/12/18 21:02 Keppra Injection - IVPB 1,500 mg BID [facility] Administration Lorazepam 0.5 mg 01/12/18 21:36 Ativan Injection - IVPUSH Q6H PRN breakthrough seizures Nystatin/Triamcinolone Acetonide 1 applic 01/10/18 13:37 01/13/18 01:07 Mycolog Ii Cream - TP Not Given BID [facility] Pantoprazole Sodium 40 mg 01/11/18 10:00 01/12/18 09:32 Protonix Iv IVPUSH 40 mg DAILY [facility] Administration Polyethylene Glycol 17 gm 01/11/18 10:00 01/12/18 09:31 Miralax (For Daily Use) - PO Not Given DAILY [facility] Scopolamine HBr 1 patch 01/11/18 15:00 01/11/18 15:09 Transderm-Scop - TD 1 patch Q72H [facility] Administration Intake & Output 01/10/18 01/11/18 01/12/18 01/13/18 23:59 23:59 23:59 23:59 Intake Total 1470 1010 1700 Output Total 300 Balance 1170 1010 1700 Weight 41.912 kg Hospitalist Encounter Outcome: No response, 2nd Ativan ordered, Pt now postictal EKG- ST 118 bpm, no change from prior study Notified by RN, BP- 66/28 Fluid Bolus ordered, Repeat after 200ml bolus 159/99, IV fluids d/cd Notified by RN patient resumed screaming Had RN place call to Neurologist to update on current status of pt RN received call from Neurologist for Cerebyx IV Discussed case with Dr. Perdomo, Tower [employer] Traffic [employer] Specialist Resident, for possible transfer to ICU, she assessed the patient and the patient did not meet ICU criteria at this time. Arranged to have the patient transferred to Telemetry, the mother and sister at bedside were informed and were pleased with the decision. Critical Care Total Critical Care Time (in minutes): 120 Critical Care Statement: The care of this patient involved high complexity decision making to prevent further life threatening deterioration of the patient 's condition and/or to evaluate & treat vital organ system(s) failure or risk of failure.
[2018-01-12] MEDS ORDERED: SODIUM CHLORIDE 500 ML IV STA (22:20)
--- NOTE | 2018-01-12 22:56 | PN ---
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, Physician History of Present Illness: No new complaints - Current Medication List Current Medications: Active Medications Acetaminophen (Tylenol -) 650 mg PO Q6H PRN PRN Reason: Fever Or Pain 1-5 Last Admin: 01/12/18 20:51 Dose: 650 mg Acetylcysteine (Mucomyst 20 Oral / Inh Use Only*) 200 mg NEB RQID [facility] Last Admin: 01/12/18 20:25 Dose: 200 mg Albuterol Sulfate (Ventolin 0.083% Nebulizer Soln -) 1 amp NEB RQID [facility] Last Admin: 01/12/18 20:25 Dose: 1 amp Budesonide (Pulmicort 0.25 Mg Nebulizer -) 1 amp NEB RBID [facility] Last Admin: 01/12/18 08:10 Dose: 1 amp Chlorhexidine Gluconate (Peridex -) 15 ml MM BID [facility] Last Admin: 01/12/18 21:43 Dose: Not Given Heparin Sodium (Porcine) (Heparin -) 5,000 unit SQ TID [facility] Last Admin: 01/12/18 21:02 Dose: 5,000 unit Clindamycin Phosphate (Cleocin 300 Mg Premix Ivpb) 300 mg in 50 mls @ 100 mls/ hr IVPB Q8H-IV [facility]; Protocol Last Admin: 01/12/18 18:19 Dose: 100 mls/hr Piperacillin Sod/Tazobactam (Sod 2.25 gm/ Dextrose) 100 mls @ 200 mls/hr IVPB Q8H-IV [facility]; Protocol Last Admin: 01/12/18 19:07 Dose: 200 mls/hr Sodium Chloride (Normal Saline -) 500 mls @ 500 mls/hr IV ASDIR STA Stop: 01/12/18 23:19 Last Admin: 01/12/18 22:22 Dose: 500 mls/hr Levetiracetam (Keppra Injection -) 1,500 mg IVPB BID [facility] Last Admin: 01/12/18 21:02 Dose: 1,500 mg Lorazepam (Ativan Injection -) 0.5 mg IVPUSH Q6H PRN PRN Reason: breakthrough seizures Nystatin/Triamcinolone Acetonide (Mycolog Ii Cream -) 1 applic TP BID [facility] Last Admin: 01/12/18 09:31 Dose: 1 applic Pantoprazole Sodium (Protonix Iv) 40 mg IVPUSH DAILY [facility] Last Admin: 01/12/18 09:32 Dose: 40 mg Polyethylene Glycol (Miralax (For Daily Use) -) 17 gm PO DAILY [facility] Last Admin: 01/12/18 09:31 Dose: Not Given Scopolamine HBr (Transderm-Scop -) 1 patch TD Q72H [facility] Last Admin: 01/11/18 15:09 Dose: 1 patch - Objective Vital Signs: Vital Signs Temperature 100.1 F H 01/12/18 20:52 Pulse Rate 137 H 01/12/18 22:55 Respiratory Rate 18 01/12/18 22:55 Blood Pressure 159/99 01/12/18 22:55 O2 Sat by Pulse Oximetry (%) 97 01/12/18 13:30 Neck: Yes: WNL, Supple Cardiovascular: Yes: WNL, Regular Rate and Rhythm Respiratory: Yes: Diminished Gastrointestinal: Yes: WNL, Normal Bowel Sounds, Soft Labs: CBC, BMP 01/11/18 06:28 01/11/18 06:28 INR, PTT INR 1.13 (0.83-1.09) H 12/31/17 07:52 Problem List - Problems (1) Acute asthma exacerbation Code(s): J45.901 - UNSPECIFIED ASTHMA WITH (ACUTE) EXACERBATION Qualifiers: Asthma severity: unspecified severity Asthma persistence: unspecified Qualified Code(s): J45.901 - Unspecified asthma with (acute) exacerbation (2) Anoxic brain damage Code(s): G93.1 - ANOXIC BRAIN DAMAGE, NOT ELSEWHERE CLASSIFIED (3) Respiratory failure Code(s): J96.90 - RESPIRATORY FAILURE, UNSP, UNSP W HYPOXIA OR HYPERCAPNIA Qualifiers: Chronicity: unspecified Respiratory failure complication: unspecified whether with hypoxia or hypercapnia Qualified Code(s): J96.90 - Respiratory failure, unspecified, unspecified whether with hypoxia or hypercapnia (4) Seizure Code(s): R56.9 - UNSPECIFIED CONVULSIONS (5) Anemia Code(s): D64.9 - ANEMIA, UNSPECIFIED (6) Autism Code(s): F84.0 - AUTISTIC DISORDER (7) Pneumonia Code(s): J18.9 - PNEUMONIA, UNSPECIFIED ORGANISM
[2018-01-12] MEDS ORDERED: ONDANSETRON 4 MG/2 ML VIAL IVPUSH ONE (23:32)
[2018-01-13] MEDS ORDERED: FOSPHENYTOIN SODIUM 500 MG/10 ML IVPB ONE (00:15)
[2018-01-13] MEDS: NYSTATIN/TRIAMCINOLONE TOPICAL CREAM 15 GM TUBE TP SCH ×3 (01:07→22:00)
[2018-01-13] MEDS ORDERED: DEXTROSE 5%-WATER 100 ML IVPB ONE ×3 (03:24→16:51)
[2018-01-13] MEDS ORDERED: PIPERACILLIN/TAZOBACTAM 2.25 GM VIAL IVPB ONE ×3 (03:24→16:51)
[2018-01-13] MEDS: PIPERACILLIN/TAZOB 2.25 GM 2.25 GM in DEXTROSE 5%-WATER 100 ML IVPB SCH ×3 (03:29→17:56)
[2018-01-13] MEDS: CLINDAMYCIN 300 MG PREMIX IVPB 300 MG/50 ML BAG IVPB SCH ×3 (03:37→17:57)
[2018-01-13] MEDS: HEPARIN NA (PORCINE) 5,000 UNITS/ML 1ML VIAL SQ SCH ×3 (05:56→21:35)
[2018-01-13] MEDS: ACETYLCYSTEINE 20% 200MG/ML 4 ML VIAL *FOR ORAL / INH USE ONLY NEB SCH ×5 (07:40→20:50)
[2018-01-13] MEDS: ALBUTEROL SO4 0.083% IH SOL 2.5 MG/3 ML VIAL.NEB. NEB SCH ×4 (07:40→20:50)
[2018-01-13] MEDS: BUDESONIDE 0.25 MG/2ML INH SUSP VIAL NEB SCH ×2 (07:55→20:50)
[2018-01-13] MEDS: levETIRAcetam 500 MG/5 ML INJECTION VIAL IVPB SCH ×2 (09:42→21:35)
[2018-01-13] MEDS: CHLORHEXIDINE GLUCONATE 0.12% 15ML CUP MM SCH ×2 (09:56→21:37)
[2018-01-13] MEDS: POLYETHYLENE GLYCOL 3350 119 GM BTL PO SCH (09:56)
[2018-01-13] MEDS: PANTOPRAZOLE SODIUM 40 MG VIAL IVPUSH SCH (09:56)
--- NOTE | 2018-01-13 14:17 | PN ---
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 (short form) - Note 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: 37 year old female history of autism, and asthma. She has severe hypoxic encephalopathy following severe asthma episode. She is not back to baseline and she has been having seizure. She was seen by dr Osorio and now last night she had breakthrough seizure and she was given extra dose of keppra and keppra is incresaed to 1500 mg iv bid. SUBJECTIVE: She has episode of seizure last night and now she is make moaning sounds and becomes agitation Neurological EXAMINATION: She is withdrawing to pain, and there is no spontaneous speech is present Family at bedside, and she would follow and track objects She is not following command no neck stiff, she is not able to hold her neck pupils is bilateral reactive MRI showed bilateral basal ganglia injury consistent with anoxic injury Assessment- Hypoxic-Anoxic encpehalopathy following severe bronchial asthma 2. Postnaoxic seizure ,she has one breakthrough seizure and now she is moaning and making sounds Plan conitnue keppra at current dose, I woudl add depakote 250 mg iv bid . I doubt making sounds is side effect of keppra, It could be that patient was non verbal and she is now recovering. - continue supportive care and treatment of infection as per ID -over all prognosis is guarded Thaking you so much Abrahan Pelayo MD
--- NOTE | 2018-01-13 14:33 | PN ---
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 (short form) - Note 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: PULMONARY Groaning today. Low grade temp overnight. NGT in place. Vital Signs Period Temp Pulse Resp BP Sys/Cheema Pulse Ox Last 24 Hr 97.8 F-100.1 F 86-150 18-22 65-159/28-101 97-98 Gen: more awake Heart: tachycardic, regular Lung: decreased breath sounds at the bases Abd: soft, nontender Ext: no edema CBC, BMP 01/11/18 06:28 01/11/18 06:28 Active Medications Acetaminophen (Tylenol -) 650 mg PO Q6H PRN PRN Reason: Fever Or Pain 1-5 Last Admin: 01/12/18 20:51 Dose: 650 mg Acetylcysteine (Mucomyst 20 Oral / Inh Use Only*) 200 mg NEB RQID [facility] Last Admin: 01/13/18 11:20 Dose: 200 mg Albuterol Sulfate (Ventolin 0.083% Nebulizer Soln -) 1 amp NEB RQID [facility] Last Admin: 01/13/18 11:20 Dose: 1 amp Budesonide (Pulmicort 0.25 Mg Nebulizer -) 1 amp NEB RBID [facility] Last Admin: 01/13/18 07:55 Dose: 1 amp Chlorhexidine Gluconate (Peridex -) 15 ml MM BID [facility] Last Admin: 01/13/18 09:56 Dose: Not Given Heparin Sodium (Porcine) (Heparin -) 5,000 unit SQ TID [facility] Last Admin: 01/13/18 05:56 Dose: 5,000 unit Clindamycin Phosphate (Cleocin 300 Mg Premix Ivpb) 300 mg in 50 mls @ 100 mls/ hr IVPB Q8H-IV [facility]; Protocol Last Admin: 01/13/18 09:38 Dose: 100 mls/hr Piperacillin Sod/Tazobactam (Sod 2.25 gm/ Dextrose) 100 mls @ 200 mls/hr IVPB Q8H-IV [facility]; Protocol Last Admin: 01/13/18 09:57 Dose: 200 mls/hr Levetiracetam (Keppra Injection -) 1,500 mg IVPB BID [facility] Last Admin: 01/13/18 09:42 Dose: 1,500 mg Lorazepam (Ativan Injection -) 0.5 mg IVPUSH Q6H PRN PRN Reason: breakthrough seizures Last Admin: 01/13/18 05:51 Dose: 0.25 mg Nystatin/Triamcinolone Acetonide (Mycolog Ii Cream -) 1 applic TP BID [facility] Last Admin: 01/13/18 09:56 Dose: 1 applic Pantoprazole Sodium (Protonix Iv) 40 mg IVPUSH DAILY [facility] Last Admin: 01/13/18 09:56 Dose: 40 mg Polyethylene Glycol (Miralax (For Daily Use) -) 17 gm PO DAILY [facility] Last Admin: 01/13/18 09:56 Dose: Not Given Scopolamine HBr (Transderm-Scop -) 1 patch TD Q72H [facility] Last Admin: 01/11/18 15:09 Dose: 1 patch Valproate Sodium (Depacon Injection -) 250 mg IVPB BID [facility] A/P Acute Hypoxic and Hypercapneic Respiratory Failure improving Anoxic Encephalopathy r/o Seizures Status Asthmaticus resolved Pneumonia likely Aspiration Shock resolved UTI Lactic Acidosis resolved Acute Kidney Injury resolved Hyperglycemia resolved Autism - continue antibiotics per ID - inhaled bronchodilators standing and PRN - inhaled corticosteroids - aspiration precautions - contine empiric antiepileptics - DVT/GI prophylaxis
[2018-01-13] MEDS ORDERED: PT OWN MED DRAWER 7, Y5N ONE ×3 (15:55→21:26)
--- NOTE | 2018-01-13 17:21 | PN ---
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, Physician History of Present Illness: Events noted. Pt had seizure episode last night. Currently afebrile but temp 100.1 last night. Mother reports episode of vomiting around that time. - Current Medication List Current Medications: Active Medications Acetaminophen (Tylenol -) 650 mg PO Q6H PRN PRN Reason: Fever Or Pain 1-5 Last Admin: 01/12/18 20:51 Dose: 650 mg Acetylcysteine (Mucomyst 20 Oral / Inh Use Only*) 200 mg NEB RQID [facility] Last Admin: 01/13/18 16:24 Dose: 200 mg Albuterol Sulfate (Ventolin 0.083% Nebulizer Soln -) 1 amp NEB RQID [facility] Last Admin: 01/13/18 16:25 Dose: 1 amp Budesonide (Pulmicort 0.25 Mg Nebulizer -) 1 amp NEB RBID [facility] Last Admin: 01/13/18 07:55 Dose: 1 amp Chlorhexidine Gluconate (Peridex -) 15 ml MM BID [facility] Last Admin: 01/13/18 09:56 Dose: Not Given Heparin Sodium (Porcine) (Heparin -) 5,000 unit SQ TID [facility] Last Admin: 01/13/18 15:37 Dose: 5,000 unit Clindamycin Phosphate (Cleocin 300 Mg Premix Ivpb) 300 mg in 50 mls @ 100 mls/ hr IVPB Q8H-IV [facility]; Protocol Last Admin: 01/13/18 09:38 Dose: 100 mls/hr Piperacillin Sod/Tazobactam (Sod 2.25 gm/ Dextrose) 100 mls @ 200 mls/hr IVPB Q8H-IV [facility]; Protocol Last Admin: 01/13/18 09:57 Dose: 200 mls/hr Levetiracetam (Keppra Injection -) 1,500 mg IVPB BID [facility] Last Admin: 01/13/18 09:42 Dose: 1,500 mg Lorazepam (Ativan Injection -) 0.5 mg IVPUSH Q6H PRN PRN Reason: breakthrough seizures Last Admin: 01/13/18 05:51 Dose: 0.25 mg Nystatin/Triamcinolone Acetonide (Mycolog Ii Cream -) 1 applic TP BID [facility] Last Admin: 01/13/18 09:56 Dose: 1 applic Pantoprazole Sodium (Protonix Iv) 40 mg IVPUSH DAILY [facility] Last Admin: 01/13/18 09:56 Dose: 40 mg Polyethylene Glycol (Miralax (For Daily Use) -) 17 gm PO DAILY [facility] Last Admin: 01/13/18 09:56 Dose: Not Given Scopolamine HBr (Transderm-Scop -) 1 patch TD Q72H [facility] Last Admin: 01/11/18 15:09 Dose: 1 patch Valproate Sodium (Depacon Injection -) 250 mg IVPB BID [facility] - Objective Vital Signs: Vital Signs Temperature 97.5 F L 01/13/18 16:00 Pulse Rate 64 01/13/18 16:00 Respiratory Rate 20 01/13/18 16:00 Blood Pressure 119/75 01/13/18 16:00 O2 Sat by Pulse Oximetry (%) 98 01/13/18 09:00 Constitutional: Yes: Other HENT: Yes: Other (NGT) Neck: Yes: Supple Cardiovascular: Yes: Tachycardia Respiratory: Yes: Other (poor inspiratory effort, no audible rhonchi/wheeze) Gastrointestinal: Yes: Normal Bowel Sounds, Soft Labs: CBC, BMP 01/11/18 06:28 01/11/18 06:28 INR, PTT INR 1.13 (0.83-1.09) H 12/31/17 07:52 Microbiology 01/10/18 11:55 Blood - Peripheral Venous Blood Culture - Preliminary NO GROWTH OBTAINED AFTER 72 HOURS, INCUBATION TO CONTINUE FOR 2 DAYS. 01/10/18 12:10 Blood - Peripheral Venous Blood Culture - Preliminary NO GROWTH OBTAINED AFTER 72 HOURS, INCUBATION TO CONTINUE FOR 2 DAYS. 01/10/18 20:45 Sputum - Endotracheal Suction W/O Vent Gram Stain - Final 01/10/18 20:45 Sputum - Endotracheal Suction W/O Vent Sputum Culture - Preliminary Presumptive Mrsa (Pbp2a Pos) 01/10/18 13:30 Stool Clostridium difficile Antigen (JENNY) - Final 01/10/18 13:30 Stool Clostridium difficile Toxin Assay - Final 01/10/18 16:30 Urine - Urine Clean Catch Legionella Antigen - Final 01/10/18 16:30 Urine - Urine Clean Catch Streptococcus pneumoniae Antigen ( M - Final 01/10/18 13:30 Urine - Urine - Catheterized Urine Culture - Final NO GROWTH OBTAINED 12/31/17 07:52 Blood - Peripheral Venous Blood Culture - Final NO GROWTH AFTER 5 DAYS INCUBATION 12/31/17 07:52 Blood - Peripheral Venous Blood Culture - Final NO GROWTH AFTER 5 DAYS INCUBATION 12/31/17 07:52 Urine - Urine Ferrell Urine Culture - Final Escherichia Coli - ....Imaging Chest X-ray: Pending Problem List - Problems (1) Acute asthma exacerbation Code(s): J45.901 - UNSPECIFIED ASTHMA WITH (ACUTE) EXACERBATION Qualifiers: Asthma severity: unspecified severity Asthma persistence: unspecified Qualified Code(s): J45.901 - Unspecified asthma with (acute) exacerbation (2) Anoxic brain damage Code(s): G93.1 - ANOXIC BRAIN DAMAGE, NOT ELSEWHERE CLASSIFIED (3) Respiratory failure Code(s): J96.90 - RESPIRATORY FAILURE, UNSP, UNSP W HYPOXIA OR HYPERCAPNIA Qualifiers: Chronicity: unspecified Respiratory failure complication: unspecified whether with hypoxia or hypercapnia Qualified Code(s): J96.90 - Respiratory failure, unspecified, unspecified whether with hypoxia or hypercapnia (4) UTI (urinary tract infection) Code(s): N39.0 - URINARY TRACT INFECTION, SITE NOT SPECIFIED (5) Pneumonia Code(s): J18.9 - PNEUMONIA, UNSPECIFIED ORGANISM Assessment/Plan Acute asthma exacerbation Acute respiratory failure Aspiration PNA E. coli UTI Sinusitis Seizure - episode last night Anoxic brain injury -- pt with leukocytosis, low grade fevers -- cont. Zosyn/clindamycin -- respiratory cultures +MRSA - will add Vancomycin with close monitoring of renal function -- repeat cbc, bmp -- f/u CXR results -- suggest remove NGT if possible -- continue monitor wbc/temp trends -- aspiration/seizure precautions
[2018-01-13] MEDS: VANCOMYCIN 1 GM PREMIX - 1 GM/200 ML BAG IVPB SCH (18:55)
--- NOTE | 2018-01-13 20:53 | PN ---
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, Physician History of Present Illness: No new complaints - Current Medication List Current Medications: Active Medications Acetaminophen (Tylenol -) 650 mg PO Q6H PRN PRN Reason: Fever Or Pain 1-5 Last Admin: 01/12/18 20:51 Dose: 650 mg Acetylcysteine (Mucomyst 20 Oral / Inh Use Only*) 200 mg NEB RQID [facility] Last Admin: 01/13/18 16:24 Dose: 200 mg Albuterol Sulfate (Ventolin 0.083% Nebulizer Soln -) 1 amp NEB RQID [facility] Last Admin: 01/13/18 16:25 Dose: 1 amp Budesonide (Pulmicort 0.25 Mg Nebulizer -) 1 amp NEB RBID [facility] Last Admin: 01/13/18 07:55 Dose: 1 amp Chlorhexidine Gluconate (Peridex -) 15 ml MM BID [facility] Last Admin: 01/13/18 09:56 Dose: Not Given Heparin Sodium (Porcine) (Heparin -) 5,000 unit SQ TID [facility] Last Admin: 01/13/18 15:37 Dose: 5,000 unit Clindamycin Phosphate (Cleocin 300 Mg Premix Ivpb) 300 mg in 50 mls @ 100 mls/ hr IVPB Q8H-IV [facility]; Protocol Last Admin: 01/13/18 17:57 Dose: 100 mls/hr Piperacillin Sod/Tazobactam (Sod 2.25 gm/ Dextrose) 100 mls @ 200 mls/hr IVPB Q8H-IV [facility]; Protocol Last Admin: 01/13/18 17:56 Dose: 200 mls/hr Vancomycin HCl (Vancomycin 1 Gm Premix -) 1 gm in 200 mls @ 133.333 mls/hr IVPB BID@0600,1800 [facility]; Protocol Last Admin: 01/13/18 18:55 Dose: 133.333 mls/hr Levetiracetam (Keppra Injection -) 1,500 mg IVPB BID [facility] Last Admin: 01/13/18 09:42 Dose: 1,500 mg Lorazepam (Ativan Injection -) 0.5 mg IVPUSH Q6H PRN PRN Reason: breakthrough seizures Last Admin: 01/13/18 05:51 Dose: 0.25 mg Nystatin/Triamcinolone Acetonide (Mycolog Ii Cream -) 1 applic TP BID [facility] Last Admin: 01/13/18 09:56 Dose: 1 applic Pantoprazole Sodium (Protonix Iv) 40 mg IVPUSH DAILY [facility] Last Admin: 01/13/18 09:56 Dose: 40 mg Polyethylene Glycol (Miralax (For Daily Use) -) 17 gm PO DAILY [facility] Last Admin: 01/13/18 09:56 Dose: Not Given Scopolamine HBr (Transderm-Scop -) 1 patch TD Q72H [facility] Last Admin: 01/11/18 15:09 Dose: 1 patch Valproate Sodium (Depacon Injection -) 250 mg IVPB BID [facility] - Objective Vital Signs: Vital Signs Temperature 97.5 F L 01/13/18 16:00 Pulse Rate 64 01/13/18 16:00 Respiratory Rate 20 01/13/18 16:00 Blood Pressure 119/75 01/13/18 16:00 O2 Sat by Pulse Oximetry (%) 100 01/13/18 18:51 Constitutional: Yes: Cachectic Neck: Yes: WNL, Supple Cardiovascular: Yes: WNL, Regular Rate and Rhythm Respiratory: Yes: Rhonchi Gastrointestinal: Yes: WNL, Normal Bowel Sounds, Soft Labs: CBC, BMP 01/11/18 06:28 01/11/18 06:28 INR, PTT INR 1.13 (0.83-1.09) H 12/31/17 07:52 Problem List - Problems (1) Acute asthma exacerbation Code(s): J45.901 - UNSPECIFIED ASTHMA WITH (ACUTE) EXACERBATION Qualifiers: Asthma severity: unspecified severity Asthma persistence: unspecified Qualified Code(s): J45.901 - Unspecified asthma with (acute) exacerbation (2) Anoxic brain damage Code(s): G93.1 - ANOXIC BRAIN DAMAGE, NOT ELSEWHERE CLASSIFIED (3) Respiratory failure Code(s): J96.90 - RESPIRATORY FAILURE, UNSP, UNSP W HYPOXIA OR HYPERCAPNIA Qualifiers: Chronicity: unspecified Respiratory failure complication: unspecified whether with hypoxia or hypercapnia Qualified Code(s): J96.90 - Respiratory failure, unspecified, unspecified whether with hypoxia or hypercapnia (4) Seizure Code(s): R56.9 - UNSPECIFIED CONVULSIONS (5) Anemia Code(s): D64.9 - ANEMIA, UNSPECIFIED
[2018-01-13] MEDS: VALPROATE SODIUM 500 MG/5 ML VIAL IVPB SCH (22:01)
[2018-01-14] MEDS: CLINDAMYCIN 300 MG PREMIX IVPB 300 MG/50 ML BAG IVPB SCH ×2 (01:43→10:20)
[2018-01-14] MEDS ORDERED: PIPERACILLIN/TAZOBACTAM 2.25 GM VIAL IVPB ONE ×3 (03:20→16:48)
[2018-01-14] MEDS ORDERED: DEXTROSE 5%-WATER 100 ML IVPB ONE ×3 (03:20→16:48)
[2018-01-14] MEDS: PIPERACILLIN/TAZOB 2.25 GM 2.25 GM in DEXTROSE 5%-WATER 100 ML IVPB SCH ×3 (03:25→17:43)
[2018-01-14] MEDS: HEPARIN NA (PORCINE) 5,000 UNITS/ML 1ML VIAL SQ SCH ×3 (05:41→21:00)
[2018-01-14] MEDS: VANCOMYCIN 1 GM PREMIX - 1 GM/200 ML BAG IVPB SCH ×2 (05:41→17:42)
[2018-01-14] MEDS ORDERED: ACETAMINOPHEN 1000 MG/100 ML VIAL (NON FORMULARY) IVPB ONE (06:30)
[2018-01-14 06:53] LABS: BASO % 0.6 % (0-2.0); EOS % 2.4 % (0-4.5); HEMATOCRIT 31.7 % (32.4-45.2); HEMOGLOBIN 10.6 GM/dL (10.7-15.3); LYMPH % 6.6 % (8-40); MCH 29.8 pg (25.7-33.7); MCHC 33.4 g/dl (32.0-36.0); MEAN CELL VOLUME 89.2 fl (80-96); NEUT % 83.4 % (42.8-82.8); PLATELET COUNT 564 K/MM3 (134-434); RBC 3.55 M/mm3 (3.60-5.2); RDW 13.5 % (11.6-15.6)
[2018-01-14 06:58] LABS: ANION GAP 12 MMOL/L (8-16); BLOOD UREA NITROGEN 13 mg/dL (7-18); CHLORIDE 106 mmol/L (98-107); CO2 25 mmol/L (21-32); CREATININE 0.7 mg/dL (0.55-1.02); GLUCOSE,RANDOM 108 mg/dL (74-106); POTASSIUM 3.5 mmol/L (3.5-5.1); SODIUM 143 mmol/L (136-145)
[2018-01-14] MEDS: ACETYLCYSTEINE 20% 200MG/ML 4 ML VIAL *FOR ORAL / INH USE ONLY NEB SCH ×4 (08:05→19:47)
[2018-01-14] MEDS: ALBUTEROL SO4 0.083% IH SOL 2.5 MG/3 ML VIAL.NEB. NEB SCH ×4 (08:05→19:47)
[2018-01-14] MEDS: BUDESONIDE 0.25 MG/2ML INH SUSP VIAL NEB SCH ×2 (08:15→19:47)
[2018-01-14] MEDS: VALPROATE SODIUM 500 MG/5 ML VIAL IVPB SCH ×2 (09:25→21:00)
[2018-01-14] MEDS: PANTOPRAZOLE SODIUM 40 MG VIAL IVPUSH SCH (09:26)
[2018-01-14] MEDS: levETIRAcetam 500 MG/5 ML INJECTION VIAL IVPB SCH ×2 (10:20→20:59)
[2018-01-14] MEDS ORDERED: ACETAMINOPHEN 1000 MG/100 ML VIAL (NON FORMULARY) IVPB PRN (10:22)
[2018-01-14] MEDS: POLYETHYLENE GLYCOL 3350 119 GM BTL PO SCH (10:22)
[2018-01-14] MEDS: NYSTATIN/TRIAMCINOLONE TOPICAL CREAM 15 GM TUBE TP SCH ×2 (10:22→21:01)
[2018-01-14] MEDS: CHLORHEXIDINE GLUCONATE 0.12% 15ML CUP MM SCH ×2 (10:23→21:01)
[2018-01-14] MEDS: DEXTROSE 5%-0.45% SALINE 1,000 ML IV SCH (10:26)
--- NOTE | 2018-01-14 11:08 | PN ---
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, Physician History of Present Illness: PULMONARY AWAKE,POORLY RESPONSIVE - Current Medication List Current Medications: Active Medications Acetaminophen (Tylenol -) 650 mg PO Q6H PRN PRN Reason: Fever Or Pain 1-5 Last Admin: 01/12/18 20:51 Dose: 650 mg Acetaminophen (Ofirmev Injection -) 1,000 mg IVPB Q6H PRN PRN Reason: PAIN Acetylcysteine (Mucomyst 20 Oral / Inh Use Only*) 200 mg NEB RQID [facility] Last Admin: 01/14/18 08:05 Dose: 200 mg Albuterol Sulfate (Ventolin 0.083% Nebulizer Soln -) 1 amp NEB RQID [facility] Last Admin: 01/14/18 08:05 Dose: 1 amp Budesonide (Pulmicort 0.25 Mg Nebulizer -) 1 amp NEB RBID [facility] Last Admin: 01/14/18 08:15 Dose: 1 amp Chlorhexidine Gluconate (Peridex -) 15 ml MM BID [facility] Last Admin: 01/14/18 10:23 Dose: Not Given Heparin Sodium (Porcine) (Heparin -) 5,000 unit SQ TID [facility] Last Admin: 01/14/18 05:41 Dose: 5,000 unit Clindamycin Phosphate (Cleocin 300 Mg Premix Ivpb) 300 mg in 50 mls @ 100 mls/ hr IVPB Q8H-IV [facility]; Protocol Last Admin: 01/14/18 10:20 Dose: 100 mls/hr Piperacillin Sod/Tazobactam (Sod 2.25 gm/ Dextrose) 100 mls @ 200 mls/hr IVPB Q8H-IV [facility]; Protocol Last Admin: 01/14/18 09:26 Dose: 200 mls/hr Vancomycin HCl (Vancomycin 1 Gm Premix -) 1 gm in 200 mls @ 133.333 mls/hr IVPB BID@0600,1800 [facility]; Protocol Last Admin: 01/14/18 05:41 Dose: 133.333 mls/hr Dextrose/Sodium Chloride (D5-1/2ns -) 1,000 mls @ 75 mls/hr IV ASDIR [facility] Last Admin: 01/14/18 10:26 Dose: 75 mls/hr Levetiracetam (Keppra Injection -) 1,500 mg IVPB BID [facility] Last Admin: 01/14/18 10:20 Dose: 1,500 mg Lorazepam (Ativan Injection -) 0.5 mg IVPUSH Q6H PRN PRN Reason: breakthrough seizures Last Admin: 01/13/18 05:51 Dose: 0.25 mg Nystatin/Triamcinolone Acetonide (Mycolog Ii Cream -) 1 applic TP BID [facility] Last Admin: 01/14/18 10:22 Dose: 1 applic Pantoprazole Sodium (Protonix Iv) 40 mg IVPUSH DAILY [facility] Last Admin: 01/14/18 09:26 Dose: 40 mg Polyethylene Glycol (Miralax (For Daily Use) -) 17 gm PO DAILY [facility] Last Admin: 01/14/18 10:22 Dose: Not Given Scopolamine HBr (Transderm-Scop -) 1 patch TD Q72H [facility] Last Admin: 01/11/18 15:09 Dose: 1 patch Valproate Sodium (Depacon Injection -) 250 mg IVPB BID [facility] Last Admin: 01/14/18 09:25 Dose: 250 mg - Objective Vital Signs: Vital Signs Temperature 99.2 F 01/14/18 06:00 Pulse Rate 133 H 01/14/18 06:00 Respiratory Rate 20 01/14/18 06:00 Blood Pressure 134/92 01/14/18 06:00 O2 Sat by Pulse Oximetry (%) 100 01/13/18 21:00 Constitutional: Yes: Thin, Other (POORLY RESPONSIVE) Eyes: Yes: WNL HENT: Yes: WNL Neck: Yes: WNL Cardiovascular: Yes: Regular Rate and Rhythm, S1, S2 Respiratory: Yes: Diminished Gastrointestinal: Yes: Normal Bowel Sounds, Soft Extremities: Yes: WNL Edema: No Labs: CBC, BMP 01/14/18 06:15 01/14/18 06:15 INR, PTT INR 1.13 (0.83-1.09) H 12/31/17 07:52 Problem List - Problems (1) Acute asthma exacerbation Code(s): J45.901 - UNSPECIFIED ASTHMA WITH (ACUTE) EXACERBATION Qualifiers: Asthma severity: unspecified severity Asthma persistence: unspecified Qualified Code(s): J45.901 - Unspecified asthma with (acute) exacerbation (2) Anoxic brain damage Code(s): G93.1 - ANOXIC BRAIN DAMAGE, NOT ELSEWHERE CLASSIFIED (3) Respiratory failure Code(s): J96.90 - RESPIRATORY FAILURE, UNSP, UNSP W HYPOXIA OR HYPERCAPNIA Qualifiers: Chronicity: unspecified Respiratory failure complication: unspecified whether with hypoxia or hypercapnia Qualified Code(s): J96.90 - Respiratory failure, unspecified, unspecified whether with hypoxia or hypercapnia (4) Status asthmaticus Code(s): J45.902 - UNSPECIFIED ASTHMA WITH STATUS ASTHMATICUS Qualifiers: Asthma severity: unspecified severity Asthma persistence: unspecified Qualified Code(s): J45.902 - Unspecified asthma with status asthmaticus (5) Autism Code(s): F84.0 - AUTISTIC DISORDER (6) Tachycardia Code(s): R00.0 - TACHYCARDIA, UNSPECIFIED Assessment/Plan ASSESSMENT AND PLAN: Acute Hypoxic and Hypercapneic Respiratory Failure improved Anoxic Encephalopathy r/o Seizures Status Asthmaticus resolved Pneumonia likely Aspiration Shock resolved UTI Lactic Acidosis resolved Acute Kidney Injury resolved Hyperglycemia resolved Autism - antibiotics - inhaled bronchodilators standing and PRN - inhaled corticosteroids - aspiration precautions - continue empiric antiepileptics - DVT/GI prophylaxis DR DE OLIVEIRA
--- NOTE | 2018-01-14 11:35 | PN ---
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 (short form) - Note 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: Consultation request received from service for vomiting but there is no indication in chart of any reason for a GI consult. I spoke with Dr Wiley, who was on the floor, and the patient's mother, who was at the bedside, and neither one indicated any knowledge of a GI issue. Patient's mother says vomiting occurred 2 days ago, not repeated since. No consultation performed.
--- NOTE | 2018-01-14 11:51 | PN ---
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 (short form) - Note 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: Pt's nurse said consult was for placement of NG tube, not for vomiting. NG tube placed at pt's bedside. Position confirmed by auscultation and also by obtaining bilious return. Can begin NG tube feedings.
--- NOTE | 2018-01-14 12:06 | PN ---
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, Physician History of Present Illness: Pt moaning, without acute distress. NGT in place. Tmax 99.4F - Current Medication List Current Medications: Active Medications Acetaminophen (Tylenol -) 650 mg PO Q6H PRN PRN Reason: Fever Or Pain 1-5 Last Admin: 01/12/18 20:51 Dose: 650 mg Acetaminophen (Ofirmev Injection -) 1,000 mg IVPB Q6H PRN PRN Reason: PAIN Acetylcysteine (Mucomyst 20 Oral / Inh Use Only*) 200 mg NEB RQID [facility] Last Admin: 01/14/18 08:05 Dose: 200 mg Albuterol Sulfate (Ventolin 0.083% Nebulizer Soln -) 1 amp NEB RQID [facility] Last Admin: 01/14/18 08:05 Dose: 1 amp Budesonide (Pulmicort 0.25 Mg Nebulizer -) 1 amp NEB RBID [facility] Last Admin: 01/14/18 08:15 Dose: 1 amp Chlorhexidine Gluconate (Peridex -) 15 ml MM BID [facility] Last Admin: 01/14/18 10:23 Dose: Not Given Heparin Sodium (Porcine) (Heparin -) 5,000 unit SQ TID [facility] Last Admin: 01/14/18 05:41 Dose: 5,000 unit Clindamycin Phosphate (Cleocin 300 Mg Premix Ivpb) 300 mg in 50 mls @ 100 mls/ hr IVPB Q8H-IV [facility]; Protocol Last Admin: 01/14/18 10:20 Dose: 100 mls/hr Piperacillin Sod/Tazobactam (Sod 2.25 gm/ Dextrose) 100 mls @ 200 mls/hr IVPB Q8H-IV [facility]; Protocol Last Admin: 01/14/18 09:26 Dose: 200 mls/hr Vancomycin HCl (Vancomycin 1 Gm Premix -) 1 gm in 200 mls @ 133.333 mls/hr IVPB BID@0600,1800 [facility]; Protocol Last Admin: 01/14/18 05:41 Dose: 133.333 mls/hr Dextrose/Sodium Chloride (D5-1/2ns -) 1,000 mls @ 75 mls/hr IV ASDIR [facility] Last Admin: 01/14/18 10:26 Dose: 75 mls/hr Levetiracetam (Keppra Injection -) 1,500 mg IVPB BID [facility] Last Admin: 01/14/18 10:20 Dose: 1,500 mg Lorazepam (Ativan Injection -) 0.5 mg IVPUSH Q6H PRN PRN Reason: breakthrough seizures Last Admin: 01/13/18 05:51 Dose: 0.25 mg Nystatin/Triamcinolone Acetonide (Mycolog Ii Cream -) 1 applic TP BID [facility] Last Admin: 01/14/18 10:22 Dose: 1 applic Pantoprazole Sodium (Protonix Iv) 40 mg IVPUSH DAILY [facility] Last Admin: 01/14/18 09:26 Dose: 40 mg Polyethylene Glycol (Miralax (For Daily Use) -) 17 gm PO DAILY [facility] Last Admin: 01/14/18 10:22 Dose: Not Given Scopolamine HBr (Transderm-Scop -) 1 patch TD Q72H [facility] Last Admin: 01/11/18 15:09 Dose: 1 patch Valproate Sodium (Depacon Injection -) 250 mg IVPB BID [facility] Last Admin: 01/14/18 09:25 Dose: 250 mg - Objective Vital Signs: Vital Signs Temperature 99.2 F 01/14/18 06:00 Pulse Rate 133 H 01/14/18 06:00 Respiratory Rate 20 01/14/18 06:00 Blood Pressure 134/92 01/14/18 06:00 O2 Sat by Pulse Oximetry (%) 100 01/13/18 21:00 Cardiovascular: Yes: Tachycardia Respiratory: Yes: CTA Bilaterally Gastrointestinal: Yes: Normal Bowel Sounds, Soft, Other (+NGT) Extremities: Yes: WNL Labs: CBC, BMP 01/14/18 06:15 01/14/18 06:15 INR, PTT INR 1.13 (0.83-1.09) H 12/31/17 07:52 - ....Imaging Chest X-ray: Report Reviewed Problem List - Problems (1) Acute asthma exacerbation Code(s): J45.901 - UNSPECIFIED ASTHMA WITH (ACUTE) EXACERBATION Qualifiers: Asthma severity: unspecified severity Asthma persistence: unspecified Qualified Code(s): J45.901 - Unspecified asthma with (acute) exacerbation (2) Anoxic brain damage Code(s): G93.1 - ANOXIC BRAIN DAMAGE, NOT ELSEWHERE CLASSIFIED (3) Respiratory failure Code(s): J96.90 - RESPIRATORY FAILURE, UNSP, UNSP W HYPOXIA OR HYPERCAPNIA Qualifiers: Chronicity: unspecified Respiratory failure complication: unspecified whether with hypoxia or hypercapnia Qualified Code(s): J96.90 - Respiratory failure, unspecified, unspecified whether with hypoxia or hypercapnia (4) UTI (urinary tract infection) Code(s): N39.0 - URINARY TRACT INFECTION, SITE NOT SPECIFIED (5) Pneumonia Code(s): J18.9 - PNEUMONIA, UNSPECIFIED ORGANISM Assessment/Plan Acute asthma exacerbation Acute respiratory failure Aspiration PNA E. coli UTI Sinusitis Seizures Anoxic brain injury -- pt with downward wbc trend -- cont. Zosyn/Vancomycin, d/c clindamycin -- cont. monitor wbc, temps -- aspiration/seizure precautions
--- NOTE | 2018-01-14 13:42 | EKG ---
Test Reason : Blood Pressure : / mmHG Vent. Rate : 116 BPM Atrial Rate : 116 BPM P-R Int : 128 ms QRS Dur : 072 ms QT Int : 310 ms P-R-T Axes : 065 059 039 degrees QTc Int : 430 ms SINUS TACHYCARDIA POSSIBLE LEFT ATRIAL ENLARGEMENT BORDERLINE ECG WHEN COMPARED WITH ECG OF 31-DEC-2017 07:31, NO SIGNIFICANT CHANGE WAS FOUND Confirmed by MARTHA AMIN MD ([id number]) on 01/14/2018 1:42:01 PM Referred By: SUZIE Confirmed By:MARTHA AMIN MD
--- NOTE | 2018-01-14 14:08 | PN ---
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 (short form) - Note 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: 37 year old female history of autism, and asthma. She has severe hypoxic encephalopathy following severe asthma episode. She is not back to baseline and she has been having seizure. She was seen by dr Osorio in past. She SUBJECTIVE: She has episode of seizure on january 12 and now she is make moaning sounds and she is calmer today. I added depakote 250 mg bid . Neurological EXAMINATION: She is withdrawing to pain, and there is no spontaneous speech is present Family at bedside, and she would follow and track objects She is not following command no neck stiff, she is not able to hold her neck pupils is bilateral reactive MRI showed bilateral basal ganglia injury consistent with anoxic injury Assessment- Hypoxic-Anoxic encpehalopathy following severe bronchial asthma 2. Postnaoxic seizure ,she has one breakthrough seizure and now she is moaning and making sounds Plan continue keppra 1.5 gm bid and depakote 250 mg po bid - continue supportive care and treatment of infection as per ID -over all prognosis is guarded Thaking you so much Abrahan Pelayo MD
[2018-01-14] MEDS: SCOPOLAMINE HYDROBROMIDE 1 PATCH PATCH.TD72 TD SCH (14:59)
--- NOTE | 2018-01-14 17:58 | PN ---
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, Physician - Current Medication List Current Medications: Active Medications Acetaminophen (Tylenol -) 650 mg PO Q6H PRN PRN Reason: Fever Or Pain 1-5 Last Admin: 01/12/18 20:51 Dose: 650 mg Acetaminophen (Ofirmev Injection -) 1,000 mg IVPB Q6H PRN PRN Reason: PAIN Acetylcysteine (Mucomyst 20 Oral / Inh Use Only*) 200 mg NEB RQID [facility] Last Admin: 01/14/18 12:10 Dose: 200 mg Albuterol Sulfate (Ventolin 0.083% Nebulizer Soln -) 1 amp NEB RQID [facility] Last Admin: 01/14/18 12:10 Dose: 1 amp Budesonide (Pulmicort 0.25 Mg Nebulizer -) 1 amp NEB RBID [facility] Last Admin: 01/14/18 08:15 Dose: 1 amp Chlorhexidine Gluconate (Peridex -) 15 ml MM BID [facility] Last Admin: 01/14/18 10:23 Dose: Not Given Heparin Sodium (Porcine) (Heparin -) 5,000 unit SQ TID [facility] Last Admin: 01/14/18 14:59 Dose: 5,000 unit Piperacillin Sod/Tazobactam (Sod 2.25 gm/ Dextrose) 100 mls @ 200 mls/hr IVPB Q8H-IV [facility]; Protocol Last Admin: 01/14/18 17:43 Dose: 200 mls/hr Vancomycin HCl (Vancomycin 1 Gm Premix -) 1 gm in 200 mls @ 133.333 mls/hr IVPB BID@0600,1800 [facility]; Protocol Last Admin: 01/14/18 17:42 Dose: 133.333 mls/hr Dextrose/Sodium Chloride (D5-1/2ns -) 1,000 mls @ 75 mls/hr IV ASDIR [facility] Last Admin: 01/14/18 10:26 Dose: 75 mls/hr Levetiracetam (Keppra Injection -) 1,500 mg IVPB BID [facility] Last Admin: 01/14/18 10:20 Dose: 1,500 mg Lorazepam (Ativan Injection -) 0.5 mg IVPUSH Q6H PRN PRN Reason: breakthrough seizures Last Admin: 01/13/18 05:51 Dose: 0.25 mg Nystatin/Triamcinolone Acetonide (Mycolog Ii Cream -) 1 applic TP BID [facility] Last Admin: 01/14/18 10:22 Dose: 1 applic Pantoprazole Sodium (Protonix Iv) 40 mg IVPUSH DAILY [facility] Last Admin: 01/14/18 09:26 Dose: 40 mg Polyethylene Glycol (Miralax (For Daily Use) -) 17 gm PO DAILY [facility] Last Admin: 01/14/18 10:22 Dose: Not Given Scopolamine HBr (Transderm-Scop -) 1 patch TD Q72H [facility] Last Admin: 01/14/18 14:59 Dose: 1 patch Valproate Sodium (Depacon Injection -) 250 mg IVPB BID [facility] Last Admin: 01/14/18 09:25 Dose: 250 mg - Objective Vital Signs: Vital Signs Temperature 99.5 F 01/14/18 14:00 Pulse Rate 132 H 01/14/18 14:00 Respiratory Rate 20 01/14/18 14:00 Blood Pressure 144/87 01/14/18 14:00 O2 Sat by Pulse Oximetry (%) 100 01/14/18 09:00 Constitutional: Yes: No Distress HENT: Yes: Atraumatic Neck: Yes: Supple Cardiovascular: Yes: Regular Rate and Rhythm Respiratory: Yes: CTA Bilaterally Gastrointestinal: Yes: Normal Bowel Sounds Extremities: Yes: WNL Edema: No Peripheral Pulses WNL: Yes Neurological: Yes: Other (drowsy, responding to voice) Labs: CBC, BMP 01/14/18 06:15 01/14/18 06:15 INR, PTT INR 1.13 (0.83-1.09) H 12/31/17 07:52 Problem List - Problems (1) Acute asthma exacerbation Assessment/Plan: on inhaler duo nebs iv abx Code(s): J45.901 - UNSPECIFIED ASTHMA WITH (ACUTE) EXACERBATION Qualifiers: Asthma severity: unspecified severity Asthma persistence: unspecified Qualified Code(s): J45.901 - Unspecified asthma with (acute) exacerbation (2) Respiratory failure Assessment/Plan: on NC Code(s): J96.90 - RESPIRATORY FAILURE, UNSP, UNSP W HYPOXIA OR HYPERCAPNIA Qualifiers: Chronicity: unspecified Respiratory failure complication: unspecified whether with hypoxia or hypercapnia Qualified Code(s): J96.90 - Respiratory failure, unspecified, unspecified whether with hypoxia or hypercapnia (3) Autism Code(s): F84.0 - AUTISTIC DISORDER (4) Pneumonia Assessment/Plan: on abx Code(s): J18.9 - PNEUMONIA, UNSPECIFIED ORGANISM (5) UTI (urinary tract infection) Assessment/Plan: on abx Code(s): N39.0 - URINARY TRACT INFECTION, SITE NOT SPECIFIED (6) Anoxic brain damage Code(s): G93.1 - ANOXIC BRAIN DAMAGE, NOT ELSEWHERE CLASSIFIED
[2018-01-14] MEDS: ACETAMINOPHEN 325 MG TABLET (FP) PO PRN (23:28)
[2018-01-15] MEDS ORDERED: DEXTROSE 5%-WATER 100 ML IVPB ONE ×3 (01:24→17:28)
[2018-01-15] MEDS ORDERED: PIPERACILLIN/TAZOBACTAM 2.25 GM VIAL IVPB ONE ×3 (01:24→17:28)
[2018-01-15] MEDS: PIPERACILLIN/TAZOB 2.25 GM 2.25 GM in DEXTROSE 5%-WATER 100 ML IVPB SCH ×3 (01:26→17:32)
[2018-01-15] MEDS: DEXTROSE 5%-0.45% SALINE 1,000 ML IV SCH ×2 (06:00→10:03)
[2018-01-15] MEDS: VANCOMYCIN 1 GM PREMIX - 1 GM/200 ML BAG IVPB SCH ×2 (06:09→18:27)
[2018-01-15] MEDS: HEPARIN NA (PORCINE) 5,000 UNITS/ML 1ML VIAL SQ SCH ×3 (06:09→21:52)
[2018-01-15 08:06] LABS: BASO % 1.4 % (0-2.0); EOS % 2.7 % (0-4.5); HEMATOCRIT 31.8 % (32.4-45.2); HEMOGLOBIN 10.3 GM/dL (10.7-15.3); MCH 28.9 pg (25.7-33.7); MCHC 32.4 g/dl (32.0-36.0); MEAN CELL VOLUME 89.2 fl (80-96); MEAN PLT VOLUME 7.5 fl (7.5-11.1); MONO % 7.6 % (3.8-10.2); NEUT % 80.3 % (42.8-82.8); PLATELET COUNT 597 K/MM3 (134-434); RBC 3.57 M/mm3 (3.60-5.2); RDW 13.4 % (11.6-15.6); WHITE BLOOD COUNT 13.9 K/mm3 (4.0-10.0)
[2018-01-15] MEDS: ALBUTEROL SO4 0.083% IH SOL 2.5 MG/3 ML VIAL.NEB. NEB SCH ×4 (08:12→20:10)
[2018-01-15] MEDS: ACETYLCYSTEINE 20% 200MG/ML 4 ML VIAL *FOR ORAL / INH USE ONLY NEB SCH ×4 (08:12→20:10)
[2018-01-15 08:49] LABS: ANION GAP 12 MMOL/L (8-16); BLOOD UREA NITROGEN 17 mg/dL (7-18); CALCIUM 8.8 mg/dL (8.5-10.1); CHLORIDE 109 mmol/L (98-107); CO2 23 mmol/L (21-32); GLUCOSE,RANDOM 121 mg/dL (74-106); POTASSIUM 3.5 mmol/L (3.5-5.1); SODIUM 144 mmol/L (136-145)
[2018-01-15 08:50] LABS: CREATININE 0.8 mg/dL (0.55-1.02)
[2018-01-15] MEDS: BUDESONIDE 0.25 MG/2ML INH SUSP VIAL NEB SCH ×2 (09:00→20:15)
[2018-01-15] MEDS ORDERED: PT OWN MED DRAWER 7, Y5N ONE ×2 (09:05→17:28)
[2018-01-15] MEDS: POLYETHYLENE GLYCOL 3350 119 GM BTL PO SCH (09:45)
[2018-01-15] MEDS: VALPROATE SODIUM 500 MG/5 ML VIAL IVPB SCH ×2 (09:58→21:52)
[2018-01-15] MEDS: PANTOPRAZOLE SODIUM 40 MG VIAL IVPUSH SCH (09:58)
[2018-01-15] MEDS: NYSTATIN/TRIAMCINOLONE TOPICAL CREAM 15 GM TUBE TP SCH ×2 (10:02→21:53)
[2018-01-15] MEDS: CHLORHEXIDINE GLUCONATE 0.12% 15ML CUP MM SCH ×2 (10:03→21:53)
--- NOTE | 2018-01-15 10:10 | PN ---
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 (short form) - Note 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: 37 year old female history of autism, and asthma. She has severe hypoxic encephalopathy following severe asthma episode. She is not back to baseline and she has been having seizure. She was seen by dr Osorio in past, while He was away, I was following her. SUBJECTIVE: She has episode of seizure on january 12 , depakote was added to her medication and she has relatively quieter and no more significant moaning. Neurological EXAMINATION: She is withdrawing to pain, and there is no spontaneous speech is present Family at bedside, She is not following command no neck stiff, she is not able to hold her neck pupils is bilateral reactive MRI showed bilateral basal ganglia injury consistent with anoxic injury Assessment- Hypoxic-Anoxic encpehalopathy following severe bronchial asthma 2. Postnaoxic seizure , no more seizure on depakote and keppra Plan continue keppra and depakote for now -over all prognosis is guarded Thaking you so much Abrahan Pelayo MD
[2018-01-15] MEDS: ACETAMINOPHEN 325 MG TABLET (FP) PO PRN ×2 (10:29→17:32)
[2018-01-15] MEDS: levETIRAcetam 500 MG/5 ML INJECTION VIAL IVPB SCH ×2 (12:16→21:53)
--- NOTE | 2018-01-15 12:21 | PN ---
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, CLAM DIGGER - Note 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: Selected Entries 01/12/18 01/12/18 01/12/18 01:00 05:00 09:00 Breakfast Temperature 98.2 F 98.3 F 98.7 F 01/12/18 01/12/18 01/12/18 13:00 13:30 18:30 Breakfast Temperature 98.1 F 98 F 98.8 F 01/12/18 01/13/18 01/13/18 20:52 01:18 02:30 Breakfast Temperature 100.1 F H 99.8 F H 97.8 F 01/13/18 01/13/18 01/13/18 04:35 05:58 09:00 Breakfast Temperature 98.1 F 98.3 F 98.6 F 01/13/18 01/13/18 01/13/18 14:00 16:00 21:58 Breakfast Temperature 98.1 F 97.5 F L 98.0 F 01/15/18 01/15/18 01/15/18 02:00 06:00 09:25 Breakfast NPO Temperature 98.5 F 98.9 F Laboratory Tests 01/11/18 01/14/18 01/15/18 06:28 06:15 06:30 WBC 21.9 H 17.0 H 13.9 H Medical events noted over weekend. Vomited Sunday night. Mother reported seizure Sunday night? Vocalizing/crying? UE's clenched Spastic/posturing/pain response? Initially RR was more rapid as well, wetness around lips, but improved during session. Nystagmus. Tolerating her secretions-No drooling, swallows saliva periodically. When vocalizes, no audible vocal wetnes or dysphonia. Maintain comfort. Mouth care/HOB elevated, keep head in neutral to flexed position,supported to facilitate swallowing/reducing aspiration. Suction PRN. Pt may benefit fron coma recovery program. Consider [facility], [facility] [place].
--- NOTE | 2018-01-15 12:51 | PN ---
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, Physician History of Present Illness: PULMONARY POORLY RESPONSIVE,-RESP DISTRESS - Current Medication List Current Medications: Active Medications Acetaminophen (Tylenol -) 650 mg PO Q6H PRN PRN Reason: Fever Or Pain 1-5 Last Admin: 01/15/18 10:29 Dose: 650 mg Acetaminophen (Ofirmev Injection -) 1,000 mg IVPB Q6H PRN PRN Reason: PAIN Acetylcysteine (Mucomyst 20 Oral / Inh Use Only*) 200 mg NEB RQID [facility] Last Admin: 01/15/18 08:12 Dose: 200 mg Albuterol Sulfate (Ventolin 0.083% Nebulizer Soln -) 1 amp NEB RQID [facility] Last Admin: 01/15/18 08:12 Dose: 1 amp Budesonide (Pulmicort 0.25 Mg Nebulizer -) 1 amp NEB RBID [facility] Last Admin: 01/15/18 09:00 Dose: 1 amp Chlorhexidine Gluconate (Peridex -) 15 ml MM BID [facility] Last Admin: 01/15/18 10:03 Dose: Not Given Heparin Sodium (Porcine) (Heparin -) 5,000 unit SQ TID [facility] Last Admin: 01/15/18 06:09 Dose: 5,000 unit Piperacillin Sod/Tazobactam (Sod 2.25 gm/ Dextrose) 100 mls @ 200 mls/hr IVPB Q8H-IV [facility]; Protocol Last Admin: 01/15/18 10:01 Dose: 200 mls/hr Vancomycin HCl (Vancomycin 1 Gm Premix -) 1 gm in 200 mls @ 133.333 mls/hr IVPB BID@0600,1800 [facility]; Protocol Last Admin: 01/15/18 06:09 Dose: 133.333 mls/hr Dextrose/Sodium Chloride (D5-1/2ns -) 1,000 mls @ 75 mls/hr IV ASDIR [facility] Last Admin: 01/15/18 10:03 Dose: Not Given Levetiracetam (Keppra Injection -) 1,500 mg IVPB BID [facility] Last Admin: 01/15/18 12:16 Dose: 1,500 mg Lorazepam (Ativan Injection -) 0.5 mg IVPUSH Q6H PRN PRN Reason: breakthrough seizures Last Admin: 01/13/18 05:51 Dose: 0.25 mg Nystatin/Triamcinolone Acetonide (Mycolog Ii Cream -) 1 applic TP BID [facility] Last Admin: 01/15/18 10:02 Dose: 1 applic Pantoprazole Sodium (Protonix Iv) 40 mg IVPUSH DAILY [facility] Last Admin: 01/15/18 09:58 Dose: 40 mg Polyethylene Glycol (Miralax (For Daily Use) -) 17 gm PO DAILY [facility] Last Admin: 01/15/18 09:45 Dose: Not Given Scopolamine HBr (Transderm-Scop -) 1 patch TD Q72H [facility] Last Admin: 01/14/18 14:59 Dose: 1 patch Valproate Sodium (Depacon Injection -) 250 mg IVPB BID [facility] Last Admin: 01/15/18 09:58 Dose: 250 mg - Objective Vital Signs: Vital Signs Temperature 98.9 F 01/15/18 06:00 Pulse Rate 110 H 01/15/18 06:00 Respiratory Rate 18 01/15/18 06:00 Blood Pressure 143/59 01/15/18 06:00 O2 Sat by Pulse Oximetry (%) 100 01/14/18 21:00 Constitutional: Yes: Thin, Other (POORLY RESPONSIVE) Eyes: Yes: WNL HENT: Yes: WNL Neck: Yes: WNL Cardiovascular: Yes: Regular Rate and Rhythm, S1, S2 Respiratory: Yes: Diminished Gastrointestinal: Yes: Normal Bowel Sounds, Soft Extremities: Yes: WNL Edema: No Labs: CBC, BMP 01/15/18 06:30 01/15/18 06:30 INR, PTT INR 1.13 (0.83-1.09) H 12/31/17 07:52 Problem List - Problems (1) Acute asthma exacerbation Code(s): J45.901 - UNSPECIFIED ASTHMA WITH (ACUTE) EXACERBATION Qualifiers: Asthma severity: unspecified severity Asthma persistence: unspecified Qualified Code(s): J45.901 - Unspecified asthma with (acute) exacerbation (2) Anoxic brain damage Code(s): G93.1 - ANOXIC BRAIN DAMAGE, NOT ELSEWHERE CLASSIFIED (3) Respiratory failure Code(s): J96.90 - RESPIRATORY FAILURE, UNSP, UNSP W HYPOXIA OR HYPERCAPNIA Qualifiers: Chronicity: unspecified Respiratory failure complication: unspecified whether with hypoxia or hypercapnia Qualified Code(s): J96.90 - Respiratory failure, unspecified, unspecified whether with hypoxia or hypercapnia (4) Status asthmaticus Code(s): J45.902 - UNSPECIFIED ASTHMA WITH STATUS ASTHMATICUS Qualifiers: Asthma severity: unspecified severity Asthma persistence: unspecified Qualified Code(s): J45.902 - Unspecified asthma with status asthmaticus (5) Autism Code(s): F84.0 - AUTISTIC DISORDER (6) Tachycardia Code(s): R00.0 - TACHYCARDIA, UNSPECIFIED Assessment/Plan ASSESSMENT AND PLAN: Acute Hypoxic and Hypercapneic Respiratory Failure improved Anoxic Encephalopathy r/o Seizures Status Asthmaticus resolved Pneumonia likely Aspiration Shock resolved UTI Lactic Acidosis resolved Acute Kidney Injury resolved Hyperglycemia resolved Autism - antibiotics - inhaled bronchodilators standing and PRN - inhaled corticosteroids - aspiration precautions - continue empiric antiepileptics - DVT/GI prophylaxis DR DE OLIVEIRA
--- NOTE | 2018-01-15 18:15 | PN ---
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, Physician - Current Medication List Current Medications: Active Medications Acetaminophen (Tylenol -) 650 mg PO Q6H PRN PRN Reason: Fever Or Pain 1-5 Last Admin: 01/15/18 17:32 Dose: 650 mg Acetaminophen (Ofirmev Injection -) 1,000 mg IVPB Q6H PRN PRN Reason: PAIN Acetylcysteine (Mucomyst 20 Oral / Inh Use Only*) 200 mg NEB RQID [facility] Last Admin: 01/15/18 16:40 Dose: 200 mg Albuterol Sulfate (Ventolin 0.083% Nebulizer Soln -) 1 amp NEB RQID [facility] Last Admin: 01/15/18 16:40 Dose: 1 amp Budesonide (Pulmicort 0.25 Mg Nebulizer -) 1 amp NEB RBID [facility] Last Admin: 01/15/18 09:00 Dose: 1 amp Chlorhexidine Gluconate (Peridex -) 15 ml MM BID [facility] Last Admin: 01/15/18 10:03 Dose: Not Given Heparin Sodium (Porcine) (Heparin -) 5,000 unit SQ TID [facility] Last Admin: 01/15/18 13:23 Dose: 5,000 unit Piperacillin Sod/Tazobactam (Sod 2.25 gm/ Dextrose) 100 mls @ 200 mls/hr IVPB Q8H-IV [facility]; Protocol Last Admin: 01/15/18 17:32 Dose: 200 mls/hr Vancomycin HCl (Vancomycin 1 Gm Premix -) 1 gm in 200 mls @ 133.333 mls/hr IVPB BID@0600,1800 [facility]; Protocol Last Admin: 01/15/18 06:09 Dose: 133.333 mls/hr Dextrose/Sodium Chloride (D5-1/2ns -) 1,000 mls @ 75 mls/hr IV ASDIR [facility] Last Admin: 01/15/18 10:03 Dose: Not Given Levetiracetam (Keppra Injection -) 1,500 mg IVPB BID [facility] Last Admin: 01/15/18 12:16 Dose: 1,500 mg Lorazepam (Ativan Injection -) 0.5 mg IVPUSH Q6H PRN PRN Reason: breakthrough seizures Last Admin: 01/13/18 05:51 Dose: 0.25 mg Nystatin/Triamcinolone Acetonide (Mycolog Ii Cream -) 1 applic TP BID [facility] Last Admin: 01/15/18 10:02 Dose: 1 applic Pantoprazole Sodium (Protonix Iv) 40 mg IVPUSH DAILY [facility] Last Admin: 01/15/18 09:58 Dose: 40 mg Polyethylene Glycol (Miralax (For Daily Use) -) 17 gm PO DAILY [facility] Last Admin: 01/15/18 09:45 Dose: Not Given Scopolamine HBr (Transderm-Scop -) 1 patch TD Q72H [facility] Last Admin: 01/14/18 14:59 Dose: 1 patch Valproate Sodium (Depacon Injection -) 250 mg IVPB BID [facility] Last Admin: 01/15/18 09:58 Dose: 250 mg - Objective Vital Signs: Vital Signs Temperature 99.9 F H 01/15/18 14:07 Pulse Rate 111 H 01/15/18 14:07 Respiratory Rate 18 01/15/18 14:07 Blood Pressure 150/77 01/15/18 14:07 O2 Sat by Pulse Oximetry (%) 100 01/14/18 21:00 Constitutional: Yes: Calm HENT: Yes: Atraumatic Neck: Yes: Supple Cardiovascular: Yes: Regular Rate and Rhythm Respiratory: Yes: CTA Bilaterally Gastrointestinal: Yes: Normal Bowel Sounds Extremities: Yes: WNL Edema: No Neurological: Yes: Other (pt does wake up as per mom,right now sleeping) Labs: CBC, BMP 01/15/18 06:30 01/15/18 06:30 INR, PTT INR 1.13 (0.83-1.09) H 12/31/17 07:52 Problem List - Problems (1) Acute asthma exacerbation Assessment/Plan: on inhaler duo nebs iv abx Code(s): J45.901 - UNSPECIFIED ASTHMA WITH (ACUTE) EXACERBATION Qualifiers: Asthma severity: unspecified severity Asthma persistence: unspecified Qualified Code(s): J45.901 - Unspecified asthma with (acute) exacerbation (2) Respiratory failure Assessment/Plan: on NC Code(s): J96.90 - RESPIRATORY FAILURE, UNSP, UNSP W HYPOXIA OR HYPERCAPNIA Qualifiers: Chronicity: unspecified Respiratory failure complication: unspecified whether with hypoxia or hypercapnia Qualified Code(s): J96.90 - Respiratory failure, unspecified, unspecified whether with hypoxia or hypercapnia (3) Autism Code(s): F84.0 - AUTISTIC DISORDER (4) Pneumonia Assessment/Plan: on abx Code(s): J18.9 - PNEUMONIA, UNSPECIFIED ORGANISM (5) UTI (urinary tract infection) Code(s): N39.0 - URINARY TRACT INFECTION, SITE NOT SPECIFIED (6) Anoxic brain damage Assessment/Plan: mri report reviewed and neuro note also seen Code(s): G93.1 - ANOXIC BRAIN DAMAGE, NOT ELSEWHERE CLASSIFIED
--- NOTE | 2018-01-15 18:43 | PN ---
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, Physician History of Present Illness: Pt remains with involuntary movements, not verbally responsive. Low grade fevers. - Current Medication List Current Medications: Active Medications Acetaminophen (Tylenol -) 650 mg PO Q6H PRN PRN Reason: Fever Or Pain 1-5 Last Admin: 01/15/18 17:32 Dose: 650 mg Acetaminophen (Ofirmev Injection -) 1,000 mg IVPB Q6H PRN PRN Reason: PAIN Acetylcysteine (Mucomyst 20 Oral / Inh Use Only*) 200 mg NEB RQID [facility] Last Admin: 01/15/18 16:40 Dose: 200 mg Albuterol Sulfate (Ventolin 0.083% Nebulizer Soln -) 1 amp NEB RQID [facility] Last Admin: 01/15/18 16:40 Dose: 1 amp Budesonide (Pulmicort 0.25 Mg Nebulizer -) 1 amp NEB RBID [facility] Last Admin: 01/15/18 09:00 Dose: 1 amp Chlorhexidine Gluconate (Peridex -) 15 ml MM BID [facility] Last Admin: 01/15/18 10:03 Dose: Not Given Heparin Sodium (Porcine) (Heparin -) 5,000 unit SQ TID [facility] Last Admin: 01/15/18 13:23 Dose: 5,000 unit Vancomycin HCl (Vancomycin 1 Gm Premix -) 1 gm in 200 mls @ 133.333 mls/hr IVPB BID@0600,1800 [facility]; Protocol Last Admin: 01/15/18 18:27 Dose: 133.333 mls/hr Dextrose/Sodium Chloride (D5-1/2ns -) 1,000 mls @ 75 mls/hr IV ASDIR [facility] Last Admin: 01/15/18 10:03 Dose: Not Given Levetiracetam (Keppra Injection -) 1,500 mg IVPB BID [facility] Last Admin: 01/15/18 12:16 Dose: 1,500 mg Lorazepam (Ativan Injection -) 0.5 mg IVPUSH Q6H PRN PRN Reason: breakthrough seizures Last Admin: 01/13/18 05:51 Dose: 0.25 mg Nystatin/Triamcinolone Acetonide (Mycolog Ii Cream -) 1 applic TP BID [facility] Last Admin: 01/15/18 10:02 Dose: 1 applic Pantoprazole Sodium (Protonix Iv) 40 mg IVPUSH DAILY [facility] Last Admin: 01/15/18 09:58 Dose: 40 mg Polyethylene Glycol (Miralax (For Daily Use) -) 17 gm PO DAILY [facility] Last Admin: 01/15/18 09:45 Dose: Not Given Scopolamine HBr (Transderm-Scop -) 1 patch TD Q72H [facility] Last Admin: 01/14/18 14:59 Dose: 1 patch Valproate Sodium (Depacon Injection -) 250 mg IVPB BID [facility] Last Admin: 01/15/18 09:58 Dose: 250 mg - Objective Vital Signs: Vital Signs Temperature 99.9 F H 01/15/18 14:07 Pulse Rate 111 H 01/15/18 14:07 Respiratory Rate 18 01/15/18 14:07 Blood Pressure 150/77 01/15/18 14:07 O2 Sat by Pulse Oximetry (%) 99 01/15/18 10:00 Constitutional: Yes: No Distress Cardiovascular: Yes: Tachycardia Respiratory: Yes: Regular Gastrointestinal: Yes: Normal Bowel Sounds, Soft Edema: No Labs: CBC, BMP 01/15/18 06:30 01/15/18 06:30 INR, PTT INR 1.13 (0.83-1.09) H 12/31/17 07:52 Problem List - Problems (1) Acute asthma exacerbation Code(s): J45.901 - UNSPECIFIED ASTHMA WITH (ACUTE) EXACERBATION Qualifiers: Asthma severity: unspecified severity Asthma persistence: unspecified Qualified Code(s): J45.901 - Unspecified asthma with (acute) exacerbation (2) Anoxic brain damage Code(s): G93.1 - ANOXIC BRAIN DAMAGE, NOT ELSEWHERE CLASSIFIED (3) Respiratory failure Code(s): J96.90 - RESPIRATORY FAILURE, UNSP, UNSP W HYPOXIA OR HYPERCAPNIA Qualifiers: Chronicity: unspecified Respiratory failure complication: unspecified whether with hypoxia or hypercapnia Qualified Code(s): J96.90 - Respiratory failure, unspecified, unspecified whether with hypoxia or hypercapnia (4) UTI (urinary tract infection) Code(s): N39.0 - URINARY TRACT INFECTION, SITE NOT SPECIFIED (5) Pneumonia Code(s): J18.9 - PNEUMONIA, UNSPECIFIED ORGANISM Assessment/Plan Acute asthma exacerbation Acute respiratory failure Anoxic brain injury Aspiration PNA E. coli UTI Sinusitis Seizures Fever/Leukocytosis -- pt with improving leukocytosis, low grade fevers persis -- cont. current antibiotics -- cont. monitor wbc, temps -- aspiration/seizure precautions
[2018-01-16] MEDS: PIPERACILLIN/TAZOB 3.375 GM 3.375 GM in DEXTROSE 5%-WATER - 50 ML IVPB SCH ×3 (02:00→17:28)
[2018-01-16] MEDS ORDERED: DEXTROSE 5%-WATER - 50 ML IVPB ONE ×4 (03:17→23:14)
[2018-01-16] MEDS ORDERED: PIPERACILLIN/TAZOBACTAM 3.375 GM VIAL IVPB ONE ×4 (03:17→23:13)
[2018-01-16] MEDS: VANCOMYCIN 1 GM PREMIX - 1 GM/200 ML BAG IVPB SCH (05:56)
[2018-01-16] MEDS: HEPARIN NA (PORCINE) 5,000 UNITS/ML 1ML VIAL SQ SCH ×3 (05:56→22:54)
[2018-01-16] MEDS: ACETYLCYSTEINE 20% 200MG/ML 4 ML VIAL *FOR ORAL / INH USE ONLY NEB SCH ×3 (08:00→20:30)
[2018-01-16 08:10] LABS: BASO % 0.5 % (0-2.0); HEMATOCRIT 27.4 % (32.4-45.2); HEMOGLOBIN 9.2 GM/dL (10.7-15.3); MCH 29.8 pg (25.7-33.7); MCHC 33.6 g/dl (32.0-36.0); MEAN CELL VOLUME 88.8 fl (80-96); MEAN PLT VOLUME 6.9 fl (7.5-11.1); MONO % 6.1 % (3.8-10.2); NEUT % 78.4 % (42.8-82.8); PLATELET COUNT 499 K/MM3 (134-434); RBC 3.08 M/mm3 (3.60-5.2); RDW 13.8 % (11.6-15.6); WHITE BLOOD COUNT 14.6 K/mm3 (4.0-10.0)
[2018-01-16] MEDS: BUDESONIDE 0.25 MG/2ML INH SUSP VIAL NEB SCH ×2 (08:10→20:30)
[2018-01-16 08:21] LABS: ANION GAP 8 MMOL/L (8-16); BLOOD UREA NITROGEN 23 mg/dL (7-18); CALCIUM 8.7 mg/dL (8.5-10.1); CHLORIDE 108 mmol/L (98-107); CO2 27 mmol/L (21-32); CREATININE 0.8 mg/dL (0.55-1.02); GLUCOSE,RANDOM 111 mg/dL (74-106); POTASSIUM 3.1 mmol/L (3.5-5.1); SODIUM 143 mmol/L (136-145)
[2018-01-16] MEDS ORDERED: PT OWN MED DRAWER 7, Y5N ONE ×2 (10:28→21:59)
[2018-01-16] MEDS: VALPROATE SODIUM 500 MG/5 ML VIAL IVPB SCH ×2 (10:39→22:54)
[2018-01-16] MEDS: POLYETHYLENE GLYCOL 3350 119 GM BTL PO SCH (10:41)
[2018-01-16] MEDS: PANTOPRAZOLE SODIUM 40 MG VIAL IVPUSH SCH (10:41)
[2018-01-16] MEDS: DEXTROSE 5%-0.45% SALINE 1,000 ML IV SCH (10:42)
[2018-01-16] MEDS: CHLORHEXIDINE GLUCONATE 0.12% 15ML CUP MM SCH (10:44)
--- NOTE | 2018-01-16 11:22 | PN ---
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 UE no longer contracted like noted yesterday , Non vocal/non verbal. Eyes open, blinking, not visually tracking. Reflexive cough/upper airway secretions. Limited reflexive swallows noted today. Continued education provided to pt's mother.p CXR 01/13 (-). Continue auditory, tactile, visual stimulation, ROM. Educate family in ROM? Prognosis guarded for functional recovery. Lightening as compared to last 1-2 weeks but no functional gains yet. Recovery from hypoxia is very slow/unpredictable. Address consideration of PEG insertion? LTAC? Pt is a full code.
[2018-01-16] MEDS: levETIRAcetam 500 MG/5 ML INJECTION VIAL IVPB SCH ×2 (12:20→22:54)
--- NOTE | 2018-01-16 12:28 | PN ---
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, Physician History of Present Illness: PULMONARY MORE AWAKE,NO RESPONSIVE,-RESP DISTRESS - Current Medication List Current Medications: Active Medications Acetaminophen (Tylenol -) 650 mg PO Q6H PRN PRN Reason: Fever Or Pain 1-5 Last Admin: 01/15/18 17:32 Dose: 650 mg Acetaminophen (Ofirmev Injection -) 1,000 mg IVPB Q6H PRN PRN Reason: PAIN Acetylcysteine (Mucomyst 20 Oral / Inh Use Only*) 200 mg NEB RQID [facility] Last Admin: 01/16/18 08:00 Dose: 200 mg Bisacodyl (Dulcolax Suppository -) 10 mg [place] PRN PRN PRN Reason: CONSTIPATION Budesonide (Pulmicort 0.25 Mg Nebulizer -) 1 amp NEB RBID [facility] Last Admin: 01/16/18 08:10 Dose: 1 amp Chlorhexidine Gluconate (Peridex -) 15 ml MM BID [facility] Last Admin: 01/16/18 10:44 Dose: 15 ml Heparin Sodium (Porcine) (Heparin -) 5,000 unit SQ TID [facility] Last Admin: 01/16/18 05:56 Dose: 5,000 unit Vancomycin HCl (Vancomycin 1 Gm Premix -) 1 gm in 200 mls @ 133.333 mls/hr IVPB BID@0600,1800 [facility]; Protocol Last Admin: 01/16/18 05:56 Dose: 133.333 mls/hr Dextrose/Sodium Chloride (D5-1/2ns -) 1,000 mls @ 75 mls/hr IV ASDIR [facility] Last Admin: 01/16/18 10:42 Dose: 75 mls/hr Piperacillin Sod/Tazobactam (Sod 3.375 gm/ Dextrose) 50 mls @ 100 mls/hr IVPB Q8H-IV [facility]; Protocol Last Admin: 01/16/18 10:41 Dose: 100 mls/hr Levetiracetam (Keppra Injection -) 1,500 mg IVPB BID [facility] Last Admin: 01/15/18 21:53 Dose: 1,500 mg Nystatin/Triamcinolone Acetonide (Mycolog Ii Cream -) 1 applic TP BID [facility] Last Admin: 01/15/18 21:53 Dose: 1 applic Pantoprazole Sodium (Protonix Iv) 40 mg IVPUSH DAILY [facility] Last Admin: 01/16/18 10:41 Dose: 40 mg Polyethylene Glycol (Miralax (For Daily Use) -) 17 gm PO DAILY [facility] Last Admin: 01/16/18 10:41 Dose: 17 gm Scopolamine HBr (Transderm-Scop -) 1 patch TD Q72H [facility] Last Admin: 01/14/18 14:59 Dose: 1 patch Valproate Sodium (Depacon Injection -) 250 mg IVPB BID [facility] Last Admin: 01/16/18 10:39 Dose: 250 mg - Objective Vital Signs: Vital Signs Temperature 98.4 F 01/16/18 06:00 Pulse Rate 66 01/16/18 06:00 Respiratory Rate 18 01/16/18 06:00 Blood Pressure 104/49 01/16/18 06:00 O2 Sat by Pulse Oximetry (%) 99 01/15/18 21:00 Constitutional: Yes: Thin, Other (POORLY RESPONSIVE) Eyes: Yes: WNL HENT: Yes: WNL Neck: Yes: WNL Cardiovascular: Yes: Regular Rate and Rhythm, S1, S2 Respiratory: Yes: Diminished Gastrointestinal: Yes: Normal Bowel Sounds, Soft Extremities: Yes: WNL Edema: No Labs: CBC, BMP 01/16/18 07:00 01/16/18 07:00 INR, PTT INR 1.13 (0.83-1.09) H 12/31/17 07:52 Problem List - Problems (1) Acute asthma exacerbation Code(s): J45.901 - UNSPECIFIED ASTHMA WITH (ACUTE) EXACERBATION Qualifiers: Asthma severity: unspecified severity Asthma persistence: unspecified Qualified Code(s): J45.901 - Unspecified asthma with (acute) exacerbation (2) Anoxic brain damage Code(s): G93.1 - ANOXIC BRAIN DAMAGE, NOT ELSEWHERE CLASSIFIED (3) Respiratory failure Code(s): J96.90 - RESPIRATORY FAILURE, UNSP, UNSP W HYPOXIA OR HYPERCAPNIA Qualifiers: Chronicity: unspecified Respiratory failure complication: unspecified whether with hypoxia or hypercapnia Qualified Code(s): J96.90 - Respiratory failure, unspecified, unspecified whether with hypoxia or hypercapnia (4) Status asthmaticus Code(s): J45.902 - UNSPECIFIED ASTHMA WITH STATUS ASTHMATICUS Qualifiers: Asthma severity: unspecified severity Asthma persistence: unspecified Qualified Code(s): J45.902 - Unspecified asthma with status asthmaticus (5) Autism Code(s): F84.0 - AUTISTIC DISORDER (6) Tachycardia Code(s): R00.0 - TACHYCARDIA, UNSPECIFIED Assessment/Plan ASSESSMENT AND PLAN: Acute Hypoxic and Hypercapneic Respiratory Failure improved Anoxic Encephalopathy r/o Seizures Status Asthmaticus resolved Pneumonia likely Aspiration Shock resolved UTI Lactic Acidosis resolved Acute Kidney Injury resolved Hyperglycemia resolved Autism - antibiotics - inhaled bronchodilators standing and PRN - inhaled corticosteroids - aspiration precautions - continue empiric antiepileptics - DVT/GI prophylaxis - replete glenys [place]IRA
--- NOTE | 2018-01-16 13:59 | PN ---
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, Physician History of Present Illness: Pt remains noncommunicative. Afebrile for 24hrs. No acute distress noted. - Current Medication List Current Medications: Active Medications Acetaminophen (Tylenol -) 650 mg PO Q6H PRN PRN Reason: Fever Or Pain 1-5 Last Admin: 01/15/18 17:32 Dose: 650 mg Acetaminophen (Ofirmev Injection -) 1,000 mg IVPB Q6H PRN PRN Reason: PAIN Acetylcysteine (Mucomyst 20 Oral / Inh Use Only*) 200 mg NEB RQID [facility] Last Admin: 01/16/18 08:00 Dose: 200 mg Bisacodyl (Dulcolax Suppository -) 10 mg [place] PRN PRN PRN Reason: CONSTIPATION Budesonide (Pulmicort 0.25 Mg Nebulizer -) 1 amp NEB RBID [facility] Last Admin: 01/16/18 08:10 Dose: 1 amp Chlorhexidine Gluconate (Peridex -) 15 ml MM BID [facility] Last Admin: 01/16/18 10:44 Dose: 15 ml Heparin Sodium (Porcine) (Heparin -) 5,000 unit SQ TID [facility] Last Admin: 01/16/18 05:56 Dose: 5,000 unit Dextrose/Sodium Chloride (D5-1/2ns -) 1,000 mls @ 75 mls/hr IV ASDIR [facility] Last Admin: 01/16/18 10:42 Dose: 75 mls/hr Piperacillin Sod/Tazobactam (Sod 3.375 gm/ Dextrose) 50 mls @ 100 mls/hr IVPB Q8H-IV [facility]; Protocol Last Admin: 01/16/18 10:41 Dose: 100 mls/hr Levetiracetam (Keppra Injection -) 1,500 mg IVPB BID [facility] Last Admin: 01/16/18 12:20 Dose: 1,500 mg Nystatin/Triamcinolone Acetonide (Mycolog Ii Cream -) 1 applic TP BID [facility] Last Admin: 01/15/18 21:53 Dose: 1 applic Pantoprazole Sodium (Protonix Iv) 40 mg IVPUSH DAILY [facility] Last Admin: 01/16/18 10:41 Dose: 40 mg Polyethylene Glycol (Miralax (For Daily Use) -) 17 gm PO DAILY [facility] Last Admin: 01/16/18 10:41 Dose: 17 gm Scopolamine HBr (Transderm-Scop -) 1 patch TD Q72H [facility] Last Admin: 01/14/18 14:59 Dose: 1 patch Valproate Sodium (Depacon Injection -) 250 mg IVPB BID [facility] Last Admin: 01/16/18 10:39 Dose: 250 mg - Objective Vital Signs: Vital Signs Temperature 98.4 F 01/16/18 06:00 Pulse Rate 66 01/16/18 06:00 Respiratory Rate 18 01/16/18 06:00 Blood Pressure 104/49 01/16/18 06:00 O2 Sat by Pulse Oximetry (%) 99 01/15/18 21:00 Constitutional: Yes: No Distress Cardiovascular: Yes: Regular Rate and Rhythm Respiratory: Yes: Rhonchi (scattered) Gastrointestinal: Yes: Normal Bowel Sounds, Soft, Other (NGT) Extremities: Yes: WNL Edema: No Labs: CBC, BMP 01/16/18 07:00 01/16/18 07:00 INR, PTT INR 1.13 (0.83-1.09) H 12/31/17 07:52 Vancomycin level - 89 (drawn after dose given) Problem List - Problems (1) Acute asthma exacerbation Code(s): J45.901 - UNSPECIFIED ASTHMA WITH (ACUTE) EXACERBATION Qualifiers: Asthma severity: unspecified severity Asthma persistence: unspecified Qualified Code(s): J45.901 - Unspecified asthma with (acute) exacerbation (2) Anoxic brain damage Code(s): G93.1 - ANOXIC BRAIN DAMAGE, NOT ELSEWHERE CLASSIFIED (3) Respiratory failure Code(s): J96.90 - RESPIRATORY FAILURE, UNSP, UNSP W HYPOXIA OR HYPERCAPNIA Qualifiers: Chronicity: unspecified Respiratory failure complication: unspecified whether with hypoxia or hypercapnia Qualified Code(s): J96.90 - Respiratory failure, unspecified, unspecified whether with hypoxia or hypercapnia (4) UTI (urinary tract infection) Code(s): N39.0 - URINARY TRACT INFECTION, SITE NOT SPECIFIED (5) Pneumonia Code(s): J18.9 - PNEUMONIA, UNSPECIFIED ORGANISM Assessment/Plan Acute asthma exacerbation Acute respiratory failure Anoxic brain injury Aspiration PNA E. coli UTI Sinusitis Seizures Fever/Leukocytosis -- afebrile at this time, mild leukocytosis persists -- cont. Zosyn -- Vancomycin level high- drawn after dose given -- hold Vancomycin, check random level tomorrow -- cont. monitor wbc, temps -- aspiration/seizure precautions
[2018-01-16] MEDS: NYSTATIN/TRIAMCINOLONE TOPICAL CREAM 15 GM TUBE TP SCH ×2 (15:23→23:07)
--- NOTE | 2018-01-16 16:20 | PN ---
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, Physician History of Present Illness: more alert responding to questions by eyes and moving hand - Current Medication List Current Medications: Active Medications Acetaminophen (Tylenol -) 650 mg PO Q6H PRN PRN Reason: Fever Or Pain 1-5 Last Admin: 01/15/18 17:32 Dose: 650 mg Acetaminophen (Ofirmev Injection -) 1,000 mg IVPB Q6H PRN PRN Reason: PAIN Acetylcysteine (Mucomyst 20 Oral / Inh Use Only*) 200 mg NEB RQID [facility] Last Admin: 01/16/18 11:10 Dose: 200 mg Bisacodyl (Dulcolax Suppository -) 10 mg [place] PRN PRN PRN Reason: CONSTIPATION Budesonide (Pulmicort 0.25 Mg Nebulizer -) 1 amp NEB RBID [facility] Last Admin: 01/16/18 08:10 Dose: 1 amp Chlorhexidine Gluconate (Peridex -) 15 ml MM BID [facility] Last Admin: 01/16/18 10:44 Dose: 15 ml Heparin Sodium (Porcine) (Heparin -) 5,000 unit SQ TID [facility] Last Admin: 01/16/18 14:05 Dose: 5,000 unit Dextrose/Sodium Chloride (D5-1/2ns -) 1,000 mls @ 75 mls/hr IV ASDIR [facility] Last Admin: 01/16/18 10:42 Dose: 75 mls/hr Piperacillin Sod/Tazobactam (Sod 3.375 gm/ Dextrose) 50 mls @ 100 mls/hr IVPB Q8H-IV [facility]; Protocol Last Admin: 01/16/18 10:41 Dose: 100 mls/hr Levetiracetam (Keppra Injection -) 1,500 mg IVPB BID [facility] Last Admin: 01/16/18 12:20 Dose: 1,500 mg Nystatin/Triamcinolone Acetonide (Mycolog Ii Cream -) 1 applic TP BID [facility] Last Admin: 01/16/18 15:23 Dose: 1 applic Pantoprazole Sodium (Protonix Iv) 40 mg IVPUSH DAILY [facility] Last Admin: 01/16/18 10:41 Dose: 40 mg Polyethylene Glycol (Miralax (For Daily Use) -) 17 gm PO DAILY [facility] Last Admin: 01/16/18 10:41 Dose: 17 gm Scopolamine HBr (Transderm-Scop -) 1 patch TD Q72H [facility] Last Admin: 01/14/18 14:59 Dose: 1 patch Valproate Sodium (Depacon Injection -) 250 mg IVPB BID [facility] Last Admin: 01/16/18 10:39 Dose: 250 mg - Objective Vital Signs: Vital Signs Temperature 97.9 F 01/16/18 14:04 Pulse Rate 78 01/16/18 14:04 Respiratory Rate 16 01/16/18 14:04 Blood Pressure 106/60 01/16/18 14:04 O2 Sat by Pulse Oximetry (%) 99 01/15/18 21:00 Constitutional: Yes: No Distress HENT: Yes: Atraumatic Neck: Yes: Supple Cardiovascular: Yes: Regular Rate and Rhythm Respiratory: Yes: CTA Bilaterally Gastrointestinal: Yes: Normal Bowel Sounds Extremities: Yes: WNL Labs: CBC, BMP 01/16/18 07:00 01/16/18 07:00 INR, PTT INR 1.13 (0.83-1.09) H 12/31/17 07:52 Problem List - Problems (1) Acute asthma exacerbation Code(s): J45.901 - UNSPECIFIED ASTHMA WITH (ACUTE) EXACERBATION Qualifiers: Asthma severity: unspecified severity Asthma persistence: unspecified Qualified Code(s): J45.901 - Unspecified asthma with (acute) exacerbation (2) Respiratory failure Assessment/Plan: on NC Code(s): J96.90 - RESPIRATORY FAILURE, UNSP, UNSP W HYPOXIA OR HYPERCAPNIA Qualifiers: Chronicity: unspecified Respiratory failure complication: unspecified whether with hypoxia or hypercapnia Qualified Code(s): J96.90 - Respiratory failure, unspecified, unspecified whether with hypoxia or hypercapnia (3) Autism Code(s): F84.0 - AUTISTIC DISORDER (4) Pneumonia Assessment/Plan: on abx Code(s): J18.9 - PNEUMONIA, UNSPECIFIED ORGANISM (5) UTI (urinary tract infection) Assessment/Plan: on abx ecoli Code(s): N39.0 - URINARY TRACT INFECTION, SITE NOT SPECIFIED (6) Anoxic brain damage Assessment/Plan: mri report reviewed and neuro note also seen pt waking up little more follow up eeg Code(s): G93.1 - ANOXIC BRAIN DAMAGE, NOT ELSEWHERE CLASSIFIED
[2018-01-16] MEDS ORDERED: MUPIROCIN 2% TOPICAL OINTMENT FOR DECOLONIZATION NS SCH (19:22)
[2018-01-16] MEDS ORDERED: CHLORHEXIDINE GLUCONATE 4% CLEANSER FOR DECOLONIZATION TP SCH (19:22)
[2018-01-16] MEDS: ALBUTEROL SO4 0.083% IH SOL 2.5 MG/3 ML VIAL.NEB. NEB SCH ×2 (19:30→20:30)
[2018-01-16] MEDS ORDERED: CHLORHEXIDINE GLUCONATE 0.12% 15ML CUP MM SCH (22:00)
[2018-01-17] MEDS: PIPERACILLIN/TAZOB 3.375 GM 3.375 GM in DEXTROSE 5%-WATER - 50 ML IVPB SCH ×2 (01:30→10:33)
[2018-01-17] MEDS: HEPARIN NA (PORCINE) 5,000 UNITS/ML 1ML VIAL SQ SCH ×3 (05:24→21:45)
[2018-01-17] MEDS: ACETYLCYSTEINE 20% 200MG/ML 4 ML VIAL *FOR ORAL / INH USE ONLY NEB SCH ×4 (07:35→20:38)
[2018-01-17] MEDS: ALBUTEROL SO4 0.083% IH SOL 2.5 MG/3 ML VIAL.NEB. NEB SCH ×4 (07:35→20:38)
[2018-01-17] MEDS ORDERED: PT OWN MED DRAWER 7, Y5N ONE ×3 (07:50→21:34)
[2018-01-17] MEDS: BUDESONIDE 0.25 MG/2ML INH SUSP VIAL NEB SCH ×2 (07:55→20:26)
[2018-01-17] MEDS ORDERED: PIPERACILLIN/TAZOBACTAM 3.375 GM VIAL IVPB ONE (08:24)
[2018-01-17] MEDS ORDERED: DEXTROSE 5%-WATER - 50 ML IVPB ONE (08:24)
--- NOTE | 2018-01-17 08:46 | PN ---
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 (short form) - Note 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: 37 year old female history of autism, and asthma. She has severe hypoxic encephalopathy following severe asthma episode. She is not back to baseline and she has been having seizure. She was seen by dr Osorio in past, while He was away, I was following her. SUBJECTIVE: She has episode of seizure on january 12 , depakote was added to her medication and she has relatively quieter and no more significant moaning. There is no change in her mental status, she is not responding to verbal stimuli Neurological EXAMINATION: No spontaneous speech present Family at bedside, She is not following command no neck stiff, she is not able to hold her neck pupils is bilateral reactive There is mild axial myoclonic type activity seen ( slow rthymic activity) MRI showed bilateral basal ganglia injury consistent with anoxic injury Assessment- Hypoxic-Anoxic encpehalopathy following severe bronchial asthma. Prognosis remains guarded 2. Postnaoxic seizure , no more seizure on depakote and keppra . I would repeat eeg Plan continue keppra and depakote for now -over all prognosis is guarded Thaking you so much Abrahan Pelayo MD
[2018-01-17] MEDS: levETIRAcetam 500 MG/5 ML INJECTION VIAL IVPB SCH ×2 (09:05→21:42)
[2018-01-17] MEDS: POLYETHYLENE GLYCOL 3350 119 GM BTL PO SCH (09:06)
[2018-01-17] MEDS: PANTOPRAZOLE SODIUM 40 MG VIAL IVPUSH SCH (09:06)
[2018-01-17] MEDS: NYSTATIN/TRIAMCINOLONE TOPICAL CREAM 15 GM TUBE TP SCH ×2 (09:06→22:22)
[2018-01-17] MEDS: VALPROATE SODIUM 500 MG/5 ML VIAL IVPB SCH ×2 (11:00→22:16)
[2018-01-17] MEDS: DEXTROSE 5%-0.45% SALINE 1,000 ML IV SCH (11:02)
--- NOTE | 2018-01-17 13:15 | PN ---
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, Physician History of Present Illness: pulmonary awake,not responsive,-resp distress - Current Medication List Current Medications: Active Medications Acetaminophen (Ofirmev Injection -) 1,000 mg IVPB Q6H PRN PRN Reason: PAIN Acetaminophen (Tylenol -) 650 mg PO Q6H PRN PRN Reason: Fever Or Pain 1-5 Acetylcysteine (Mucomyst 20 Oral / Inh Use Only*) 200 mg NEB RQID [facility] Last Admin: 01/17/18 07:35 Dose: 200 mg Albuterol Sulfate (Ventolin 0.083% Nebulizer Soln -) 1 amp NEB RQID [facility] Last Admin: 01/17/18 07:35 Dose: 1 amp Bisacodyl (Dulcolax Suppository -) 10 mg [place] PRN PRN PRN Reason: CONSTIPATION Budesonide (Pulmicort 0.25 Mg Nebulizer -) 1 amp NEB RBID [facility] Last Admin: 01/17/18 07:55 Dose: 1 amp Heparin Sodium (Porcine) (Heparin -) 5,000 unit SQ TID [facility] Last Admin: 01/17/18 05:24 Dose: 5,000 unit Dextrose/Sodium Chloride (D5-1/2ns -) 1,000 mls @ 75 mls/hr IV ASDIR [facility] Last Admin: 01/17/18 11:02 Dose: 75 mls/hr Piperacillin Sod/Tazobactam (Sod 3.375 gm/ Dextrose) 50 mls @ 100 mls/hr IVPB Q8H-IV [facility]; Protocol Last Admin: 01/17/18 10:33 Dose: 100 mls/hr Levetiracetam (Keppra Injection -) 1,500 mg IVPB BID [facility] Last Admin: 01/17/18 09:05 Dose: 1,500 mg Nystatin/Triamcinolone Acetonide (Mycolog Ii Cream -) 1 applic TP BID [facility] Last Admin: 01/17/18 09:06 Dose: 1 applic Pantoprazole Sodium (Protonix Iv) 40 mg IVPUSH DAILY [facility] Last Admin: 01/17/18 09:06 Dose: 40 mg Polyethylene Glycol (Miralax (For Daily Use) -) 17 gm PO DAILY [facility] Last Admin: 01/17/18 09:06 Dose: Not Given Scopolamine HBr (Transderm-Scop -) 1 patch TD Q72H [facility] Valproate Sodium (Depacon Injection -) 250 mg IVPB BID [facility] Last Admin: 01/17/18 11:00 Dose: 250 mg - Objective Vital Signs: Vital Signs Temperature 99.6 F 01/17/18 06:00 Pulse Rate 18 L 01/17/18 06:00 Respiratory Rate 90 H 01/17/18 06:00 Blood Pressure 104/82 01/17/18 06:00 O2 Sat by Pulse Oximetry (%) 100 01/16/18 21:00 Constitutional: Yes: Thin, Other (awake,not responsive) Eyes: Yes: WNL HENT: Yes: WNL Neck: Yes: WNL Cardiovascular: Yes: Regular Rate and Rhythm, S1, S2 Respiratory: Yes: Diminished Gastrointestinal: Yes: Normal Bowel Sounds, Soft Extremities: Yes: WNL Edema: No Labs: CBC, BMP Problem List - Problems (1) Acute asthma exacerbation Code(s): J45.901 - UNSPECIFIED ASTHMA WITH (ACUTE) EXACERBATION Qualifiers: Asthma severity: unspecified severity Asthma persistence: unspecified Qualified Code(s): J45.901 - Unspecified asthma with (acute) exacerbation (2) Anoxic brain damage Code(s): G93.1 - ANOXIC BRAIN DAMAGE, NOT ELSEWHERE CLASSIFIED (3) Respiratory failure Code(s): J96.90 - RESPIRATORY FAILURE, UNSP, UNSP W HYPOXIA OR HYPERCAPNIA Qualifiers: Chronicity: unspecified Respiratory failure complication: unspecified whether with hypoxia or hypercapnia Qualified Code(s): J96.90 - Respiratory failure, unspecified, unspecified whether with hypoxia or hypercapnia (4) Status asthmaticus Code(s): J45.902 - UNSPECIFIED ASTHMA WITH STATUS ASTHMATICUS Qualifiers: Asthma severity: unspecified severity Asthma persistence: unspecified Qualified Code(s): J45.902 - Unspecified asthma with status asthmaticus (5) Autism Code(s): F84.0 - AUTISTIC DISORDER (6) Tachycardia Code(s): R00.0 - TACHYCARDIA, UNSPECIFIED Assessment/Plan ASSESSMENT AND PLAN: Acute Hypoxic and Hypercapneic Respiratory Failure improved Anoxic Encephalopathy r/o Seizures Status Asthmaticus resolved Pneumonia likely Aspiration Shock resolved UTI Lactic Acidosis resolved Acute Kidney Injury resolved Hyperglycemia resolved Autism - antibiotics as per id - inhaled bronchodilators standing and PRN - inhaled corticosteroids - aspiration precautions - continue empiric antiepileptics - DVT/GI prophylaxis - replete glenys DE OLIVEIRA
--- NOTE | 2018-01-17 13:24 | PN ---
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 somewhat rhythmic movements? Seizure? EEG performed today.Non vocal. Discussed with pt's mother contraindication for LT NGT. She would like to wait a couple more days before considering PEG insertion or other options.
--- NOTE | 2018-01-17 14:34 | PN ---
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, Physician History of Present Illness: Pt clinically remains the same. Involuntary movements, no acute resp. distress. Mild temperature elevations. - Current Medication List Current Medications: Active Medications Acetaminophen (Ofirmev Injection -) 1,000 mg IVPB Q6H PRN PRN Reason: PAIN Acetaminophen (Tylenol -) 650 mg PO Q6H PRN PRN Reason: Fever Or Pain 1-5 Acetylcysteine (Mucomyst 20 Oral / Inh Use Only*) 200 mg NEB RQID [facility] Last Admin: 01/17/18 07:35 Dose: 200 mg Albuterol Sulfate (Ventolin 0.083% Nebulizer Soln -) 1 amp NEB RQID [facility] Last Admin: 01/17/18 07:35 Dose: 1 amp Bisacodyl (Dulcolax Suppository -) [address] PRN PRN PRN Reason: CONSTIPATION Budesonide (Pulmicort 0.25 Mg Nebulizer -) 1 amp NEB RBID [facility] Last Admin: 01/17/18 07:55 Dose: 1 amp Heparin Sodium (Porcine) (Heparin -) 5,000 unit SQ TID [facility] Last Admin: 01/17/18 05:24 Dose: 5,000 unit Dextrose/Sodium Chloride (D5-1/2ns -) 1,000 mls @ 75 mls/hr IV ASDIR [facility] Last Admin: 01/17/18 11:02 Dose: 75 mls/hr Piperacillin Sod/Tazobactam (Sod 3.375 gm/ Dextrose) 50 mls @ 100 mls/hr IVPB Q8H-IV [facility]; Protocol Last Admin: 01/17/18 10:33 Dose: 100 mls/hr Levetiracetam (Keppra Injection -) 1,500 mg IVPB BID [facility] Last Admin: 01/17/18 09:05 Dose: 1,500 mg Nystatin/Triamcinolone Acetonide (Mycolog Ii Cream -) 1 applic TP BID [facility] Last Admin: 01/17/18 09:06 Dose: 1 applic Pantoprazole Sodium (Protonix Iv) 40 mg IVPUSH DAILY [facility] Last Admin: 01/17/18 09:06 Dose: 40 mg Polyethylene Glycol (Miralax (For Daily Use) -) 17 gm PO DAILY [facility] Last Admin: 01/17/18 09:06 Dose: Not Given Scopolamine HBr (Transderm-Scop -) 1 patch TD Q72H [facility] Valproate Sodium (Depacon Injection -) 250 mg IVPB BID [facility] Last Admin: 01/17/18 11:00 Dose: 250 mg - Objective Vital Signs: Vital Signs Temperature 99.6 F 01/17/18 06:00 Pulse Rate 18 L 01/17/18 06:00 Respiratory Rate 90 H 01/17/18 06:00 Blood Pressure 104/82 01/17/18 06:00 O2 Sat by Pulse Oximetry (%) 100 01/16/18 21:00 Constitutional: Yes: No Distress Cardiovascular: Yes: Tachycardia Respiratory: Yes: Regular Gastrointestinal: Yes: Normal Bowel Sounds, Soft, Other (NGT) Extremities: Yes: WNL Labs: CBC, BMP 01/16/18 07:00 01/16/18 07:00 INR, PTT INR 1.13 (0.83-1.09) H 12/31/17 07:52 Problem List - Problems (1) Acute asthma exacerbation Code(s): J45.901 - UNSPECIFIED ASTHMA WITH (ACUTE) EXACERBATION Qualifiers: Asthma severity: unspecified severity Asthma persistence: unspecified Qualified Code(s): J45.901 - Unspecified asthma with (acute) exacerbation (2) Anoxic brain damage Code(s): G93.1 - ANOXIC BRAIN DAMAGE, NOT ELSEWHERE CLASSIFIED (3) Respiratory failure Code(s): J96.90 - RESPIRATORY FAILURE, UNSP, UNSP W HYPOXIA OR HYPERCAPNIA Qualifiers: Chronicity: unspecified Respiratory failure complication: unspecified whether with hypoxia or hypercapnia Qualified Code(s): J96.90 - Respiratory failure, unspecified, unspecified whether with hypoxia or hypercapnia (4) UTI (urinary tract infection) Code(s): N39.0 - URINARY TRACT INFECTION, SITE NOT SPECIFIED (5) Pneumonia Code(s): J18.9 - PNEUMONIA, UNSPECIFIED ORGANISM Assessment/Plan Acute asthma exacerbation Acute respiratory failure Anoxic brain injury Aspiration PNA E. coli UTI Sinusitis Seizures Fever/Leukocytosis -- pt clinically the same -- d/c Zosyn -- Vancomycin adjustment based on level -- cont. monitor wbc, temps -- aspiration/seizure precautions -- neurology following d/w pt's mother regarding senior living feeding via peg, recommend NGT removal in light of sinusitus
[2018-01-17] MEDS: SCOPOLAMINE HYDROBROMIDE 1 PATCH PATCH.TD72 TD SCH (14:39)
[2018-01-17] MEDS: VANCOMYCIN 1,000 MG in DEXTROSE 5%-WATER - 250 ML IVPB SCH (16:48)
--- NOTE | 2018-01-17 17:37 | PN ---
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, Physician - Current Medication List Current Medications: Active Medications Acetaminophen (Ofirmev Injection -) 1,000 mg IVPB Q6H PRN PRN Reason: PAIN Acetaminophen (Tylenol -) 650 mg PO Q6H PRN PRN Reason: Fever Or Pain 1-5 Acetylcysteine (Mucomyst 20 Oral / Inh Use Only*) 200 mg NEB RQID [facility] Last Admin: 01/17/18 07:35 Dose: 200 mg Albuterol Sulfate (Ventolin 0.083% Nebulizer Soln -) 1 amp NEB RQID [facility] Last Admin: 01/17/18 07:35 Dose: 1 amp Bisacodyl (Dulcolax Suppository -) [address] PRN PRN PRN Reason: CONSTIPATION Budesonide (Pulmicort 0.25 Mg Nebulizer -) 1 amp NEB RBID [facility] Last Admin: 01/17/18 07:55 Dose: 1 amp Heparin Sodium (Porcine) (Heparin -) 5,000 unit SQ TID [facility] Last Admin: 01/17/18 14:38 Dose: 5,000 unit Dextrose/Sodium Chloride (D5-1/2ns -) 1,000 mls @ 75 mls/hr IV ASDIR [facility] Last Admin: 01/17/18 11:02 Dose: 75 mls/hr Vancomycin HCl 1,000 mg/ (Dextrose) 250 mls @ 166.667 mls/hr IVPB DAILY@1700 [facility]; Protocol Last Admin: 01/17/18 16:48 Dose: 166.667 mls/hr Levetiracetam (Keppra Injection -) 1,500 mg IVPB BID [facility] Last Admin: 01/17/18 09:05 Dose: 1,500 mg Nystatin/Triamcinolone Acetonide (Mycolog Ii Cream -) 1 applic TP BID [facility] Last Admin: 01/17/18 09:06 Dose: 1 applic Pantoprazole Sodium (Protonix Iv) 40 mg IVPUSH DAILY [facility] Last Admin: 01/17/18 09:06 Dose: 40 mg Polyethylene Glycol (Miralax (For Daily Use) -) 17 gm PO DAILY [facility] Last Admin: 01/17/18 09:06 Dose: Not Given Scopolamine HBr (Transderm-Scop -) 1 patch TD Q72H [facility] Last Admin: 01/17/18 14:39 Dose: 1 patch Valproate Sodium (Depacon Injection -) 250 mg IVPB BID [facility] Last Admin: 01/17/18 11:00 Dose: 250 mg - Objective Vital Signs: Vital Signs Temperature 99.2 F 01/17/18 15:33 Pulse Rate 98 H 01/17/18 15:33 Respiratory Rate 16 01/17/18 15:33 Blood Pressure 117/78 01/17/18 15:33 O2 Sat by Pulse Oximetry (%) 100 01/17/18 09:00 Constitutional: Yes: No Distress HENT: Yes: Atraumatic Neck: Yes: Supple Cardiovascular: Yes: Regular Rate and Rhythm Respiratory: Yes: Rhonchi Gastrointestinal: Yes: Normal Bowel Sounds Extremities: Yes: WNL Neurological: Yes: Alert, Oriented Labs: CBC, BMP 01/16/18 07:00 01/16/18 07:00 INR, PTT INR 1.13 (0.83-1.09) H 12/31/17 07:52 Problem List - Problems (1) Acute asthma exacerbation Assessment/Plan: on inhaler duo nebs iv abx Code(s): J45.901 - UNSPECIFIED ASTHMA WITH (ACUTE) EXACERBATION Qualifiers: Asthma severity: unspecified severity Asthma persistence: unspecified Qualified Code(s): J45.901 - Unspecified asthma with (acute) exacerbation (2) Respiratory failure Assessment/Plan: on NC Code(s): J96.90 - RESPIRATORY FAILURE, UNSP, UNSP W HYPOXIA OR HYPERCAPNIA Qualifiers: Chronicity: unspecified Respiratory failure complication: unspecified whether with hypoxia or hypercapnia Qualified Code(s): J96.90 - Respiratory failure, unspecified, unspecified whether with hypoxia or hypercapnia (3) Autism Code(s): F84.0 - AUTISTIC DISORDER (4) Pneumonia Assessment/Plan: on abx Code(s): J18.9 - PNEUMONIA, UNSPECIFIED ORGANISM (5) UTI (urinary tract infection) Assessment/Plan: on abx ecoli Code(s): N39.0 - URINARY TRACT INFECTION, SITE NOT SPECIFIED (6) Anoxic brain damage Assessment/Plan: mri report reviewed and neuro note also seen pt waking up little more follow up eeg Code(s): G93.1 - ANOXIC BRAIN DAMAGE, NOT ELSEWHERE CLASSIFIED Assessment/Plan pt on tube feeding d/w mother regarding peg tube she is leaning towards it
[2018-01-18] MEDS: ACETAMINOPHEN 325 MG TABLET (FP) PO PRN ×3 (00:56→21:33)
[2018-01-18] MEDS: HEPARIN NA (PORCINE) 5,000 UNITS/ML 1ML VIAL SQ SCH ×3 (05:23→21:28)
[2018-01-18 07:33] LABS: BASO % 0.4 % (0-2.0); EOS % 4.7 % (0-4.5); HEMATOCRIT 30.4 % (32.4-45.2); HEMOGLOBIN 10.1 GM/dL (10.7-15.3); MCH 29.4 pg (25.7-33.7); MCHC 33.1 g/dl (32.0-36.0); MEAN CELL VOLUME 88.6 fl (80-96); MEAN PLT VOLUME 7.5 fl (7.5-11.1); MONO % 5.4 % (3.8-10.2); NEUT % 80.5 % (42.8-82.8); PLATELET COUNT 606 K/MM3 (134-434); RBC 3.43 M/mm3 (3.60-5.2); RDW 13.9 % (11.6-15.6); WHITE BLOOD COUNT 13.9 K/mm3 (4.0-10.0)
[2018-01-18] MEDS: ACETYLCYSTEINE 20% 200MG/ML 4 ML VIAL *FOR ORAL / INH USE ONLY NEB SCH ×4 (07:35→21:02)
[2018-01-18] MEDS: ALBUTEROL SO4 0.083% IH SOL 2.5 MG/3 ML VIAL.NEB. NEB SCH ×4 (07:35→21:02)
[2018-01-18] MEDS ORDERED: PT OWN MED DRAWER 7, Y5N ONE ×2 (08:30→16:51)
[2018-01-18] MEDS: levETIRAcetam 500 MG/5 ML INJECTION VIAL IVPB SCH ×2 (09:00→21:31)
[2018-01-18] MEDS: NYSTATIN/TRIAMCINOLONE TOPICAL CREAM 15 GM TUBE TP SCH ×2 (09:00→21:32)
[2018-01-18] MEDS: POLYETHYLENE GLYCOL 3350 119 GM BTL PO SCH (09:00)
[2018-01-18] MEDS: PANTOPRAZOLE SODIUM 40 MG VIAL IVPUSH SCH (09:00)
[2018-01-18] MEDS: VALPROATE SODIUM 500 MG/5 ML VIAL IVPB SCH ×2 (10:57→21:31)
[2018-01-18] MEDS: BUDESONIDE 0.25 MG/2ML INH SUSP VIAL NEB SCH ×2 (11:36→20:56)
--- NOTE | 2018-01-18 12:39 | PN ---
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: Selected Entries 01/15/18 01/15/18 01/15/18 02:00 06:00 10:00 Supper Temperature 98.5 F 98.9 F 100.2 F H 01/15/18 01/15/18 01/15/18 14:07 19:54 20:00 Supper NPO NPO Temperature 99.9 F H 01/15/18 01/16/18 01/16/18 22:00 02:00 06:00 Supper Temperature 98.9 F 98.4 F 98.4 F 01/17/18 01/17/18 01/17/18 02:00 06:00 15:33 Supper Temperature 98.8 F 99.6 F 99.2 F 01/17/18 01/17/18 01/17/18 17:58 21:00 22:43 Supper NPO Temperature 98.1 F 99.1 F 01/18/18 01/18/18 02:00 06:00 Supper Temperature 98.6 F 99.8 F H Laboratory Tests 01/14/18 01/15/18 01/16/18 06:15 06:30 07:00 WBC 17.0 H 13.9 H 14.6 H 01/18/18 06:00 WBC 13.9 H Nursing note from last night-Medicated w/ Tylenol after episode of moaning and pt became restful. Pt with frequent UE/LE movements, grimace, vocalizing. Difficult to assess. Awaiting results of EEG from yesterday. I wonder if pt is in pain. Movements look intentional. Sweaty. Pt received 650 Tylenol this am, not since. Can pt be given more pain mgmt safely, which would also be diagnostic regarding movements/vocalizations? Pt's eyes are open today. Eyes may be tracking at times to left. Pending f/u by neurology. Pt's mother reported to be in more agreement with PEG. Suggest PEG/ [facility]? PT for ROM/educate mother for continuity. Staff to provide tactile, visual, auditory stimulation. Music.
--- NOTE | 2018-01-18 12:56 | PN ---
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 (short form) - Note 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: PULMONARY FAMILY PRESENT TACHY/LOW GRADE TEMP HOLDING ARM AGAINST ABD WALL OCCASIONAL GRIMACING PER MOTHER THIN/CHRONICALLY ILL APPEARING ANTERIOR B/L CLEAR BREATH SOUNDS S1S2 SINUS TACH DIFFICULT TO ADEQUATELY EVALUATE ABD NO EDEMA OFFLOADING OF HEELS LABS/MEDS/NOTES/IMAGES REVIEWED ASSESSMENT AND PLAN: Acute Hypoxic and Hypercapneic Respiratory Failure improved Anoxic Encephalopathy r/o Seizures Status Asthmaticus resolved Pneumonia likely Aspiration Shock resolved UTI Lactic Acidosis resolved Acute Kidney Injury resolved Hyperglycemia resolved Autism - antibiotics as per id - inhaled bronchodilators standing and PRN - inhaled corticosteroids - aspiration precautions - continue empiric antiepileptics - DVT/GI prophylaxis - replete lytes - portable cxr/flat plate armando BARON MD
--- NOTE | 2018-01-18 13:27 | PN ---
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, Physician History of Present Illness: Pt without change in status. Temps mildly elevated but below 100F. - Current Medication List Current Medications: Active Medications Acetaminophen (Ofirmev Injection -) 1,000 mg IVPB Q6H PRN PRN Reason: PAIN Acetaminophen (Tylenol -) 650 mg PO Q6H PRN PRN Reason: Fever Or Pain 1-5 Last Admin: 01/18/18 12:37 Dose: 650 mg Acetylcysteine (Mucomyst 20 Oral / Inh Use Only*) 200 mg NEB RQID [facility] Last Admin: 01/18/18 11:36 Dose: 200 mg Albuterol Sulfate (Ventolin 0.083% Nebulizer Soln -) 1 amp NEB RQID [facility] Last Admin: 01/18/18 11:36 Dose: 1 amp Bisacodyl (Dulcolax Suppository -) 10 mg [place] PRN PRN PRN Reason: CONSTIPATION Budesonide (Pulmicort 0.25 Mg Nebulizer -) 1 amp NEB RBID [facility] Last Admin: 01/18/18 11:36 Dose: 1 amp Heparin Sodium (Porcine) (Heparin -) 5,000 unit SQ TID [facility] Last Admin: 01/18/18 05:23 Dose: 5,000 unit Dextrose/Sodium Chloride (D5-1/2ns -) 1,000 mls @ 75 mls/hr IV ASDIR [facility] Last Admin: 01/17/18 11:02 Dose: 75 mls/hr Vancomycin HCl 1,000 mg/ (Dextrose) 250 mls @ 166.667 mls/hr IVPB DAILY@1700 [facility]; Protocol Last Admin: 01/17/18 16:48 Dose: 166.667 mls/hr Levetiracetam (Keppra Injection -) 1,500 mg IVPB BID [facility] Last Admin: 01/18/18 09:00 Dose: 1,500 mg Nystatin/Triamcinolone Acetonide (Mycolog Ii Cream -) 1 applic TP BID [facility] Last Admin: 01/18/18 09:00 Dose: 1 applic Pantoprazole Sodium (Protonix Iv) 40 mg IVPUSH DAILY [facility] Last Admin: 01/18/18 09:00 Dose: 40 mg Polyethylene Glycol (Miralax (For Daily Use) -) 17 gm PO DAILY [facility] Last Admin: 01/18/18 09:00 Dose: Not Given Scopolamine HBr (Transderm-Scop -) 1 patch TD Q72H [facility] Last Admin: 01/17/18 14:39 Dose: 1 patch Valproate Sodium (Depacon Injection -) 250 mg IVPB BID [facility] Last Admin: 01/18/18 10:57 Dose: 250 mg - Objective Vital Signs: Vital Signs Temperature 99.8 F H 01/18/18 06:00 Pulse Rate 94 H 01/18/18 06:00 Respiratory Rate 18 01/18/18 06:00 Blood Pressure 134/73 01/18/18 06:00 O2 Sat by Pulse Oximetry (%) 99 01/18/18 09:00 Cardiovascular: Yes: Regular Rate and Rhythm Respiratory: Yes: Regular Gastrointestinal: Yes: Normal Bowel Sounds, Other (ngt) Extremities: Yes: WNL Neurological: Yes: Other (involuntary movements) Labs: CBC, BMP 01/18/18 06:00 01/16/18 07:00 INR, PTT INR 1.13 (0.83-1.09) H 12/31/17 07:52 Problem List - Problems (1) Acute asthma exacerbation Code(s): J45.901 - UNSPECIFIED ASTHMA WITH (ACUTE) EXACERBATION Qualifiers: Asthma severity: unspecified severity Asthma persistence: unspecified Qualified Code(s): J45.901 - Unspecified asthma with (acute) exacerbation (2) Anoxic brain damage Code(s): G93.1 - ANOXIC BRAIN DAMAGE, NOT ELSEWHERE CLASSIFIED (3) Respiratory failure Code(s): J96.90 - RESPIRATORY FAILURE, UNSP, UNSP W HYPOXIA OR HYPERCAPNIA Qualifiers: Chronicity: unspecified Respiratory failure complication: unspecified whether with hypoxia or hypercapnia Qualified Code(s): J96.90 - Respiratory failure, unspecified, unspecified whether with hypoxia or hypercapnia (4) UTI (urinary tract infection) Code(s): N39.0 - URINARY TRACT INFECTION, SITE NOT SPECIFIED (5) Pneumonia Code(s): J18.9 - PNEUMONIA, UNSPECIFIED ORGANISM Assessment/Plan Acute asthma exacerbation Acute respiratory failure Anoxic brain injury Aspiration PNA, +MRSA resp isolate E. coli UTI - s/p treatment Sinusitis Seizures Fever/Leukocytosis -- leukocytosis improved, temps remain mildly elevated -- cont. Vancomycin for now -- s/p course of Zosyn -- aspiration/seizure precautions -- neurology following
--- NOTE | 2018-01-18 14:25 | PN ---
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, Physician - Current Medication List Current Medications: Active Medications Acetaminophen (Ofirmev Injection -) 1,000 mg IVPB Q6H PRN PRN Reason: PAIN Acetaminophen (Tylenol -) 650 mg PO Q6H PRN PRN Reason: Fever Or Pain 1-5 Last Admin: 01/18/18 12:37 Dose: 650 mg Acetylcysteine (Mucomyst 20 Oral / Inh Use Only*) 200 mg NEB RQID [facility] Last Admin: 01/18/18 11:36 Dose: 200 mg Albuterol Sulfate (Ventolin 0.083% Nebulizer Soln -) 1 amp NEB RQID [facility] Last Admin: 01/18/18 11:36 Dose: 1 amp Bisacodyl (Dulcolax Suppository -) 10 mg [place] PRN PRN PRN Reason: CONSTIPATION Budesonide (Pulmicort 0.25 Mg Nebulizer -) 1 amp NEB RBID [facility] Last Admin: 01/18/18 11:36 Dose: 1 amp Heparin Sodium (Porcine) (Heparin -) 5,000 unit SQ TID [facility] Last Admin: 01/18/18 13:58 Dose: 5,000 unit Dextrose/Sodium Chloride (D5-1/2ns -) 1,000 mls @ 75 mls/hr IV ASDIR [facility] Last Admin: 01/17/18 11:02 Dose: 75 mls/hr Vancomycin HCl 1,000 mg/ (Dextrose) 250 mls @ 166.667 mls/hr IVPB DAILY@1700 [facility]; Protocol Last Admin: 01/17/18 16:48 Dose: 166.667 mls/hr Levetiracetam (Keppra Injection -) 1,500 mg IVPB BID [facility] Last Admin: 01/18/18 09:00 Dose: 1,500 mg Nystatin/Triamcinolone Acetonide (Mycolog Ii Cream -) 1 applic TP BID [facility] Last Admin: 01/18/18 09:00 Dose: 1 applic Pantoprazole Sodium (Protonix Iv) 40 mg IVPUSH DAILY [facility] Last Admin: 01/18/18 09:00 Dose: 40 mg Polyethylene Glycol (Miralax (For Daily Use) -) 17 gm PO DAILY [facility] Last Admin: 01/18/18 09:00 Dose: Not Given Scopolamine HBr (Transderm-Scop -) 1 patch TD Q72H [facility] Last Admin: 01/17/18 14:39 Dose: 1 patch Valproate Sodium (Depacon Injection -) 250 mg IVPB BID [facility] Last Admin: 01/18/18 10:57 Dose: 250 mg - Objective Vital Signs: Vital Signs Temperature 99.8 F H 01/18/18 06:00 Pulse Rate 94 H 01/18/18 06:00 Respiratory Rate 18 01/18/18 06:00 Blood Pressure 134/73 01/18/18 06:00 O2 Sat by Pulse Oximetry (%) 99 01/18/18 09:00 Constitutional: Yes: Calm HENT: Yes: Atraumatic Neck: Yes: Supple Cardiovascular: Yes: Regular Rate and Rhythm Respiratory: Yes: Rhonchi Gastrointestinal: Yes: Normal Bowel Sounds Extremities: Yes: WNL Edema: No Peripheral Pulses WNL: Yes Neurological: Yes: Other (awake) Labs: CBC, BMP 01/18/18 06:00 01/16/18 07:00 INR, PTT INR 1.13 (0.83-1.09) H 12/31/17 07:52 Problem List - Problems (1) Acute asthma exacerbation Assessment/Plan: on inhaler duo nebs iv abx Code(s): J45.901 - UNSPECIFIED ASTHMA WITH (ACUTE) EXACERBATION Qualifiers: Asthma severity: unspecified severity Asthma persistence: unspecified Qualified Code(s): J45.901 - Unspecified asthma with (acute) exacerbation (2) Respiratory failure Assessment/Plan: on NC Code(s): J96.90 - RESPIRATORY FAILURE, UNSP, UNSP W HYPOXIA OR HYPERCAPNIA Qualifiers: Chronicity: unspecified Respiratory failure complication: unspecified whether with hypoxia or hypercapnia Qualified Code(s): J96.90 - Respiratory failure, unspecified, unspecified whether with hypoxia or hypercapnia (3) Autism Code(s): F84.0 - AUTISTIC DISORDER (4) Pneumonia Assessment/Plan: on abx Code(s): J18.9 - PNEUMONIA, UNSPECIFIED ORGANISM (5) UTI (urinary tract infection) Assessment/Plan: on abx ecoli Code(s): N39.0 - URINARY TRACT INFECTION, SITE NOT SPECIFIED (6) Anoxic brain damage Assessment/Plan: mri report reviewed and neuro note also seen pt waking up little more follow up eeg Code(s): G93.1 - ANOXIC BRAIN DAMAGE, NOT ELSEWHERE CLASSIFIED Assessment/Plan pt on ube feeding d/w mother regarding peg tube she is leaning towards it
[2018-01-18] MEDS: VANCOMYCIN 1,000 MG in DEXTROSE 5%-WATER - 250 ML IVPB SCH (16:53)
[2018-01-18] MEDS: DEXTROSE 5%-0.45% SALINE 1,000 ML IV SCH (16:53)
[2018-01-18] MEDS ORDERED: LORazepam 2 MG/ML SDV VIAL IVPUSH ONE (17:03)
--- NOTE | 2018-01-18 17:07 | PN ---
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 (short form) - Note 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: 37 year old female history of autism, and asthma. She has severe hypoxic encephalopathy following severe asthma episode. She is not back to baseline and she has been having seizure. She was seen by dr Osorio in past, while He was away, I was following her. SUBJECTIVE: She has episode of seizure on january 12 , depakote was added to her medication . She has been restless for last one day and she has been having episodic whole body stiffness ,?spasticity vs tonic seizure . eeg done yesterday , report pending and There is epileptiform discharges but no status epilepticus Neurological EXAMINATION: No spontaneous speech present Family at bedside, She is not following command no neck stiff, she is not able to hold her neck pupils is bilateral reactive There is mild axial myoclonic type activity seen ( slow rthymic activity) again MRI showed bilateral basal ganglia injury consistent with anoxic injury Assessment- Hypoxic-Anoxic encpehalopathy following severe bronchial asthma. Prognosis remains guarded 2. Postnaoxic seizure , no more seizure on depakote and keppra . eeg - reviewed there is epileptiform discharges but no status I would give her one dose of ativan 1 mg once and may repeat if continue to have rthymic activity, and increase depakote to 500 mg iv bid Plan continue keppra and depakote 500 mg bid -over all prognosis is guarded Thaking you so much Abrahan Pelayo MD
[2018-01-18] MEDS: BISACODYL 10 MG SUPP.RECT PR PRN (21:32)
[2018-01-19] MEDS: ACETAMINOPHEN 325 MG TABLET (FP) PO PRN ×3 (06:28→21:44)
[2018-01-19] MEDS: HEPARIN NA (PORCINE) 5,000 UNITS/ML 1ML VIAL SQ SCH ×3 (06:28→21:36)
[2018-01-19 07:07] LABS: BASO % 0.4 % (0-2.0); HEMATOCRIT 30.5 % (32.4-45.2); LYMPH % 9.1 % (8-40); MCH 29.4 pg (25.7-33.7); MCHC 32.8 g/dl (32.0-36.0); MEAN CELL VOLUME 89.6 fl (80-96); MEAN PLT VOLUME 7.9 fl (7.5-11.1); MONO % 6.2 % (3.8-10.2); NEUT % 79.3 % (42.8-82.8); PLATELET COUNT 601 K/MM3 (134-434); RBC 3.41 M/mm3 (3.60-5.2); RDW 13.7 % (11.6-15.6)
[2018-01-19 07:34] LABS: ANION GAP 10 MMOL/L (8-16); BLOOD UREA NITROGEN 23 mg/dL (7-18); CALCIUM 8.9 mg/dL (8.5-10.1); CHLORIDE 109 mmol/L (98-107); CO2 22 mmol/L (21-32); CREATININE 0.7 mg/dL (0.55-1.02); GLUCOSE,RANDOM 114 mg/dL (74-106); POTASSIUM 3.8 mmol/L (3.5-5.1); SODIUM 141 mmol/L (136-145)
[2018-01-19] MEDS: BUDESONIDE 0.25 MG/2ML INH SUSP VIAL NEB SCH ×2 (08:07→20:55)
[2018-01-19] MEDS: ALBUTEROL SO4 0.083% IH SOL 2.5 MG/3 ML VIAL.NEB. NEB SCH ×4 (08:07→21:05)
[2018-01-19] MEDS: ACETYLCYSTEINE 20% 200MG/ML 4 ML VIAL *FOR ORAL / INH USE ONLY NEB SCH ×4 (08:07→21:05)
--- NOTE | 2018-01-19 08:54 | PN ---
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 (short form) - Note 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: PULMONARY FAMILY PRESENT TACHY/LOW GRADE TEMP HOLDING ARM AGAINST ABD WALL OCCASIONAL GRIMACING PER MOTHER THIN/CHRONICALLY ILL APPEARING ANTERIOR B/L CLEAR BREATH SOUNDS S1S2 SINUS TACH DIFFICULT TO ADEQUATELY EVALUATE ABD NO EDEMA OFFLOADING OF HEELS LABS/MEDS/NOTES/IMAGES REVIEWED ASSESSMENT AND PLAN: Acute Hypoxic and Hypercapneic Respiratory Failure improved Anoxic Encephalopathy r/o Seizures Status Asthmaticus resolved Pneumonia likely Aspiration Shock resolved UTI Lactic Acidosis resolved Acute Kidney Injury resolved Hyperglycemia resolved Autism - antibiotics as per id - inhaled bronchodilators standing and PRN - inhaled corticosteroids - aspiration precautions - continue empiric antiepileptics - DVT/GI prophylaxis - replete lytes - consider GI R TOD PEREZ
[2018-01-19] MEDS ORDERED: PT OWN MED DRAWER 7, Y5N ONE ×2 (10:40→21:35)
[2018-01-19] MEDS: DEXTROSE 5%-0.45% SALINE 1,000 ML IV SCH (10:42)
[2018-01-19] MEDS: VALPROATE SODIUM 500 MG/5 ML VIAL IVPB SCH ×2 (10:43→21:36)
[2018-01-19] MEDS: levETIRAcetam 500 MG/5 ML INJECTION VIAL IVPB SCH ×2 (10:47→21:36)
[2018-01-19] MEDS: POLYETHYLENE GLYCOL 3350 119 GM BTL PO SCH ×3 (10:49→22:49)
[2018-01-19] MEDS: PANTOPRAZOLE SODIUM 40 MG VIAL IVPUSH SCH (10:49)
[2018-01-19] MEDS: NYSTATIN/TRIAMCINOLONE TOPICAL CREAM 15 GM TUBE TP SCH ×2 (10:50→21:48)
--- NOTE | 2018-01-19 11:32 | CON.GI ---
Consult Consult Specialty:: Gastroenterology ( covering Dr Austin) Referred by:: Dr. Bassett Reason for Consultation:: Agitation suggesting pain - History of Present Illness Chief Complaint: Agitated behavior suggesting pain History of Present Illness: 37F is admitted with status asthmaticus/respiratory and possibly cardiac arrest at home requiring intubation in the field. She is unable to provide any responses. Her mother informs me that Wolf has chronic constipation and has required disempactions for fecal impactions in the past. She has never had any other GI problems or abdominal surgery. She is chronically on miralax. She has not had a BM in 2 days. Her FUA reveals retained stool. - History Source History Provided By: Family Member Limitations to Obtaining History: Clinical Condition - Past Medical History [employer]IAN: Yes: Seizure (suffered earlier during this hospital stay), Other (Autism) Pulmonary: Yes: Asthma Gastrointestinal: Yes: Constipation, Other (fecal impaction) ...LMP: 07/14/14 Psych: Yes: Other (Autism) - Past Surgical History Past Surgical History: Yes: None - Alcohol/Substance Use Hx Alcohol Use: No - Smoking History Smoking history: Never smoked Have you smoked in the past 12 months: No Aproximately how many cigarettes per day: 0 - Social History ADL: Family Assistance History of Recent Travel: No Home Medications - Allergies Allergies/Adverse Reactions: Allergies Allergy/AdvReac Type Severity Reaction Status Date / Time haloperidol [From Haldol] Allergy Verified 12/31/17 11:50 haloperidol lactate Allergy Verified 12/31/17 11:50 [From Haldol] nut - unspecified Allergy Verified 01/13/18 14:16 soy Allergy Verified 01/13/18 14:14 - Home Medications Home Medications: Ambulatory Orders Albuterol 2.5/Ipratropium 0.5 [Duoneb -] 1 neb NEB QIDR #100 vial 08/11/14 Budesonide [Pulmicort 0.5 mg Nebulizer -] 1 neb NEB BID #60 vial 01/20/16 Polyethylene Glycol 3350 [Miralax 119 gm Btl -] 17 gm PO DAILY 10/09/16 Prednisone 10 mg PO ASDIR #18 tablet 10/12/16 Family Disease History - Family Disease History Family Disease History: Other: Father (healthy), Mother (healthy), Sister ( healthy) Review of Systems Unable to obtain ROS, reason: not communicative Physical Exam-GI Vital Signs: Vital Signs Temperature 99.8 F H 01/19/18 06:00 Pulse Rate 108 H 01/19/18 06:00 Respiratory Rate 20 01/19/18 06:00 Blood Pressure 130/49 01/19/18 06:00 O2 Sat by Pulse Oximetry (%) 100 01/18/18 21:00 CBC,CMP WBC 14.0 K/mm3 (4.0-10.0) H 01/19/18 06:20 RBC 3.41 M/mm3 (3.60-5.2) L 01/19/18 06:20 Hgb 10.0 GM/dL (10.7-15.3) L 01/19/18 06:20 Hct 30.5 % (32.4-45.2) L 01/19/18 06:20 MCV 89.6 fl (80-96) 01/19/18 06:20 MCH 29.4 pg (25.7-33.7) 01/19/18 06:20 MCHC 32.8 g/dl (32.0-36.0) 01/19/18 06:20 RDW 13.7 % (11.6-15.6) 01/19/18 06:20 Plt Count 601 K/MM3 (134-434) H 01/19/18 06:20 MPV 7.9 fl (7.5-11.1) 01/19/18 06:20 Absolute Neuts (auto) 11.1 K/mm3 (1.5-8.0) H 01/19/18 06:20 Total Counted 100 01/02/18 05:30 Neutrophils % 79.3 % (42.8-82.8) 01/19/18 06:20 Neutrophils % (Manual) 75.0 % (42.8-82.8) 01/08/18 05:30 Band Neutrophils % 0.0 % 01/08/18 05:30 Lymphocytes % 9.1 % (8-40) 01/19/18 06:20 Lymphocytes % (Manual) 12.0 % (8-40) D 01/08/18 05:30 Monocytes % 6.2 % (3.8-10.2) 01/19/18 06:20 Monocytes % (Manual) 8 % (3.8-10.2) D 01/08/18 05:30 Eosinophils % 5.0 % (0-4.5) H 01/19/18 06:20 Eosinophils % (Manual) 3.0 % (0-4.5) 01/08/18 05:30 Basophils % 0.4 % (0-2.0) 01/19/18 06:20 Basophils % (Manual) 1.0 % (0-2.0) 01/08/18 05:30 Myelocytes % (Man) 0 % (0-2) 01/08/18 05:30 Promyelocytes % (Man) 0 % (0-2) 01/08/18 05:30 Blast Cells % (Manual) 0 % (0-0) 01/08/18 05:30 Nucleated RBC % 0 % (0-0) 01/19/18 06:20 Metamyelocytes 0 % (0-2) 01/08/18 05:30 Hypochromia 0 01/08/18 05:30 Platelet Estimate Normal 01/08/18 05:30 Polychromasia 0 01/08/18 05:30 Poikilocytosis 0 01/08/18 05:30 Anisocytosis 0 01/08/18 05:30 Microcytosis 0 01/08/18 05:30 Macrocytosis 0 01/08/18 05:30 Sodium 141 mmol/L (136-145) 01/19/18 06:20 Potassium 3.8 mmol/L (3.5-5.1) 01/19/18 06:20 Chloride 109 mmol/L (98-107) H 01/19/18 06:20 Carbon Dioxide 22 mmol/L (21-32) 01/19/18 06:20 Anion Gap 10 MMOL/L (8-16) 01/19/18 06:20 BUN 23 mg/dL (7-18) H 01/19/18 06:20 Creatinine 0.7 mg/dL (0.55-1.02) 01/19/18 06:20 Creat Clearance w eGFR > 60 (>60) 01/19/18 06:20 POC Glucometer 135.74755 UNITS (80-120) 01/06/18 06:57 Random Glucose 114 mg/dL (74-106) H 01/19/18 06:20 Hemoglobin A1c % 5.4 % (4.8-6.0) 01/01/18 05:30 Lactic Acid 0.7 mmol/L (0.0-2.0) 01/07/18 05:30 Calcium 8.9 mg/dL (8.5-10.1) 01/19/18 06:20 Phosphorus 3.6 mg/dL (2.5-4.9) 01/11/18 06:28 Magnesium 2.1 mg/dL (1.8-2.4) 01/11/18 06:28 Total Bilirubin 0.2 mg/dL (0.2-1.0) 01/11/18 06:28 AST 60 U/L (15-37) H 01/11/18 06:28 ALT 49 U/L (12-78) 01/11/18 06:28 Alkaline Phosphatase 114 U/L (45-117) D 01/11/18 06:28 Creatine Kinase 273 IU/L (26-192) H 01/01/18 21:20 Creatine Kinase Index 1.6 % (0.0-5.0) 01/01/18 21:20 CK-MB (CK-2) 4.46 ng/mL (0.5-3.6) H 01/01/18 21:20 Troponin I 0.09 ng/ml (0.00-0.05) H 01/02/18 05:30 Total Protein 6.6 g/dl (6.4-8.2) 01/11/18 06:28 Albumin 2.4 g/dl (3.4-5.0) L 01/11/18 06:28 Serum , Qual Negative 12/31/17 07:52 Current Medications Generic Name Dose Route Start Last Admin Trade Name Freq PRN Reason Stop Dose Admin Acetaminophen 1,000 mg 01/14/18 10:22 Ofirmev Injection - IVPB Q6H PRN PAIN Acetaminophen 650 mg 01/16/18 19:22 01/19/18 06:28 Tylenol - PO 650 mg Q6H PRN Administration Fever Or Pain 1-5 Acetylcysteine 200 mg 01/16/18 20:00 01/19/18 08:07 Mucomyst 20 Oral / Inh Use Only* NEB 200 mg RQID [facility] Administration Albuterol Sulfate 1 amp 01/16/18 17:30 01/19/18 08:07 Ventolin 0.083% Nebulizer Soln - NEB 1 amp RQID [facility] Administration Bisacodyl 10 mg 01/15/18 20:23 01/18/18 21:32 Dulcolax Suppository - NM 10 mg PRN PRN Administration CONSTIPATION Budesonide 1 amp 01/16/18 20:00 01/19/18 08:07 Pulmicort 0.25 Mg Nebulizer - NEB 1 amp RBID [facility] Administration Heparin Sodium (Porcine) 5,000 unit 01/16/18 22:00 01/19/18 06:28 Heparin - SQ 5,000 unit TID [facility] Administration Dextrose/Sodium Chloride 1,000 mls @ 75 mls/hr 01/14/18 10:30 01/19/18 10:42 D5-1/2ns - IV 75 mls/hr ASDIR [facility] Administration Vancomycin HCl 1,000 mg/ 250 mls @ 166.667 mls/hr 01/17/18 17:00 01/18/18 16: 53 Dextrose IVPB 166.667 mls/hr DAILY@1700 [facility] Administration Protocol Levetiracetam 1,500 mg 01/16/18 22:00 01/19/18 10:47 Keppra Injection - IVPB 1,500 mg BID [facility] Administration Nystatin/Triamcinolone Acetonide 1 applic 01/16/18 22:00 01/19/18 10:50 Mycolog Ii Cream - TP 1 applic BID [facility] Administration Pantoprazole Sodium 40 mg 01/17/18 10:00 01/19/18 10:49 Protonix Iv IVPUSH 40 mg DAILY [facility] Administration Polyethylene Glycol 17 gm 01/17/18 10:00 01/19/18 10:49 Miralax (For Daily Use) - PO 17 gm DAILY [facility] Administration Scopolamine HBr 1 patch 01/17/18 15:00 01/17/18 14:39 Transderm-Scop - TD 1 patch Q72H [facility] Administration Valproate Sodium 500 mg 01/18/18 22:00 01/19/18 10:43 Depacon Injection - IVPB 500 mg BID [facility] Administration Constitutional: Yes: Mild Distress Eyes: Yes: Conjunctiva Clear HENT: Yes: Atraumatic, Drooling, Other (NG in place) Neck: Yes: Supple Cardiovascular: Yes: Regular Rate and Rhythm Respiratory: Yes: CTA Bilaterally Gastrointestinal Inspection: Yes: Distention ...Auscultate: Yes: Hyperactive Bowel Sounds ...Palpate: Yes: Mass (palpable stool filled colon loops LLQ) ...Percussion: Yes: Tympanitic ...Rectal Exam: Yes: Guaiac Negative (fecally impacted hard brown guaiac negative stool) Edema: No Peripheral Pulses WNL: Yes Neurological: Yes: Other (noncommunicative) Labs: CBC, BMP 01/19/18 06:20 01/19/18 06:20 INR, PTT INR 1.13 (0.83-1.09) H 12/31/17 07:52 Imaging - Results X-ray: Image Reviewed (no pneumopeitoneum, distended bowel loops and stool is seen) Problem List - Problems (1) Fecal impaction Assessment/Plan: I believe that Wolf's pain reflects bowel distension due to a large fecal impaction. At the bedside I preformed a fecal disempaction and administered 2 mineral oil enemas. Wolf appears to be more comfortable. I will resume feedings and increase her miralax. The situation was discussed with her family. Code(s): K56.41 - FECAL IMPACTION (2) Constipation Code(s): K59.00 - CONSTIPATION, UNSPECIFIED Qualifiers: Constipation type: chronic idiopathic constipation Qualified Code(s): K59.04 - Chronic idiopathic constipation (3) Abdominal pain Code(s): R10.9 - UNSPECIFIED ABDOMINAL PAIN Qualifiers: Abdominal location: generalized Qualified Code(s): R10.84 - Generalized abdominal pain (4) Status asthmaticus Code(s): J45.902 - UNSPECIFIED ASTHMA WITH STATUS ASTHMATICUS Qualifiers: Asthma severity: unspecified severity Asthma persistence: unspecified Qualified Code(s): J45.902 - Unspecified asthma with status asthmaticus (5) Autism Code(s): F84.0 - AUTISTIC DISORDER Assessment/Plan Fecal disempaction performed Miralax increased Feeedings resumed Dr. Austin will return 01/21
[2018-01-19] MEDS ORDERED: MINERAL OIL ENEMA 133 ML ENEMA PR ONE (11:48)
--- NOTE | 2018-01-19 11:55 | PN ---
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 (short form) - Note 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: 37 year old female history of autism, and asthma. She has severe hypoxic encephalopathy following severe asthma episode. She is not back to baseline and she has been having seizure. She was seen by dr Osorio in past, while He was away, I was following her. SUBJECTIVE: She has episode of seizure on january 12 , depakote was added to her medication . She has been restless for last one day and she has been having episodic whole body stiffness ,?spasticity vs tonic seizure . eeg done yesterday , report pending and There is epileptiform discharges but no status epilepticus. Her belly was distended and after disimpaction she is feeling much better and calmer Neurological EXAMINATION: No spontaneous speech present , she is sleepy and no acute distress, no spastic movement seen Family at bedside, She is not following command no neck stiff, she is not able to hold her neck pupils is bilateral reactive MRI showed bilateral basal ganglia injury consistent with anoxic injury Assessment- Hypoxic-Anoxic encpehalopathy following severe bronchial asthma. Prognosis remains guarded 2. Postnaoxic seizure , no more seizure on depakote and keppra .after the disimpaction of stool, she is calmer and there is no body stiffness/spasm seen, she is calmer, if she remain like this in next two days, I would reduce her depakote dose and follow up on eeg results Plan continue keppra and depakote 500 mg bid for now -over all prognosis is guarded Thaking you so much Abrahan Pelayo MD
--- NOTE | 2018-01-19 17:27 | PN ---
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, Physician History of Present Illness: Events noted. Pt is s/p disempaction. Clinically no other changes. No recent seizures. - Current Medication List Current Medications: Active Medications Acetaminophen (Ofirmev Injection -) 1,000 mg IVPB Q6H PRN PRN Reason: PAIN Acetaminophen (Tylenol -) 650 mg PO Q6H PRN PRN Reason: Fever Or Pain 1-5 Last Admin: 01/19/18 13:41 Dose: 650 mg Acetylcysteine (Mucomyst 20 Oral / Inh Use Only*) 200 mg NEB RQID [facility] Last Admin: 01/19/18 16:40 Dose: 200 mg Albuterol Sulfate (Ventolin 0.083% Nebulizer Soln -) 1 amp NEB RQID [facility] Last Admin: 01/19/18 16:40 Dose: 1 amp Bisacodyl (Dulcolax Suppository -) 10 mg NE PRN PRN PRN Reason: CONSTIPATION Last Admin: 01/18/18 21:32 Dose: 10 mg Budesonide (Pulmicort 0.25 Mg Nebulizer -) 1 amp NEB RBID [facility] Last Admin: 01/19/18 08:07 Dose: 1 amp Heparin Sodium (Porcine) (Heparin -) 5,000 unit SQ TID [facility] Last Admin: 01/19/18 13:41 Dose: 5,000 unit Dextrose/Sodium Chloride (D5-1/2ns -) 1,000 mls @ 75 mls/hr IV ASDIR [facility] Last Admin: 01/19/18 10:42 Dose: 75 mls/hr Vancomycin HCl 1,000 mg/ (Dextrose) 250 mls @ 166.667 mls/hr IVPB DAILY@1700 [facility]ORAN; Protocol Last Admin: 01/18/18 16:53 Dose: 166.667 mls/hr Levetiracetam (Keppra Injection -) 1,500 mg IVPB BID [facility] Last Admin: 01/19/18 10:47 Dose: 1,500 mg Nystatin/Triamcinolone Acetonide (Mycolog Ii Cream -) 1 applic TP BID [facility] Last Admin: 01/19/18 10:50 Dose: 1 applic Pantoprazole Sodium (Protonix Iv) 40 mg IVPUSH DAILY [facility] Last Admin: 01/19/18 10:49 Dose: 40 mg Polyethylene Glycol (Miralax (For Daily Use) -) 17 gm PO TID [facility] Last Admin: 01/19/18 13:43 Dose: 17 g Scopolamine HBr (Transderm-Scop -) 1 patch TD Q72H [facility] Last Admin: 01/17/18 14:39 Dose: 1 patch Valproate Sodium (Depacon Injection -) 500 mg IVPB BID [facility] Last Admin: 01/19/18 10:43 Dose: 500 mg - Objective Vital Signs: Vital Signs Temperature 99.5 F 01/19/18 14:00 Pulse Rate 117 H 01/19/18 14:00 Respiratory Rate 20 01/19/18 14:00 Blood Pressure 131/84 01/19/18 14:00 O2 Sat by Pulse Oximetry (%) 100 01/19/18 12:16 Constitutional: Yes: No Distress Cardiovascular: Yes: Tachycardia Respiratory: Yes: Regular Gastrointestinal: Yes: Normal Bowel Sounds, Soft, Other (+NGT) Extremities: Yes: WNL Neurological: Yes: Other (noncommunicative, groaning) Labs: CBC, BMP 01/19/18 06:20 01/19/18 06:20 INR, PTT INR 1.13 (0.83-1.09) H 12/31/17 07:52 Problem List - Problems (1) Acute asthma exacerbation Code(s): J45.901 - UNSPECIFIED ASTHMA WITH (ACUTE) EXACERBATION Qualifiers: Asthma severity: unspecified severity Asthma persistence: unspecified Qualified Code(s): J45.901 - Unspecified asthma with (acute) exacerbation (2) Anoxic brain damage Code(s): G93.1 - ANOXIC BRAIN DAMAGE, NOT ELSEWHERE CLASSIFIED (3) Respiratory failure Code(s): J96.90 - RESPIRATORY FAILURE, UNSP, UNSP W HYPOXIA OR HYPERCAPNIA Qualifiers: Chronicity: unspecified Respiratory failure complication: unspecified whether with hypoxia or hypercapnia Qualified Code(s): J96.90 - Respiratory failure, unspecified, unspecified whether with hypoxia or hypercapnia (4) UTI (urinary tract infection) Code(s): N39.0 - URINARY TRACT INFECTION, SITE NOT SPECIFIED (5) Pneumonia Code(s): J18.9 - PNEUMONIA, UNSPECIFIED ORGANISM Assessment/Plan Acute asthma exacerbation s/p Acute respiratory failure Anoxic brain injury Aspiration PNA, +MRSA resp isolate E. coli UTI - s/p treatment Sinusitis Seizures Fever/Leukocytosis --mild leukocytosis but wbc stable, currently afebrile -- plan d/c Vancomycin in next 2 days -- aspiration/seizure precautions -- neurology following -- suggest removal of ngt when possible
--- NOTE | 2018-01-19 18:01 | PN ---
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, Physician - Current Medication List Current Medications: Active Medications Acetaminophen (Ofirmev Injection -) 1,000 mg IVPB Q6H PRN PRN Reason: PAIN Acetaminophen (Tylenol -) 650 mg PO Q6H PRN PRN Reason: Fever Or Pain 1-5 Last Admin: 01/19/18 13:41 Dose: 650 mg Acetylcysteine (Mucomyst 20 Oral / Inh Use Only*) 200 mg NEB RQID [facility] Last Admin: 01/19/18 16:40 Dose: 200 mg Albuterol Sulfate (Ventolin 0.083% Nebulizer Soln -) 1 amp NEB RQID [facility] Last Admin: 01/19/18 16:40 Dose: 1 amp Bisacodyl (Dulcolax Suppository -) 10 mg MO PRN PRN PRN Reason: CONSTIPATION Last Admin: 01/18/18 21:32 Dose: 10 mg Budesonide (Pulmicort 0.25 Mg Nebulizer -) 1 amp NEB RBID [facility] Last Admin: 01/19/18 08:07 Dose: 1 amp Heparin Sodium (Porcine) (Heparin -) 5,000 unit SQ TID [facility] Last Admin: 01/19/18 13:41 Dose: 5,000 unit Dextrose/Sodium Chloride (D5-1/2ns -) 1,000 mls @ 75 mls/hr IV ASDIR [facility] Last Admin: 01/19/18 10:42 Dose: 75 mls/hr Vancomycin HCl 1,000 mg/ (Dextrose) 250 mls @ 166.667 mls/hr IVPB DAILY@1700 [facility]ORAN; Protocol Last Admin: 01/18/18 16:53 Dose: 166.667 mls/hr Levetiracetam (Keppra Injection -) 1,500 mg IVPB BID [facility] Last Admin: 01/19/18 10:47 Dose: 1,500 mg Nystatin/Triamcinolone Acetonide (Mycolog Ii Cream -) 1 applic TP BID [facility] Last Admin: 01/19/18 10:50 Dose: 1 applic Pantoprazole Sodium (Protonix Iv) 40 mg IVPUSH DAILY [facility] Last Admin: 01/19/18 10:49 Dose: 40 mg Polyethylene Glycol (Miralax (For Daily Use) -) 17 gm PO TID [facility] Last Admin: 01/19/18 13:43 Dose: 17 g Scopolamine HBr (Transderm-Scop -) 1 patch TD Q72H [facility] Last Admin: 01/17/18 14:39 Dose: 1 patch Valproate Sodium (Depacon Injection -) 500 mg IVPB BID [facility] Last Admin: 01/19/18 10:43 Dose: 500 mg - Objective Vital Signs: Vital Signs Temperature 99.5 F 01/19/18 14:00 Pulse Rate 117 H 01/19/18 14:00 Respiratory Rate 20 01/19/18 14:00 Blood Pressure 131/84 01/19/18 14:00 O2 Sat by Pulse Oximetry (%) 100 01/19/18 12:16 HENT: Yes: Atraumatic Neck: Yes: Supple Cardiovascular: Yes: Regular Rate and Rhythm Respiratory: Yes: Rhonchi Gastrointestinal: Yes: Normal Bowel Sounds Extremities: Yes: WNL Neurological: Yes: Other (moving all extremeties) Labs: CBC, BMP 01/19/18 06:20 01/19/18 06:20 INR, PTT INR 1.13 (0.83-1.09) H 12/31/17 07:52 Problem List - Problems (1) Acute asthma exacerbation Assessment/Plan: on inhaler duo nebs iv abx Code(s): J45.901 - UNSPECIFIED ASTHMA WITH (ACUTE) EXACERBATION Qualifiers: Asthma severity: unspecified severity Asthma persistence: unspecified Qualified Code(s): J45.901 - Unspecified asthma with (acute) exacerbation (2) Respiratory failure Assessment/Plan: on NC Code(s): J96.90 - RESPIRATORY FAILURE, UNSP, UNSP W HYPOXIA OR HYPERCAPNIA Qualifiers: Chronicity: unspecified Respiratory failure complication: unspecified whether with hypoxia or hypercapnia Qualified Code(s): J96.90 - Respiratory failure, unspecified, unspecified whether with hypoxia or hypercapnia (3) Autism Code(s): F84.0 - AUTISTIC DISORDER (4) Pneumonia Assessment/Plan: on abx Code(s): J18.9 - PNEUMONIA, UNSPECIFIED ORGANISM (5) UTI (urinary tract infection) Assessment/Plan: on abx ecoli Code(s): N39.0 - URINARY TRACT INFECTION, SITE NOT SPECIFIED (6) Anoxic brain damage Assessment/Plan: mri report reviewed and neuro note also seen pt waking up little more follow up eeg Code(s): G93.1 - ANOXIC BRAIN DAMAGE, NOT ELSEWHERE CLASSIFIED Assessment/Plan was fecally disimpacted
[2018-01-19] MEDS: VANCOMYCIN 1,000 MG in DEXTROSE 5%-WATER - 250 ML IVPB SCH (18:07)
[2018-01-19] MEDS ORDERED: BUDESONIDE 0.5 MG/2 ML INH SUSP VIAL NEB ONE (20:35)
[2018-01-20] MEDS: ACETYLCYSTEINE 20% 200MG/ML 4 ML VIAL *FOR ORAL / INH USE ONLY NEB SCH ×4 (08:22→20:35)
[2018-01-20] MEDS: ALBUTEROL SO4 0.083% IH SOL 2.5 MG/3 ML VIAL.NEB. NEB SCH ×4 (08:23→20:35)
[2018-01-20] MEDS: BUDESONIDE 0.25 MG/2ML INH SUSP VIAL NEB SCH ×2 (08:23→20:05)
[2018-01-20] MEDS: POLYETHYLENE GLYCOL 3350 119 GM BTL PO SCH ×3 (08:39→21:14)
[2018-01-20] MEDS: HEPARIN NA (PORCINE) 5,000 UNITS/ML 1ML VIAL SQ SCH ×3 (08:39→21:14)
[2018-01-20] MEDS ORDERED: PT OWN MED DRAWER 7, Y5N ONE ×3 (08:41→20:59)
[2018-01-20] MEDS: PANTOPRAZOLE SODIUM 40 MG VIAL IVPUSH SCH (10:13)
[2018-01-20] MEDS: levETIRAcetam 500 MG/5 ML INJECTION VIAL IVPB SCH ×2 (10:13→21:13)
[2018-01-20] MEDS: VALPROATE SODIUM 500 MG/5 ML VIAL IVPB SCH ×2 (10:13→21:14)
[2018-01-20] MEDS: NYSTATIN/TRIAMCINOLONE TOPICAL CREAM 15 GM TUBE TP SCH ×2 (10:13→21:20)
--- NOTE | 2018-01-20 11:08 | PN ---
GI 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 Subjective: GI NOte: ( covering for Dr Austin) Having BMs but still appears uncomfortable - Objective Vital Signs: Vital Signs Temperature 99 F 01/20/18 05:56 Pulse Rate 101 H 01/20/18 05:56 Respiratory Rate 18 01/20/18 05:56 Blood Pressure 124/80 01/20/18 05:56 O2 Sat by Pulse Oximetry (%) 100 01/19/18 21:00 Gastrointestinal Inspection: Yes: Distention ...Auscultate: Yes: Hyperactive Bowel Sounds ...Palpate: Yes: Soft, Other (nontender) Labs: CBC, BMP 01/19/18 06:20 01/19/18 06:20 INR, PTT INR 1.13 (0.83-1.09) H 12/31/17 07:52 Assessment/Plan Continue Miralax CT is pain persists Dr. Austin will return 01/21 Problem List - Problems (1) Fecal impaction Assessment/Plan: If Wolf's pain persists she may need a CTscan. Her abdomen is softer and nontender. Continue her miralax. The situation was discussed with her family. Code(s): K56.41 - FECAL IMPACTION (2) Constipation Code(s): K59.00 - CONSTIPATION, UNSPECIFIED Qualifiers: Constipation type: chronic idiopathic constipation Qualified Code(s): K59.04 - Chronic idiopathic constipation (3) Abdominal pain Code(s): R10.9 - UNSPECIFIED ABDOMINAL PAIN Qualifiers: Abdominal location: generalized Qualified Code(s): R10.84 - Generalized abdominal pain (4) Status asthmaticus Code(s): J45.902 - UNSPECIFIED ASTHMA WITH STATUS ASTHMATICUS Qualifiers: Asthma severity: unspecified severity Asthma persistence: unspecified Qualified Code(s): J45.902 - Unspecified asthma with status asthmaticus (5) Autism Code(s): F84.0 - AUTISTIC DISORDER
[2018-01-20] MEDS: DEXTROSE 5%-0.45% SALINE 1,000 ML IV SCH ×2 (11:23→21:20)
[2018-01-20] MEDS: SCOPOLAMINE HYDROBROMIDE 1 PATCH PATCH.TD72 TD SCH (15:10)
[2018-01-20] MEDS: VANCOMYCIN 1,000 MG in DEXTROSE 5%-WATER - 250 ML IVPB SCH (17:09)
[2018-01-20] MEDS ORDERED: BUDESONIDE 0.5 MG/2 ML INH SUSP VIAL NEB ONE (20:18)
[2018-01-20] MEDS: ACETAMINOPHEN 325 MG TABLET (FP) PO PRN (21:15)
--- NOTE | 2018-01-20 22:43 | PN ---
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, Physician History of Present Illness: No new complaints - Current Medication List Current Medications: Active Medications Acetaminophen (Ofirmev Injection -) 1,000 mg IVPB Q6H PRN PRN Reason: PAIN Acetaminophen (Tylenol -) 650 mg PO Q6H PRN PRN Reason: Fever Or Pain 1-5 Last Admin: 01/20/18 21:15 Dose: 650 mg Acetylcysteine (Mucomyst 20 Oral / Inh Use Only*) 200 mg NEB RQID [facility] Last Admin: 01/20/18 20:35 Dose: 200 mg Albuterol Sulfate (Ventolin 0.083% Nebulizer Soln -) 1 amp NEB RQID [facility] Last Admin: 01/20/18 20:35 Dose: 1 amp Bisacodyl (Dulcolax Suppository -) 10 mg MA PRN PRN PRN Reason: CONSTIPATION Last Admin: 01/18/18 21:32 Dose: 10 mg Budesonide (Pulmicort 0.25 Mg Nebulizer -) 1 amp NEB RBID [facility] Last Admin: 01/20/18 20:05 Dose: 1 amp Heparin Sodium (Porcine) (Heparin -) 5,000 unit SQ TID [facility] Last Admin: 01/20/18 21:14 Dose: 5,000 unit Dextrose/Sodium Chloride (D5-1/2ns -) 1,000 mls @ 75 mls/hr IV ASDIR [facility] Last Admin: 01/20/18 21:20 Dose: 75 mls/hr Vancomycin HCl 1,000 mg/ (Dextrose) 250 mls @ 166.667 mls/hr IVPB DAILY@1700 [facility]; Protocol Last Admin: 01/20/18 17:09 Dose: 166.667 mls/hr Levetiracetam (Keppra Injection -) 1,500 mg IVPB BID [facility] Last Admin: 01/20/18 21:13 Dose: 1,500 mg Nystatin/Triamcinolone Acetonide (Mycolog Ii Cream -) 1 applic TP BID [facility] Last Admin: 01/20/18 21:20 Dose: 1 applic Pantoprazole Sodium (Protonix Iv) 40 mg IVPUSH DAILY [facility] Last Admin: 01/20/18 10:13 Dose: 40 mg Polyethylene Glycol (Miralax (For Daily Use) -) 17 gm PO TID [facility] Last Admin: 01/20/18 21:14 Dose: 17 g Scopolamine HBr (Transderm-Scop -) 1 patch TD Q72H [facility] Last Admin: 01/20/18 15:10 Dose: 1 patch Valproate Sodium (Depacon Injection -) 500 mg IVPB BID [facility] Last Admin: 01/20/18 21:14 Dose: 500 mg - Objective Vital Signs: Vital Signs Temperature 98.6 F 01/20/18 14:45 Pulse Rate 116 H 01/20/18 18:00 Respiratory Rate 22 01/20/18 18:00 Blood Pressure 141/76 01/20/18 14:45 O2 Sat by Pulse Oximetry (%) 100 01/20/18 10:00 Constitutional: Yes: Cachectic Neck: Yes: WNL, Supple Cardiovascular: Yes: WNL, Regular Rate and Rhythm Respiratory: Yes: Diminished Gastrointestinal: Yes: WNL, Normal Bowel Sounds, Soft Labs: CBC, BMP 01/19/18 06:20 01/19/18 06:20 INR, PTT INR 1.13 (0.83-1.09) H 12/31/17 07:52 Problem List - Problems (1) Acute asthma exacerbation Assessment/Plan: Cont ne bulizers(mucomyst/ventolin/symbicort) Code(s): J45.901 - UNSPECIFIED ASTHMA WITH (ACUTE) EXACERBATION Qualifiers: Asthma severity: unspecified severity Asthma persistence: unspecified Qualified Code(s): J45.901 - Unspecified asthma with (acute) exacerbation (2) Respiratory failure Assessment/Plan: Resolved Multifactorial Aspiration pneumonia Code(s): J96.90 - RESPIRATORY FAILURE, UNSP, UNSP W HYPOXIA OR HYPERCAPNIA Qualifiers: Chronicity: unspecified Respiratory failure complication: unspecified whether with hypoxia or hypercapnia Qualified Code(s): J96.90 - Respiratory failure, unspecified, unspecified whether with hypoxia or hypercapnia (3) Seizure Assessment/Plan: Cont keppra/depacon IV Code(s): R56.9 - UNSPECIFIED CONVULSIONS (4) Anemia Code(s): D64.9 - ANEMIA, UNSPECIFIED (5) Autism Code(s): F84.0 - AUTISTIC DISORDER (6) Anoxic brain damage Code(s): G93.1 - ANOXIC BRAIN DAMAGE, NOT ELSEWHERE CLASSIFIED
[2018-01-21] MEDS: POLYETHYLENE GLYCOL 3350 119 GM BTL PO SCH ×3 (05:01→21:24)
[2018-01-21] MEDS: HEPARIN NA (PORCINE) 5,000 UNITS/ML 1ML VIAL SQ SCH ×3 (05:03→21:23)
[2018-01-21 07:01] LABS: BASO % 0.6 % (0-2.0); EOS % 4.7 % (0-4.5); HEMATOCRIT 30.6 % (32.4-45.2); HEMOGLOBIN 10.1 GM/dL (10.7-15.3); LYMPH % 8.8 % (8-40); MCH 29.4 pg (25.7-33.7); MEAN CELL VOLUME 88.9 fl (80-96); MEAN PLT VOLUME 7.6 fl (7.5-11.1); MONO % 6.8 % (3.8-10.2); NEUT % 79.1 % (42.8-82.8); PLATELET COUNT 642 K/MM3 (134-434); RBC 3.44 M/mm3 (3.60-5.2); WHITE BLOOD COUNT 13.2 K/mm3 (4.0-10.0)
[2018-01-21 07:15] LABS: ANION GAP 11 MMOL/L (8-16); BLOOD UREA NITROGEN 20 mg/dL (7-18); CHLORIDE 111 mmol/L (98-107); CO2 24 mmol/L (21-32); GLUCOSE,RANDOM 118 mg/dL (74-106); POTASSIUM 3.2 mmol/L (3.5-5.1); SODIUM 146 mmol/L (136-145)
[2018-01-21 07:19] LABS: ALK PHOS 82 U/L (45-117); BILIRUBIN,TOTAL 0.2 mg/dL (0.2-1.0); CREATININE 0.6 mg/dL (0.55-1.02); SGOT/AST 92 U/L (15-37); SGPT/ALT 88 U/L (12-78)
[2018-01-21] MEDS ORDERED: PT OWN MED DRAWER 7, Y5N ONE ×5 (07:46→19:25)
[2018-01-21] MEDS: ACETYLCYSTEINE 20% 200MG/ML 4 ML VIAL *FOR ORAL / INH USE ONLY NEB SCH ×4 (07:54→20:50)
[2018-01-21] MEDS: ALBUTEROL SO4 0.083% IH SOL 2.5 MG/3 ML VIAL.NEB. NEB SCH ×4 (07:54→20:50)
[2018-01-21] MEDS: BUDESONIDE 0.25 MG/2ML INH SUSP VIAL NEB SCH ×2 (08:01→20:50)
[2018-01-21] MEDS: VALPROATE SODIUM 500 MG/5 ML VIAL IVPB SCH ×2 (10:36→21:23)
[2018-01-21] MEDS: levETIRAcetam 500 MG/5 ML INJECTION VIAL IVPB SCH ×2 (10:39→21:55)
[2018-01-21] MEDS: PANTOPRAZOLE SODIUM 40 MG VIAL IVPUSH SCH (10:41)
[2018-01-21] MEDS: NYSTATIN/TRIAMCINOLONE TOPICAL CREAM 15 GM TUBE TP SCH ×2 (10:41→21:23)
[2018-01-21] MEDS: DEXTROSE 5%-0.45% SALINE 1,000 ML IV SCH ×2 (10:42→17:26)
--- NOTE | 2018-01-21 12:20 | PN ---
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 (short form) - Note 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: Clinically better. No events. No indications of pt in discomfort noted, or reported. No bms today. Family at bedside asking about PEG and and wants to discuss it with primary team first. Continue current care, aspiration precautions. PEG may be indicated (has been receiving NGT feeding for the last 2 weeks).
--- NOTE | 2018-01-21 12:39 | PN ---
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 (short form) - Note 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: 37 year old female history of autism, and asthma. She has severe hypoxic encephalopathy following severe asthma episode. She is not back to baseline and she has been having seizure. She was seen by dr Osorio in past, while He was away, I was following her. SUBJECTIVE: No seizure since january 12 , depakote was added to her medication .Her restlessness has improved since she was disimpacted. Patient not waking up , no following command. She is sweating and there is no seizure activity. She would have occasional generalized spasticitic movement, no evidence of seizure activity on eeg and there is epileptiform discharges seen Neurological EXAMINATION: No spontaneous speech present , she is sleepy and no acute distress, no spastic movement seen Family at bedside, She is not following command no neck stiff, she is not able to hold her neck pupils is bilateral reactive MRI showed bilateral basal ganglia injury consistent with anoxic injury eeg showed there is epileptiform discharge seen on eeg Assessment- Hypoxic-Anoxic encpehalopathy following severe bronchial asthma. Prognosis remains guarded 2. 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
--- NOTE | 2018-01-21 13:37 | PN ---
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 (short form) - Note 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: PULMONARY Remains poorly responsive. No fevers recorded. Vital Signs Period Temp Pulse Resp BP Sys/Cheema Pulse Ox Last 24 Hr 98.5 F-99.7 F 96-116 18-24 110-151/74-84 100-100 Gen: lethargic Heart: tachycardic, regular Lung: decreased breath sounds at the bases Abd: soft, nontender Ext: no edema CBC, BMP 01/21/18 06:42 01/21/18 06:42 Active Medications Acetaminophen (Ofirmev Injection -) 1,000 mg IVPB Q6H PRN PRN Reason: PAIN Acetaminophen (Tylenol -) 650 mg PO Q6H PRN PRN Reason: Fever Or Pain 1-5 Last Admin: 01/20/18 21:15 Dose: 650 mg Acetylcysteine (Mucomyst 20 Oral / Inh Use Only*) 200 mg NEB RQID [facility] Last Admin: 01/21/18 07:54 Dose: 200 mg Albuterol Sulfate (Ventolin 0.083% Nebulizer Soln -) 1 amp NEB RQID [facility] Last Admin: 01/21/18 07:54 Dose: 1 amp Bisacodyl (Dulcolax Suppository -) 10 mg [place] PRN PRN PRN Reason: CONSTIPATION Last Admin: 01/18/18 21:32 Dose: 10 mg Budesonide (Pulmicort 0.25 Mg Nebulizer -) 1 amp NEB RBID [facility] Last Admin: 01/21/18 08:01 Dose: 1 amp Heparin Sodium (Porcine) (Heparin -) 5,000 unit SQ TID [facility] Last Admin: 01/21/18 05:03 Dose: 5,000 unit Dextrose/Sodium Chloride (D5-1/2ns -) 1,000 mls @ 75 mls/hr IV ASDIR [facility] Last Admin: 01/21/18 10:42 Dose: Not Given Vancomycin HCl 1,000 mg/ (Dextrose) 250 mls @ 166.667 mls/hr IVPB DAILY@1700 [facility]; Protocol Last Admin: 01/20/18 17:09 Dose: 166.667 mls/hr Levetiracetam (Keppra Injection -) 1,500 mg IVPB BID [facility] Last Admin: 01/21/18 10:39 Dose: 1,500 mg Nystatin/Triamcinolone Acetonide (Mycolog Ii Cream -) 1 applic TP BID [facility] Last Admin: 01/21/18 10:41 Dose: 1 applic Pantoprazole Sodium (Protonix Iv) 40 mg IVPUSH DAILY [facility] Last Admin: 01/21/18 10:41 Dose: 40 mg Polyethylene Glycol (Miralax (For Daily Use) -) 17 gm PO TID [facility] Last Admin: 01/21/18 05:01 Dose: 17 g Scopolamine HBr (Transderm-Scop -) 1 patch TD Q72H [facility] Last Admin: 01/20/18 15:10 Dose: 1 patch Valproate Sodium (Depacon Injection -) 500 mg IVPB BID [facility] Last Admin: 01/21/18 10:36 Dose: 500 mg A/P Acute Hypoxic and Hypercapneic Respiratory Failure resolved Anoxic Encephalopathy Seizures Status Asthmaticus resolved Pneumonia likely Aspiration Shock resolved UTI Lactic Acidosis resolved Acute Kidney Injury resolved Hyperglycemia resolved Autism - continue antibiotics per ID - inhaled bronchodilators standing and PRN - inhaled corticosteroids - aspiration precautions - continue empiric antiepileptics - will need PEG placement - DVT/GI prophylaxis
[2018-01-21] MEDS: VANCOMYCIN 1,000 MG in DEXTROSE 5%-WATER - 250 ML IVPB SCH (17:02)
--- NOTE | 2018-01-21 17:20 | PN ---
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, Physician History of Present Illness: Pt remains the same. mild leukocytosis, temps below 100F. No acute distress noted. - Current Medication List Current Medications: Active Medications Acetaminophen (Ofirmev Injection -) 1,000 mg IVPB Q6H PRN PRN Reason: PAIN Acetaminophen (Tylenol -) 650 mg PO Q6H PRN PRN Reason: Fever Or Pain 1-5 Last Admin: 01/20/18 21:15 Dose: 650 mg Acetylcysteine (Mucomyst 20 Oral / Inh Use Only*) 200 mg NEB RQID [facility] Last Admin: 01/21/18 16:15 Dose: 200 mg Albuterol Sulfate (Ventolin 0.083% Nebulizer Soln -) 1 amp NEB RQID [facility] Last Admin: 01/21/18 16:15 Dose: 1 amp Bisacodyl (Dulcolax Suppository -) 10 mg [place] PRN PRN PRN Reason: CONSTIPATION Last Admin: 01/18/18 21:32 Dose: 10 mg Budesonide (Pulmicort 0.25 Mg Nebulizer -) 1 amp NEB RBID [facility] Last Admin: 01/21/18 08:01 Dose: 1 amp Heparin Sodium (Porcine) (Heparin -) 5,000 unit SQ TID [facility] Last Admin: 01/21/18 14:17 Dose: 5,000 unit Dextrose/Sodium Chloride (D5-1/2ns -) 1,000 mls @ 75 mls/hr IV ASDIR [facility] Last Admin: 01/21/18 10:42 Dose: Not Given Vancomycin HCl 1,000 mg/ (Dextrose) 250 mls @ 166.667 mls/hr IVPB DAILY@1700 [facility]; Protocol Last Admin: 01/21/18 17:02 Dose: 166.667 mls/hr Levetiracetam (Keppra Injection -) 1,500 mg IVPB BID [facility] Last Admin: 01/21/18 10:39 Dose: 1,500 mg Nystatin/Triamcinolone Acetonide (Mycolog Ii Cream -) 1 applic TP BID [facility] Last Admin: 01/21/18 10:41 Dose: 1 applic Pantoprazole Sodium (Protonix Iv) 40 mg IVPUSH DAILY [facility] Last Admin: 01/21/18 10:41 Dose: 40 mg Polyethylene Glycol (Miralax (For Daily Use) -) 17 gm PO TID [facility] Last Admin: 01/21/18 14:17 Dose: 17 g Scopolamine HBr (Transderm-Scop -) 1 patch TD Q72H [facility] Last Admin: 01/20/18 15:10 Dose: 1 patch Valproate Sodium (Depacon Injection -) 500 mg IVPB BID [facility] Last Admin: 01/21/18 10:36 Dose: 500 mg - Objective Vital Signs: Vital Signs Temperature 99.6 F 01/21/18 14:00 Pulse Rate 105 H 01/21/18 14:00 Respiratory Rate 20 01/21/18 14:00 Blood Pressure 123/65 01/21/18 14:00 O2 Sat by Pulse Oximetry (%) 100 01/21/18 10:00 Constitutional: Yes: No Distress Neck: Yes: Supple Cardiovascular: Yes: Tachycardia Respiratory: Yes: Regular Gastrointestinal: Yes: Normal Bowel Sounds Neurological: Yes: Other (not following commands, nonverbal) Labs: CBC, BMP 01/21/18 06:42 01/21/18 06:42 INR, PTT INR 1.13 (0.83-1.09) H 12/31/17 07:52 Problem List - Problems (1) Acute asthma exacerbation Code(s): J45.901 - UNSPECIFIED ASTHMA WITH (ACUTE) EXACERBATION Qualifiers: Asthma severity: unspecified severity Asthma persistence: unspecified Qualified Code(s): J45.901 - Unspecified asthma with (acute) exacerbation (2) Anoxic brain damage Code(s): G93.1 - ANOXIC BRAIN DAMAGE, NOT ELSEWHERE CLASSIFIED (3) Respiratory failure Code(s): J96.90 - RESPIRATORY FAILURE, UNSP, UNSP W HYPOXIA OR HYPERCAPNIA Qualifiers: Chronicity: unspecified Respiratory failure complication: unspecified whether with hypoxia or hypercapnia Qualified Code(s): J96.90 - Respiratory failure, unspecified, unspecified whether with hypoxia or hypercapnia (4) UTI (urinary tract infection) Code(s): N39.0 - URINARY TRACT INFECTION, SITE NOT SPECIFIED (5) Pneumonia Code(s): J18.9 - PNEUMONIA, UNSPECIFIED ORGANISM Assessment/Plan Acute asthma exacerbation s/p Acute respiratory failure Anoxic brain injury Aspiration PNA, +MRSA resp isolate E. coli UTI - s/p treatment Sinusitis Seizures Fever/Leukocytosis -- d/c antibiotics after tomorrow's dose -- family to decide on peg, avoid custodial ngt placement -- aspiration/seizure precautions -- neurology following continue monitor
--- NOTE | 2018-01-21 18:56 | PN ---
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, Physician History of Present Illness: comfortable - Current Medication List Current Medications: Active Medications Acetaminophen (Ofirmev Injection -) 1,000 mg IVPB Q6H PRN PRN Reason: PAIN Acetaminophen (Tylenol -) 650 mg PO Q6H PRN PRN Reason: Fever Or Pain 1-5 Last Admin: 01/20/18 21:15 Dose: 650 mg Acetylcysteine (Mucomyst 20 Oral / Inh Use Only*) 200 mg NEB RQID [facility] Last Admin: 01/21/18 16:15 Dose: 200 mg Bisacodyl (Dulcolax Suppository -) 10 mg [place] PRN PRN PRN Reason: CONSTIPATION Last Admin: 01/18/18 21:32 Dose: 10 mg Budesonide (Pulmicort 0.25 Mg Nebulizer -) 1 amp NEB RBID [facility] Last Admin: 01/21/18 08:01 Dose: 1 amp Heparin Sodium (Porcine) (Heparin -) 5,000 unit SQ TID [facility] Last Admin: 01/21/18 14:17 Dose: 5,000 unit Dextrose/Sodium Chloride (D5-1/2ns -) 1,000 mls @ 75 mls/hr IV ASDIR [facility] Last Admin: 01/21/18 17:26 Dose: 75 mls/hr Vancomycin HCl 1,000 mg/ (Dextrose) 250 mls @ 166.667 mls/hr IVPB DAILY@1700 [facility]; Protocol Last Admin: 01/21/18 17:02 Dose: 166.667 mls/hr Levetiracetam (Keppra Injection -) 1,500 mg IVPB BID [facility] Last Admin: 01/21/18 10:39 Dose: 1,500 mg Nystatin/Triamcinolone Acetonide (Mycolog Ii Cream -) 1 applic TP BID [facility] Last Admin: 01/21/18 10:41 Dose: 1 applic Pantoprazole Sodium (Protonix Iv) 40 mg IVPUSH DAILY [facility] Last Admin: 01/21/18 10:41 Dose: 40 mg Polyethylene Glycol (Miralax (For Daily Use) -) 17 gm PO TID [facility] Last Admin: 01/21/18 14:17 Dose: 17 g Scopolamine HBr (Transderm-Scop -) 1 patch TD Q72H [facility] Last Admin: 01/20/18 15:10 Dose: 1 patch Valproate Sodium (Depacon Injection -) 500 mg IVPB BID [facility] Last Admin: 01/21/18 10:36 Dose: 500 mg - Objective Vital Signs: Vital Signs Temperature 97.9 F 01/21/18 18:26 Pulse Rate 92 H 01/21/18 18:26 Respiratory Rate 18 01/21/18 18:26 Blood Pressure 140/77 01/21/18 18:26 O2 Sat by Pulse Oximetry (%) 100 01/21/18 10:00 HENT: Yes: Atraumatic Neck: Yes: Supple Cardiovascular: Yes: Regular Rate and Rhythm Respiratory: Yes: Rhonchi Gastrointestinal: Yes: Normal Bowel Sounds Extremities: Yes: WNL Edema: No Neurological: Yes: Other (awake) Labs: CBC, BMP 01/21/18 06:42 01/21/18 06:42 INR, PTT INR 1.13 (0.83-1.09) H 12/31/17 07:52 Problem List - Problems (1) Acute asthma exacerbation Assessment/Plan: on inhaler duo nebs completed abx course Code(s): J45.901 - UNSPECIFIED ASTHMA WITH (ACUTE) EXACERBATION Qualifiers: Asthma severity: unspecified severity Asthma persistence: unspecified Qualified Code(s): J45.901 - Unspecified asthma with (acute) exacerbation (2) Respiratory failure Assessment/Plan: on NC Code(s): J96.90 - RESPIRATORY FAILURE, UNSP, UNSP W HYPOXIA OR HYPERCAPNIA Qualifiers: Chronicity: unspecified Respiratory failure complication: unspecified whether with hypoxia or hypercapnia Qualified Code(s): J96.90 - Respiratory failure, unspecified, unspecified whether with hypoxia or hypercapnia (3) Autism Code(s): F84.0 - AUTISTIC DISORDER (4) Pneumonia Assessment/Plan: abx completed Code(s): J18.9 - PNEUMONIA, UNSPECIFIED ORGANISM (5) UTI (urinary tract infection) Assessment/Plan: abx completed Code(s): N39.0 - URINARY TRACT INFECTION, SITE NOT SPECIFIED (6) Anoxic brain damage Code(s): G93.1 - ANOXIC BRAIN DAMAGE, NOT ELSEWHERE CLASSIFIED (7) Seizure Assessment/Plan: on meds per neuro Code(s): R56.9 - UNSPECIFIED CONVULSIONS Assessment/Plan for peg placement
[2018-01-21] MEDS: POTASSIUM CHLORIDE ORAL LIQUID 20 MEQ/15 ML PO SCH (21:23)
[2018-01-21] MEDS: ACETAMINOPHEN 325 MG TABLET (FP) PO PRN (21:24)
[2018-01-22] MEDS: HEPARIN NA (PORCINE) 5,000 UNITS/ML 1ML VIAL SQ SCH ×3 (05:59→22:33)
[2018-01-22] MEDS: POLYETHYLENE GLYCOL 3350 119 GM BTL PO SCH ×3 (05:59→22:34)
[2018-01-22] MEDS: ALBUTEROL SO4 0.083% IH SOL 2.5 MG/3 ML VIAL.NEB. NEB SCH ×4 (07:50→20:35)
[2018-01-22] MEDS: ACETYLCYSTEINE 20% 200MG/ML 4 ML VIAL *FOR ORAL / INH USE ONLY NEB SCH ×4 (07:50→20:34)
[2018-01-22] MEDS: BUDESONIDE 0.25 MG/2ML INH SUSP VIAL NEB SCH ×2 (08:10→20:35)
--- NOTE | 2018-01-22 09:30 | PN ---
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 (short form) - Note 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: 37 year old female history of autism, and asthma. She has severe hypoxic encephalopathy following severe asthma episode. She is not back to baseline and she has been having seizure. She was seen by dr Osorio in past, while He was away, I was following her. SUBJECTIVE: No seizure since january 12 , depakote was added to her medication She slept better yesterday and now not having that episodic stiffness or spastic movement, eeg report reviewed Neurological EXAMINATION: No spontaneous speech present , she is sleepy and no acute distress, no spastic movement seen Family at bedside, She is not following command no neck stiff, pupils is bilateral reactive MRI showed bilateral basal ganglia injury consistent with anoxic injury eeg showed there is epileptiform discharge seen on eeg Assessment- Hypoxic-Anoxic encpehalopathy following severe bronchial asthma. 2. Postnaoxic seizure , no more seizure on depakote and keppra .Conitnue both medication for now, She is schedule for peg tube placement and family is exploring Rehab/NH . At this time, she seems to be stable from seizure point of view, and longterm prognosis remains guarded, It was discussed with family in detail today. I would see her as needed basis Thaking you so much Abrahan Pelayo MD
--- NOTE | 2018-01-22 09:39 | PN ---
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, [employer] - Note 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: 37 yo seen at bedside with family present. H/O autism and asthma. Admitted to [facility] for severe hypoxic encephalopathy (chart review) secondary to asthma incident. Pt presents as sleepy this am. No speech and is unable to follow directives. Pt remains NPO at this time. Chart RN reports family is considering PEG placement for nutritional support, hydration and medication. Continue NPO Staff to provide tactile, visual, auditory stimulation. Music.
[2018-01-22] MEDS: VALPROATE SODIUM 500 MG/5 ML VIAL IVPB SCH ×2 (10:30→22:34)
[2018-01-22] MEDS: levETIRAcetam 500 MG/5 ML INJECTION VIAL IVPB SCH ×2 (10:31→22:34)
[2018-01-22] MEDS: PANTOPRAZOLE SODIUM 40 MG VIAL IVPUSH SCH (10:32)
[2018-01-22] MEDS: NYSTATIN/TRIAMCINOLONE TOPICAL CREAM 15 GM TUBE TP SCH ×2 (10:32→22:34)
[2018-01-22] MEDS: POTASSIUM CHLORIDE ORAL LIQUID 20 MEQ/15 ML PO SCH ×2 (10:32→22:33)
[2018-01-22] MEDS: DEXTROSE 5%-0.45% SALINE 1,000 ML IV SCH (10:32)
[2018-01-22 11:34] LABS: BASO % 0.8 % (0-2.0); EOS % 7.2 % (0-4.5); HEMATOCRIT 29.5 % (32.4-45.2); HEMOGLOBIN 9.5 GM/dL (10.7-15.3); LYMPH % 14.3 % (8-40); MCH 29.1 pg (25.7-33.7); MCHC 32.3 g/dl (32.0-36.0); MEAN CELL VOLUME 90.1 fl (80-96); MEAN PLT VOLUME 7.4 fl (7.5-11.1); MONO % 8.7 % (3.8-10.2); PLATELET COUNT 497 K/MM3 (134-434); RBC 3.27 M/mm3 (3.60-5.2); RDW 14.5 % (11.6-15.6); WHITE BLOOD COUNT 10.2 K/mm3 (4.0-10.0)
--- NOTE | 2018-01-22 11:34 | PN ---
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, Physician History of Present Illness: pulmonary no change,poorly responsive,-resp disress - Current Medication List Current Medications: Active Medications Acetaminophen (Ofirmev Injection -) 1,000 mg IVPB Q6H PRN PRN Reason: PAIN Acetaminophen (Tylenol -) 650 mg PO Q6H PRN PRN Reason: Fever Or Pain 1-5 Last Admin: 01/21/18 21:24 Dose: 650 mg Acetylcysteine (Mucomyst 20 Oral / Inh Use Only*) 200 mg NEB RQID [facility] Last Admin: 01/21/18 20:50 Dose: 200 mg Albuterol Sulfate (Ventolin 0.083% Nebulizer Soln -) 1 amp NEB RQID [facility] Last Admin: 01/21/18 20:50 Dose: 1 amp Bisacodyl (Dulcolax Suppository -) 10 mg [place] PRN PRN PRN Reason: CONSTIPATION Last Admin: 01/18/18 21:32 Dose: 10 mg Budesonide (Pulmicort 0.25 Mg Nebulizer -) 1 amp NEB RBID [facility] Last Admin: 01/21/18 20:50 Dose: 1 amp Heparin Sodium (Porcine) (Heparin -) 5,000 unit SQ TID [facility] Last Admin: 01/22/18 05:59 Dose: 5,000 unit Dextrose/Sodium Chloride (D5-1/2ns -) 1,000 mls @ 75 mls/hr IV ASDIR [facility] Last Admin: 01/22/18 10:32 Dose: 75 mls/hr Levetiracetam (Keppra Injection -) 1,500 mg IVPB BID [facility] Last Admin: 01/22/18 10:31 Dose: 1,500 mg Nystatin/Triamcinolone Acetonide (Mycolog Ii Cream -) 1 applic TP BID [facility] Last Admin: 01/22/18 10:32 Dose: 1 applic Pantoprazole Sodium (Protonix Iv) 40 mg IVPUSH DAILY [facility] Last Admin: 01/22/18 10:32 Dose: 40 mg Polyethylene Glycol (Miralax (For Daily Use) -) 17 gm PO TID [facility] Last Admin: 01/22/18 05:59 Dose: 17 gm Potassium Chloride (Potassium Chloride Oral Liquid) 40 meq PO BID [facility] Last Admin: 01/22/18 10:32 Dose: 40 meq Scopolamine HBr (Transderm-Scop -) 1 patch TD Q72H [facility] Last Admin: 01/20/18 15:10 Dose: 1 patch Valproate Sodium (Depacon Injection -) 500 mg IVPB BID [facility] Last Admin: 01/22/18 10:30 Dose: 500 mg - Objective Vital Signs: Vital Signs Temperature 98.7 F 01/22/18 06:00 Pulse Rate 90 01/22/18 06:00 Respiratory Rate 19 01/22/18 06:00 Blood Pressure 139/76 01/22/18 06:00 O2 Sat by Pulse Oximetry (%) 97 01/21/18 22:00 Constitutional: Yes: Thin, Other (poorly responsive) HENT: Yes: WNL Neck: Yes: WNL Cardiovascular: Yes: Regular Rate and Rhythm, S1, S2 Respiratory: Yes: CTA Bilaterally Gastrointestinal: Yes: Normal Bowel Sounds, Soft Extremities: Yes: WNL Edema: No Labs: CBC, BMP Problem List - Problems (1) Acute asthma exacerbation Code(s): J45.901 - UNSPECIFIED ASTHMA WITH (ACUTE) EXACERBATION Qualifiers: Asthma severity: unspecified severity Asthma persistence: unspecified Qualified Code(s): J45.901 - Unspecified asthma with (acute) exacerbation (2) Anoxic brain damage Code(s): G93.1 - ANOXIC BRAIN DAMAGE, NOT ELSEWHERE CLASSIFIED (3) Respiratory failure Code(s): J96.90 - RESPIRATORY FAILURE, UNSP, UNSP W HYPOXIA OR HYPERCAPNIA Qualifiers: Chronicity: unspecified Respiratory failure complication: unspecified whether with hypoxia or hypercapnia Qualified Code(s): J96.90 - Respiratory failure, unspecified, unspecified whether with hypoxia or hypercapnia (4) Status asthmaticus Code(s): J45.902 - UNSPECIFIED ASTHMA WITH STATUS ASTHMATICUS Qualifiers: Asthma severity: unspecified severity Asthma persistence: unspecified Qualified Code(s): J45.902 - Unspecified asthma with status asthmaticus (5) Autism Code(s): F84.0 - AUTISTIC DISORDER (6) Tachycardia Code(s): R00.0 - TACHYCARDIA, UNSPECIFIED Assessment/Plan ASSESSMENT AND PLAN: Acute Hypoxic and Hypercapneic Respiratory Failure improved Anoxic Encephalopathy r/o Seizures Status Asthmaticus resolved Pneumonia likely Aspiration Shock resolved UTI Lactic Acidosis resolved Acute Kidney Injury resolved Hyperglycemia resolved Autism - inhaled bronchodilators standing and PRN - inhaled corticosteroids - aspiration precautions - continue empiric antiepileptics - DVT/GI prophylaxis - replete glenys [place]
--- NOTE | 2018-01-22 12:34 | PN ---
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, Physician History of Present Illness: Pt seen and examined. She grimaces and groans but in no acute distress. No shortness of breath, abd distension/diarrhea. Tmax 99.7, currently afebrile. Antibiotics discontinued yesterday, last dose approximately at 5 pm. - Current Medication List Current Medications: Active Medications Acetaminophen (Ofirmev Injection -) 1,000 mg IVPB Q6H PRN PRN Reason: PAIN Acetaminophen (Tylenol -) 650 mg PO Q6H PRN PRN Reason: Fever Or Pain 1-5 Last Admin: 01/21/18 21:24 Dose: 650 mg Acetylcysteine (Mucomyst 20 Oral / Inh Use Only*) 200 mg NEB RQID [facility] Last Admin: 01/21/18 20:50 Dose: 200 mg Albuterol Sulfate (Ventolin 0.083% Nebulizer Soln -) 1 amp NEB RQID [facility] Last Admin: 01/21/18 20:50 Dose: 1 amp Bisacodyl (Dulcolax Suppository -) 10 mg [place] PRN PRN PRN Reason: CONSTIPATION Last Admin: 01/18/18 21:32 Dose: 10 mg Budesonide (Pulmicort 0.25 Mg Nebulizer -) 1 amp NEB RBID [facility] Last Admin: 01/21/18 20:50 Dose: 1 amp Heparin Sodium (Porcine) (Heparin -) 5,000 unit SQ TID [facility] Last Admin: 01/22/18 05:59 Dose: 5,000 unit Dextrose/Sodium Chloride (D5-1/2ns -) 1,000 mls @ 75 mls/hr IV ASDIR [facility] Last Admin: 01/22/18 10:32 Dose: 75 mls/hr Levetiracetam (Keppra Injection -) 1,500 mg IVPB BID [facility] Last Admin: 01/22/18 10:31 Dose: 1,500 mg Nystatin/Triamcinolone Acetonide (Mycolog Ii Cream -) 1 applic TP BID [facility] Last Admin: 01/22/18 10:32 Dose: 1 applic Pantoprazole Sodium (Protonix Iv) 40 mg IVPUSH DAILY [facility] Last Admin: 01/22/18 10:32 Dose: 40 mg Polyethylene Glycol (Miralax (For Daily Use) -) 17 gm PO TID [facility] Last Admin: 01/22/18 05:59 Dose: 17 gm Potassium Chloride (Potassium Chloride Oral Liquid) 40 meq PO BID [facility] Last Admin: 01/22/18 10:32 Dose: 40 meq Scopolamine HBr (Transderm-Scop -) 1 patch TD Q72H [facility] Last Admin: 01/20/18 15:10 Dose: 1 patch Valproate Sodium (Depacon Injection -) 500 mg IVPB BID [facility] Last Admin: 01/22/18 10:30 Dose: 500 mg - Objective Vital Signs: Vital Signs Temperature 98.7 F 01/22/18 06:00 Pulse Rate 90 01/22/18 06:00 Respiratory Rate 19 01/22/18 06:00 Blood Pressure 139/76 01/22/18 06:00 O2 Sat by Pulse Oximetry (%) 97 01/21/18 22:00 Constitutional: Yes: No Distress Cardiovascular: Yes: Regular Rate and Rhythm Respiratory: Yes: CTA Bilaterally Gastrointestinal: Yes: Normal Bowel Sounds, Soft Genitourinary: Yes: Other (diaper) Extremities: Yes: WNL Edema: No Integumentary: Yes: WNL Neurological: Yes: Aphasia, Other (nonverbal, not following commands) Labs: CBC, BMP 01/22/18 11:15 01/21/18 06:42 INR, PTT INR 1.13 (0.83-1.09) H 12/31/17 07:52 Problem List - Problems (1) Acute asthma exacerbation Code(s): J45.901 - UNSPECIFIED ASTHMA WITH (ACUTE) EXACERBATION Qualifiers: Asthma severity: unspecified severity Asthma persistence: unspecified Qualified Code(s): J45.901 - Unspecified asthma with (acute) exacerbation (2) Anoxic brain damage Code(s): G93.1 - ANOXIC BRAIN DAMAGE, NOT ELSEWHERE CLASSIFIED (3) Respiratory failure Code(s): J96.90 - RESPIRATORY FAILURE, UNSP, UNSP W HYPOXIA OR HYPERCAPNIA Qualifiers: Chronicity: unspecified Respiratory failure complication: unspecified whether with hypoxia or hypercapnia Qualified Code(s): J96.90 - Respiratory failure, unspecified, unspecified whether with hypoxia or hypercapnia (4) UTI (urinary tract infection) Code(s): N39.0 - URINARY TRACT INFECTION, SITE NOT SPECIFIED (5) Pneumonia Code(s): J18.9 - PNEUMONIA, UNSPECIFIED ORGANISM Assessment/Plan Acute asthma exacerbation s/p Acute respiratory failure Anoxic brain injury Aspiration PNA, +MRSA resp isolate E. coli UTI - s/p treatment Sinusitis Seizures Fever/Leukocytosis --off antibiotics since yesterday, pt with normal wbc today (mild leukocytosis may have been due to previous antibiotics, especially with recent eosinophilia) -- no obvious signs of infection at this time, has been on prolonged course of broad spectrum antibiotics for UTI/Aspiration PNA/possible sinusitus -- NGT has been in place for a significant amount of time, scheduled tentatively for peg in 2 days -- will order repeat surveillance blood cultures - last set had no growth -- aspiration/seizure precautions -- neurology following continue monitor closely above d/w PMD
--- NOTE | 2018-01-22 18:21 | PN ---
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, Physician - Current Medication List Current Medications: Active Medications Acetaminophen (Ofirmev Injection -) 1,000 mg IVPB Q6H PRN PRN Reason: PAIN Acetaminophen (Tylenol -) 650 mg PO Q6H PRN PRN Reason: Fever Or Pain 1-5 Last Admin: 01/21/18 21:24 Dose: 650 mg Acetylcysteine (Mucomyst 20 Oral / Inh Use Only*) 200 mg NEB RQID REPLACED BY [facility] Last Admin: 01/22/18 16:10 Dose: 200 mg Albuterol Sulfate (Ventolin 0.083% Nebulizer Soln -) 1 amp NEB RQID REPLACED BY [facility] Last Admin: 01/22/18 16:10 Dose: 1 amp Bisacodyl (Dulcolax Suppository -) 10 mg [place] PRN PRN PRN Reason: CONSTIPATION Last Admin: 01/18/18 21:32 Dose: 10 mg Budesonide (Pulmicort 0.25 Mg Nebulizer -) 1 amp NEB RBID REPLACED BY [facility] Last Admin: 01/22/18 08:10 Dose: 1 amp Heparin Sodium (Porcine) (Heparin -) 5,000 unit SQ TID REPLACED BY [facility] Last Admin: 01/22/18 15:25 Dose: 5,000 unit Dextrose/Sodium Chloride (D5-1/2ns -) 1,000 mls @ 75 mls/hr IV ASDIR REPLACED BY [facility] Last Admin: 01/22/18 10:32 Dose: 75 mls/hr Levetiracetam (Keppra Injection -) 1,500 mg IVPB BID REPLACED BY [facility] Last Admin: 01/22/18 10:31 Dose: 1,500 mg Nystatin/Triamcinolone Acetonide (Mycolog Ii Cream -) 1 applic TP BID REPLACED BY [facility] Last Admin: 01/22/18 10:32 Dose: 1 applic Pantoprazole Sodium (Protonix Iv) 40 mg IVPUSH DAILY REPLACED BY [facility] Last Admin: 01/22/18 10:32 Dose: 40 mg Polyethylene Glycol (Miralax (For Daily Use) -) 17 gm PO TID REPLACED BY [facility] Last Admin: 01/22/18 14:34 Dose: Not Given Potassium Chloride (Potassium Chloride Oral Liquid) 40 meq PO BID REPLACED BY [facility] Last Admin: 01/22/18 10:32 Dose: 40 meq Scopolamine HBr (Transderm-Scop -) 1 patch TD Q72H REPLACED BY [facility] Last Admin: 01/20/18 15:10 Dose: 1 patch Valproate Sodium (Depacon Injection -) 500 mg IVPB BID [facility] Last Admin: 01/22/18 10:30 Dose: 500 mg - Objective Vital Signs: Vital Signs Temperature 98.9 F 01/22/18 17:22 Pulse Rate 84 01/22/18 17:22 Respiratory Rate 18 01/22/18 17:22 Blood Pressure 103/67 01/22/18 17:22 O2 Sat by Pulse Oximetry (%) 100 01/22/18 16:29 Constitutional: Yes: No Distress HENT: Yes: Atraumatic Neck: Yes: Supple Cardiovascular: Yes: Regular Rate and Rhythm Respiratory: Yes: Rhonchi Gastrointestinal: Yes: Normal Bowel Sounds Extremities: Yes: WNL Edema: No Peripheral Pulses WNL: Yes Labs: CBC, BMP 01/22/18 11:15 01/21/18 06:42 INR, PTT INR 1.13 (0.83-1.09) H 12/31/17 07:52 Problem List - Problems (1) Acute asthma exacerbation Assessment/Plan: on inhaler duo nebs completed abx course Code(s): J45.901 - UNSPECIFIED ASTHMA WITH (ACUTE) EXACERBATION Qualifiers: Asthma severity: unspecified severity Asthma persistence: unspecified Qualified Code(s): J45.901 - Unspecified asthma with (acute) exacerbation (2) Respiratory failure Assessment/Plan: on NC Code(s): J96.90 - RESPIRATORY FAILURE, UNSP, UNSP W HYPOXIA OR HYPERCAPNIA Qualifiers: Chronicity: unspecified Respiratory failure complication: unspecified whether with hypoxia or hypercapnia Qualified Code(s): J96.90 - Respiratory failure, unspecified, unspecified whether with hypoxia or hypercapnia (3) Autism Code(s): F84.0 - AUTISTIC DISORDER (4) Pneumonia Assessment/Plan: abx completed Code(s): J18.9 - PNEUMONIA, UNSPECIFIED ORGANISM (5) UTI (urinary tract infection) Code(s): N39.0 - URINARY TRACT INFECTION, SITE NOT SPECIFIED (6) Anoxic brain damage Assessment/Plan: pt on oxygen opens eyes but does not make meaningful contact Code(s): G93.1 - ANOXIC BRAIN DAMAGE, NOT ELSEWHERE CLASSIFIED (7) Seizure Assessment/Plan: on meds per neuro Code(s): R56.9 - UNSPECIFIED CONVULSIONS
[2018-01-22] MEDS ORDERED: PT OWN MED DRAWER 7, Y5N ONE (22:30)
[2018-01-23] MEDS: POLYETHYLENE GLYCOL 3350 119 GM BTL PO SCH ×3 (05:01→21:56)
[2018-01-23] MEDS: HEPARIN NA (PORCINE) 5,000 UNITS/ML 1ML VIAL SQ SCH ×2 (05:02→15:05)
[2018-01-23 06:29] LABS: BASO % 1.3 % (0-2.0); EOS % 9.4 % (0-4.5); HEMATOCRIT 28.3 % (32.4-45.2); HEMOGLOBIN 9.5 GM/dL (10.7-15.3); LYMPH % 19.3 % (8-40); MCH 30.2 pg (25.7-33.7); MCHC 33.4 g/dl (32.0-36.0); MEAN CELL VOLUME 90.3 fl (80-96); MEAN PLT VOLUME 7.9 fl (7.5-11.1); MONO % 9.7 % (3.8-10.2); NEUT % 60.3 % (42.8-82.8); PLATELET COUNT 433 K/MM3 (134-434); RBC 3.13 M/mm3 (3.60-5.2); RDW 14.6 % (11.6-15.6); WHITE BLOOD COUNT 7.7 K/mm3 (4.0-10.0)
[2018-01-23 06:59] LABS: ALBUMIN 2.5 g/dl (3.4-5.0); ANION GAP 7 MMOL/L (8-16); BLOOD UREA NITROGEN 16 mg/dL (7-18); CALCIUM 8.4 mg/dL (8.5-10.1); CHLORIDE 108 mmol/L (98-107); CO2 24 mmol/L (21-32); CREATININE 0.4 mg/dL (0.55-1.02); GLUCOSE,RANDOM 108 mg/dL (74-106); POTASSIUM 4.4 mmol/L (3.5-5.1); SGOT/AST 85 U/L (15-37); SGPT/ALT 103 U/L (12-78); SODIUM 139 mmol/L (136-145)
[2018-01-23 07:00] LABS: ALK PHOS 69 U/L (45-117); BILIRUBIN,TOTAL 0.2 mg/dL (0.2-1.0); TOT PROT 5.9 g/dl (6.4-8.2)
[2018-01-23] MEDS: ACETYLCYSTEINE 20% 200MG/ML 4 ML VIAL *FOR ORAL / INH USE ONLY NEB SCH ×4 (07:40→20:59)
[2018-01-23] MEDS: ALBUTEROL SO4 0.083% IH SOL 2.5 MG/3 ML VIAL.NEB. NEB SCH ×4 (07:40→20:59)
[2018-01-23] MEDS: BUDESONIDE 0.25 MG/2ML INH SUSP VIAL NEB SCH ×2 (08:00→20:59)
[2018-01-23] MEDS: POTASSIUM CHLORIDE ORAL LIQUID 20 MEQ/15 ML PO SCH ×2 (11:47→22:05)
[2018-01-23] MEDS: VALPROATE SODIUM 500 MG/5 ML VIAL IVPB SCH ×2 (11:48→19:30)
[2018-01-23] MEDS: levETIRAcetam 500 MG/5 ML INJECTION VIAL IVPB SCH ×2 (11:48→22:05)
[2018-01-23] MEDS: NYSTATIN/TRIAMCINOLONE TOPICAL CREAM 15 GM TUBE TP SCH ×2 (11:48→22:05)
[2018-01-23] MEDS: DEXTROSE 5%-0.45% SALINE 1,000 ML IV SCH (11:49)
[2018-01-23] MEDS: PANTOPRAZOLE SODIUM 40 MG VIAL IVPUSH SCH (11:49)
--- NOTE | 2018-01-23 12:06 | PN ---
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, Physician History of Present Illness: Pt has been afebrile. Currently opens eyes and is comfortable. No reported recent seizures. WBC normal today. - Current Medication List Current Medications: Active Medications Acetaminophen (Tylenol Oral Solution -) 650 mg PO Q6H PRN PRN Reason: Fever Or Pain 1-5 Acetylcysteine (Mucomyst 20 Oral / Inh Use Only*) 200 mg NEB RQID [facility] Last Admin: 01/23/18 11:30 Dose: Not Given Albuterol Sulfate (Ventolin 0.083% Nebulizer Soln -) 1 amp NEB RQID [facility] Last Admin: 01/23/18 11:30 Dose: 1 amp Bisacodyl (Dulcolax Suppository -) 10 mg [place] PRN PRN PRN Reason: CONSTIPATION Last Admin: 01/18/18 21:32 Dose: 10 mg Budesonide (Pulmicort 0.25 Mg Nebulizer -) 1 amp NEB RBID [facility] Last Admin: 01/23/18 08:00 Dose: 1 amp Heparin Sodium (Porcine) (Heparin -) 5,000 unit SQ TID [facility] Last Admin: 01/23/18 05:02 Dose: 5,000 unit Dextrose/Sodium Chloride (D5-1/2ns -) 1,000 mls @ 75 mls/hr IV ASDIR [facility] Last Admin: 01/23/18 11:49 Dose: 75 mls/hr Levetiracetam (Keppra Injection -) 1,500 mg IVPB BID [facility] Last Admin: 01/23/18 11:48 Dose: 1,500 mg Nystatin/Triamcinolone Acetonide (Mycolog Ii Cream -) 1 applic TP BID [facility] Last Admin: 01/23/18 11:48 Dose: 1 applic Pantoprazole Sodium (Protonix Iv) 40 mg IVPUSH DAILY [facility] Last Admin: 01/23/18 11:49 Dose: 40 mg Polyethylene Glycol (Miralax (For Daily Use) -) 17 gm PO TID [facility] Last Admin: 01/23/18 05:01 Dose: Not Given Potassium Chloride (Potassium Chloride Oral Liquid) 40 meq PO BID [facility] Last Admin: 01/23/18 11:47 Dose: 40 meq Scopolamine HBr (Transderm-Scop -) 1 patch TD Q72H [facility] Last Admin: 01/20/18 15:10 Dose: 1 patch Valproate Sodium (Depacon Injection -) 500 mg IVPB BID [facility] Last Admin: 01/23/18 11:48 Dose: 500 mg - Objective Vital Signs: Vital Signs Temperature 98.0 F 01/23/18 09:52 Pulse Rate 98 H 01/23/18 09:52 Respiratory Rate 16 01/23/18 09:52 Blood Pressure 114/74 01/23/18 09:52 O2 Sat by Pulse Oximetry (%) 100 01/22/18 21:00 Constitutional: Yes: No Distress, Calm HENT: Yes: Other (NGT) Neck: Yes: Supple Cardiovascular: Yes: Regular Rate and Rhythm Respiratory: Yes: CTA Bilaterally Gastrointestinal: Yes: Normal Bowel Sounds, Soft Genitourinary: Yes: WNL Extremities: Yes: WNL Edema: No Integumentary: Yes: WNL Neurological: Yes: Other (nonverbal, not following commands) Labs: CBC, BMP 01/23/18 06:00 01/23/18 06:00 INR, PTT INR 1.13 (0.83-1.09) H 12/31/17 07:52 Microbiology 01/22/18 13:20 Urine - Urine - Catheterized Urine Culture - Final NO GROWTH OBTAINED 01/10/18 11:55 Blood - Peripheral Venous Blood Culture - Final NO GROWTH AFTER 5 DAYS INCUBATION 01/10/18 12:10 Blood - Peripheral Venous Blood Culture - Final NO GROWTH AFTER 5 DAYS INCUBATION 01/10/18 20:45 Sputum - Endotracheal Suction W/O Vent Gram Stain - Final 01/10/18 20:45 Sputum - Endotracheal Suction W/O Vent Sputum Culture - Final Mr S Aureus 01/10/18 13:30 Stool Clostridium difficile Antigen (JENNY) - Final 01/10/18 13:30 Stool Clostridium difficile Toxin Assay - Final 01/10/18 16:30 Urine - Urine Clean Catch Legionella Antigen - Final 01/10/18 16:30 Urine - Urine Clean Catch Streptococcus pneumoniae Antigen ( M - Final 01/10/18 13:30 Urine - Urine - Catheterized Urine Culture - Final NO GROWTH OBTAINED 12/31/17 07:52 Blood - Peripheral Venous Blood Culture - Final NO GROWTH AFTER 5 DAYS INCUBATION 12/31/17 07:52 Blood - Peripheral Venous Blood Culture - Final NO GROWTH AFTER 5 DAYS INCUBATION 12/31/17 07:52 Urine - Urine Ferrell Urine Culture - Final Escherichia Coli Problem List - Problems (1) Acute asthma exacerbation Code(s): J45.901 - UNSPECIFIED ASTHMA WITH (ACUTE) EXACERBATION Qualifiers: Asthma severity: unspecified severity Asthma persistence: unspecified Qualified Code(s): J45.901 - Unspecified asthma with (acute) exacerbation (2) Anoxic brain damage Code(s): G93.1 - ANOXIC BRAIN DAMAGE, NOT ELSEWHERE CLASSIFIED (3) Respiratory failure Code(s): J96.90 - RESPIRATORY FAILURE, UNSP, UNSP W HYPOXIA OR HYPERCAPNIA Qualifiers: Chronicity: unspecified Respiratory failure complication: unspecified whether with hypoxia or hypercapnia Qualified Code(s): J96.90 - Respiratory failure, unspecified, unspecified whether with hypoxia or hypercapnia (4) UTI (urinary tract infection) Code(s): N39.0 - URINARY TRACT INFECTION, SITE NOT SPECIFIED (5) Pneumonia Code(s): J18.9 - PNEUMONIA, UNSPECIFIED ORGANISM Assessment/Plan Acute asthma exacerbation s/p Acute respiratory failure Anoxic brain injury Aspiration PNA, +MRSA resp isolate E. coli UTI - s/p treatment Sinusitis Seizures Fever/Leukocytosis -- pt is now afebrile with normal wbc, vitals stable -- no obvious signs of infection at this time, has been on prolonged course of broad spectrum antibiotics for UTI/Aspiration PNA/possible sinusitus -- urine culture negative, no repiratory distress -- for NGT placement -- aspiration/seizure precautions -- neurology following continue monitor off antibiotics
--- NOTE | 2018-01-23 13:20 | PN ---
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 Pending PEG insertion. Afebrile. Pt opens eyes,seems to make eye contact intermittently, not clearly tracking, appears comfortable. No recent seizures. WBC normal. Vocalizing possibly in response to counting/singing. Occasionally swallowing saliva. Some pooling of saliva intraorally with throat clearing/ aspiration? Suggest coma recovery program, experienced with mgmt of [facility] recovery scale/mgmt.I believe pt is at level 11, approaching level 111. Pt's mother ios very involved and sleeps in pt's room.
--- NOTE | 2018-01-23 13:25 | PN ---
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, Physician History of Present Illness: PULMONARY MORE AWAKE TODAY,NON-VERBAL - Current Medication List Current Medications: Active Medications Acetaminophen (Tylenol Oral Solution -) 650 mg PO Q6H PRN PRN Reason: Fever Or Pain 1-5 Acetylcysteine (Mucomyst 20 Oral / Inh Use Only*) 200 mg NEB RQID [facility] Last Admin: 01/23/18 11:30 Dose: Not Given Albuterol Sulfate (Ventolin 0.083% Nebulizer Soln -) 1 amp NEB RQID [facility] Last Admin: 01/23/18 11:30 Dose: 1 amp Bisacodyl (Dulcolax Suppository -) 10 mg [place] PRN PRN PRN Reason: CONSTIPATION Last Admin: 01/18/18 21:32 Dose: 10 mg Budesonide (Pulmicort 0.25 Mg Nebulizer -) 1 amp NEB RBID [facility] Last Admin: 01/23/18 08:00 Dose: 1 amp Heparin Sodium (Porcine) (Heparin -) 5,000 unit SQ TID [facility] Last Admin: 01/23/18 05:02 Dose: 5,000 unit Dextrose/Sodium Chloride (D5-1/2ns -) 1,000 mls @ 75 mls/hr IV ASDIR [facility] Last Admin: 01/23/18 11:49 Dose: 75 mls/hr Levetiracetam (Keppra Injection -) 1,500 mg IVPB BID [facility] Last Admin: 01/23/18 11:48 Dose: 1,500 mg Nystatin/Triamcinolone Acetonide (Mycolog Ii Cream -) 1 applic TP BID [facility] Last Admin: 01/23/18 11:48 Dose: 1 applic Pantoprazole Sodium (Protonix Iv) 40 mg IVPUSH DAILY [facility] Last Admin: 01/23/18 11:49 Dose: 40 mg Polyethylene Glycol (Miralax (For Daily Use) -) 17 gm PO TID [facility] Last Admin: 01/23/18 05:01 Dose: Not Given Potassium Chloride (Potassium Chloride Oral Liquid) 40 meq PO BID [facility] Last Admin: 01/23/18 11:47 Dose: 40 meq Scopolamine HBr (Transderm-Scop -) 1 patch TD Q72H [facility] Last Admin: 01/20/18 15:10 Dose: 1 patch Valproate Sodium (Depacon Injection -) 500 mg IVPB BID [facility] Last Admin: 01/23/18 11:48 Dose: 500 mg - Objective Vital Signs: Vital Signs Temperature 98.0 F 01/23/18 09:52 Pulse Rate 98 H 01/23/18 09:52 Respiratory Rate 16 01/23/18 09:52 Blood Pressure 114/74 01/23/18 09:52 O2 Sat by Pulse Oximetry (%) 100 01/22/18 21:00 Constitutional: Yes: Calm, Thin Eyes: Yes: WNL HENT: Yes: WNL Neck: Yes: WNL Cardiovascular: Yes: Regular Rate and Rhythm, S1, S2 Respiratory: Yes: Diminished Gastrointestinal: Yes: Normal Bowel Sounds, Soft Extremities: Yes: WNL Edema: No Labs: CBC, BMP 01/23/18 06:00 01/23/18 06:00 INR, PTT INR 1.13 (0.83-1.09) H 12/31/17 07:52 Problem List - Problems (1) Acute asthma exacerbation Code(s): J45.901 - UNSPECIFIED ASTHMA WITH (ACUTE) EXACERBATION Qualifiers: Asthma severity: unspecified severity Asthma persistence: unspecified Qualified Code(s): J45.901 - Unspecified asthma with (acute) exacerbation (2) Anoxic brain damage Code(s): G93.1 - ANOXIC BRAIN DAMAGE, NOT ELSEWHERE CLASSIFIED (3) Respiratory failure Code(s): J96.90 - RESPIRATORY FAILURE, UNSP, UNSP W HYPOXIA OR HYPERCAPNIA Qualifiers: Chronicity: unspecified Respiratory failure complication: unspecified whether with hypoxia or hypercapnia Qualified Code(s): J96.90 - Respiratory failure, unspecified, unspecified whether with hypoxia or hypercapnia (4) Status asthmaticus Code(s): J45.902 - UNSPECIFIED ASTHMA WITH STATUS ASTHMATICUS Qualifiers: Asthma severity: unspecified severity Asthma persistence: unspecified Qualified Code(s): J45.902 - Unspecified asthma with status asthmaticus (5) Autism Code(s): F84.0 - AUTISTIC DISORDER (6) Tachycardia Code(s): R00.0 - TACHYCARDIA, UNSPECIFIED Assessment/Plan ASSESSMENT AND PLAN: Acute Hypoxic and Hypercapneic Respiratory Failure improved Anoxic Encephalopathy r/o Seizures Status Asthmaticus resolved Pneumonia likely Aspiration Shock resolved UTI Lactic Acidosis resolved Acute Kidney Injury resolved Hyperglycemia resolved Autism - inhaled bronchodilators standing and PRN - inhaled corticosteroids - aspiration precautions - continue empiric antiepileptics - DVT/GI prophylaxis - PEG DR DE OLIVEIRA
[2018-01-23] MEDS: SCOPOLAMINE HYDROBROMIDE 1 PATCH PATCH.TD72 TD SCH (15:06)
[2018-01-23] MEDS: ACETAMINOPHEN 650 MG/20.3 ML ORAL SOLUTION (CUPS) PO PRN (15:06)
--- NOTE | 2018-01-23 15:45 | PN ---
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 (short form) - Note 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: More awake. Has oropharyngeal secretions. WBC normalized. Remains on NG feeding for the last 2-3 weeks. PEG was discussed with the patient's mother, who appears to be understanding and realistic about her child's condition. The benefits, need for maintenance, complications and risks were discussed, as well as the fact that G-tubes do not eliminate risk of aspirations. She verbalized understanding and agreed to the procedure. PEG scheduled for tomorrow. CBC, CMP, PT in am.
[2018-01-23] MEDS ORDERED: LORazepam 2 MG/ML SDV VIAL ONE (18:01)
[2018-01-23] MEDS: LORazepam 2 MG/ML SDV VIAL IVPUSH PRN (18:44)
[2018-01-23] MEDS ORDERED: VALPROATE SODIUM 500 MG/5 ML VIAL IVPB SCH (18:45)
--- NOTE | 2018-01-23 18:46 | PN ---
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, Physician History of Present Illness: having seizure, arms, legs body stiff - Current Medication List Current Medications: Active Medications Acetaminophen (Tylenol Oral Solution -) 650 mg PO Q6H PRN PRN Reason: Fever Or Pain 1-5 Last Admin: 01/23/18 15:06 Dose: 650 mg Acetylcysteine (Mucomyst 20 Oral / Inh Use Only*) 200 mg NEB RQID [facility] Last Admin: 01/23/18 11:30 Dose: Not Given Albuterol Sulfate (Ventolin 0.083% Nebulizer Soln -) 1 amp NEB RQID [facility] Last Admin: 01/23/18 11:30 Dose: 1 amp Bisacodyl (Dulcolax Suppository -) 10 mg [place] PRN PRN PRN Reason: CONSTIPATION Last Admin: 01/18/18 21:32 Dose: 10 mg Budesonide (Pulmicort 0.25 Mg Nebulizer -) 1 amp NEB RBID [facility] Last Admin: 01/23/18 08:00 Dose: 1 amp Heparin Sodium (Porcine) (Heparin -) 5,000 unit SQ TID [facility] Last Admin: 01/23/18 15:05 Dose: 5,000 unit Dextrose/Sodium Chloride (D5-1/2ns -) 1,000 mls @ 75 mls/hr IV ASDIR [facility] Last Admin: 01/23/18 11:49 Dose: 75 mls/hr Levetiracetam (Keppra Injection -) 1,500 mg IVPB BID [facility] Last Admin: 01/23/18 11:48 Dose: 1,500 mg Lorazepam (Ativan Injection -) 1 mg IVPUSH Q6H PRN PRN Reason: SEIZURE Last Admin: 01/23/18 18:44 Dose: 1 mg Nystatin/Triamcinolone Acetonide (Mycolog Ii Cream -) 1 applic TP BID [facility] Last Admin: 01/23/18 11:48 Dose: 1 applic Pantoprazole Sodium (Protonix Iv) 40 mg IVPUSH DAILY [facility] Last Admin: 01/23/18 11:49 Dose: 40 mg Polyethylene Glycol (Miralax (For Daily Use) -) 17 gm PO TID [facility] Last Admin: 01/23/18 15:05 Dose: Not Given Potassium Chloride (Potassium Chloride Oral Liquid) 40 meq PO BID [facility] Last Admin: 01/23/18 11:47 Dose: 40 meq Scopolamine HBr (Transderm-Scop -) 1 patch TD Q72H [facility] Last Admin: 01/23/18 15:06 Dose: 1 patch Valproate Sodium (Depacon Injection -) 1,000 mg IVPB Q12H [facility] - Objective Vital Signs: Vital Signs Temperature 98.2 F 01/23/18 14:10 Pulse Rate 92 H 01/23/18 14:10 Respiratory Rate 18 01/23/18 14:10 Blood Pressure 112/76 01/23/18 14:10 O2 Sat by Pulse Oximetry (%) 100 01/22/18 21:00 Constitutional: Yes: No Distress HENT: Yes: Atraumatic Neck: Yes: Supple Cardiovascular: Yes: Regular Rate and Rhythm Respiratory: Yes: CTA Bilaterally Gastrointestinal: Yes: Normal Bowel Sounds Extremities: Yes: WNL Neurological: Yes: Other (awake) Labs: CBC, BMP 01/23/18 06:00 01/23/18 06:00 INR, PTT INR 1.13 (0.83-1.09) H 12/31/17 07:52 Problem List - Problems (1) Acute asthma exacerbation Assessment/Plan: on inhaler duo nebs completed abx course Code(s): J45.901 - UNSPECIFIED ASTHMA WITH (ACUTE) EXACERBATION Qualifiers: Asthma severity: unspecified severity Asthma persistence: unspecified Qualified Code(s): J45.901 - Unspecified asthma with (acute) exacerbation (2) Respiratory failure Assessment/Plan: on NC Code(s): J96.90 - RESPIRATORY FAILURE, UNSP, UNSP W HYPOXIA OR HYPERCAPNIA Qualifiers: Chronicity: unspecified Respiratory failure complication: unspecified whether with hypoxia or hypercapnia Qualified Code(s): J96.90 - Respiratory failure, unspecified, unspecified whether with hypoxia or hypercapnia (3) Autism Code(s): F84.0 - AUTISTIC DISORDER (4) Pneumonia Code(s): J18.9 - PNEUMONIA, UNSPECIFIED ORGANISM (5) UTI (urinary tract infection) Code(s): N39.0 - URINARY TRACT INFECTION, SITE NOT SPECIFIED (6) Anoxic brain damage Code(s): G93.1 - ANOXIC BRAIN DAMAGE, NOT ELSEWHERE CLASSIFIED (7) Seizure Assessment/Plan: on meds per neuro prn iv ativan Code(s): R56.9 - UNSPECIFIED CONVULSIONS
[2018-01-23] MEDS ORDERED: PT OWN MED DRAWER 7, Y5N ONE (20:51)
[2018-01-24] MEDS: LORazepam 2 MG/ML SDV VIAL IVPUSH PRN ×4 (00:11→21:03)
[2018-01-24] MEDS: ACETAMINOPHEN 650 MG/20.3 ML ORAL SOLUTION (CUPS) PO PRN ×3 (00:23→21:03)
[2018-01-24] MEDS: POLYETHYLENE GLYCOL 3350 119 GM BTL PO SCH ×3 (05:27→21:04)
[2018-01-24] MEDS: VALPROATE SODIUM 500 MG/5 ML VIAL IVPB SCH ×2 (06:13→18:52)
[2018-01-24 06:23] LABS: BASO % 0.8 % (0-2.0); EOS % 2.9 % (0-4.5); HEMATOCRIT 30.5 % (32.4-45.2); HEMOGLOBIN 10.1 GM/dL (10.7-15.3); MCH 29.4 pg (25.7-33.7); MEAN CELL VOLUME 89.2 fl (80-96); MEAN PLT VOLUME 7.8 fl (7.5-11.1); MONO % 8.3 % (3.8-10.2); PLATELET COUNT 603 K/MM3 (134-434); RBC 3.42 M/mm3 (3.60-5.2); RDW 14.5 % (11.6-15.6); WHITE BLOOD COUNT 16.1 K/mm3 (4.0-10.0)
[2018-01-24 06:50] LABS: INR 1.06 (0.83-1.09)
[2018-01-24 07:08] LABS: CHLORIDE 104 mmol/L (98-107); POTASSIUM 4.8 mmol/L (3.5-5.1); SODIUM 137 mmol/L (136-145)
[2018-01-24] MEDS: BUDESONIDE 0.25 MG/2ML INH SUSP VIAL NEB SCH ×2 (07:20→20:38)
[2018-01-24 07:25] LABS: ALBUMIN 3.2 g/dl (3.4-5.0); ALK PHOS 87 U/L (45-117); ANION GAP 10 MMOL/L (8-16); BILIRUBIN,TOTAL 0.2 mg/dL (0.2-1.0); BLOOD UREA NITROGEN 14 mg/dL (7-18); CALCIUM 9.4 mg/dL (8.5-10.1); CO2 23 mmol/L (21-32); CREATININE 0.6 mg/dL (0.55-1.02); GLUCOSE,RANDOM 106 mg/dL (74-106); SGOT/AST 98 U/L (15-37); SGPT/ALT 114 U/L (13-61); TOT PROT 7.4 g/dl (6.4-8.2)
[2018-01-24] MEDS: ACETYLCYSTEINE 20% 200MG/ML 4 ML VIAL *FOR ORAL / INH USE ONLY NEB SCH ×4 (07:40→20:34)
[2018-01-24] MEDS: ALBUTEROL SO4 0.083% IH SOL 2.5 MG/3 ML VIAL.NEB. NEB SCH ×4 (07:40→20:34)
[2018-01-24] MEDS: levETIRAcetam 500 MG/5 ML INJECTION VIAL IVPB SCH ×2 (09:48→21:03)
[2018-01-24] MEDS: PANTOPRAZOLE SODIUM 40 MG VIAL IVPUSH SCH (09:48)
[2018-01-24] MEDS: NYSTATIN/TRIAMCINOLONE TOPICAL CREAM 15 GM TUBE TP SCH ×2 (09:49→21:03)
[2018-01-24] MEDS: POTASSIUM CHLORIDE ORAL LIQUID 20 MEQ/15 ML PO SCH ×2 (09:49→21:03)
[2018-01-24] MEDS: DEXTROSE 5%-0.45% SALINE 1,000 ML IV SCH (09:49)
--- NOTE | 2018-01-24 10:49 | PN ---
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 For PEG today. Counseled pt's mother and reviewed case with CCC. Pending decision regarding placement. Selected Entries 01/23/18 01/23/18 01/23/18 02:00 05:45 09:52 Supper Temperature 98.7 F 98.4 F 98.0 F 01/23/18 01/23/18 01/23/18 14:10 18:00 18:04 Supper NPO Temperature 98.2 F 98.2 F 98.8 F 01/23/18 01/24/18 01/24/18 22:00 01:10 06:20 Supper NPO Temperature 97.8 F 98.3 F 99.7 F H 01/24/18 10:00 Supper Temperature 98.5 F Laboratory Tests 01/23/18 01/24/18 06:00 06:00 WBC 7.7 16.1 H To follow.
[2018-01-24] MEDS ORDERED: ceFAZolin SODIUM 1 GM VIAL ONE (12:02)
[2018-01-24] MEDS ORDERED: ceFAZolin SODIUM 1 GM VIAL IVPB ONE (12:20)
[2018-01-24] MEDS ORDERED: TETRACAINE/BENZOCAINE/BUTAMBEN 20 GM SPR TP ONE (12:23)
[2018-01-24] MEDS ORDERED: MIDAZOLAM HCL 2 MG/2 ML SINGLE DOSE VIAL ONE (12:25)
--- NOTE | 2018-01-24 12:44 | PROC ---
Endoscopy Procedure Endoscopy procedure completed. Please see scanned procedure report.
--- NOTE | 2018-01-24 14:01 | PN ---
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 (short form) - Note 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: PULMONARY Remains poorly responsive. No fevers recorded. For PEG today. Vital Signs Period Temp Pulse Resp BP Sys/Cheema Pulse Ox Last 24 Hr 97.8 F-99.7 F 92-136 16-20 110-156/59-111 93-100 Gen: lethargic Heart: tachycardic, regular Lung: decreased breath sounds at the bases Abd: soft, nontender Ext: no edema CBC, BMP 01/24/18 06:00 01/24/18 06:00 Active Medications Acetaminophen (Tylenol Oral Solution -) 650 mg PO Q6H PRN PRN Reason: Fever Or Pain 1-5 Last Admin: 01/24/18 00:23 Dose: 650 mg Acetylcysteine (Mucomyst 20 Oral / Inh Use Only*) 200 mg NEB RQID [facility] Last Admin: 01/24/18 11:44 Dose: Not Given Albuterol Sulfate (Ventolin 0.083% Nebulizer Soln -) 1 amp NEB RQID [facility] Last Admin: 01/24/18 11:44 Dose: Not Given Bisacodyl (Dulcolax Suppository -) 10 mg [place] PRN PRN PRN Reason: CONSTIPATION Last Admin: 01/18/18 21:32 Dose: 10 mg Budesonide (Pulmicort 0.25 Mg Nebulizer -) 1 amp NEB RBID [facility] Last Admin: 01/24/18 07:20 Dose: Not Given Dextrose/Sodium Chloride (D5-1/2ns -) 1,000 mls @ 75 mls/hr IV ASDIR [facility] Last Admin: 01/24/18 09:49 Dose: 75 mls/hr Levetiracetam (Keppra Injection -) 1,500 mg IVPB BID [facility] Last Admin: 01/24/18 09:48 Dose: 1,500 mg Lorazepam (Ativan Injection -) 1 mg IVPUSH Q6H PRN PRN Reason: SEIZURE Last Admin: 01/24/18 06:13 Dose: 1 mg Nystatin/Triamcinolone Acetonide (Mycolog Ii Cream -) 1 applic TP BID [facility] Last Admin: 01/24/18 09:49 Dose: 1 applic Pantoprazole Sodium (Protonix Iv) 40 mg IVPUSH DAILY [facility] Last Admin: 01/24/18 09:48 Dose: 40 mg Polyethylene Glycol (Miralax (For Daily Use) -) 17 gm PO TID [facility] Last Admin: 01/24/18 05:27 Dose: Not Given Potassium Chloride (Potassium Chloride Oral Liquid) 40 meq PO BID [facility] Last Admin: 01/24/18 09:49 Dose: Not Given Scopolamine HBr (Transderm-Scop -) 1 patch TD Q72H [facility] Last Admin: 01/23/18 15:06 Dose: 1 patch Valproate Sodium (Depacon Injection -) 1,000 mg IVPB Q12H [facility] Last Admin: 01/24/18 06:13 Dose: 1,000 mg A/P Acute Hypoxic and Hypercapneic Respiratory Failure resolved Anoxic Encephalopathy Seizures Status Asthmaticus resolved Pneumonia likely Aspiration Shock resolved UTI Lactic Acidosis resolved Acute Kidney Injury resolved Hyperglycemia resolved Autism - completed antibiotics - inhaled bronchodilators standing and PRN - inhaled corticosteroids - aspiration precautions - continue empiric antiepileptics - for PEG placement - DVT/GI prophylaxis
--- NOTE | 2018-01-24 15:04 | PN ---
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, Physician History of Present Illness: Pt s/p peg placement. Had seizure episode last night. Currently afebrile. No acute distress noted. - Current Medication List Current Medications: Active Medications Acetaminophen (Tylenol Oral Solution -) 650 mg PO Q6H PRN PRN Reason: Fever Or Pain 1-5 Last Admin: 01/24/18 00:23 Dose: 650 mg Acetylcysteine (Mucomyst 20 Oral / Inh Use Only*) 200 mg NEB RQID [facility] Last Admin: 01/24/18 11:44 Dose: Not Given Albuterol Sulfate (Ventolin 0.083% Nebulizer Soln -) 1 amp NEB RQID [facility] Last Admin: 01/24/18 11:44 Dose: Not Given Bisacodyl (Dulcolax Suppository -) 10 mg [place] PRN PRN PRN Reason: CONSTIPATION Last Admin: 01/18/18 21:32 Dose: 10 mg Budesonide (Pulmicort 0.25 Mg Nebulizer -) 1 amp NEB RBID [facility] Last Admin: 01/24/18 07:20 Dose: Not Given Dextrose/Sodium Chloride (D5-1/2ns -) 1,000 mls @ 75 mls/hr IV ASDIR [facility] Last Admin: 01/24/18 09:49 Dose: 75 mls/hr Levetiracetam (Keppra Injection -) 1,500 mg IVPB BID [facility] Last Admin: 01/24/18 09:48 Dose: 1,500 mg Lorazepam (Ativan Injection -) 1 mg IVPUSH Q6H PRN PRN Reason: SEIZURE Last Admin: 01/24/18 06:13 Dose: 1 mg Nystatin/Triamcinolone Acetonide (Mycolog Ii Cream -) 1 applic TP BID [facility] Last Admin: 01/24/18 09:49 Dose: 1 applic Pantoprazole Sodium (Protonix Iv) 40 mg IVPUSH DAILY [facility] Last Admin: 01/24/18 09:48 Dose: 40 mg Polyethylene Glycol (Miralax (For Daily Use) -) 17 gm PO TID [facility] Last Admin: 01/24/18 05:27 Dose: Not Given Potassium Chloride (Potassium Chloride Oral Liquid) 40 meq PO BID [facility] Last Admin: 01/24/18 09:49 Dose: Not Given Scopolamine HBr (Transderm-Scop -) 1 patch TD Q72H [facility] Last Admin: 01/23/18 15:06 Dose: 1 patch Valproate Sodium (Depacon Injection -) 1,000 mg IVPB Q12H [facility] Last Admin: 01/24/18 06:13 Dose: 1,000 mg - Objective Vital Signs: Vital Signs Temperature 98.5 F 01/24/18 10:00 Pulse Rate 101 H 01/24/18 13:12 Respiratory Rate 20 01/24/18 13:12 Blood Pressure 110/69 01/24/18 13:12 O2 Sat by Pulse Oximetry (%) 98 01/24/18 13:16 Constitutional: Yes: No Distress Cardiovascular: Yes: Tachycardia Respiratory: Yes: Regular Gastrointestinal: Yes: Other (+peg) Edema: No Integumentary: Yes: WNL Labs: CBC, BMP 01/24/18 06:00 01/24/18 06:00 INR, PTT INR 1.06 (0.83-1.09) 01/24/18 06:00 Problem List - Problems (1) Acute asthma exacerbation Code(s): J45.901 - UNSPECIFIED ASTHMA WITH (ACUTE) EXACERBATION Qualifiers: Asthma severity: unspecified severity Asthma persistence: unspecified Qualified Code(s): J45.901 - Unspecified asthma with (acute) exacerbation (2) Anoxic brain damage Code(s): G93.1 - ANOXIC BRAIN DAMAGE, NOT ELSEWHERE CLASSIFIED (3) Respiratory failure Code(s): J96.90 - RESPIRATORY FAILURE, UNSP, UNSP W HYPOXIA OR HYPERCAPNIA Qualifiers: Chronicity: unspecified Respiratory failure complication: unspecified whether with hypoxia or hypercapnia Qualified Code(s): J96.90 - Respiratory failure, unspecified, unspecified whether with hypoxia or hypercapnia (4) UTI (urinary tract infection) Code(s): N39.0 - URINARY TRACT INFECTION, SITE NOT SPECIFIED (5) Pneumonia Code(s): J18.9 - PNEUMONIA, UNSPECIFIED ORGANISM Assessment/Plan Acute asthma exacerbation s/p Acute respiratory failure Anoxic brain injury Aspiration PNA, +MRSA resp isolate E. coli UTI - s/p treatment Sinusitis Seizures Fever/Leukocytosis -- wbc elevated today, afebrile -- seizure episode last night -- s/p peg placement today -- monitor off antibiotics for now, repeat cbc -- aspiration/seizure precautions -- neurology following monitor vitals
--- NOTE | 2018-01-24 18:14 | PN ---
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, Physician - Current Medication List Current Medications: Active Medications Acetaminophen (Tylenol Oral Solution -) 650 mg PO Q6H PRN PRN Reason: Fever Or Pain 1-5 Last Admin: 01/24/18 16:07 Dose: 650 mg Acetylcysteine (Mucomyst 20 Oral / Inh Use Only*) 200 mg NEB RQID [facility] Last Admin: 01/24/18 15:53 Dose: 200 mg Albuterol Sulfate (Ventolin 0.083% Nebulizer Soln -) 1 amp NEB RQID [facility] Last Admin: 01/24/18 15:53 Dose: 1 amp Bisacodyl (Dulcolax Suppository -) 10 mg [place] PRN PRN PRN Reason: CONSTIPATION Last Admin: 01/18/18 21:32 Dose: 10 mg Budesonide (Pulmicort 0.25 Mg Nebulizer -) 1 amp NEB RBID [facility] Last Admin: 01/24/18 07:20 Dose: Not Given Dextrose/Sodium Chloride (D5-1/2ns -) 1,000 mls @ 75 mls/hr IV ASDIR [facility] Last Admin: 01/24/18 09:49 Dose: 75 mls/hr Levetiracetam (Keppra Injection -) 1,500 mg IVPB BID [facility] Last Admin: 01/24/18 09:48 Dose: 1,500 mg Lorazepam (Ativan Injection -) 1 mg IVPUSH Q6H PRN PRN Reason: SEIZURE Last Admin: 01/24/18 16:08 Dose: 1 mg Nystatin/Triamcinolone Acetonide (Mycolog Ii Cream -) 1 applic TP BID [facility] Last Admin: 01/24/18 09:49 Dose: 1 applic Pantoprazole Sodium (Protonix Iv) 40 mg IVPUSH DAILY [facility] Last Admin: 01/24/18 09:48 Dose: 40 mg Polyethylene Glycol (Miralax (For Daily Use) -) 17 gm PO TID [facility] Last Admin: 01/24/18 16:08 Dose: Not Given Potassium Chloride (Potassium Chloride Oral Liquid) 40 meq PO BID [facility] Last Admin: 01/24/18 09:49 Dose: Not Given Scopolamine HBr (Transderm-Scop -) 1 patch TD Q72H [facility] Last Admin: 01/23/18 15:06 Dose: 1 patch Valproate Sodium (Depacon Injection -) 1,000 mg IVPB Q12H [facility] Last Admin: 01/24/18 06:13 Dose: 1,000 mg - Objective Vital Signs: Vital Signs Temperature 98.8 F 01/24/18 16:27 Pulse Rate 128 H 01/24/18 16:27 Respiratory Rate 22 01/24/18 16:27 Blood Pressure 140/84 01/24/18 16:27 O2 Sat by Pulse Oximetry (%) 98 01/24/18 13:16 Constitutional: Yes: Calm HENT: Yes: Atraumatic Neck: Yes: Supple Cardiovascular: Yes: Regular Rate and Rhythm Respiratory: Yes: CTA Bilaterally Gastrointestinal: Yes: Normal Bowel Sounds, Other (peg in place) Extremities: Yes: WNL Edema: No Neurological: Yes: Other (sleeping) Labs: CBC, BMP 01/24/18 06:00 01/24/18 06:00 INR, PTT INR 1.06 (0.83-1.09) 01/24/18 06:00 Problem List - Problems (1) Acute asthma exacerbation Assessment/Plan: on inhaler duo nebs completed abx course Code(s): J45.901 - UNSPECIFIED ASTHMA WITH (ACUTE) EXACERBATION Qualifiers: Asthma severity: unspecified severity Asthma persistence: unspecified Qualified Code(s): J45.901 - Unspecified asthma with (acute) exacerbation (2) Respiratory failure Assessment/Plan: on NC Code(s): J96.90 - RESPIRATORY FAILURE, UNSP, UNSP W HYPOXIA OR HYPERCAPNIA Qualifiers: Chronicity: unspecified Respiratory failure complication: unspecified whether with hypoxia or hypercapnia Qualified Code(s): J96.90 - Respiratory failure, unspecified, unspecified whether with hypoxia or hypercapnia (3) Autism Code(s): F84.0 - AUTISTIC DISORDER (4) Pneumonia Assessment/Plan: abx completed Code(s): J18.9 - PNEUMONIA, UNSPECIFIED ORGANISM (5) UTI (urinary tract infection) Code(s): N39.0 - URINARY TRACT INFECTION, SITE NOT SPECIFIED (6) Anoxic brain damage Assessment/Plan: pt on oxygen opens eyes but does not make meaningful contact Code(s): G93.1 - ANOXIC BRAIN DAMAGE, NOT ELSEWHERE CLASSIFIED (7) Seizure Assessment/Plan: on meds per neuro prn iv ativan Code(s): R56.9 - UNSPECIFIED CONVULSIONS
[2018-01-24] MEDS ORDERED: PT OWN MED DRAWER 7, Y5N ONE (18:16)
--- NOTE | 2018-01-24 18:19 | PN ---
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 (short form) - Note 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: 37 year old female history of autism, and asthma. She has severe hypoxic encephalopathy following severe asthma episode. She is not back to baseline and she has been having seizure. S SUBJECTIVE: She has episode of activity, what appears to be seizure, she was given ativan and now she is round the clock iv ativan prn and her depakote was increased Neurological EXAMINATION: No spontaneous speech present , she is sleepy and no acute distress, no spastic movement seen Family at bedside, She is not following command She seems to be having whole body stiffened , she is developing spasticity pupils is bilateral reactive MRI showed bilateral basal ganglia injury consistent with anoxic injury eeg showed there is epileptiform discharge seen on eeg Assessment- Hypoxic-Anoxic encpehalopathy following severe bronchial asthma. 2. Postnaoxic seizure , had one suspected seizure on , and depakote increase to 1 gm bid and contineu keppra at same dose I would do eeg, and consider adding baclofen if she continue to remain spastic Thaking you so much Abrahan Pelayo MD
[2018-01-24] MEDS ORDERED: BUDESONIDE 0.5 MG/2 ML INH SUSP VIAL NEB ONE (20:09)
[2018-01-25] MEDS ORDERED: PT OWN MED DRAWER 7, Y5N ONE ×4 (05:09→22:24)
[2018-01-25] MEDS: POLYETHYLENE GLYCOL 3350 119 GM BTL PO SCH ×3 (05:42→22:00)
[2018-01-25] MEDS: VALPROATE SODIUM 500 MG/5 ML VIAL IVPB SCH ×2 (06:18→20:00)
[2018-01-25] MEDS: BUDESONIDE 0.25 MG/2ML INH SUSP VIAL NEB SCH ×2 (08:02→20:35)
[2018-01-25] MEDS: ALBUTEROL SO4 0.083% IH SOL 2.5 MG/3 ML VIAL.NEB. NEB SCH ×5 (08:02→20:35)
[2018-01-25] MEDS: ACETYLCYSTEINE 20% 200MG/ML 4 ML VIAL *FOR ORAL / INH USE ONLY NEB SCH ×4 (08:02→20:35)
[2018-01-25 08:28] LABS: BASO % 0.4 % (0-2.0); EOS % 3.8 % (0-4.5); HEMATOCRIT 33.2 % (32.4-45.2); HEMOGLOBIN 10.9 GM/dL (10.7-15.3); LYMPH % 8.8 % (8-40); MCH 29.9 pg (25.7-33.7); MCHC 32.8 g/dl (32.0-36.0); MEAN CELL VOLUME 90.9 fl (80-96); MEAN PLT VOLUME 8.8 fl (7.5-11.1); MONO % 5.4 % (3.8-10.2); NEUT % 81.6 % (42.8-82.8); PLATELET COUNT 392 K/MM3 (134-434); RBC 3.65 M/mm3 (3.60-5.2); RDW 14.9 % (11.6-15.6); WHITE BLOOD COUNT 12.5 K/mm3 (4.0-10.0)
[2018-01-25] MEDS: NYSTATIN/TRIAMCINOLONE TOPICAL CREAM 15 GM TUBE TP SCH ×2 (10:40→22:00)
[2018-01-25] MEDS: levETIRAcetam 500 MG/5 ML INJECTION VIAL IVPB SCH ×2 (10:40→22:37)
[2018-01-25] MEDS: POTASSIUM CHLORIDE ORAL LIQUID 20 MEQ/15 ML PO SCH ×2 (10:41→22:37)
[2018-01-25] MEDS: PANTOPRAZOLE SODIUM 40 MG VIAL IVPUSH SCH (10:41)
--- NOTE | 2018-01-25 12:22 | PN ---
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, Physician History of Present Illness: pulmonary no change,sleepy,non-verbal,-resp distress - Current Medication List Current Medications: Active Medications Acetaminophen (Tylenol Oral Solution -) 650 mg PO Q6H PRN PRN Reason: Fever Or Pain 1-5 Last Admin: 01/24/18 21:03 Dose: 650 mg Acetylcysteine (Mucomyst 20 Oral / Inh Use Only*) 200 mg NEB RQID [facility] Last Admin: 01/25/18 11:25 Dose: 200 mg Albuterol Sulfate (Ventolin 0.083% Nebulizer Soln -) 1 amp NEB RQID [facility] Last Admin: 01/25/18 11:25 Dose: 1 amp Bisacodyl (Dulcolax Suppository -) 10 mg [place] PRN PRN PRN Reason: CONSTIPATION Last Admin: 01/18/18 21:32 Dose: 10 mg Budesonide (Pulmicort 0.25 Mg Nebulizer -) 1 amp NEB RBID [facility] Last Admin: 01/25/18 08:02 Dose: 1 amp Dextrose/Sodium Chloride (D5-1/2ns -) 1,000 mls @ 75 mls/hr IV ASDIR [facility] Last Admin: 01/24/18 09:49 Dose: 75 mls/hr Levetiracetam (Keppra Injection -) 1,500 mg IVPB BID [facility] Last Admin: 01/25/18 10:40 Dose: 1,500 mg Lorazepam (Ativan Injection -) 1 mg IVPUSH Q6H PRN PRN Reason: SEIZURE Last Admin: 01/24/18 21:03 Dose: 1 mg Nystatin/Triamcinolone Acetonide (Mycolog Ii Cream -) 1 applic TP BID [facility] Last Admin: 01/25/18 10:40 Dose: 1 applic Pantoprazole Sodium (Protonix Iv) 40 mg IVPUSH DAILY [facility] Last Admin: 01/25/18 10:41 Dose: 40 mg Polyethylene Glycol (Miralax (For Daily Use) -) 17 gm PO TID [facility] Last Admin: 01/25/18 05:42 Dose: Not Given Potassium Chloride (Potassium Chloride Oral Liquid) 40 meq PO BID [facility] Last Admin: 01/25/18 10:41 Dose: 40 meq Scopolamine HBr (Transderm-Scop -) 1 patch TD Q72H [facility] Last Admin: 01/23/18 15:06 Dose: 1 patch Valproate Sodium (Depacon Injection -) 1,000 mg IVPB Q12H [facility] Last Admin: 01/25/18 06:18 Dose: 1,000 mg - Objective Vital Signs: Vital Signs Temperature 97.9 F 01/25/18 06:00 Pulse Rate 96 H 01/25/18 06:00 Respiratory Rate 20 01/25/18 09:00 Blood Pressure 136/94 01/25/18 06:00 O2 Sat by Pulse Oximetry (%) 98 01/25/18 09:00 Constitutional: Yes: Thin, Other (sleepy) Eyes: Yes: WNL HENT: Yes: WNL Neck: Yes: WNL Cardiovascular: Yes: Regular Rate and Rhythm, S1, S2 Respiratory: Yes: Diminished Gastrointestinal: Yes: Normal Bowel Sounds, Soft Extremities: Yes: WNL Edema: No Labs: CBC, BMP 01/25/18 07:50 01/24/18 06:00 INR, PTT INR 1.06 (0.83-1.09) 01/24/18 06:00 Problem List - Problems (1) Acute asthma exacerbation Code(s): J45.901 - UNSPECIFIED ASTHMA WITH (ACUTE) EXACERBATION Qualifiers: Asthma severity: unspecified severity Asthma persistence: unspecified Qualified Code(s): J45.901 - Unspecified asthma with (acute) exacerbation (2) Anoxic brain damage Code(s): G93.1 - ANOXIC BRAIN DAMAGE, NOT ELSEWHERE CLASSIFIED (3) Respiratory failure Code(s): J96.90 - RESPIRATORY FAILURE, UNSP, UNSP W HYPOXIA OR HYPERCAPNIA Qualifiers: Chronicity: unspecified Respiratory failure complication: unspecified whether with hypoxia or hypercapnia Qualified Code(s): J96.90 - Respiratory failure, unspecified, unspecified whether with hypoxia or hypercapnia (4) Status asthmaticus Code(s): J45.902 - UNSPECIFIED ASTHMA WITH STATUS ASTHMATICUS Qualifiers: Asthma severity: unspecified severity Asthma persistence: unspecified Qualified Code(s): J45.902 - Unspecified asthma with status asthmaticus (5) Autism Code(s): F84.0 - AUTISTIC DISORDER (6) Tachycardia Code(s): R00.0 - TACHYCARDIA, UNSPECIFIED Assessment/Plan ASSESSMENT AND PLAN: Acute Hypoxic and Hypercapneic Respiratory Failure improved Anoxic Encephalopathy r/o Seizures Status Asthmaticus resolved Pneumonia likely Aspiration Shock resolved UTI Lactic Acidosis resolved Acute Kidney Injury resolved Hyperglycemia resolved Autism - inhaled bronchodilators standing and PRN - inhaled corticosteroids - aspiration precautions - continue empiric antiepileptics - DVT/GI prophylaxis - nutritional support DR DE OLIVEIRA
--- NOTE | 2018-01-25 13:05 | PN ---
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, ENGINEER INTERN - Note 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: Selected Entries 01/25/18 01/25/18 01/25/18 02:00 06:00 10:44 Lunch NPO Temperature 98.7 F 97.9 F Laboratory Tests 01/24/18 01/25/18 06:00 07:50 WBC 16.1 H 12.5 H PEG inserted. Initiation of TF pending. Turned on pt's music for stimulation. Seems quiet, sleeping with onset of body twisting, right arm twisted, opens eyes , vocalizing/crying. Spasm/Pain? Nursing aware.
[2018-01-25] MEDS: ACETAMINOPHEN 650 MG/20.3 ML ORAL SOLUTION (CUPS) PO PRN ×2 (13:10→22:38)
[2018-01-25] MEDS: DEXTROSE 5%-0.45% SALINE 1,000 ML IV SCH (13:12)
--- NOTE | 2018-01-25 13:31 | PN ---
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, Physician History of Present Illness: Pt is without acute distress. Currently afebrile, without respiratory distress, NGT has been removed. - Current Medication List Current Medications: Active Medications Acetaminophen (Tylenol Oral Solution -) 650 mg PO Q6H PRN PRN Reason: Fever Or Pain 1-5 Last Admin: 01/25/18 13:10 Dose: 650 mg Acetylcysteine (Mucomyst 20 Oral / Inh Use Only*) 200 mg NEB RQID [facility] Last Admin: 01/25/18 11:25 Dose: 200 mg Albuterol Sulfate (Ventolin 0.083% Nebulizer Soln -) 1 amp NEB RQID [facility] Last Admin: 01/25/18 11:25 Dose: 1 amp Bisacodyl (Dulcolax Suppository -) 10 mg [place] PRN PRN PRN Reason: CONSTIPATION Last Admin: 01/18/18 21:32 Dose: 10 mg Budesonide (Pulmicort 0.25 Mg Nebulizer -) 1 amp NEB RBID [facility] Last Admin: 01/25/18 08:02 Dose: 1 amp Dextrose/Sodium Chloride (D5-1/2ns -) 1,000 mls @ 75 mls/hr IV ASDIR [facility] Last Admin: 01/25/18 13:12 Dose: 75 mls/hr Levetiracetam (Keppra Injection -) 1,500 mg IVPB BID [facility] Last Admin: 01/25/18 10:40 Dose: 1,500 mg Lorazepam (Ativan Injection -) 1 mg IVPUSH Q6H PRN PRN Reason: SEIZURE Last Admin: 01/24/18 21:03 Dose: 1 mg Nystatin/Triamcinolone Acetonide (Mycolog Ii Cream -) 1 applic TP BID [facility] Last Admin: 01/25/18 10:40 Dose: 1 applic Pantoprazole Sodium (Protonix Iv) 40 mg IVPUSH DAILY [facility] Last Admin: 01/25/18 10:41 Dose: 40 mg Polyethylene Glycol (Miralax (For Daily Use) -) 17 gm PO TID [facility] Last Admin: 01/25/18 13:09 Dose: 17 gm Potassium Chloride (Potassium Chloride Oral Liquid) 40 meq PO BID [facility] Last Admin: 01/25/18 10:41 Dose: 40 meq Scopolamine HBr (Transderm-Scop -) 1 patch TD Q72H [facility] Last Admin: 01/23/18 15:06 Dose: 1 patch Valproate Sodium (Depacon Injection -) 1,000 mg IVPB Q12H [facility] Last Admin: 01/25/18 06:18 Dose: 1,000 mg - Objective Vital Signs: Vital Signs Temperature 97.9 F 01/25/18 06:00 Pulse Rate 96 H 01/25/18 06:00 Respiratory Rate 20 01/25/18 09:00 Blood Pressure 136/94 01/25/18 06:00 O2 Sat by Pulse Oximetry (%) 98 01/25/18 09:00 Constitutional: Yes: No Distress Cardiovascular: Yes: Tachycardia Respiratory: Yes: Regular Gastrointestinal: Yes: Other (+peg) Extremities: Yes: WNL Edema: No Labs: CBC, BMP 01/25/18 07:50 01/24/18 06:00 INR, PTT INR 1.06 (0.83-1.09) 01/24/18 06:00 Problem List - Problems (1) Acute asthma exacerbation Code(s): J45.901 - UNSPECIFIED ASTHMA WITH (ACUTE) EXACERBATION Qualifiers: Asthma severity: unspecified severity Asthma persistence: unspecified Qualified Code(s): J45.901 - Unspecified asthma with (acute) exacerbation (2) Anoxic brain damage Code(s): G93.1 - ANOXIC BRAIN DAMAGE, NOT ELSEWHERE CLASSIFIED (3) Respiratory failure Code(s): J96.90 - RESPIRATORY FAILURE, UNSP, UNSP W HYPOXIA OR HYPERCAPNIA Qualifiers: Chronicity: unspecified Respiratory failure complication: unspecified whether with hypoxia or hypercapnia Qualified Code(s): J96.90 - Respiratory failure, unspecified, unspecified whether with hypoxia or hypercapnia (4) UTI (urinary tract infection) Code(s): N39.0 - URINARY TRACT INFECTION, SITE NOT SPECIFIED (5) Pneumonia Code(s): J18.9 - PNEUMONIA, UNSPECIFIED ORGANISM Assessment/Plan Acute asthma exacerbation s/p Acute respiratory failure Anoxic brain injury Aspiration PNA, +MRSA resp isolate E. coli UTI - s/p treatment Sinusitis Seizures Fever/Leukocytosis -- wbc decrease yesterday off of antibiotics, currently afebrile -- neurology following -- NGT has been removed, s/p peg placement -- monitor off antibiotics for now -- aspiration/seizure precautions monitor vitals
--- NOTE | 2018-01-25 14:35 | PN ---
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 (short form) - Note 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: No events overnight. PEG intact. Normal abdomina exam. CBC, CMP noted. OK to use PEG as intended. Maintain aspiration precautions. Discussed with pt's nurse , family.
--- NOTE | 2018-01-25 17:40 | PN ---
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, Physician - Current Medication List Current Medications: Active Medications Acetaminophen (Tylenol Oral Solution -) 650 mg PO Q6H PRN PRN Reason: Fever Or Pain 1-5 Last Admin: 01/25/18 13:10 Dose: 650 mg Acetylcysteine (Mucomyst 20 Oral / Inh Use Only*) 200 mg NEB RQID [facility] Last Admin: 01/25/18 16:40 Dose: 200 mg Albuterol Sulfate (Ventolin 0.083% Nebulizer Soln -) 1 amp NEB RQID [facility] Last Admin: 01/25/18 16:40 Dose: 1 amp Bisacodyl (Dulcolax Suppository -) 10 mg [place] PRN PRN PRN Reason: CONSTIPATION Last Admin: 01/18/18 21:32 Dose: 10 mg Budesonide (Pulmicort 0.25 Mg Nebulizer -) 1 amp NEB RBID [facility] Last Admin: 01/25/18 08:02 Dose: 1 amp Levetiracetam (Keppra Injection -) 1,500 mg IVPB BID [facility] Last Admin: 01/25/18 10:40 Dose: 1,500 mg Lorazepam (Ativan Injection -) 1 mg IVPUSH Q6H PRN PRN Reason: SEIZURE Last Admin: 01/24/18 21:03 Dose: 1 mg Nystatin/Triamcinolone Acetonide (Mycolog Ii Cream -) 1 applic TP BID [facility] Last Admin: 01/25/18 10:40 Dose: 1 applic Pantoprazole Sodium (Protonix Iv) 40 mg IVPUSH DAILY [facility] Last Admin: 01/25/18 10:41 Dose: 40 mg Polyethylene Glycol (Miralax (For Daily Use) -) 17 gm PO TID [facility] Last Admin: 01/25/18 13:09 Dose: 17 gm Potassium Chloride (Potassium Chloride Oral Liquid) 40 meq PO BID [facility] Last Admin: 01/25/18 10:41 Dose: 40 meq Scopolamine HBr (Transderm-Scop -) 1 patch TD Q72H [facility] Last Admin: 01/23/18 15:06 Dose: 1 patch Valproate Sodium (Depacon Injection -) 1,000 mg IVPB Q12H [facility] Last Admin: 01/25/18 06:18 Dose: 1,000 mg - Objective Vital Signs: Vital Signs Temperature 98.3 F 01/25/18 14:00 Pulse Rate 117 H 01/25/18 14:00 Respiratory Rate 20 01/25/18 14:00 Blood Pressure 140/82 01/25/18 14:00 O2 Sat by Pulse Oximetry (%) 98 01/25/18 09:00 Constitutional: Yes: No Distress HENT: Yes: Atraumatic Neck: Yes: Supple Cardiovascular: Yes: Regular Rate and Rhythm Respiratory: Yes: Rhonchi Gastrointestinal: Yes: Normal Bowel Sounds Extremities: Yes: WNL Edema: No Neurological: Yes: Other (awake) Labs: CBC, BMP 01/25/18 07:50 01/24/18 06:00 INR, PTT INR 1.06 (0.83-1.09) 01/24/18 06:00 Problem List - Problems (1) Acute asthma exacerbation Assessment/Plan: on inhaler duo nebs completed abx course Code(s): J45.901 - UNSPECIFIED ASTHMA WITH (ACUTE) EXACERBATION Qualifiers: Asthma severity: unspecified severity Asthma persistence: unspecified Qualified Code(s): J45.901 - Unspecified asthma with (acute) exacerbation (2) Respiratory failure Assessment/Plan: on NC Code(s): J96.90 - RESPIRATORY FAILURE, UNSP, UNSP W HYPOXIA OR HYPERCAPNIA Qualifiers: Chronicity: unspecified Respiratory failure complication: unspecified whether with hypoxia or hypercapnia Qualified Code(s): J96.90 - Respiratory failure, unspecified, unspecified whether with hypoxia or hypercapnia (3) Autism Code(s): F84.0 - AUTISTIC DISORDER (4) Pneumonia Assessment/Plan: abx completed Code(s): J18.9 - PNEUMONIA, UNSPECIFIED ORGANISM (5) UTI (urinary tract infection) Code(s): N39.0 - URINARY TRACT INFECTION, SITE NOT SPECIFIED (6) Anoxic brain damage Assessment/Plan: pt on oxygen opens eyes but does not make meaningful contact Code(s): G93.1 - ANOXIC BRAIN DAMAGE, NOT ELSEWHERE CLASSIFIED (7) Seizure Assessment/Plan: on meds per neuro prn iv ativan Code(s): R56.9 - UNSPECIFIED CONVULSIONS
[2018-01-25] MEDS: LORazepam 2 MG/ML SDV VIAL IVPUSH PRN (22:38)
[2018-01-26] MEDS: POLYETHYLENE GLYCOL 3350 119 GM BTL PO SCH ×3 (06:12→21:05)
[2018-01-26] MEDS: LORazepam 2 MG/ML SDV VIAL IVPUSH PRN ×2 (06:12→19:01)
[2018-01-26] MEDS: VALPROATE SODIUM 500 MG/5 ML VIAL IVPB SCH ×2 (06:13→19:26)
[2018-01-26 07:23] LABS: BASO % 0.7 % (0-2.0); EOS % 2.9 % (0-4.5); HEMATOCRIT 31.4 % (32.4-45.2); HEMOGLOBIN 10.4 GM/dL (10.7-15.3); LYMPH % 6.5 % (8-40); MCH 29.7 pg (25.7-33.7); MCHC 33.1 g/dl (32.0-36.0); MEAN CELL VOLUME 89.7 fl (80-96); MEAN PLT VOLUME 7.9 fl (7.5-11.1); MONO % 8.4 % (3.8-10.2); NEUT % 81.5 % (42.8-82.8); PLATELET COUNT 557 K/MM3 (134-434); WHITE BLOOD COUNT 14.7 K/mm3 (4.0-10.0)
[2018-01-26] MEDS: ACETYLCYSTEINE 20% 200MG/ML 4 ML VIAL *FOR ORAL / INH USE ONLY NEB SCH ×4 (07:46→20:15)
[2018-01-26] MEDS: BUDESONIDE 0.25 MG/2ML INH SUSP VIAL NEB SCH ×2 (07:46→20:20)
[2018-01-26] MEDS: ALBUTEROL SO4 0.083% IH SOL 2.5 MG/3 ML VIAL.NEB. NEB SCH ×4 (07:47→20:15)
[2018-01-26] MEDS: NYSTATIN/TRIAMCINOLONE TOPICAL CREAM 15 GM TUBE TP SCH ×2 (10:46→21:06)
[2018-01-26] MEDS: POTASSIUM CHLORIDE ORAL LIQUID 20 MEQ/15 ML PO SCH ×2 (10:46→21:05)
[2018-01-26] MEDS: levETIRAcetam 500 MG/5 ML INJECTION VIAL IVPB SCH ×2 (10:46→21:05)
[2018-01-26] MEDS: PANTOPRAZOLE SODIUM 40 MG VIAL IVPUSH SCH (10:46)
--- NOTE | 2018-01-26 12:37 | PN ---
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 (short form) - Note 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: Sleeping in NAD on NC O2. No acute events overnight. Intake & Output 01/23/18 01/24/18 01/25/18 01/26/18 23:59 23:59 23:59 23:59 Intake Total 3325 1710 900 365 Balance 3325 1710 900 365 Last Vital Signs Temp Pulse Resp BP Pulse Ox 98.0 F 106 H 19 118/88 97 01/26/18 10:00 01/26/18 10:00 01/26/18 10:00 01/26/18 10:00 01/25/18 21:00 Active Medications Acetaminophen (Tylenol Oral Solution -) 650 mg PO Q6H PRN PRN Reason: Fever Or Pain 1-5 Last Admin: 01/25/18 22:38 Dose: 650 mg Acetylcysteine (Mucomyst 20 Oral / Inh Use Only*) 200 mg NEB RQID [facility] Last Admin: 01/26/18 11:31 Dose: 200 mg Albuterol Sulfate (Ventolin 0.083% Nebulizer Soln -) 1 amp NEB RQID [facility] Last Admin: 01/26/18 11:31 Dose: 1 amp Bisacodyl (Dulcolax Suppository -) 10 mg [place] PRN PRN PRN Reason: CONSTIPATION Last Admin: 01/18/18 21:32 Dose: 10 mg Budesonide (Pulmicort 0.25 Mg Nebulizer -) 1 amp NEB RBID [facility] Last Admin: 01/26/18 07:46 Dose: 1 amp Levetiracetam (Keppra Injection -) 1,500 mg IVPB BID [facility] Last Admin: 01/26/18 10:46 Dose: 1,500 mg Lorazepam (Ativan Injection -) 1 mg IVPUSH Q6H PRN PRN Reason: SEIZURE Last Admin: 01/26/18 06:12 Dose: 1 mg Nystatin/Triamcinolone Acetonide (Mycolog Ii Cream -) 1 applic TP BID [facility] Last Admin: 01/26/18 10:46 Dose: 1 applic Pantoprazole Sodium (Protonix Iv) 40 mg IVPUSH DAILY [facility] Last Admin: 01/26/18 10:46 Dose: 40 mg Polyethylene Glycol (Miralax (For Daily Use) -) 17 gm PO TID [facility] Last Admin: 01/26/18 06:12 Dose: 17 gm Potassium Chloride (Potassium Chloride Oral Liquid) 40 meq PO BID [facility] Last Admin: 01/26/18 10:46 Dose: Not Given Scopolamine HBr (Transderm-Scop -) 1 patch TD Q72H [facility] Last Admin: 01/23/18 15:06 Dose: 1 patch Valproate Sodium (Depacon Injection -) 1,000 mg IVPB Q12H [facility] Last Admin: 01/26/18 06:13 Dose: 1,000 mg Constitutional: Yes: NAD Eyes: Yes: WNL HENT: Yes: WNL Neck: Yes: WNL Cardiovascular: Yes: Regular Rate and Rhythm, S1, S2 Respiratory: Yes: Diminished at the bases, scattered rhonchi Gastrointestinal: Yes: Normal Bowel Sounds, Soft Extremities: Yes: WNL Edema: No Labs: Laboratory Results - last 24 hr 01/26/18 06:00 WBC 14.7 H RBC 3.50 L Hgb 10.4 L Hct 31.4 L MCV 89.7 MCH 29.7 MCHC 33.1 RDW 15.0 Plt Count 557 H D MPV 7.9 D Absolute Neuts (auto) 11.9 H Neutrophils % 81.5 Lymphocytes % 6.5 L D Monocytes % 8.4 Eosinophils % 2.9 Basophils % 0.7 Nucleated RBC % 0 Problem List - Problems (1) Acute asthma exacerbation Code(s): J45.901 - UNSPECIFIED ASTHMA WITH (ACUTE) EXACERBATION Qualifiers: Asthma severity: unspecified severity Asthma persistence: unspecified Qualified Code(s): J45.901 - Unspecified asthma with (acute) exacerbation (2) Anoxic brain damage Code(s): G93.1 - ANOXIC BRAIN DAMAGE, NOT ELSEWHERE CLASSIFIED (3) Respiratory failure Code(s): J96.90 - RESPIRATORY FAILURE, UNSP, UNSP W HYPOXIA OR HYPERCAPNIA Qualifiers: Chronicity: unspecified Respiratory failure complication: unspecified whether with hypoxia or hypercapnia Qualified Code(s): J96.90 - Respiratory failure, unspecified, unspecified whether with hypoxia or hypercapnia (4) Status asthmaticus Code(s): J45.902 - UNSPECIFIED ASTHMA WITH STATUS ASTHMATICUS Qualifiers: Asthma severity: unspecified severity Asthma persistence: unspecified Qualified Code(s): J45.902 - Unspecified asthma with status asthmaticus (5) Autism Code(s): F84.0 - AUTISTIC DISORDER (6) Tachycardia Code(s): R00.0 - TACHYCARDIA, UNSPECIFIED Assessment/Plan Acute Hypoxic and Hypercapneic Respiratory Failure improved Anoxic Encephalopathy r/o Seizures Status Asthmaticus resolved Pneumonia likely Aspiration Shock resolved UTI Lactic Acidosis resolved Acute Kidney Injury resolved Hyperglycemia resolved Autism Inhaled bronchodilators standing and PRN Inhaled corticosteroids Aspiration precautions Empiric antiepileptics DVT/GI prophylaxis Nutritional support Dr Martinez
--- NOTE | 2018-01-26 14:04 | PN ---
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, Physician History of Present Illness: Pt is currently calm. She remains afebrile. Peg feeds have started. - Current Medication List Current Medications: Active Medications Acetaminophen (Tylenol Oral Solution -) 650 mg PO Q6H PRN PRN Reason: Fever Or Pain 1-5 Last Admin: 01/25/18 22:38 Dose: 650 mg Acetylcysteine (Mucomyst 20 Oral / Inh Use Only*) 200 mg NEB RQID [facility] Last Admin: 01/26/18 11:31 Dose: 200 mg Albuterol Sulfate (Ventolin 0.083% Nebulizer Soln -) 1 amp NEB RQID [facility] Last Admin: 01/26/18 11:31 Dose: 1 amp Bisacodyl (Dulcolax Suppository -) 10 mg [place] PRN PRN PRN Reason: CONSTIPATION Last Admin: 01/18/18 21:32 Dose: 10 mg Budesonide (Pulmicort 0.25 Mg Nebulizer -) 1 amp NEB RBID [facility] Last Admin: 01/26/18 07:46 Dose: 1 amp Levetiracetam (Keppra Injection -) 1,500 mg IVPB BID [facility] Last Admin: 01/26/18 10:46 Dose: 1,500 mg Lorazepam (Ativan Injection -) 1 mg IVPUSH Q6H PRN PRN Reason: SEIZURE Last Admin: 01/26/18 06:12 Dose: 1 mg Nystatin/Triamcinolone Acetonide (Mycolog Ii Cream -) 1 applic TP BID [facility] Last Admin: 01/26/18 10:46 Dose: 1 applic Pantoprazole Sodium (Protonix Iv) 40 mg IVPUSH DAILY [facility] Last Admin: 01/26/18 10:46 Dose: 40 mg Polyethylene Glycol (Miralax (For Daily Use) -) 17 gm PO TID [facility] Last Admin: 01/26/18 06:12 Dose: 17 gm Potassium Chloride (Potassium Chloride Oral Liquid) 40 meq PO BID [facility] Last Admin: 01/26/18 10:46 Dose: Not Given Scopolamine HBr (Transderm-Scop -) 1 patch TD Q72H [facility] Last Admin: 01/23/18 15:06 Dose: 1 patch Valproate Sodium (Depacon Injection -) 1,000 mg IVPB Q12H [facility] Last Admin: 01/26/18 06:13 Dose: 1,000 mg - Objective Vital Signs: Vital Signs Temperature 98.0 F 01/26/18 10:00 Pulse Rate 106 H 01/26/18 10:00 Respiratory Rate 19 01/26/18 10:00 Blood Pressure 118/88 01/26/18 10:00 O2 Sat by Pulse Oximetry (%) 97 01/25/18 21:00 Constitutional: Yes: No Distress Eyes: Yes: Conjunctiva Clear Cardiovascular: Yes: Tachycardia Respiratory: Yes: Regular Gastrointestinal: Yes: Normal Bowel Sounds, Soft, Other (peg) Genitourinary: Yes: WNL Integumentary: Yes: WNL Neurological: Yes: Other (noncommunicative) Labs: CBC, BMP 01/26/18 06:00 01/24/18 06:00 INR, PTT INR 1.06 (0.83-1.09) 01/24/18 06:00 Problem List - Problems (1) Acute asthma exacerbation Code(s): J45.901 - UNSPECIFIED ASTHMA WITH (ACUTE) EXACERBATION Qualifiers: Asthma severity: unspecified severity Asthma persistence: unspecified Qualified Code(s): J45.901 - Unspecified asthma with (acute) exacerbation (2) Anoxic brain damage Code(s): G93.1 - ANOXIC BRAIN DAMAGE, NOT ELSEWHERE CLASSIFIED (3) Respiratory failure Code(s): J96.90 - RESPIRATORY FAILURE, UNSP, UNSP W HYPOXIA OR HYPERCAPNIA Qualifiers: Chronicity: unspecified Respiratory failure complication: unspecified whether with hypoxia or hypercapnia Qualified Code(s): J96.90 - Respiratory failure, unspecified, unspecified whether with hypoxia or hypercapnia (4) UTI (urinary tract infection) Code(s): N39.0 - URINARY TRACT INFECTION, SITE NOT SPECIFIED (5) Pneumonia Code(s): J18.9 - PNEUMONIA, UNSPECIFIED ORGANISM Assessment/Plan Acute asthma exacerbation s/p Acute respiratory failure Anoxic brain injury Aspiration PNA, +MRSA resp isolate E. coli UTI - s/p treatment Sinusitis Seizures Fever/Leukocytosis -- pt remains afebrile, wbc elevated/fluctuating -- neurology following -- s/p peg placement -- continue monitor off antibiotics for now -- aspiration/seizure precautions
[2018-01-26] MEDS: SCOPOLAMINE HYDROBROMIDE 1 PATCH PATCH.TD72 TD SCH (14:40)
[2018-01-26] MEDS: ACETAMINOPHEN 650 MG/20.3 ML ORAL SOLUTION (CUPS) PO PRN ×2 (14:40→21:08)
--- NOTE | 2018-01-26 17:21 | PN ---
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 (short form) - Note 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: No events overnight. PEG intact. Normal abdominal exam. CBC, CMP noted. ID assessment noted. Continue current care and aspiration precautions.
--- NOTE | 2018-01-26 18:13 | PN ---
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, Physician - Current Medication List Current Medications: Active Medications Acetaminophen (Tylenol Oral Solution -) 650 mg PO Q6H PRN PRN Reason: Fever Or Pain 1-5 Last Admin: 01/26/18 14:40 Dose: 650 mg Acetylcysteine (Mucomyst 20 Oral / Inh Use Only*) 200 mg NEB RQID [facility] Last Admin: 01/26/18 16:54 Dose: 200 mg Albuterol Sulfate (Ventolin 0.083% Nebulizer Soln -) 1 amp NEB RQID [facility] Last Admin: 01/26/18 16:55 Dose: 1 amp Bisacodyl (Dulcolax Suppository -) 10 mg [place] PRN PRN PRN Reason: CONSTIPATION Last Admin: 01/18/18 21:32 Dose: 10 mg Budesonide (Pulmicort 0.25 Mg Nebulizer -) 1 amp NEB RBID [facility] Last Admin: 01/26/18 07:46 Dose: 1 amp Levetiracetam (Keppra Injection -) 1,500 mg IVPB BID [facility] Last Admin: 01/26/18 10:46 Dose: 1,500 mg Lorazepam (Ativan Injection -) 1 mg IVPUSH Q6H PRN PRN Reason: SEIZURE Last Admin: 01/26/18 06:12 Dose: 1 mg Nystatin/Triamcinolone Acetonide (Mycolog Ii Cream -) 1 applic TP BID [facility] Last Admin: 01/26/18 10:46 Dose: 1 applic Pantoprazole Sodium (Protonix Iv) 40 mg IVPUSH DAILY [facility] Last Admin: 01/26/18 10:46 Dose: 40 mg Polyethylene Glycol (Miralax (For Daily Use) -) 17 gm PO TID [facility] Last Admin: 01/26/18 14:40 Dose: 17 gm Potassium Chloride (Potassium Chloride Oral Liquid) 40 meq PO BID [facility] Last Admin: 01/26/18 10:46 Dose: Not Given Scopolamine HBr (Transderm-Scop -) 1 patch TD Q72H [facility] Last Admin: 01/26/18 14:40 Dose: 1 patch Valproate Sodium (Depacon Injection -) 1,000 mg IVPB Q12H [facility] Last Admin: 01/26/18 06:13 Dose: 1,000 mg - Objective Vital Signs: Vital Signs Temperature 98.8 F 01/26/18 14:00 Pulse Rate 120 H 01/26/18 14:00 Respiratory Rate 18 01/26/18 14:00 Blood Pressure 130/94 01/26/18 14:00 O2 Sat by Pulse Oximetry (%) 97 01/26/18 17:39 Constitutional: Yes: No Distress HENT: Yes: Atraumatic Neck: Yes: Supple Cardiovascular: Yes: Regular Rate and Rhythm Respiratory: Yes: CTA Bilaterally Gastrointestinal: Yes: Normal Bowel Sounds Extremities: Yes: WNL Edema: No Peripheral Pulses WNL: Yes Neurological: Yes: Other (sleeping) Labs: CBC, BMP 01/26/18 06:00 01/24/18 06:00 INR, PTT INR 1.06 (0.83-1.09) 01/24/18 06:00 Problem List - Problems (1) Acute asthma exacerbation Assessment/Plan: on inhaler duo nebs Code(s): J45.901 - UNSPECIFIED ASTHMA WITH (ACUTE) EXACERBATION Qualifiers: Asthma severity: unspecified severity Asthma persistence: unspecified Qualified Code(s): J45.901 - Unspecified asthma with (acute) exacerbation (2) Respiratory failure Assessment/Plan: on NC Code(s): J96.90 - RESPIRATORY FAILURE, UNSP, UNSP W HYPOXIA OR HYPERCAPNIA Qualifiers: Chronicity: unspecified Respiratory failure complication: unspecified whether with hypoxia or hypercapnia Qualified Code(s): J96.90 - Respiratory failure, unspecified, unspecified whether with hypoxia or hypercapnia (3) Autism Code(s): F84.0 - AUTISTIC DISORDER (4) Pneumonia Assessment/Plan: abx completed Code(s): J18.9 - PNEUMONIA, UNSPECIFIED ORGANISM (5) UTI (urinary tract infection) Assessment/Plan: abx completed Code(s): N39.0 - URINARY TRACT INFECTION, SITE NOT SPECIFIED (6) Anoxic brain damage Assessment/Plan: pt on oxygen opens eyes but does not make meaningful contact Code(s): G93.1 - ANOXIC BRAIN DAMAGE, NOT ELSEWHERE CLASSIFIED (7) Seizure Assessment/Plan: on meds per neuro prn iv ativan Code(s): R56.9 - UNSPECIFIED CONVULSIONS
[2018-01-26] MEDS ORDERED: PT OWN MED DRAWER 7, Y5N ONE (20:31)
[2018-01-26] MEDS: HEPARIN NA (PORCINE) 5,000 UNITS/ML 1ML VIAL SQ SCH (21:05)
[2018-01-26] MEDS: BACLOFEN 10 MG TABLET (FP) GT SCH (21:05)
[2018-01-27] MEDS ORDERED: PT OWN MED DRAWER 7, Y5N ONE ×3 (04:54→19:59)
[2018-01-27] MEDS: POLYETHYLENE GLYCOL 3350 119 GM BTL PO SCH ×3 (05:26→21:04)
[2018-01-27] MEDS: BACLOFEN 10 MG TABLET (FP) GT SCH ×3 (05:26→21:04)
[2018-01-27] MEDS: VALPROATE SODIUM 500 MG/5 ML VIAL IVPB SCH (06:05)
[2018-01-27 07:02] LABS: BASO % 1.1 % (0-2.0); EOS % 7.7 % (0-4.5); HEMATOCRIT 32.6 % (32.4-45.2); HEMOGLOBIN 10.7 GM/dL (10.7-15.3); LYMPH % 16.4 % (8-40); MCH 29.8 pg (25.7-33.7); MCHC 32.8 g/dl (32.0-36.0); MEAN CELL VOLUME 90.8 fl (80-96); MEAN PLT VOLUME 7.6 fl (7.5-11.1); MONO % 10.7 % (3.8-10.2); NEUT % 64.1 % (42.8-82.8); PLATELET COUNT 558 K/MM3 (134-434); RBC 3.59 M/mm3 (3.60-5.2); RDW 14.9 % (11.6-15.6); WHITE BLOOD COUNT 9.7 K/mm3 (4.0-10.0)
[2018-01-27] MEDS: ACETYLCYSTEINE 20% 200MG/ML 4 ML VIAL *FOR ORAL / INH USE ONLY NEB SCH ×4 (07:30→20:44)
[2018-01-27] MEDS: ALBUTEROL SO4 0.083% IH SOL 2.5 MG/3 ML VIAL.NEB. NEB SCH ×4 (07:30→20:45)
[2018-01-27] MEDS: BUDESONIDE 0.25 MG/2ML INH SUSP VIAL NEB SCH ×2 (07:30→20:44)
[2018-01-27] MEDS: HEPARIN NA (PORCINE) 5,000 UNITS/ML 1ML VIAL SQ SCH ×2 (10:31→21:03)
[2018-01-27] MEDS: PANTOPRAZOLE SODIUM 40 MG VIAL IVPUSH SCH (10:31)
[2018-01-27] MEDS: POTASSIUM CHLORIDE ORAL LIQUID 20 MEQ/15 ML PO SCH ×2 (10:31→21:02)
[2018-01-27] MEDS: NYSTATIN/TRIAMCINOLONE TOPICAL CREAM 15 GM TUBE TP SCH ×2 (10:32→21:04)
[2018-01-27] MEDS: BISACODYL 10 MG SUPP.RECT PR PRN (10:33)
[2018-01-27] MEDS: levETIRAcetam 500 MG/5 ML ORAL SOLUTION (UNIT-DOSE CUPS) PEG SCH ×2 (10:57→21:02)
[2018-01-27] MEDS: VALPROATE SODIUM 250 MG/5 ML LIQUID BULK BOTTLE PO SCH ×2 (10:57→21:03)
--- NOTE | 2018-01-27 12:33 | PN ---
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, Physician - Current Medication List Current Medications: Active Medications Acetaminophen (Tylenol Oral Solution -) 650 mg PO Q6H PRN PRN Reason: Fever Or Pain 1-5 Last Admin: 01/26/18 21:08 Dose: 650 mg Acetylcysteine (Mucomyst 20 Oral / Inh Use Only*) 200 mg NEB RQID [facility] Last Admin: 01/27/18 11:48 Dose: 200 mg Albuterol Sulfate (Ventolin 0.083% Nebulizer Soln -) 1 amp NEB RQID [facility] Last Admin: 01/27/18 11:49 Dose: 1 amp Baclofen (Lioresal -) 10 mg GT TID [facility] Last Admin: 01/27/18 05:26 Dose: 10 mg Bisacodyl (Dulcolax Suppository -) 10 mg [place] PRN PRN PRN Reason: CONSTIPATION Last Admin: 01/27/18 10:33 Dose: 10 mg Budesonide (Pulmicort 0.25 Mg Nebulizer -) 1 amp NEB RBID [facility] Last Admin: 01/27/18 07:30 Dose: 1 amp Heparin Sodium (Porcine) (Heparin -) 5,000 unit SQ BID [facility] Last Admin: 01/27/18 10:31 Dose: 5,000 unit Levetiracetam (Keppra Oral Solution -) 1,500 mg PEG BID [facility] Last Admin: 01/27/18 10:57 Dose: 1,500 mg Lorazepam (Ativan Injection -) 1 mg IVPUSH Q6H PRN PRN Reason: SEIZURE Last Admin: 01/26/18 19:01 Dose: 1 mg Nystatin/Triamcinolone Acetonide (Mycolog Ii Cream -) 1 applic TP BID [facility] Last Admin: 01/27/18 10:32 Dose: 1 applic Pantoprazole Sodium (Protonix Iv) 40 mg IVPUSH DAILY [facility] Last Admin: 01/27/18 10:31 Dose: 40 mg Polyethylene Glycol (Miralax (For Daily Use) -) 17 gm PO TID [facility] Last Admin: 01/27/18 05:26 Dose: 17 gm Potassium Chloride (Potassium Chloride Oral Liquid) 40 meq PO BID [facility] Last Admin: 01/27/18 10:31 Dose: 40 meq Scopolamine HBr (Transderm-Scop -) 1 patch TD Q72H [facility] Last Admin: 01/26/18 14:40 Dose: 1 patch Valproate Sodium (Depakene Oral Solution -) 1,000 mg PO BID [facility] Last Admin: 01/27/18 10:57 Dose: 1,000 mg - Objective Vital Signs: Vital Signs Temperature 98.2 F 01/27/18 10:00 Pulse Rate 86 01/27/18 10:00 Respiratory Rate 20 01/27/18 10:00 Blood Pressure 135/87 01/27/18 10:00 O2 Sat by Pulse Oximetry (%) 97 01/27/18 12:13 Constitutional: Yes: No Distress HENT: Yes: Atraumatic Neck: Yes: Supple Cardiovascular: Yes: Regular Rate and Rhythm Respiratory: Yes: Rhonchi Gastrointestinal: Yes: Normal Bowel Sounds Extremities: Yes: WNL Edema: No Peripheral Pulses WNL: Yes Labs: CBC, BMP 01/27/18 06:44 01/24/18 06:00 INR, PTT INR 1.06 (0.83-1.09) 01/24/18 06:00 Problem List - Problems (1) Acute asthma exacerbation Assessment/Plan: on inhaler duo nebs Code(s): J45.901 - UNSPECIFIED ASTHMA WITH (ACUTE) EXACERBATION Qualifiers: Asthma severity: unspecified severity Asthma persistence: unspecified Qualified Code(s): J45.901 - Unspecified asthma with (acute) exacerbation (2) Respiratory failure Assessment/Plan: on [place] Code(s): J96.90 - RESPIRATORY FAILURE, UNSP, UNSP W HYPOXIA OR HYPERCAPNIA Qualifiers: Chronicity: unspecified Respiratory failure complication: unspecified whether with hypoxia or hypercapnia Qualified Code(s): J96.90 - Respiratory failure, unspecified, unspecified whether with hypoxia or hypercapnia (3) Autism Code(s): F84.0 - AUTISTIC DISORDER (4) Pneumonia Assessment/Plan: abx completed Code(s): J18.9 - PNEUMONIA, UNSPECIFIED ORGANISM (5) UTI (urinary tract infection) Assessment/Plan: abx completed Code(s): N39.0 - URINARY TRACT INFECTION, SITE NOT SPECIFIED (6) Anoxic brain damage Assessment/Plan: pt on oxygen opens eyes but does not make meaningful contact Code(s): G93.1 - ANOXIC BRAIN DAMAGE, NOT ELSEWHERE CLASSIFIED (7) Seizure Assessment/Plan: on meds per neuro prn iv ativan Code(s): R56.9 - UNSPECIFIED CONVULSIONS
--- NOTE | 2018-01-27 12:33 | PN ---
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 (short form) - Note 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: Resting in NAD on [place] O2. Afebrile. No acute events overnight. Intake & Output 01/24/18 01/25/18 01/26/18 01/27/18 23:59 23:59 23:59 23:59 Intake Total 1663 075 7657 745 Balance 5225 499 5959 745 Last Vital Signs Temp Pulse Resp BP Pulse Ox 98.2 F 86 20 135/87 97 01/27/18 10:00 01/27/18 10:00 01/27/18 10:00 01/27/18 10:00 01/27/18 12:13 Active Medications Acetaminophen (Tylenol Oral Solution -) 650 mg PO Q6H PRN PRN Reason: Fever Or Pain 1-5 Last Admin: 01/26/18 21:08 Dose: 650 mg Acetylcysteine (Mucomyst 20 Oral / Inh Use Only*) 200 mg NEB RQID [facility] Last Admin: 01/27/18 11:48 Dose: 200 mg Albuterol Sulfate (Ventolin 0.083% Nebulizer Soln -) 1 amp NEB RQID [facility] Last Admin: 01/27/18 11:49 Dose: 1 amp Baclofen (Lioresal -) 10 mg GT TID [facility] Last Admin: 01/27/18 05:26 Dose: 10 mg Bisacodyl (Dulcolax Suppository -) 10 mg [place] PRN PRN PRN Reason: CONSTIPATION Last Admin: 01/27/18 10:33 Dose: 10 mg Budesonide (Pulmicort 0.25 Mg Nebulizer -) 1 amp NEB RBID [facility] Last Admin: 01/27/18 07:30 Dose: 1 amp Heparin Sodium (Porcine) (Heparin -) 5,000 unit SQ BID [facility] Last Admin: 01/27/18 10:31 Dose: 5,000 unit Levetiracetam (Keppra Oral Solution -) 1,500 mg PEG BID [facility] Last Admin: 01/27/18 10:57 Dose: 1,500 mg Lorazepam (Ativan Injection -) 1 mg IVPUSH Q6H PRN PRN Reason: SEIZURE Last Admin: 01/26/18 19:01 Dose: 1 mg Nystatin/Triamcinolone Acetonide (Mycolog Ii Cream -) 1 applic TP BID [facility] Last Admin: 01/27/18 10:32 Dose: 1 applic Pantoprazole Sodium (Protonix Iv) 40 mg IVPUSH DAILY [facility] Last Admin: 01/27/18 10:31 Dose: 40 mg Polyethylene Glycol (Miralax (For Daily Use) -) 17 gm PO TID [facility] Last Admin: 01/27/18 05:26 Dose: 17 gm Potassium Chloride (Potassium Chloride Oral Liquid) 40 meq PO BID [facility] Last Admin: 01/27/18 10:31 Dose: 40 meq Scopolamine HBr (Transderm-Scop -) 1 patch TD Q72H [facility] Last Admin: 01/26/18 14:40 Dose: 1 patch Valproate Sodium (Depakene Oral Solution -) 1,000 mg PO BID [facility] Last Admin: 01/27/18 10:57 Dose: 1,000 mg Constitutional: Yes: NAD Eyes: Yes: WNL HENT: Yes: WNL Neck: Yes: WNL Cardiovascular: Yes: Regular Rate and Rhythm, S1, S2 Respiratory: Yes: Diminished at the bases, scattered rhonchi Gastrointestinal: Yes: Normal Bowel Sounds, Soft Extremities: Yes: WNL Edema: No Labs: Laboratory Results - last 24 hr 01/27/18 06:44 WBC 9.7 RBC 3.59 L Hgb 10.7 Hct 32.6 MCV 90.8 MCH 29.8 MCHC 32.8 RDW 14.9 Plt Count 558 H MPV 7.6 Absolute Neuts (auto) 6.2 Neutrophils % 64.1 D Lymphocytes % 16.4 D Monocytes % 10.7 H Eosinophils % 7.7 H D Basophils % 1.1 Nucleated RBC % 0 Problem List - Problems (1) Acute asthma exacerbation Code(s): J45.901 - UNSPECIFIED ASTHMA WITH (ACUTE) EXACERBATION Qualifiers: Asthma severity: unspecified severity Asthma persistence: unspecified Qualified Code(s): J45.901 - Unspecified asthma with (acute) exacerbation (2) Anoxic brain damage Code(s): G93.1 - ANOXIC BRAIN DAMAGE, NOT ELSEWHERE CLASSIFIED (3) Respiratory failure Code(s): J96.90 - RESPIRATORY FAILURE, UNSP, UNSP W HYPOXIA OR HYPERCAPNIA Qualifiers: Chronicity: unspecified Respiratory failure complication: unspecified whether with hypoxia or hypercapnia Qualified Code(s): J96.90 - Respiratory failure, unspecified, unspecified whether with hypoxia or hypercapnia (4) Status asthmaticus Code(s): J45.902 - UNSPECIFIED ASTHMA WITH STATUS ASTHMATICUS Qualifiers: Asthma severity: unspecified severity Asthma persistence: unspecified Qualified Code(s): J45.902 - Unspecified asthma with status asthmaticus (5) Autism Code(s): F84.0 - AUTISTIC DISORDER (6) Tachycardia Code(s): R00.0 - TACHYCARDIA, UNSPECIFIED Assessment/Plan Acute Hypoxic and Hypercapneic Respiratory Failure improved Anoxic Encephalopathy r/o Seizures Status Asthmaticus resolved Pneumonia likely Aspiration Shock resolved UTI Lactic Acidosis resolved Acute Kidney Injury resolved Hyperglycemia resolved Autism Inhaled bronchodilators standing and PRN Inhaled corticosteroids Aspiration precautions Empiric antiepileptics DVT/GI prophylaxis Nutritional support Dr Martinez
--- NOTE | 2018-01-27 13:21 | PN ---
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, Physician History of Present Illness: Pt without acute distress. No new events reported overnight. She has been afebrile off antibiotics. - Current Medication List Current Medications: Active Medications Acetaminophen (Tylenol Oral Solution -) 650 mg PO Q6H PRN PRN Reason: Fever Or Pain 1-5 Last Admin: 01/26/18 21:08 Dose: 650 mg Acetylcysteine (Mucomyst 20 Oral / Inh Use Only*) 200 mg NEB RQID [facility] Last Admin: 01/27/18 11:48 Dose: 200 mg Albuterol Sulfate (Ventolin 0.083% Nebulizer Soln -) 1 amp NEB RQID [facility] Last Admin: 01/27/18 11:49 Dose: 1 amp Baclofen (Lioresal -) 10 mg GT TID [facility] Last Admin: 01/27/18 05:26 Dose: 10 mg Bisacodyl (Dulcolax Suppository -) 10 mg [place] PRN PRN PRN Reason: CONSTIPATION Last Admin: 01/27/18 10:33 Dose: 10 mg Budesonide (Pulmicort 0.25 Mg Nebulizer -) 1 amp NEB RBID [facility] Last Admin: 01/27/18 07:30 Dose: 1 amp Heparin Sodium (Porcine) (Heparin -) 5,000 unit SQ BID [facility] Last Admin: 01/27/18 10:31 Dose: 5,000 unit Levetiracetam (Keppra Oral Solution -) 1,500 mg PEG BID [facility] Last Admin: 01/27/18 10:57 Dose: 1,500 mg Lorazepam (Ativan Injection -) 1 mg IVPUSH Q6H PRN PRN Reason: SEIZURE Last Admin: 01/26/18 19:01 Dose: 1 mg Nystatin/Triamcinolone Acetonide (Mycolog Ii Cream -) 1 applic TP BID [facility] Last Admin: 01/27/18 10:32 Dose: 1 applic Pantoprazole Sodium (Protonix Iv) 40 mg IVPUSH DAILY [facility] Last Admin: 01/27/18 10:31 Dose: 40 mg Polyethylene Glycol (Miralax (For Daily Use) -) 17 gm PO TID [facility] Last Admin: 01/27/18 05:26 Dose: 17 gm Potassium Chloride (Potassium Chloride Oral Liquid) 40 meq PO BID [facility] Last Admin: 01/27/18 10:31 Dose: 40 meq Scopolamine HBr (Transderm-Scop -) 1 patch TD Q72H [facility] Last Admin: 01/26/18 14:40 Dose: 1 patch Valproate Sodium (Depakene Oral Solution -) 1,000 mg PO BID [facility] Last Admin: 01/27/18 10:57 Dose: 1,000 mg - Objective Vital Signs: Vital Signs Temperature 98.2 F 01/27/18 10:00 Pulse Rate 86 01/27/18 10:00 Respiratory Rate 20 01/27/18 10:00 Blood Pressure 135/87 01/27/18 10:00 O2 Sat by Pulse Oximetry (%) 97 01/27/18 12:13 Constitutional: Yes: No Distress Cardiovascular: Yes: Regular Rate and Rhythm Respiratory: Yes: CTA Bilaterally Gastrointestinal: Yes: Normal Bowel Sounds, Soft Genitourinary: Yes: WNL Extremities: Yes: WNL Integumentary: Yes: WNL Labs: CBC, BMP 01/27/18 06:44 01/24/18 06:00 INR, PTT INR 1.06 (0.83-1.09) 01/24/18 06:00 Problem List - Problems (1) Acute asthma exacerbation Code(s): J45.901 - UNSPECIFIED ASTHMA WITH (ACUTE) EXACERBATION Qualifiers: Asthma severity: unspecified severity Asthma persistence: unspecified Qualified Code(s): J45.901 - Unspecified asthma with (acute) exacerbation (2) Anoxic brain damage Code(s): G93.1 - ANOXIC BRAIN DAMAGE, NOT ELSEWHERE CLASSIFIED (3) Respiratory failure Code(s): J96.90 - RESPIRATORY FAILURE, UNSP, UNSP W HYPOXIA OR HYPERCAPNIA Qualifiers: Chronicity: unspecified Respiratory failure complication: unspecified whether with hypoxia or hypercapnia Qualified Code(s): J96.90 - Respiratory failure, unspecified, unspecified whether with hypoxia or hypercapnia (4) UTI (urinary tract infection) Code(s): N39.0 - URINARY TRACT INFECTION, SITE NOT SPECIFIED (5) Pneumonia Code(s): J18.9 - PNEUMONIA, UNSPECIFIED ORGANISM Assessment/Plan Acute asthma exacerbation s/p Acute respiratory failure Anoxic brain injury Aspiration PNA, +MRSA resp isolate E. coli UTI - s/p treatment Sinusitis - NGT removed, peg placed Seizures Fever/Leukocytosis -- pt remains afebrile, wbc normal, vitals stable off antibiotics -- continue monitor off antibiotics for now -- aspiration/seizure precautions mother at bedside, case discussed
--- NOTE | 2018-01-27 20:26 | DS ---
Physical Examination Vital Signs: Vital Signs Temperature 98.4 F 01/27/18 14:00 Pulse Rate 92 H 01/27/18 14:00 Respiratory Rate 20 01/27/18 16:37 Blood Pressure 154/92 01/27/18 14:00 O2 Sat by Pulse Oximetry (%) 97 01/27/18 16:37 Labs: CBC, BMP 01/27/18 06:44 01/24/18 06:00 Discharge Summary Reason For Visit: ASTHMA W/STATUS ASTHMATICUS, RESPIRATORY FAILURE Current Active Problems Abdominal pain (Acute) Acute asthma exacerbation (Acute) Anoxic brain damage (Acute) Constipation (Acute) Fecal impaction (Acute) Respiratory failure (Acute) Seizure (Acute) Status asthmaticus (Acute) UTI (urinary tract infection) (Acute) Condition: Critical - Instructions Referrals: Leeroy Taylor [Primary Care Provider] - - Home Medications Comprehensive Discharge Medication List: Ambulatory Orders Albuterol 2.5/Ipratropium 0.5 [Duoneb -] 1 neb NEB QIDR #100 vial 08/11/14 Budesonide [Pulmicort 0.5 mg Nebulizer -] 1 neb NEB BID #60 vial 01/20/16 Polyethylene Glycol 3350 [Miralax 119 gm Btl -] 17 gm PO DAILY 10/09/16 Acetylcysteine Po/INH 20% [Mucomyst 20 Oral / INH Use Only*] 200 mg NEB RQID vial 01/27/18 Albuterol 0.083% Nebulizer [place] [Ventolin 0.083% Nebulizer Soln -] 1 amp NEB RQID amp 01/27/18 Baclofen [Lioresal -] 10 mg GT TID tablet 01/27/18 Bisacodyl Suppository [Dulcolax Suppository -] 10 mg [place] PRN PRN supp.rect 01/27 Budesonide [Pulmicort 0.25 mg Nebulizer -] 1 amp NEB RBID amp 01/27/18 Heparin - 5,000 unit SQ BID vial 01/27/18 Nystatin/Triamcinolone Top Cr [Mycolog II -] 1 applic TP BID applic 01/27/18 Pantoprazole Sodium [Protonix IV] 40 mg IVPUSH DAILY vial 01/27/18 Polyethylene Glycol 3350 [Miralax 119 gm Btl -] 17 gm PO TID bottle 01/27/18 Potassium Chloride [Potassium Chloride Oral Liquid] 40 meq PO BID cup 01/27/18 Scopolamine Hydrobromide [Transderm-Scop -] 1 patch TD Q72H patch.td72 Valproate Sodium Liquid [Depakene Oral Solution -] 1,000 mg PO BID ml 01/27/18 levETIRAcetam [Keppra Oral Solution -] 1,500 mg PEG BID cup 01/27/18 dc snf
[2018-01-27] MEDS: RANITIDINE HCL 150 MG/10 ML UNIT-DOSE PEG SCH (21:03)
[2018-01-28] MEDS ORDERED: PT OWN MED DRAWER 7, Y5N ONE ×4 (05:32→22:28)
[2018-01-28] MEDS: POLYETHYLENE GLYCOL 3350 119 GM BTL PO SCH ×3 (05:34→23:18)
[2018-01-28] MEDS: BACLOFEN 10 MG TABLET (FP) GT SCH ×3 (05:34→23:18)
[2018-01-28] MEDS: ALBUTEROL SO4 0.083% IH SOL 2.5 MG/3 ML VIAL.NEB. NEB SCH ×4 (07:15→19:12)
[2018-01-28] MEDS: BUDESONIDE 0.25 MG/2ML INH SUSP VIAL NEB SCH ×2 (07:28→21:30)
[2018-01-28] MEDS: ACETYLCYSTEINE 20% 200MG/ML 4 ML VIAL *FOR ORAL / INH USE ONLY NEB SCH ×4 (07:28→19:12)
--- NOTE | 2018-01-28 10:23 | PN ---
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, Physician History of Present Illness: pulmonary no change,sleeping,-resp distress - Current Medication List Current Medications: Active Medications Acetaminophen (Tylenol Oral Solution -) 650 mg PO Q6H PRN PRN Reason: Fever Or Pain 1-5 Last Admin: 01/26/18 21:08 Dose: 650 mg Acetylcysteine (Mucomyst 20 Oral / Inh Use Only*) [address] [facility] Last Admin: 01/28/18 07:28 Dose: 200 mg Albuterol Sulfate (Ventolin 0.083% Nebulizer Soln -) [address] [facility] Last Admin: 01/28/18 07:15 Dose: 1 amp Baclofen (Lioresal -) [address] [facility] Last Admin: 01/28/18 05:34 Dose: 10 mg Bisacodyl (Dulcolax Suppository -) 10 mg [place] PRN PRN PRN Reason: CONSTIPATION Last Admin: 01/27/18 10:33 Dose: 10 mg Budesonide (Pulmicort 0.25 Mg Nebulizer -) [address] [facility] Last Admin: 01/28/18 07:28 Dose: 1 amp Heparin Sodium (Porcine) (Heparin -) 5,[address] [facility] Last Admin: 01/27/18 21:03 Dose: 5,000 unit Levetiracetam (Keppra Oral Solution -) 1,[address] [facility] Last Admin: 01/27/18 21:02 Dose: 1,500 mg Lorazepam (Ativan Injection -) 1 mg IVPUSH Q6H PRN PRN Reason: SEIZURE Last Admin: 01/26/18 19:01 Dose: 1 mg Nystatin/Triamcinolone Acetonide (Mycolog Ii Cream -) [address] [facility] Last Admin: 01/27/18 21:04 Dose: 1 applic Polyethylene Glycol (Miralax (For Daily Use) -) [address] [facility] Last Admin: 01/28/18 05:34 Dose: Not Given Potassium Chloride (Potassium Chloride Oral Liquid) [address] [facility] Last Admin: 01/27/18 21:02 Dose: 40 meq Ranitidine HCl (Zantac Oral Solution -) [address] [facility] Last Admin: 01/27/18 21:03 Dose: 150 mg Scopolamine HBr (Transderm-Scop -) [address] [facility] Last Admin: 01/26/18 14:40 Dose: 1 patch Valproate Sodium (Depakene Oral Solution -) 1,[address] [facility] Last Admin: 01/27/18 21:03 Dose: 1,000 mg - Objective Vital Signs: Vital Signs Temperature 98.4 F 01/28/18 06:00 Pulse Rate 96 H 01/28/18 06:00 Respiratory Rate 18 01/28/18 06:00 Blood Pressure 140/81 01/28/18 06:00 O2 Sat by Pulse Oximetry (%) 97 01/27/18 21:00 Constitutional: Yes: Thin, Other (sleeping) HENT: Yes: WNL Neck: Yes: WNL Cardiovascular: Yes: Regular Rate and Rhythm, S1, S2 Respiratory: Yes: Diminished Gastrointestinal: Yes: Normal Bowel Sounds, Soft Extremities: Yes: WNL Edema: No Problem List - Problems (1) Acute asthma exacerbation Code(s): J45.901 - UNSPECIFIED ASTHMA WITH (ACUTE) EXACERBATION Qualifiers: Asthma severity: unspecified severity Asthma persistence: unspecified Qualified Code(s): J45.901 - Unspecified asthma with (acute) exacerbation (2) Anoxic brain damage Code(s): G93.1 - ANOXIC BRAIN DAMAGE, NOT ELSEWHERE CLASSIFIED (3) Respiratory failure Code(s): J96.90 - RESPIRATORY FAILURE, UNSP, UNSP W HYPOXIA OR HYPERCAPNIA Qualifiers: Chronicity: unspecified Respiratory failure complication: unspecified whether with hypoxia or hypercapnia Qualified Code(s): J96.90 - Respiratory failure, unspecified, unspecified whether with hypoxia or hypercapnia (4) Status asthmaticus Code(s): J45.902 - UNSPECIFIED ASTHMA WITH STATUS ASTHMATICUS Qualifiers: Asthma severity: unspecified severity Asthma persistence: unspecified Qualified Code(s): J45.902 - Unspecified asthma with status asthmaticus (5) Autism Code(s): F84.0 - AUTISTIC DISORDER (6) Tachycardia Code(s): R00.0 - TACHYCARDIA, UNSPECIFIED Assessment/Plan ASSESSMENT AND PLAN: Acute Hypoxic and Hypercapneic Respiratory Failure improved Anoxic Encephalopathy r/o Seizures Status Asthmaticus resolved Pneumonia likely Aspiration Shock resolved UTI Lactic Acidosis resolved Acute Kidney Injury resolved Hyperglycemia resolved Autism - inhaled bronchodilators standing and PRN - inhaled corticosteroids - aspiration precautions - continue empiric antiepileptics - DVT/GI prophylaxis - nutritional support - PT DR DE OLIVEIRA
[2018-01-28] MEDS: levETIRAcetam 500 MG/5 ML ORAL SOLUTION (UNIT-DOSE CUPS) PEG SCH ×2 (11:00→23:18)
[2018-01-28] MEDS: POTASSIUM CHLORIDE ORAL LIQUID 20 MEQ/15 ML PO SCH ×2 (11:01→23:18)
[2018-01-28] MEDS: HEPARIN NA (PORCINE) 5,000 UNITS/ML 1ML VIAL SQ SCH ×2 (11:01→23:17)
[2018-01-28] MEDS: NYSTATIN/TRIAMCINOLONE TOPICAL CREAM 15 GM TUBE TP SCH ×2 (11:01→23:18)
[2018-01-28] MEDS: VALPROATE SODIUM 250 MG/5 ML LIQUID BULK BOTTLE PO SCH ×2 (11:01→23:17)
[2018-01-28] MEDS: RANITIDINE HCL 150 MG/10 ML UNIT-DOSE PEG SCH ×2 (11:02→23:16)
--- NOTE | 2018-01-28 12:17 | PN ---
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, Physician History of Present Illness: stable no new issues family in room tolerating tube feeds - Current Medication List Current Medications: Active Medications Acetaminophen (Tylenol Oral Solution -) 650 mg PO Q6H PRN PRN Reason: Fever Or Pain 1-5 Last Admin: 01/26/18 21:08 Dose: 650 mg Acetylcysteine (Mucomyst 20 Oral / Inh Use Only*) 200 mg NEB RQID [facility] Last Admin: 01/28/18 11:29 Dose: Not Given Albuterol Sulfate (Ventolin 0.083% Nebulizer Soln -) 1 amp NEB RQID [facility] Last Admin: 01/28/18 11:29 Dose: Not Given Baclofen (Lioresal -) 10 mg GT TID [facility] Last Admin: 01/28/18 05:34 Dose: 10 mg Bisacodyl (Dulcolax Suppository -) 10 mg [place] PRN PRN PRN Reason: CONSTIPATION Last Admin: 01/27/18 10:33 Dose: 10 mg Budesonide (Pulmicort 0.25 Mg Nebulizer -) 1 amp NEB RBID [facility] Last Admin: 01/28/18 07:28 Dose: 1 amp Heparin Sodium (Porcine) (Heparin -) 5,000 unit SQ BID [facility] Last Admin: 01/28/18 11:01 Dose: 5,000 unit Levetiracetam (Keppra Oral Solution -) 1,500 mg PEG BID [facility] Last Admin: 01/28/18 11:00 Dose: 1,500 mg Nystatin/Triamcinolone Acetonide (Mycolog Ii Cream -) 1 applic TP BID [facility] Last Admin: 01/28/18 11:01 Dose: 1 applic Polyethylene Glycol (Miralax (For Daily Use) -) 17 gm PO TID [facility] Last Admin: 01/28/18 05:34 Dose: Not Given Potassium Chloride (Potassium Chloride Oral Liquid) 40 meq PO BID [facility] Last Admin: 01/28/18 11:01 Dose: 40 meq Ranitidine HCl (Zantac Oral Solution -) 150 mg PEG BID [facility] Last Admin: 01/28/18 11:02 Dose: 150 mg Scopolamine HBr (Transderm-Scop -) 1 patch TD Q72H [facility] Last Admin: 01/26/18 14:40 Dose: 1 patch Valproate Sodium (Depakene Oral Solution -) 1,000 mg PO BID [facility] Last Admin: 01/28/18 11:01 Dose: 1,000 mg - Objective Vital Signs: Vital Signs Temperature 98.4 F 01/28/18 06:00 Pulse Rate 96 H 01/28/18 06:00 Respiratory Rate 18 01/28/18 06:00 Blood Pressure 140/81 01/28/18 06:00 O2 Sat by Pulse Oximetry (%) 97 01/27/18 21:00 Constitutional: Yes: No Distress, Calm Cardiovascular: Yes: Regular Rate and Rhythm Respiratory: Yes: Regular, CTA Bilaterally Gastrointestinal: Yes: Normal Bowel Sounds, Soft, Other (peg in place) Musculoskeletal: Yes: WNL Extremities: Yes: WNL Labs: CBC, BMP 01/27/18 06:44 01/24/18 06:00 INR, PTT INR 1.06 (0.83-1.09) 01/24/18 06:00 Assessment/Plan Problem List - Problems (1) Acute asthma exacerbation Code(s): J45.901 - UNSPECIFIED ASTHMA WITH (ACUTE) EXACERBATION Qualifiers: Asthma severity: unspecified severity Asthma persistence: unspecified Qualified Code(s): J45.901 - Unspecified asthma with (acute) exacerbation (2) Respiratory failure Code(s): J96.90 - RESPIRATORY FAILURE, UNSP, UNSP W HYPOXIA OR HYPERCAPNIA Qualifiers: Chronicity: unspecified Respiratory failure complication: unspecified whether with hypoxia or hypercapnia Qualified Code(s): J96.90 - Respiratory failure, unspecified, unspecified whether with hypoxia or hypercapnia (3) Autism Code(s): F84.0 - AUTISTIC DISORDER (4) Lactic acidosis Code(s): E87.2 - ACIDOSIS (5) Tachycardia Code(s): R00.0 - TACHYCARDIA, UNSPECIFIED (6) URI (upper respiratory infection) Code(s): J06.9 - ACUTE UPPER RESPIRATORY INFECTION, UNSPECIFIED uti asp pna anoxic brain injury plan stable off abx continue nutrition rest as per the team aspiration precautions
--- NOTE | 2018-01-28 12:34 | PN ---
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, [facility] - Note 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: Selected Entries 01/27/18 01/27/18 01/28/18 21:47 22:00 02:00 Supper NPO NPO Temperature 99.7 F H 01/28/18 06:00 Supper Temperature 98.4 F Laboratory Tests 01/27/18 06:44 WBC 9.7 Pt calm, arousable to stimulation. No longer crying and no spasms noted. On Baclofen, started on with good response per family. Pt pending d/c to [facility]. Call placed to Speech Pathology to review case and recommendations.
--- NOTE | 2018-01-28 16:50 | PN ---
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, Physician - Current Medication List Current Medications: Active Medications Acetaminophen (Tylenol Oral Solution -) 650 mg PO Q6H PRN PRN Reason: Fever Or Pain 1-5 Last Admin: 01/26/18 21:08 Dose: 650 mg Acetylcysteine (Mucomyst 20 Oral / Inh Use Only*) 200 mg NEB RQID [facility] Last Admin: 01/28/18 15:48 Dose: 200 mg Albuterol Sulfate (Ventolin 0.083% Nebulizer Soln -) 1 amp NEB RQID [facility] Last Admin: 01/28/18 15:48 Dose: 1 amp Baclofen (Lioresal -) 10 mg GT TID [facility] Last Admin: 01/28/18 14:20 Dose: 10 mg Bisacodyl (Dulcolax Suppository -) 10 mg [place] PRN PRN PRN Reason: CONSTIPATION Last Admin: 01/27/18 10:33 Dose: 10 mg Budesonide (Pulmicort 0.25 Mg Nebulizer -) 1 amp NEB RBID [facility] Last Admin: 01/28/18 07:28 Dose: 1 amp Heparin Sodium (Porcine) (Heparin -) 5,000 unit SQ BID [facility] Last Admin: 01/28/18 11:01 Dose: 5,000 unit Levetiracetam (Keppra Oral Solution -) 1,500 mg PEG BID [facility] Last Admin: 01/28/18 11:00 Dose: 1,500 mg Nystatin/Triamcinolone Acetonide (Mycolog Ii Cream -) 1 applic TP BID [facility] Last Admin: 01/28/18 11:01 Dose: 1 applic Polyethylene Glycol (Miralax (For Daily Use) -) 17 gm PO TID [facility] Last Admin: 01/28/18 14:20 Dose: Not Given Potassium Chloride (Potassium Chloride Oral Liquid) 40 meq PO BID [facility] Last Admin: 01/28/18 11:01 Dose: 40 meq Ranitidine HCl (Zantac Oral Solution -) 150 mg PEG BID [facility] Last Admin: 01/28/18 11:02 Dose: 150 mg Scopolamine HBr (Transderm-Scop -) 1 patch TD Q72H [facility] Last Admin: 01/26/18 14:40 Dose: 1 patch Valproate Sodium (Depakene Oral Solution -) 1,000 mg PO BID [facility] Last Admin: 01/28/18 11:01 Dose: 1,000 mg - Objective Vital Signs: Vital Signs Temperature 98.6 F 01/28/18 13:56 Pulse Rate 98 H 01/28/18 13:56 Respiratory Rate 20 01/28/18 13:56 Blood Pressure 138/82 01/28/18 13:56 O2 Sat by Pulse Oximetry (%) 99 01/28/18 12:00 HENT: Yes: Atraumatic Neck: Yes: Supple Cardiovascular: Yes: Regular Rate and Rhythm Respiratory: Yes: Rhonchi Gastrointestinal: Yes: Normal Bowel Sounds Extremities: Yes: WNL Neurological: Yes: Alert Labs: CBC, BMP 01/27/18 06:44 01/24/18 06:00 INR, PTT INR 1.06 (0.83-1.09) 01/24/18 06:00 Problem List - Problems (1) Acute asthma exacerbation Assessment/Plan: on inhaler duo nebs Code(s): J45.901 - UNSPECIFIED ASTHMA WITH (ACUTE) EXACERBATION Qualifiers: Asthma severity: unspecified severity Asthma persistence: unspecified Qualified Code(s): J45.901 - Unspecified asthma with (acute) exacerbation (2) Respiratory failure Assessment/Plan: on [place] Code(s): J96.90 - RESPIRATORY FAILURE, UNSP, UNSP W HYPOXIA OR HYPERCAPNIA Qualifiers: Chronicity: unspecified Respiratory failure complication: unspecified whether with hypoxia or hypercapnia Qualified Code(s): J96.90 - Respiratory failure, unspecified, unspecified whether with hypoxia or hypercapnia (3) Autism Code(s): F84.0 - AUTISTIC DISORDER (4) Pneumonia Assessment/Plan: abx completed Code(s): J18.9 - PNEUMONIA, UNSPECIFIED ORGANISM (5) UTI (urinary tract infection) Code(s): N39.0 - URINARY TRACT INFECTION, SITE NOT SPECIFIED (6) Anoxic brain damage Code(s): G93.1 - ANOXIC BRAIN DAMAGE, NOT ELSEWHERE CLASSIFIED (7) Seizure Code(s): R56.9 - UNSPECIFIED CONVULSIONS
[2018-01-28] MEDS: LORazepam 2 MG/ML SDV VIAL IVPUSH PRN (20:39)
[2018-01-29] MEDS ORDERED: PT OWN MED DRAWER 7, Y5N ONE ×2 (05:55→21:01)
[2018-01-29] MEDS: BACLOFEN 10 MG TABLET (FP) GT SCH ×3 (06:22→21:04)
[2018-01-29] MEDS: POLYETHYLENE GLYCOL 3350 119 GM BTL PO SCH ×3 (06:23→21:05)
[2018-01-29] MEDS: BUDESONIDE 0.25 MG/2ML INH SUSP VIAL NEB SCH ×2 (08:00→20:39)
[2018-01-29] MEDS: ALBUTEROL SO4 0.083% IH SOL 2.5 MG/3 ML VIAL.NEB. NEB SCH ×4 (08:00→20:39)
[2018-01-29] MEDS: ACETYLCYSTEINE 20% 200MG/ML 4 ML VIAL *FOR ORAL / INH USE ONLY NEB SCH ×4 (08:00→20:39)
[2018-01-29] MEDS: levETIRAcetam 500 MG/5 ML ORAL SOLUTION (UNIT-DOSE CUPS) PEG SCH ×2 (10:46→21:04)
[2018-01-29] MEDS: HEPARIN NA (PORCINE) 5,000 UNITS/ML 1ML VIAL SQ SCH ×2 (10:46→21:04)
[2018-01-29] MEDS: POTASSIUM CHLORIDE ORAL LIQUID 20 MEQ/15 ML PO SCH ×2 (10:46→21:03)
[2018-01-29] MEDS: RANITIDINE HCL 150 MG/10 ML UNIT-DOSE PEG SCH ×2 (10:46→21:04)
[2018-01-29] MEDS: NYSTATIN/TRIAMCINOLONE TOPICAL CREAM 15 GM TUBE TP SCH ×2 (10:47→21:06)
[2018-01-29] MEDS: VALPROATE SODIUM 250 MG/5 ML LIQUID BULK BOTTLE PO SCH ×2 (10:47→21:04)
--- NOTE | 2018-01-29 13:08 | PN ---
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, Physician History of Present Illness: PULMONARY CALM,AROUSABLE,NON-VERBAL,-RESP DISTRESS - Current Medication List Current Medications: Active Medications Acetaminophen (Tylenol Oral Solution -) 650 mg PO Q6H PRN PRN Reason: Fever Or Pain 1-5 Last Admin: 01/26/18 21:08 Dose: 650 mg Acetylcysteine (Mucomyst 20 Oral / Inh Use Only*) 200 mg NEB RQID [facility] Last Admin: 01/29/18 08:00 Dose: 200 mg Albuterol Sulfate (Ventolin 0.083% Nebulizer Soln -) 1 amp NEB RQID [facility] Last Admin: 01/29/18 08:00 Dose: 1 amp Baclofen (Lioresal -) 10 mg GT TID [facility] Last Admin: 01/29/18 06:22 Dose: 10 mg Bisacodyl (Dulcolax Suppository -) 10 mg [place] PRN PRN PRN Reason: CONSTIPATION Last Admin: 01/27/18 10:33 Dose: 10 mg Budesonide (Pulmicort 0.25 Mg Nebulizer -) 1 amp NEB RBID [facility] Last Admin: 01/29/18 08:00 Dose: 1 amp Heparin Sodium (Porcine) (Heparin -) 5,000 unit SQ BID [facility] Last Admin: 01/29/18 10:46 Dose: 5,000 unit Levetiracetam (Keppra Oral Solution -) 1,500 mg PEG BID [facility] Last Admin: 01/29/18 10:46 Dose: 1,500 mg Lorazepam (Ativan Injection -) 1 mg IVPUSH Q6H PRN PRN Reason: AGITATION Last Admin: 01/28/18 20:39 Dose: 1 mg Nystatin/Triamcinolone Acetonide (Mycolog Ii Cream -) 1 applic TP BID [facility] Last Admin: 01/29/18 10:47 Dose: 1 applic Polyethylene Glycol (Miralax (For Daily Use) -) 17 gm PO TID [facility] Last Admin: 01/29/18 06:23 Dose: Not Given Potassium Chloride (Potassium Chloride Oral Liquid) 40 meq PO BID [facility] Last Admin: 01/29/18 10:46 Dose: 40 meq Ranitidine HCl (Zantac Oral Solution -) 150 mg PEG BID [facility] Last Admin: 01/29/18 10:46 Dose: 150 mg Scopolamine HBr (Transderm-Scop -) 1 patch TD Q72H [facility] Last Admin: 01/26/18 14:40 Dose: 1 patch Valproate Sodium (Depakene Oral Solution -) 1,000 mg PO BID [facility] Last Admin: 01/29/18 10:47 Dose: 1,000 mg - Objective Vital Signs: Vital Signs Temperature 98.4 F 01/29/18 10:00 Pulse Rate 91 H 01/29/18 10:00 Respiratory Rate 20 01/29/18 10:00 Blood Pressure 130/84 01/29/18 10:00 O2 Sat by Pulse Oximetry (%) 99 01/29/18 12:54 Constitutional: Yes: Calm, Thin Eyes: Yes: WNL HENT: Yes: WNL Neck: Yes: WNL Cardiovascular: Yes: Regular Rate and Rhythm, S1, S2 Respiratory: Yes: Diminished Extremities: Yes: WNL Edema: No Labs: CBC, BMP Problem List - Problems (1) Acute asthma exacerbation Code(s): J45.901 - UNSPECIFIED ASTHMA WITH (ACUTE) EXACERBATION Qualifiers: Asthma severity: unspecified severity Asthma persistence: unspecified Qualified Code(s): J45.901 - Unspecified asthma with (acute) exacerbation (2) Anoxic brain damage Code(s): G93.1 - ANOXIC BRAIN DAMAGE, NOT ELSEWHERE CLASSIFIED (3) Respiratory failure Code(s): J96.90 - RESPIRATORY FAILURE, UNSP, UNSP W HYPOXIA OR HYPERCAPNIA Qualifiers: Chronicity: unspecified Respiratory failure complication: unspecified whether with hypoxia or hypercapnia Qualified Code(s): J96.90 - Respiratory failure, unspecified, unspecified whether with hypoxia or hypercapnia (4) Status asthmaticus Code(s): J45.902 - UNSPECIFIED ASTHMA WITH STATUS ASTHMATICUS Qualifiers: Asthma severity: unspecified severity Asthma persistence: unspecified Qualified Code(s): J45.902 - Unspecified asthma with status asthmaticus (5) Autism Code(s): F84.0 - AUTISTIC DISORDER (6) Tachycardia Code(s): R00.0 - TACHYCARDIA, UNSPECIFIED Assessment/Plan ASSESSMENT AND PLAN: Acute Hypoxic and Hypercapneic Respiratory Failure improved Anoxic Encephalopathy r/o Seizures Status Asthmaticus resolved Pneumonia likely Aspiration improved Shock resolved UTI Lactic Acidosis resolved Acute Kidney Injury resolved Hyperglycemia resolved Autism - inhaled bronchodilators standing and PRN - inhaled corticosteroids - aspiration precautions - continue empiric antiepileptics - DVT/GI prophylaxis - nutritional support - PT DR DE OLIVEIRA
--- NOTE | 2018-01-29 14:54 | PN ---
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, Physician History of Present Illness: stable no events - Current Medication List Current Medications: Active Medications Acetaminophen (Tylenol Oral Solution -) 650 mg PO Q6H PRN PRN Reason: Fever Or Pain 1-5 Last Admin: 01/26/18 21:08 Dose: 650 mg Acetylcysteine (Mucomyst 20 Oral / Inh Use Only*) 200 mg NEB RQID [facility] Last Admin: 01/29/18 12:00 Dose: 200 mg Albuterol Sulfate (Ventolin 0.083% Nebulizer Soln -) 1 amp NEB RQID [facility] Last Admin: 01/29/18 12:00 Dose: 1 amp Baclofen (Lioresal -) 10 mg GT TID [facility] Last Admin: 01/29/18 14:31 Dose: 10 mg Bisacodyl (Dulcolax Suppository -) 10 mg [place] PRN PRN PRN Reason: CONSTIPATION Last Admin: 01/27/18 10:33 Dose: 10 mg Budesonide (Pulmicort 0.25 Mg Nebulizer -) 1 amp NEB RBID [facility] Last Admin: 01/29/18 08:00 Dose: 1 amp Heparin Sodium (Porcine) (Heparin -) 5,000 unit SQ BID [facility] Last Admin: 01/29/18 10:46 Dose: 5,000 unit Levetiracetam (Keppra Oral Solution -) 1,500 mg PEG BID [facility] Last Admin: 01/29/18 10:46 Dose: 1,500 mg Lorazepam (Ativan Injection -) 1 mg IVPUSH Q6H PRN PRN Reason: AGITATION Last Admin: 01/28/18 20:39 Dose: 1 mg Nystatin/Triamcinolone Acetonide (Mycolog Ii Cream -) 1 applic TP BID [facility] Last Admin: 01/29/18 10:47 Dose: 1 applic Polyethylene Glycol (Miralax (For Daily Use) -) 17 gm PO TID [facility] Last Admin: 01/29/18 06:23 Dose: Not Given Potassium Chloride (Potassium Chloride Oral Liquid) 40 meq PO BID [facility] Last Admin: 01/29/18 10:46 Dose: 40 meq Ranitidine HCl (Zantac Oral Solution -) 150 mg PEG BID [facility] Last Admin: 01/29/18 10:46 Dose: 150 mg Scopolamine HBr (Transderm-Scop -) 1 patch TD Q72H [facility] Last Admin: 01/26/18 14:40 Dose: 1 patch Valproate Sodium (Depakene Oral Solution -) 1,000 mg PO BID [facility] Last Admin: 01/29/18 10:47 Dose: 1,000 mg - Objective Vital Signs: Vital Signs Temperature 98.4 F 01/29/18 14:10 Pulse Rate 106 H 01/29/18 14:10 Respiratory Rate 20 01/29/18 14:10 Blood Pressure 129/56 01/29/18 14:10 O2 Sat by Pulse Oximetry (%) 99 01/29/18 12:54 Constitutional: Yes: No Distress, Calm Cardiovascular: Yes: Regular Rate and Rhythm Respiratory: Yes: Regular, CTA Bilaterally Gastrointestinal: Yes: Normal Bowel Sounds, Soft, Other (peg tube in place) Musculoskeletal: Yes: WNL Extremities: Yes: WNL Neurological: Yes: Alert, Oriented Psychiatric: Yes: Alert, Oriented Labs: CBC, BMP 01/27/18 06:44 01/24/18 06:00 INR, PTT INR 1.06 (0.83-1.09) 01/24/18 06:00 Assessment/Plan Problem List - Problems (1) Acute asthma exacerbation Code(s): J45.901 - UNSPECIFIED ASTHMA WITH (ACUTE) EXACERBATION Qualifiers: Asthma severity: unspecified severity Asthma persistence: unspecified Qualified Code(s): J45.901 - Unspecified asthma with (acute) exacerbation (2) Respiratory failure Code(s): J96.90 - RESPIRATORY FAILURE, UNSP, UNSP W HYPOXIA OR HYPERCAPNIA Qualifiers: Chronicity: unspecified Respiratory failure complication: unspecified whether with hypoxia or hypercapnia Qualified Code(s): J96.90 - Respiratory failure, unspecified, unspecified whether with hypoxia or hypercapnia (3) Autism Code(s): F84.0 - AUTISTIC DISORDER (4) Lactic acidosis Code(s): E87.2 - ACIDOSIS (5) Tachycardia Code(s): R00.0 - TACHYCARDIA, UNSPECIFIED (6) URI (upper respiratory infection) Code(s): J06.9 - ACUTE UPPER RESPIRATORY INFECTION, UNSPECIFIED uti asp pna anoxic brain injury plan stable off abx continue nutrition rest as per the team aspiration precautions
--- NOTE | 2018-01-29 17:27 | PN ---
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, Physician - Current Medication List Current Medications: Active Medications Acetaminophen (Tylenol Oral Solution -) 650 mg PO Q6H PRN PRN Reason: Fever Or Pain 1-5 Last Admin: 01/26/18 21:08 Dose: 650 mg Acetylcysteine (Mucomyst 20 Oral / Inh Use Only*) 200 mg NEB RQID [facility] Last Admin: 01/29/18 15:21 Dose: 200 mg Albuterol Sulfate (Ventolin 0.083% Nebulizer Soln -) 1 amp NEB RQID [facility] Last Admin: 01/29/18 15:15 Dose: 1 amp Baclofen (Lioresal -) 10 mg GT TID [facility] Last Admin: 01/29/18 14:31 Dose: 10 mg Bisacodyl (Dulcolax Suppository -) 10 mg DC PRN PRN PRN Reason: CONSTIPATION Last Admin: 01/27/18 10:33 Dose: 10 mg Budesonide (Pulmicort 0.25 Mg Nebulizer -) 1 amp NEB RBID [facility] Last Admin: 01/29/18 08:00 Dose: 1 amp Heparin Sodium (Porcine) (Heparin -) 5,000 unit SQ BID [facility] Last Admin: 01/29/18 10:46 Dose: 5,000 unit Levetiracetam (Keppra Oral Solution -) 1,500 mg PEG BID [facility] Last Admin: 01/29/18 10:46 Dose: 1,500 mg Lorazepam (Ativan Injection -) 1 mg IVPUSH Q6H PRN PRN Reason: AGITATION Last Admin: 01/28/18 20:39 Dose: 1 mg Nystatin/Triamcinolone Acetonide (Mycolog Ii Cream -) 1 applic TP BID [facility] Last Admin: 01/29/18 10:47 Dose: 1 applic Polyethylene Glycol (Miralax (For Daily Use) -) 17 gm PO TID [facility] Last Admin: 01/29/18 06:23 Dose: Not Given Potassium Chloride (Potassium Chloride Oral Liquid) 40 meq PO BID [facility] Last Admin: 01/29/18 10:46 Dose: 40 meq Ranitidine HCl (Zantac Oral Solution -) 150 mg PEG BID [facility] Last Admin: 01/29/18 10:46 Dose: 150 mg Scopolamine HBr (Transderm-Scop -) 1 patch TD Q72H [facility] Last Admin: 01/26/18 14:40 Dose: 1 patch Valproate Sodium (Depakene Oral Solution -) 1,000 mg PO BID [facility] Last Admin: 01/29/18 10:47 Dose: 1,000 mg - Objective Vital Signs: Vital Signs Temperature 98.4 F 01/29/18 14:10 Pulse Rate 106 H 01/29/18 14:10 Respiratory Rate 20 01/29/18 14:10 Blood Pressure 129/56 01/29/18 14:10 O2 Sat by Pulse Oximetry (%) 99 01/29/18 12:54 Constitutional: Yes: No Distress HENT: Yes: Atraumatic Neck: Yes: Supple Cardiovascular: Yes: Regular Rate and Rhythm Respiratory: Yes: CTA Bilaterally Gastrointestinal: Yes: Normal Bowel Sounds Extremities: Yes: WNL Neurological: Yes: Alert, Oriented Labs: CBC, BMP 01/27/18 06:44 01/24/18 06:00 INR, PTT INR 1.06 (0.83-1.09) 01/24/18 06:00 Problem List - Problems (1) Acute asthma exacerbation Assessment/Plan: on inhaler duo nebs Code(s): J45.901 - UNSPECIFIED ASTHMA WITH (ACUTE) EXACERBATION Qualifiers: Asthma severity: unspecified severity Asthma persistence: unspecified Qualified Code(s): J45.901 - Unspecified asthma with (acute) exacerbation (2) Respiratory failure Assessment/Plan: on [place] Code(s): J96.90 - RESPIRATORY FAILURE, UNSP, UNSP W HYPOXIA OR HYPERCAPNIA Qualifiers: Chronicity: unspecified Respiratory failure complication: unspecified whether with hypoxia or hypercapnia Qualified Code(s): J96.90 - Respiratory failure, unspecified, unspecified whether with hypoxia or hypercapnia (3) Autism Code(s): F84.0 - AUTISTIC DISORDER (4) Pneumonia Assessment/Plan: abx completed Code(s): J18.9 - PNEUMONIA, UNSPECIFIED ORGANISM (5) UTI (urinary tract infection) Code(s): N39.0 - URINARY TRACT INFECTION, SITE NOT SPECIFIED (6) Anoxic brain damage Code(s): G93.1 - ANOXIC BRAIN DAMAGE, NOT ELSEWHERE CLASSIFIED (7) Seizure Code(s): R56.9 - UNSPECIFIED CONVULSIONS
[2018-01-29] MEDS: SCOPOLAMINE HYDROBROMIDE 1 PATCH PATCH.TD72 TD SCH (18:30)
[2018-01-29] MEDS ORDERED: INSULIN (NOVOLOG) ASPART 100 UNITS/ML 10ML VIAL ONE (20:44)
[2018-01-29] MEDS: LORazepam 2 MG/ML SDV VIAL IVPUSH PRN (21:23)
[2018-01-30] MEDS ORDERED: PT OWN MED DRAWER 7, Y5N ONE ×3 (03:55→10:36)
[2018-01-30] MEDS: POLYETHYLENE GLYCOL 3350 119 GM BTL PO SCH (05:14)
[2018-01-30] MEDS: BACLOFEN 10 MG TABLET (FP) GT SCH (05:14)
[2018-01-30] MEDS: ALBUTEROL SO4 0.083% IH SOL 2.5 MG/3 ML VIAL.NEB. NEB SCH ×2 (07:15→11:12)
[2018-01-30] MEDS: BUDESONIDE 0.25 MG/2ML INH SUSP VIAL NEB SCH (07:15)
[2018-01-30] MEDS: ACETYLCYSTEINE 20% 200MG/ML 4 ML VIAL *FOR ORAL / INH USE ONLY NEB SCH ×2 (07:15→11:12)
[2018-01-30] MEDS: VALPROATE SODIUM 250 MG/5 ML LIQUID BULK BOTTLE PO SCH (10:46)
[2018-01-30] MEDS: RANITIDINE HCL 150 MG/10 ML UNIT-DOSE PEG SCH (10:46)
[2018-01-30] MEDS: levETIRAcetam 500 MG/5 ML ORAL SOLUTION (UNIT-DOSE CUPS) PEG SCH (10:46)
[2018-01-30] MEDS: LORazepam 2 MG/ML SDV VIAL IVPUSH PRN (10:47)
[2018-01-30] MEDS: HEPARIN NA (PORCINE) 5,000 UNITS/ML 1ML VIAL SQ SCH (10:50)
--- NOTE | 2018-01-30 11:05 | PN ---
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, Physician History of Present Illness: stable no new issues family in room plan is to transfer to alf - Current Medication List Current Medications: Active Medications Acetaminophen (Tylenol Oral Solution -) 650 mg PO Q6H PRN PRN Reason: Fever Or Pain 1-5 Last Admin: 01/26/18 21:08 Dose: 650 mg Acetylcysteine (Mucomyst 20 Oral / Inh Use Only*) 200 mg NEB RQID [facility] Last Admin: 01/30/18 07:15 Dose: 200 mg Albuterol Sulfate (Ventolin 0.083% Nebulizer Soln -) 1 amp NEB RQID [facility] Last Admin: 01/30/18 07:15 Dose: 1 amp Baclofen (Lioresal -) 10 mg GT TID [facility] Last Admin: 01/30/18 05:14 Dose: 10 mg Bisacodyl (Dulcolax Suppository -) 10 mg [place] PRN PRN PRN Reason: CONSTIPATION Last Admin: 01/27/18 10:33 Dose: 10 mg Budesonide (Pulmicort 0.25 Mg Nebulizer -) 1 amp NEB RBID [facility] Last Admin: 01/30/18 07:15 Dose: 1 amp Heparin Sodium (Porcine) (Heparin -) 5,000 unit SQ BID [facility] Last Admin: 01/29/18 21:04 Dose: 5,000 unit Levetiracetam (Keppra Oral Solution -) 1,500 mg PEG BID [facility] Last Admin: 01/29/18 21:04 Dose: 1,500 mg Lorazepam (Ativan Injection -) 1 mg IVPUSH Q6H PRN PRN Reason: AGITATION Last Admin: 01/29/18 21:23 Dose: 1 mg Nystatin/Triamcinolone Acetonide (Mycolog Ii Cream -) 1 applic TP BID [facility] Last Admin: 01/29/18 21:06 Dose: 1 applic Polyethylene Glycol (Miralax (For Daily Use) -) 17 gm PO TID [facility] Last Admin: 01/30/18 05:14 Dose: 17 gm Potassium Chloride (Potassium Chloride Oral Liquid) 40 meq PO BID [facility] Last Admin: 01/29/18 21:03 Dose: 40 meq Ranitidine HCl (Zantac Oral Solution -) 150 mg PEG BID [facility] Last Admin: 01/29/18 21:04 Dose: 150 mg Scopolamine HBr (Transderm-Scop -) 1 patch TD Q72H [facility] Last Admin: 01/29/18 18:30 Dose: 1 patch Valproate Sodium (Depakene Oral Solution -) 1,000 mg PO BID [facility] Last Admin: 01/29/18 21:04 Dose: 1,000 mg - Objective Vital Signs: Vital Signs Temperature 97.5 F L 01/30/18 05:53 Pulse Rate 96 H 01/30/18 05:53 Respiratory Rate 18 01/30/18 05:53 Blood Pressure 120/78 01/30/18 05:53 O2 Sat by Pulse Oximetry (%) 98 01/29/18 22:00 Constitutional: Yes: No Distress, Calm Cardiovascular: Yes: Regular Rate and Rhythm Respiratory: Yes: Regular, CTA Bilaterally Gastrointestinal: Yes: Normal Bowel Sounds, Soft, Other (peg in place) Musculoskeletal: Yes: WNL Extremities: Yes: WNL Neurological: Yes: Other Labs: CBC, BMP 01/27/18 06:44 01/24/18 06:00 INR, PTT INR 1.06 (0.83-1.09) 01/24/18 06:00 Assessment/Plan Problem List - Problems (1) Acute asthma exacerbation Code(s): J45.901 - UNSPECIFIED ASTHMA WITH (ACUTE) EXACERBATION Qualifiers: Asthma severity: unspecified severity Asthma persistence: unspecified Qualified Code(s): J45.901 - Unspecified asthma with (acute) exacerbation (2) Respiratory failure Code(s): J96.90 - RESPIRATORY FAILURE, UNSP, UNSP W HYPOXIA OR HYPERCAPNIA Qualifiers: Chronicity: unspecified Respiratory failure complication: unspecified whether with hypoxia or hypercapnia Qualified Code(s): J96.90 - Respiratory failure, unspecified, unspecified whether with hypoxia or hypercapnia (3) Autism Code(s): F84.0 - AUTISTIC DISORDER (4) Lactic acidosis Code(s): E87.2 - ACIDOSIS (5) Tachycardia Code(s): R00.0 - TACHYCARDIA, UNSPECIFIED (6) URI (upper respiratory infection) Code(s): J06.9 - ACUTE UPPER RESPIRATORY INFECTION, UNSPECIFIED uti asp pna anoxic brain injury plan stable off abx continue nutrition rest as per the team aspiration precautions
[2018-01-30] MEDS: POTASSIUM CHLORIDE ORAL LIQUID 20 MEQ/15 ML PO SCH (11:19)
--- NOTE | 2018-01-30 11:23 | PN ---
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 (short form) - Note 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: Resting in NAD on NC O2. Afebrile. No acute events overnight. Intake & Output 01/27/18 01/28/18 01/29/18 01/30/18 23:59 23:59 23:59 23:59 Intake Total 3903 175 6381 1050 Balance 2984 079 4494 1050 Last Vital Signs Temp Pulse Resp BP Pulse Ox 97.5 F L 96 H 18 120/78 98 01/30/18 05:53 01/30/18 05:53 01/30/18 05:53 01/30/18 05:53 01/29/18 22:00 Active Medications Acetaminophen (Tylenol Oral Solution -) 650 mg PO Q6H PRN PRN Reason: Fever Or Pain 1-5 Last Admin: 01/26/18 21:08 Dose: 650 mg Acetylcysteine (Mucomyst 20 Oral / Inh Use Only*) 200 mg NEB RQID [facility] Last Admin: 01/30/18 11:12 Dose: 200 mg Albuterol Sulfate (Ventolin 0.083% Nebulizer Soln -) 1 amp NEB RQID [facility] Last Admin: 01/30/18 11:12 Dose: 1 amp Baclofen (Lioresal -) 10 mg GT TID [facility] Last Admin: 01/30/18 05:14 Dose: 10 mg Bisacodyl (Dulcolax Suppository -) 10 mg [place] PRN PRN PRN Reason: CONSTIPATION Last Admin: 01/27/18 10:33 Dose: 10 mg Budesonide (Pulmicort 0.25 Mg Nebulizer -) 1 amp NEB RBID [facility] Last Admin: 01/30/18 07:15 Dose: 1 amp Heparin Sodium (Porcine) (Heparin -) 5,000 unit SQ BID [facility] Last Admin: 01/30/18 10:50 Dose: 5,000 unit Levetiracetam (Keppra Oral Solution -) 1,500 mg PEG BID [facility] Last Admin: 01/30/18 10:46 Dose: 1,500 mg Lorazepam (Ativan Injection -) 1 mg IVPUSH Q6H PRN PRN Reason: AGITATION Last Admin: 01/30/18 10:47 Dose: 1 mg Nystatin/Triamcinolone Acetonide (Mycolog Ii Cream -) 1 applic TP BID [facility] Last Admin: 01/29/18 21:06 Dose: 1 applic Polyethylene Glycol (Miralax (For Daily Use) -) 17 gm PO TID [facility] Last Admin: 01/30/18 05:14 Dose: 17 gm Potassium Chloride (Potassium Chloride Oral Liquid) 40 meq PO BID [facility] Last Admin: 01/30/18 11:19 Dose: Not Given Ranitidine HCl (Zantac Oral Solution -) 150 mg PEG BID [facility] Last Admin: 01/30/18 10:46 Dose: 150 mg Scopolamine HBr (Transderm-Scop -) 1 patch TD Q72H [facility] Last Admin: 01/29/18 18:30 Dose: 1 patch Valproate Sodium (Depakene Oral Solution -) 1,000 mg PO BID [facility] Last Admin: 01/30/18 10:46 Dose: 1,000 mg Constitutional: Yes: NAD Eyes: Yes: WNL HENT: Yes: WNL Neck: Yes: WNL Cardiovascular: Yes: Regular Rate and Rhythm, S1, S2 Respiratory: Yes: Diminished at the bases, scattered rhonchi Gastrointestinal: Yes: Normal Bowel Sounds, Soft Extremities: Yes: WNL Edema: No Labs: Problem List - Problems (1) Acute asthma exacerbation Code(s): J45.901 - UNSPECIFIED ASTHMA WITH (ACUTE) EXACERBATION Qualifiers: Asthma severity: unspecified severity Asthma persistence: unspecified Qualified Code(s): J45.901 - Unspecified asthma with (acute) exacerbation (2) Anoxic brain damage Code(s): G93.1 - ANOXIC BRAIN DAMAGE, NOT ELSEWHERE CLASSIFIED (3) Respiratory failure Code(s): J96.90 - RESPIRATORY FAILURE, UNSP, UNSP W HYPOXIA OR HYPERCAPNIA Qualifiers: Chronicity: unspecified Respiratory failure complication: unspecified whether with hypoxia or hypercapnia Qualified Code(s): J96.90 - Respiratory failure, unspecified, unspecified whether with hypoxia or hypercapnia (4) Status asthmaticus Code(s): J45.902 - UNSPECIFIED ASTHMA WITH STATUS ASTHMATICUS Qualifiers: Asthma severity: unspecified severity Asthma persistence: unspecified Qualified Code(s): J45.902 - Unspecified asthma with status asthmaticus (5) Autism Code(s): F84.0 - AUTISTIC DISORDER (6) Tachycardia Code(s): R00.0 - TACHYCARDIA, UNSPECIFIED Assessment/Plan Acute Hypoxic and Hypercapneic Respiratory Failure improved Anoxic Encephalopathy r/o Seizures Status Asthmaticus resolved Pneumonia likely Aspiration Shock resolved UTI Lactic Acidosis resolved Acute Kidney Injury resolved Hyperglycemia resolved Autism Inhaled bronchodilators ICS Aspiration precautions AEDs DVT/GI prophylaxis Nutritional support D/C planning Dr Martinez
[2018-01-30 12:10] VITALS: BP 150/64; PULSE 97; TEMP 97.7
--- NOTE | 2018-01-30 16:03 | DS ---
Physical Examination Vital Signs: Vital Signs Temperature 97.7 F 01/30/18 10:00 Pulse Rate 97 H 01/30/18 10:00 Respiratory Rate 20 01/30/18 10:00 Blood Pressure 150/64 01/30/18 10:00 O2 Sat by Pulse Oximetry (%) 98 01/30/18 10:00 Constitutional: Yes: No Distress HENT: Yes: Atraumatic Neck: Yes: Supple Cardiovascular: Yes: Regular Rate and Rhythm Respiratory: Yes: Rhonchi Gastrointestinal: Yes: Normal Bowel Sounds Extremities: Yes: WNL Labs: CBC, BMP 01/27/18 06:44 01/24/18 06:00 Discharge Summary Reason For Visit: ASTHMA W/STATUS ASTHMATICUS, RESPIRATORY FAILURE Condition: Critical - Instructions Referrals: Leeroy Taylor [Primary Care Provider] - Disposition: [facility] - Home Medications Comprehensive Discharge Medication List: Ambulatory Orders Albuterol 2.5/Ipratropium 0.5 [Duoneb -] 1 neb NEB QIDR #100 vial 08/11/14 Budesonide [Pulmicort 0.5 mg Nebulizer -] 1 neb NEB BID #60 vial 01/20/16 Polyethylene Glycol 3350 [Miralax 119 gm Btl -] 17 gm PO DAILY 10/09/16 Acetylcysteine Po/INH 20% [Mucomyst 20 Oral / INH Use Only*] 200 mg NEB RQID vial 01/27/18 Albuterol 0.083% Nebulizer [place] [Ventolin 0.083% Nebulizer Soln -] 1 amp NEB RQID amp 01/27/18 Baclofen [Lioresal -] 10 mg GT TID tablet 01/27/18 Bisacodyl Suppository [Dulcolax Suppository -] 10 mg [place] PRN PRN supp.rect 01/27 Budesonide [Pulmicort 0.25 mg Nebulizer -] 1 amp NEB RBID amp 01/27/18 Heparin - 5,000 unit SQ BID vial 01/27/18 Nystatin/Triamcinolone Top Cr [Mycolog II -] 1 applic TP BID applic 01/27/18 Pantoprazole Sodium [Protonix IV] 40 mg IVPUSH DAILY vial 01/27/18 Polyethylene Glycol 3350 [Miralax 119 gm Btl -] 17 gm PO TID bottle 01/27/18 Potassium Chloride [Potassium Chloride Oral Liquid] 40 meq PO BID cup 01/27/18 Scopolamine Hydrobromide [Transderm-Scop -] 1 patch TD Q72H patch.td72 Valproate Sodium Liquid [Depakene Oral Solution -] 1,000 mg PO BID ml 01/27/18 levETIRAcetam [Keppra Oral Solution -] 1,500 mg PEG BID cup 01/27/18 dc snf
== END 2018-01-30 13:07 | DRG 208 ==
LOC: JER 07:21 → JERBED 10:06 → JICU 11:24 → J4W 01-10 18:57 → J5S 01-12 14:28 → J4W 01-13 02:38 → J4S 01-13 16:11
PROVIDERS: ADMIT Internal Medicine; ATTEND Internal Medicine
PROC: 5A1945Z Respiratory Ventilation, 24-96 Consecutive Hours (ICD-10-PCS; principal; 2017-12-31)
PROC: 0BH17EZ Insertion of Endotracheal Airway into Trachea, Via Natural or Artificial Opening (ICD-10-PCS; 2017-12-31)
PROC: 0DH63UZ Insertion of Feeding Device into Stomach, Percutaneous Approach (ICD-10-PCS; 2018-01-24)
DX: J96.01 Acute respiratory failure with hypoxia (principal); J69.0 Pneumonitis due to inhalation of food and vomit; J45.901 Unspecified asthma with (acute) exacerbation; F84.0 Autistic disorder; G93.1 Anoxic brain damage, not elsewhere classified; J45.902 Unspecified asthma with status asthmaticus; N39.0 Urinary tract infection, site not specified; E87.2 Acidosis; N17.9 Acute kidney failure, unspecified; R57.9 Shock, unspecified; R64 Cachexia; Z68.1 Body mass index [BMI] 19.9 or less, adult; R00.0 Tachycardia, unspecified; J06.9 Acute upper respiratory infection, unspecified; R56.9 Unspecified convulsions; J96.02 Acute respiratory failure with hypercapnia; K59.00 Constipation, unspecified; B96.20 Unspecified Escherichia coli [E. coli] as the cause of diseases classified elsewhere; J32.9 Chronic sinusitis, unspecified; D72.829 Elevated white blood cell count, unspecified; D64.9 Anemia, unspecified; R73.9 Hyperglycemia, unspecified; I95.9 Hypotension, unspecified; K56.41 Fecal impaction
CPT/HCPCS: 36415; 36600; 70450-TC; 70551-TC; 71045-TC-FY; 74018-TC-FY; 80048; 80053; 81003; 81015; 82040; 82375; 82550; 82553; 82803; 82962; 83036; 83050; 83605; 83735; 84100; 84484; 84703; 85025; 85027; 85610; 87040; 87070; 87086; 87186; 87205; 87324; 87449; 87899; 93005; 93010; 94640; 95816; 97162-GP; 99285-25; G0480; J0131; J0475; J1644; J7030; J7620